=== PATIENT | female | born 1950 | race Caucasian/White ===

== ENCOUNTER 2016-09-11 12:45 | Inpatient (IN) | payer MEDICARE ==
[2016-09-11] MEDS ORDERED: NS 0.9% 1000 ML* 1,000 ML IV ONE (13:10)
[2016-09-11] MEDS ORDERED: Piperac/Tazob 3.375 gm in NS* 3.375 GM/100 ML BAG IVPB ONE ×2 (13:11→14:00)
[2016-09-11 13:25] LABS: Hematocrit 27 % (35-47); Hemoglobin 8.9 g/dl (12.0-16.0); Mean Corpuscular HGB Conc 33 g/dl (31-36); Mean Corpuscular Hemoglobin 31 pg (27-31); Mean Corpuscular Volume 94 fL (80-97); Mean Platelet Volume 9 um3 (7.4-10.4); Red Blood Count 2.91 10^6/ul (4.0-5.4); Red Cell Distribution Width 19 % (10.5-15); White Blood Count 23.3 10^3/ul (3.5-10.8)
[2016-09-11 13:26] LABS: Add Diff/Slide Review? Slide Review Added; Comments Flag Yes
[2016-09-11 13:39] LABS: Albumin 2.5 g/dL (3.2-5.2); BUN/Creatinine Ratio 11.1 (8-20); Calcium 8.4 mg/dL (8.6-10.3); EGFR African American 80.8 (>60); EGFR Non-African American 62.8 (>60); Globulin 3.8 g/dL (2-4); Potassium 2.9 mmol/L (3.5-5.0); Total Bilirubin 0.7 mg/dL (0.2-1.0); Total Protein 6.3 g/dL (6.4-8.9)
--- NOTE | 2016-09-11 13:39 | RAD ---
INDICATION: Shortness of breath. COMPARISON: Comparison is made with a prior chest x-ray study from June 17, 2015. TECHNIQUE: A portable view of the chest was obtained. FINDINGS: There is a multilead transvenous pacemaker present. The heart appears mildly enlarged and increased in size from the prior study. There are bibasilar infiltrates left greater than right which are new. There is suggestion of a trace right pleural effusion. The left lung base is partially obscured due to the infiltrate and overlying pacemaker. IMPRESSION: 1. MILD CARDIOMEGALY. 2. BIBASILAR INFILTRATES.
[2016-09-11 13:40] LABS: Troponin I 0.03 ng/mL (<0.04)
[2016-09-11] MEDS ORDERED: Iohexol 350* (CONTRAST) 500 ML MDV IV ONE (13:46)
[2016-09-11] MEDS ORDERED: metroNIDAZOLE TAB* 250 MG PO ONE (13:49)
[2016-09-11] MEDS ORDERED: Potassium Chlor TAB* 20 MEQ TAB.ER PO ONE (14:03)
[2016-09-11] MEDS ORDERED: metroNIDAZOLE TAB* 250 MG ONE (14:19)
[2016-09-11] MEDS ORDERED: Potassium Chloride LIQUID* 20 MEQ PACKET ONE (14:19)
--- NOTE | 2016-09-11 14:20 | RAD ---
HISTORY: Unsteadiness COMPARISONS: May 27, 2015 TECHNIQUE: Multiple contiguous axial CT scans were obtained of the head without intravenous contrast. FINDINGS: HEMORRHAGE/INFARCT: There is no hemorrhage or acute infarct. MASSES/SHIFT: There is no mass or shift. EXTRA-AXIAL SPACES: There are no extra-axial fluid collections. SULCI AND VENTRICLES: The sulci and ventricles are normal in size and position for the patient's stated age. CEREBRUM: There are no focal parenchymal abnormalities. BRAINSTEM: There are no focal parenchymal abnormalities. CEREBELLUM: There are no focal parenchymal abnormalities. VESSELS: The vessels are grossly normal. PARANASAL SINUSES: The paranasal sinuses are clear. ORBITS: The orbits are unremarkable. BONES AND SOFT TISSUE: No bone or soft tissue abnormalities are noted. OTHER: None IMPRESSION: NO ACUTE INTRACRANIAL PATHOLOGY.
[2016-09-11] MEDS ORDERED: Potassium Chloride LIQUID* 20 MEQ PACKET PO ONE (14:22)
--- NOTE | 2016-09-11 14:42 | RAD ---
Indication: Shortness of breath, evaluate for pulmonary embolism. Contrast: Administered 58.0 ml of OMNIPAQUE 350 mg/ml CTA of the chest was performed after IV contrast administration. Coronal and sagittal reconstructed images were obtained. Comparison is made with previous exam dated September 06, 2016. The pulmonary arterial tree is well opacified. There are no filling defects present to suggest pulmonary embolus. Aorta demonstrates no evidence of aortic dissection. The pulmonary arterial tree is well opacified. No definite filling defect is present to suggest pulmonary emboli although there is encasement of multiple pulmonary arteries in the left lower lobe from from airspace disease. Extent of this is unchanged from prior exam. Left infrahilar mass with air bronchograms noted in the left lower lobe. Additional consolidation is noted in the right lower lobe which appears to be similar to that on previous exam. There is increasing airspace disease in the left upper lobe consistent with worsening pneumonia. The heart demonstrates no pericardial effusion. Patient has had colonic pull-through with resection of the esophagus. The colon is within the anterior mediastinum. Low density lesion is noted in the left lobe of liver. This is unchanged from September 06, 2016. IMPRESSION: No definite evidence of pulmonary embolus. Consolidative changes are noted in the left lower lobe and right lower lobe. Although this may represent pneumonia underlying neoplastic process is excluded. Increasing airspace disease is noted in the left upper lobe consistent with worsening pneumonia. Patient has had colonic pull-through with the colon in the anterior mediastinum.
[2016-09-11] MEDS: oxyCODONE TAB* 5 MG TAB PO PRN ×3 (16:35→23:29)
[2016-09-11] MEDS: Enoxaparin(*) 40 MG/0.4 ML SYR SUBCUT SCH (17:43)
[2016-09-11] MEDS: Piperac/Tazob 3.375 gm in NS* 3.375 GM/100 ML BAG IVPB SCH (18:25)
[2016-09-11 19:20] LABS: BUN/Creatinine Ratio 12.7 (8-20); Calcium 7.6 mg/dL (8.6-10.3); EGFR African American 93.9 (>60)
[2016-09-11] MEDS: Carvedilol TAB* 3.125 MG PO SCH (20:21)
[2016-09-11] MEDS: KCL 20 MEQ/100 ML IVPREMIX* 20 MEQ/100 ML BAG IV SCH ×2 (20:27→22:35)
[2016-09-11] MEDS: OLANzapine TAB* 5 MG PO SCH (20:27)
[2016-09-11] MEDS ORDERED: Gabapentin CAP(*) 300 MG PO SCH (21:00)
[2016-09-11] MEDS: Acetaminophen TAB* 325 MG PO SCH (21:10)
--- NOTE | 2016-09-11 21:33 | HP ---
ADMISSION HISTORY AND PHYSICAL: DATE OF ADMISSION: 09/11/16 REASON FOR ADMISSION: Persistent pneumonia and electrolyte abnormalities.. HISTORY OF PRESENT ILLNESS: The patient is a 66-year-old white female with a history of lung CA, esophageal CA, and cardiomyopathy, who is s/p esophagogastrectomy with colonic interposition, lung resectional surgery, and cardiac pacemaker placement. She was recently diagnosed with a community- acquired pneumonia (by her primary care physician, Dr. Tran Jc) and was placed on levofloxacin and metronidazole. She developed dizziness this AM (not orthostatic) and came to the ED, where she was given IV hydration, with resolution of the dizziness. CT scan of the chest in the ED revealed an area of opacification at the left lung base consistent with a pneumonia and/or volume loss (which is largely unchanged from a CT scan 5 days ago). White blood count was 23,000, although the patient was afebrile. Additional abnormalities in the ED included a serum potassium of 2.9 and a serum albumin of 2.5. Serum lactate was 1.5. The patient denies recent cough, sputum production, or chest pain, but does claim shortness of breath on climbing 1 flight of stairs. OUTPATIENT MEDICATIONS: 1. Levofloxacin (500 mg p.o. daily). 2. Metronidazole (500 mg p.o. t.i.d.). 3. Oxycodone (30 mg p.o. q.3 hours p.r.n. pain). 4. Gabapentin (300 mg p.o. t.i.d.). 5. Carvedilol (3.125 mg p.o. b.i.d.). 6. Lamotrigine (200 mg p.o. q.a.m.). 7. Olanzapine (5 mg p.o. daily). ALLERGIES: The patient has several apparent drug allergies includin. FENTANYL (causes hallucination). 2. POLYMYXIN B (swollen red eyes). 3. BACITRACIN (unknown reaction). 4. CEPHALEXIN (unknown reaction). 5. NEOMYCIN (unknown reaction). 6. ASPARTAME (headaches). REVIEW OF SYSTEMS: Noncontributory. PHYSICAL EXAMINATION GENERAL: The patient was sitting up in bed and appeared comfortable. VITAL SIGNS: Temperature 96.8 (temporal), blood pressure 112/70, heart rate 96 and regular, respirations 30, O2 sat 96% on nasal O2. HEENT: Oropharynx clear. No facial asymmetry. NECK: No masses or jugular venous distention. THORAX: Diminished breath sounds at the left base. Occasional coarse rhonchus. CARDIAC: No murmurs, rubs, or gallops. ABDOMEN: Not distended. Bowel sounds hypoactive. EXTREMITIES: Warm. No cyanosis or edema. ADMISSION LABORATORY DATA: Significant for a sodium of 129, potassium 2.9, albumin 2.5, and white count of 23.3. Chest x-ray showed an opacification at the left base. EKG showed a ventricular-paced rhythm. OVERALL IMPRESSION: Elevated white count is concerning and suggests a possibility that pneumonia is only partially treated and CT scan of the chest suggests continued consolidation at the left base. Dizziness on the morning of admission could have been dehydration (because it resolved after IV fluids), and it is possible that hypokalemia contributed to the symptomatology. MANAGEMENT PLAN: Will admit the patient and broaden antibiotic coverage, and will replace potassium and check for magnesium depletion as well. Case discussed with Dr. Jc by phone, and she agrees to management plan. CRITICAL CARE TIME: 60 minutes. [id number]/CPS #: [id number] ALECIA
[2016-09-12] MEDS: Piperac/Tazob 3.375 gm in NS* 3.375 GM/100 ML BAG IVPB SCH ×3 (02:32→17:10)
[2016-09-12] MEDS: oxyCODONE TAB* 5 MG TAB PO PRN ×7 (02:32→23:41)
[2016-09-12] MEDS: Acetaminophen TAB* 325 MG PO SCH ×3 (05:40→21:46)
[2016-09-12] MEDS: Gabapentin CAP(*) 300 MG PO SCH ×3 (06:23→21:46)
[2016-09-12 06:49] LABS: Hematocrit 22 % (35-47); Hemoglobin 7.2 g/dl (12.0-16.0); Mean Corpuscular HGB Conc 33 g/dl (31-36); Mean Corpuscular Hemoglobin 31 pg (27-31); Mean Corpuscular Volume 94 fL (80-97); Mean Platelet Volume 9 um3 (7.4-10.4); Red Blood Count 2.32 10^6/ul (4.0-5.4); Red Cell Distribution Width 19 % (10.5-15); White Blood Count 10.5 10^3/ul (3.5-10.8)
[2016-09-12 06:57] LABS: Urine Bacteria 1+ (Absent); Urine Bilirubin Negative (Negative); Urine Glucose Negative (Negative); Urine Nitrite Negative (Negative)
[2016-09-12 07:04] LABS: Albumin 2.1 g/dL (3.2-5.2); BUN/Creatinine Ratio 12.2 (8-20); Calcium 7.9 mg/dL (8.6-10.3); Magnesium 1.2 mg/dL (1.9-2.7); Potassium 3.6 mmol/L (3.5-5.0); Total Bilirubin 0.4 mg/dL (0.2-1.0); Total Protein 5.1 g/dL (6.4-8.9)
[2016-09-12] MEDS: lamoTRIgine TAB(*) 100 MG PO SCH (09:00)
[2016-09-12] MEDS ORDERED: Magnesium Sulfate 4 GM IV IVPB ONE (09:00)
[2016-09-12] MEDS: Carvedilol TAB* 3.125 MG PO SCH ×2 (09:51→20:36)
[2016-09-12 10:00] LABS: Phosphorus 2.7 mg/dL (2.5-5.0)
[2016-09-12] MEDS: metroNIDAZOLE TAB* 250 MG PO SCH ×3 (10:39→20:37)
[2016-09-12] MEDS: Nystatin SUSPENSION* 100000 UNITS/ML 5 ML UDC SWISH SWAL SCH ×4 (10:39→20:40)
[2016-09-12] MEDS: Enoxaparin(*) 40 MG/0.4 ML SYR SUBCUT SCH (17:01)
[2016-09-12] MEDS: OLANzapine TAB* 5 MG PO SCH (20:38)
[2016-09-13] MEDS: Piperac/Tazob 3.375 gm in NS* 3.375 GM/100 ML BAG IVPB SCH ×3 (01:38→18:43)
[2016-09-13] MEDS: oxyCODONE TAB* 5 MG TAB PO PRN ×2 (04:26→12:41)
[2016-09-13] MEDS: Acetaminophen TAB* 325 MG PO SCH ×3 (05:44→21:55)
[2016-09-13] MEDS: Gabapentin CAP(*) 300 MG PO SCH ×3 (05:45→21:55)
[2016-09-13 07:34] LABS: Hematocrit 28 % (35-47); Hemoglobin 9.1 g/dl (12.0-16.0); Mean Corpuscular HGB Conc 33 g/dl (31-36); Mean Corpuscular Hemoglobin 30 pg (27-31); Mean Corpuscular Volume 90 fL (80-97); Mean Platelet Volume 9 um3 (7.4-10.4); Red Blood Count 3.06 10^6/ul (4.0-5.4); Red Cell Distribution Width 19 % (10.5-15)
[2016-09-13 07:43] LABS: Albumin 2.2 g/dL (3.2-5.2); BUN/Creatinine Ratio 8.5 (8-20); C Reactive Protein 122.58 mg/L (< 5.00); Calcium 8.1 mg/dL (8.6-10.3); EGFR African American 106.3 (>60); EGFR Non-African American 82.6 (>60); Globulin 3.2 g/dL (2-4); Magnesium 1.5 mg/dL (1.9-2.7); Phosphorus 2.3 mg/dL (2.5-5.0); Potassium 3.3 mmol/L (3.5-5.0); Total Bilirubin 0.5 mg/dL (0.2-1.0); Total Protein 5.4 g/dL (6.4-8.9)
[2016-09-13] MEDS: Nystatin SUSPENSION* 100000 UNITS/ML 5 ML UDC SWISH SWAL SCH ×4 (10:28→21:56)
[2016-09-13] MEDS: metroNIDAZOLE TAB* 250 MG PO SCH ×3 (10:28→20:27)
[2016-09-13] MEDS: Carvedilol TAB* 3.125 MG PO SCH ×2 (10:28→20:28)
[2016-09-13] MEDS: lamoTRIgine TAB(*) 100 MG PO SCH (10:28)
[2016-09-13] MEDS ORDERED: Magnesium Sulfate 4 GM IV IVPB ONE (12:00)
[2016-09-13] MEDS: KCL 20 MEQ/100 ML IVPREMIX* 20 MEQ/100 ML BAG IV SCH ×3 (13:28→20:23)
[2016-09-13] MEDS: Enoxaparin(*) 40 MG/0.4 ML SYR SUBCUT SCH (16:34)
[2016-09-13] MEDS: oxyCODONE TAB* 5 MG TAB PO SCH ×3 (16:35→22:09)
[2016-09-13] MEDS: OLANzapine TAB* 5 MG PO SCH (20:38)
[2016-09-14] MEDS: oxyCODONE TAB* 5 MG TAB PO SCH ×8 (02:13→21:14)
[2016-09-14] MEDS: Piperac/Tazob 3.375 gm in NS* 3.375 GM/100 ML BAG IVPB SCH ×3 (02:16→17:34)
[2016-09-14 05:51] LABS: Hematocrit 27 % (35-47); Hemoglobin 8.9 g/dl (12.0-16.0); Mean Corpuscular HGB Conc 33 g/dl (31-36); Mean Corpuscular Hemoglobin 30 pg (27-31); Mean Corpuscular Volume 91 fL (80-97); Mean Platelet Volume 9 um3 (7.4-10.4); Red Blood Count 3.01 10^6/ul (4.0-5.4); Red Cell Distribution Width 19 % (10.5-15); White Blood Count 16.2 10^3/ul (3.5-10.8)
[2016-09-14 06:03] LABS: Albumin 2.1 g/dL (3.2-5.2); BUN/Creatinine Ratio 7.9 (8-20); C Reactive Protein 154.21 mg/L (< 5.00); Calcium 7.9 mg/dL (8.6-10.3); EGFR Non-African American 94.8 (>60); Globulin 3.3 g/dL (2-4); Magnesium 1.8 mg/dL (1.9-2.7); Phosphorus 2.1 mg/dL (2.5-5.0); Potassium 3.9 mmol/L (3.5-5.0); Total Bilirubin 0.6 mg/dL (0.2-1.0); Total Protein 5.4 g/dL (6.4-8.9)
[2016-09-14] MEDS: lamoTRIgine TAB(*) 100 MG PO SCH (08:06)
[2016-09-14] MEDS: Gabapentin CAP(*) 300 MG PO SCH ×3 (08:06→21:13)
[2016-09-14] MEDS: Acetaminophen TAB* 325 MG PO SCH ×3 (08:06→21:12)
[2016-09-14] MEDS: Nystatin SUSPENSION* 100000 UNITS/ML 5 ML UDC SWISH SWAL SCH ×4 (08:07→21:16)
[2016-09-14] MEDS: metroNIDAZOLE TAB* 250 MG PO SCH ×3 (08:07→21:10)
[2016-09-14] MEDS: Carvedilol TAB* 3.125 MG PO SCH ×2 (08:07→21:11)
--- NOTE | 2016-09-14 10:18 | RAD ---
Indication: Pneumonia. 2 views of the chest including dual energy PA views demonstrates pacemaker leads in place. Left upper lobe and right basilar airspace disease is noted consistent with pneumonia. This appears to BE increased when compared to previous exam of September 11, 2016. IMPRESSION: Worsening left upper lobe and right basilar airspace disease consistent with worsening pneumonia.
[2016-09-14] MEDS ORDERED: MAGNESIUM SULFATE IV ONE (11:00)
[2016-09-14] MEDS ORDERED: NS 0.9% 1000 ML* 1,000 ML IV ONE (12:15)
[2016-09-14] MEDS: Potassium & Sodium Phos 250MG* = 1 PACKET PO SCH ×2 (14:52→21:09)
[2016-09-14] MEDS: Enoxaparin(*) 40 MG/0.4 ML SYR SUBCUT SCH (17:35)
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
[2016-09-14] MEDS: OLANzapine TAB* 5 MG PO SCH (21:11)
[2016-09-15] MEDS: oxyCODONE TAB* 5 MG TAB PO SCH ×8 (00:39→21:22)
[2016-09-15] MEDS: Piperac/Tazob 3.375 gm in NS* 3.375 GM/100 ML BAG IVPB SCH ×3 (03:20→17:54)
[2016-09-15 05:39] LABS: Hematocrit 26 % (35-47); Hemoglobin 8.6 g/dl (12.0-16.0); Mean Corpuscular HGB Conc 33 g/dl (31-36); Mean Corpuscular Hemoglobin 30 pg (27-31); Mean Corpuscular Volume 92 fL (80-97); Mean Platelet Volume 9 um3 (7.4-10.4); Red Blood Count 2.88 10^6/ul (4.0-5.4); Red Cell Distribution Width 19 % (10.5-15); White Blood Count 17.9 10^3/ul (3.5-10.8)
[2016-09-15 05:51] LABS: BUN/Creatinine Ratio 11.3 (8-20); C Reactive Protein 164.25 mg/L (< 5.00); Calcium 7.8 mg/dL (8.6-10.3); EGFR African American 124.2 (>60); EGFR Non-African American 96.6 (>60); Magnesium 1.6 mg/dL (1.9-2.7); Potassium 3.6 mmol/L (3.5-5.0)
[2016-09-15] MEDS: Gabapentin CAP(*) 300 MG PO SCH ×3 (07:26→21:22)
[2016-09-15] MEDS: Acetaminophen TAB* 325 MG PO SCH ×3 (07:26→21:22)
[2016-09-15] MEDS: metroNIDAZOLE TAB* 250 MG PO SCH ×3 (08:06→21:21)
[2016-09-15] MEDS: Potassium & Sodium Phos 250MG* = 1 PACKET PO SCH ×3 (08:06→21:22)
[2016-09-15] MEDS: Carvedilol TAB* 3.125 MG PO SCH ×2 (08:06→21:20)
[2016-09-15] MEDS: Nystatin SUSPENSION* 100000 UNITS/ML 5 ML UDC SWISH SWAL SCH ×4 (08:06→21:21)
[2016-09-15] MEDS: lamoTRIgine TAB(*) 100 MG PO SCH (08:06)
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
[2016-09-15] MEDS ORDERED: Vancomycin(*) 1,250 MG in NS 0.9% 250 ML* 250 ML IVPB SCH (11:30)
[2016-09-15] MEDS ORDERED: Magnesium Sulfate 2 GM IV* 2 GM/50 ML BAG IVPB ONE (11:34)
[2016-09-15] MEDS ORDERED: Vancomycin per Pharmacy* NOTE FOLLOW UP PRN (11:44)
--- NOTE | 2016-09-15 12:56 | RAD ---
INDICATION: Pneumonia with worsening symptoms. Cardiac disease. History of breast and lung carcinoma. COMPARISON: September 14, 2016 chest radiograph and September 11, 2016 CT. TECHNIQUE: Multidetector CT images were obtained from the lung apices to the upper abdomen. Evaluation of the viscera is limited without IV contrast. REPORT: Patchy airspace consolidation throughout both lungs with significant worsening compared with the September 11, 2016 exam. Confluent consolidation at the LEFT upper lobe at the LEFT lung base with air bronchograms with position of the long reflecting sequela of previous LEFT lower lobe resection. Rounded focus of consolidation at the posterior lateral basal segments of the RIGHT lower lobe is most consistent with rounded atelectasis. LEFT larger than RIGHT small pleural effusions. 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 No thoracic lymphadenopathy visualized with assessment limited without IV contrast. Upper normal heart size with the colonic interposition resulting in posterior displacement on the middle mediastinal contents. RIGHT atrial, RIGHT ventricular, and coronary sinus level pacemaker leads. Negative for pericardial effusion. Unremarkable images through the upper abdomen. Moderate superior endplate anterior column compression fracture of T11 and mild anterior compression fracture of T7 are chronic. No suspicious focal osseous lesions evident. IMPRESSION: Interval worsening of bilateral pulmonary inflammatory infiltrates/bronchopneumonia compared with the recent CT exam of September 11, 2016. No significant change in LEFT larger than RIGHT small associated pleural effusions.
[2016-09-15] MEDS: Enoxaparin(*) 40 MG/0.4 ML SYR SUBCUT SCH (17:54)
[2016-09-15] MEDS: OLANzapine TAB* 5 MG PO SCH (21:21)
[2016-09-15] MEDS: Vancomycin(*) 1,000 MG in NS 0.9% 250 ML* 250 ML IVPB SCH (22:32)
[2016-09-16] MEDS: Piperac/Tazob 3.375 gm in NS* 3.375 GM/100 ML BAG IVPB SCH ×3 (01:00→18:20)
[2016-09-16] MEDS: oxyCODONE TAB* 5 MG TAB PO SCH ×7 (01:02→20:46)
[2016-09-16] MEDS: Acetaminophen TAB* 325 MG PO SCH ×2 (06:18→13:28)
[2016-09-16] MEDS: Gabapentin CAP(*) 300 MG PO SCH ×2 (06:18→13:29)
[2016-09-16] MEDS: Vancomycin(*) 1,000 MG in NS 0.9% 250 ML* 250 ML IVPB SCH ×2 (06:30→15:10)
[2016-09-16 07:38] LABS: BUN/Creatinine Ratio 9.5 (8-20); C Reactive Protein 182.87 mg/L (< 5.00); Calcium 8.4 mg/dL (8.6-10.3); EGFR Non-African American 94.8 (>60); Potassium 3.6 mmol/L (3.5-5.0)
[2016-09-16] MEDS: Potassium & Sodium Phos 250MG* = 1 PACKET PO SCH ×3 (07:48→20:50)
[2016-09-16] MEDS: Carvedilol TAB* 3.125 MG PO SCH ×2 (07:49→20:50)
[2016-09-16] MEDS: metroNIDAZOLE TAB* 250 MG PO SCH ×3 (07:49→20:50)
[2016-09-16] MEDS: lamoTRIgine TAB(*) 100 MG PO SCH (07:49)
[2016-09-16] MEDS: Nystatin SUSPENSION* 100000 UNITS/ML 5 ML UDC SWISH SWAL SCH ×4 (07:49→20:50)
[2016-09-16 08:45] LABS: Hematocrit 29 % (35-47); Hemoglobin 9.1 g/dl (12.0-16.0); Mean Corpuscular HGB Conc 32 g/dl (31-36); Mean Corpuscular Hemoglobin 29 pg (27-31); Mean Corpuscular Volume 92 fL (80-97); Mean Platelet Volume 9 um3 (7.4-10.4); Red Cell Distribution Width 18 % (10.5-15); White Blood Count 17.4 10^3/ul (3.5-10.8)
--- NOTE | 2016-09-16 11:38 | PN ---
Subjective - Subjective Reason for Note: Progress Note History: She has had more dyspnea today, no worsening coughing. She had a fever in the night. She continues to have pain in the region of the sacral decubitus ulcer. She is fully alert and oriented and can give a good account of herself. 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 Current Medications: Current Medications Acetaminophen (Tylenol Tab*) 975 mg PO Q8HR [facility] Last Admin: 09/16/16 06:18 Dose: 975 mg Carvedilol (Coreg Tab*) 3.125 mg PO BID [facility] Last Admin: 09/16/16 07:49 Dose: 3.125 mg Enoxaparin Sodium (Lovenox(*)) 40 mg SUBCUT Q24H [facility] Last Admin: 09/15/16 17:54 Dose: 40 mg Gabapentin (Neurontin Cap(*)) 300 mg PO Q8HR [facility] Last Admin: 09/16/16 06:18 Dose: 300 mg Piperacillin Sod/Tazobactam Sod (Zosyn 3.375 Gm In Ns Premix*) 3.375 gm in 100 mls @ 25 mls/hr IVPB Q8H [facility] Last Admin: 09/16/16 09:42 Dose: 25 mls/hr Vancomycin HCl 1,000 mg/ (Sodium Chloride) 250 mls @ 166.667 mls/hr IVPB Q8H [facility] Last Admin: 09/16/16 06:30 Dose: 166.667 mls/hr Lamotrigine (Lamictal Tab(*)) 200 mg PO QAM [facility] Last Admin: 09/16/16 07:49 Dose: 200 mg Metronidazole (Flagyl Tab*) 500 mg PO TID [facility] Last Admin: 09/16/16 07:49 Dose: 500 mg Nystatin (Nystatin Suspension*) 500,000 units SWISH SWAL QID [facility] Last Admin: 09/16/16 07:49 Dose: 500,000 units Olanzapine (Zyprexa Tab*) 5 mg PO BEDTIME [facility] Last Admin: 09/15/16 21:21 Dose: 5 mg Oxycodone HCl (Roxycodone Tab*) 30 mg PO Q3H [facility] Last Admin: 09/16/16 09:51 Dose: Not Given Pharmacy Consult (Vancomycin Per Pharmacy*) 1 note FOLLOW UP . PRN PRN Reason: PER PROTOCOL Pharmacy Profile Note (Vancomycin Trough Check) 1 note FOLLOW UP ONCE ONE Stop: 09/16/16 14:01 Potassium Phos/Sodium Phos (Neutra Phos 250 Mg Yuniel*) 250 mg PO TID [facility] Last Admin: 09/16/16 07:48 Dose: 250 mg Home Medications: Home Medications Medication Instructions Recorded Confirmed Type OLANzapine TAB* [ZyPREXA TAB*] 5 mg PO DAILY 03/03/14 09/11/16 History lamoTRIgine TAB(*) [Lamictal 200 mg PO QAM 03/03/14 09/11/16 History TAB(*)] oxyCODONE TAB* [Roxycodone TAB*] 30 mg PO Q3H PRN 03/03/14 09/11/16 History Bupropion XL (NF) [Wellbutrin XL 300 mg PO DAILY 09/11/16 09/11/16 History (NF)] Carvedilol TAB* [Coreg TAB*] 3.125 mg PO BID 09/11/16 09/11/16 History Cyanocobalamin INJ * [Vitamin B12 1,000 mcg IM SEE INSTRUCTIONS 09/11/16 History INJ *] Epinephrine [Epipen 2-Yuniel] 0.3 mg IM ONCE PRN 09/11/16 09/11/16 History Folic Acid TAB* [Folvite TAB*] 1 mg PO DAILY 09/11/16 09/11/16 History Gabapentin CAP(*) [Neurontin 300 300 mg PO TID 09/11/16 09/11/16 History CAP(*)] Levofloxacin TAB* [Levaquin TAB*] 500 mg PO DAILY 09/11/16 09/11/16 History Nystatin SUSPENSION* [Nystatin*] 5 ml SWISH SWAL QID 09/11/16 09/11/16 History Ondansetron TAB* [Zofran 4 MG Tab*] 8 mg PO Q8HR PRN 09/11/16 09/11/16 History Prochlorperazine TAB* [Compazine 10 mg PO Q6H PRN 09/11/16 09/11/16 History Tab*] metroNIDAZOLE TAB* [Flagyl 250 mg 500 mg PO TID 09/11/16 09/11/16 History TAB*] Allergies: Allergies Allergy/AdvReac Type Severity Reaction Status Date / Time Fentanyl Allergy Severe Hallucinati Verified 09/11/16 13:35 ons Aspartame Allergy Intermediate Headache Verified 09/11/16 13:35 Polymyxin B [From Neosporin] Allergy Intermediate Eyes Verified 09/11/16 13:35 Itchy/Swollen/Red/Watery Bacitracin [From Neosporin] Allergy Unknown Verified 09/11/16 13:35 Reaction Details Cephalexin [From Keflex] Allergy See Comment Verified 09/11/16 13:35 Neomycin [From Neosporin] Allergy Unknown Verified 09/11/16 13:35 Reaction Details Objective - Vital Signs Vital Signs: Vital Signs 09/15/16 09/15/16 09/15/16 12:52 12:55 14:55 Temperature Pulse Rate Respiratory 18 18 16 Rate Blood Pressure (mmHg) O2 Sat by Pulse Oximetry 09/15/16 09/15/16 09/15/16 15:45 17:54 19:45 Temperature 98.0 F 98.8 F Pulse Rate 84 90 Respiratory 16 18 10 Rate Blood Pressure 94/56 99/55 (mmHg) O2 Sat by Pulse 96 95 Oximetry 09/15/16 09/15/16 09/15/16 19:54 20:00 21:08 Temperature Pulse Rate 80 Respiratory 18 12 10 Rate Blood Pressure 99/51 (mmHg) O2 Sat by Pulse 95 97 Oximetry 09/15/16 09/15/16 09/15/16 21:22 23:06 23:21 Temperature 98.8 F Pulse Rate 59 Respiratory 10 16 12 Rate Blood Pressure 107/60 (mmHg) O2 Sat by Pulse 90 Oximetry 09/16/16 09/16/16 09/16/16 01:02 03:02 03:04 Temperature 99.1 F Pulse Rate 99 Respiratory 16 16 16 Rate Blood Pressure 102/56 (mmHg) O2 Sat by Pulse 96 Oximetry 09/16/16 09/16/16 09/16/16 04:06 06:18 06:20 Temperature Pulse Rate Respiratory 16 18 18 Rate Blood Pressure (mmHg) O2 Sat by Pulse Oximetry 09/16/16 09/16/16 07:25 08:20 Temperature 97.9 F Pulse Rate 110 Respiratory 16 12 Rate Blood Pressure 115/61 (mmHg) O2 Sat by Pulse 94 Oximetry - Intake and Output Intake and Output: Intake & Output 09/13/16 09/14/16 09/15/16 09/16/16 11:59 11:59 11:59 11:59 Intake Total 570 1797 1070 1691 Output Total 300 250 Balance 270 6973 433 6524 Intake: IV Fluids 178 310 ABX - VANCOMYCIN 260 Normal Saline 178 50 IVPB 100 1259 461 ABX - VANCOMYCIN 250 ABX - ZOSYN 100 842 211 K+ 317 Magnesium 100 Oral 587 715 4261 920 Output: Urine 300 250 Other: Estimated Void Small Medium Medium # Bowel Movements 1 0 0 1 Estimated Stool Amount Large Small Large # Voids 3 1 1 1 ADLs: Meal Record Start: 09/11/16 17: 25 Freq: 09,13,18 Status: Complete Created 09/11/16 17:25 System (Rec: 09/11/16 17:25 System ICU-C06) Document 09/11/16 18:50 [id number] (Rec: 09/11/16 18:50 [id number] ICU-C07) ADLs: Meal Record Start: 09/12/16 09: 26 Freq: DAILY@0900,1400,1800 Status: Active Created 09/12/16 09:26 [id number] (Rec: 09/12/16 09:26 [id number] ICU-C20) Document 09/12/16 14:00 [id number] (Rec: 09/12/16 14:35 [id number] MED-C11) Document 09/12/16 18:00 [id number] (Rec: 09/12/16 19:11 [id number] MED-C11) Document 09/13/16 09:00 [id number] (Rec: 09/13/16 13:18 [id number] MED-M12) Document 09/13/16 14:00 [id number] (Rec: 09/13/16 14:23 [id number] MED-C11) Document 09/13/16 18:00 [id number] (Rec: 09/13/16 18:36 [id number] MED-C09) Document 09/14/16 09:00 [id number] (Rec: 09/14/16 10:18 [id number] MED-C11) Document 09/14/16 18:00 [id number] (Rec: 09/14/16 18:31 [id number] MED-C13) Document 09/15/16 09:00 [id number] (Rec: 09/15/16 09:51 [id number] MED-C11) Document 09/15/16 14:00 [id number] (Rec: 09/15/16 14:52 [id number] MED-C11) Document 09/15/16 18:00 [id number] (Rec: 09/15/16 22:34 [id number] MED-C11) Intake and Output Start: 09/11/16 17: 25 Freq: 06,14,22 Status: Complete Created 09/11/16 17:25 System (Rec: 09/11/16 17:25 System ICU-C06) Document 09/11/16 17:27 [id number] (Rec: 09/11/16 17:27 [id number] ICU-C20) Document 09/11/16 22:00 [id number] (Rec: 09/11/16 22:52 [id number] ICU-C07) Document 09/12/16 05:58 [id number] (Rec: 09/12/16 05:59 [id number] ICU-M10) Document 09/12/16 06:12 [id number] (Rec: 09/12/16 06:13 [id number] ICU-C07) Intake and Output Start: 09/12/16 09: 26 Freq: DAILY@0600,1400,2200 Status: Active Created 09/12/16 09:26 [id number] (Rec: 09/12/16 09:26 [id number] ICU-C20) Document 09/12/16 13:45 [id number] (Rec: 09/12/16 13:45 [id number] ICU-C06) Document 09/12/16 14:00 [id number] (Rec: 09/12/16 14:08 [id number] MED-C11) Document 09/12/16 22:00 [id number] (Rec: 09/12/16 22:23 [id number] MED-C11) Document 09/13/16 05:36 [id number] (Rec: 09/13/16 05:38 VTW3119 MEDL-C01) Document 09/13/16 14:00 [id number] (Rec: 09/13/16 14:23 [id number] MED-C11) Document 09/14/16 05:26 [id number] (Rec: 09/14/16 05:26 [id number] MED-C42) Document 09/14/16 13:50 [id number] (Rec: 09/14/16 13:51 [id number] MED-C11) Document 09/14/16 20:43 [id number] (Rec: 09/14/16 20:43 [id number] MED-C13) Document 09/15/16 06:00 [id number] (Rec: 09/15/16 06:15 [id number] MED-C13) Document 09/15/16 14:00 [id number] (Rec: 09/15/16 14:52 [id number] MED-C11) Document 09/15/16 22:00 [id number] (Rec: 09/15/16 22:35 [id number] MED-C11) Document 09/16/16 06:00 [id number] (Rec: 09/16/16 06:15 [id number] MED-C26) - Physical Exam General Physical Exam Comment: Sacral decubitus ulcer 8 cm stage 2. Base is erythematous. General: No Cyanosis, Yes Anemia, No Jaundice, No Clubbing Lungs and Chest: Yes: Chest Expansion Full. No: Chest Expansion Symetrica, Percussion Note Resonant - dull bases, Vessicular Breath Sounds - left base decreased air entry. , Crackles, Wheezes, Respiratory Distress, Use of Accessory Muscles Heart Rate and Rhythm: Regular Tyler Beat: Non Displaced Additional Cardiovascular: Yes: Normal Heart Sounds. No: Heart Murmur, Pedal Edema Abdominal Exam: Yes: Soft, Bowel Sounds Present. No: Distention, Abdominal Mass , Abdominal Tenderness Results - Results Lab Results: Laboratory Results - last 24 hr 09/16/16 09/16/16 06:58 08:15 WBC 17.4 H RBC 3.10 L Hgb 9.1 L Hct 29 L MCV 92 MCH 29 MCHC 32 RDW 18 H Plt Count 175 MPV 9 Neut % (Auto) 86.9 H Lymph % (Auto) 4.4 L Pratt % (Auto) 7.1 Eos % (Auto) 1.3 Baso % (Auto) 0.3 Absolute Neuts (auto) 15.1 H Absolute Lymphs (auto) 0.8 L Absolute Monos (auto) 1.2 H Absolute Eos (auto) 0.2 Absolute Basos (auto) 0.1 Absolute Nucleated RBC 0 Nucleated RBC % 0 Sodium 131 L Potassium 3.6 Chloride 98 L Carbon Dioxide 24 Anion Gap 9 BUN 6 Creatinine 0.63 Est GFR ( Amer) 122.0 Est GFR (Non-Af Amer) 94.8 BUN/Creatinine Ratio 9.5 Glucose 83 Calcium 8.4 L C-Reactive Protein 182.87 H Radiology Results: Patient Name: MI SALGADO Medical Record#: [id number] Ordering Physician: Wojciech Dhaliwal MD Acct.#: [id number] : 1950 Age: 66 Sex: F Location: [address] [place] [address] MEDICAL Exam Date: 09/15/161120 ADM Status: ADM IN Order Information: CT CHEST W/O Accession Number: [id number] CPT: 64637 INDICATION: Pneumonia with worsening symptoms. Cardiac disease. History of breast and lung carcinoma. COMPARISON: September 14, 2016 chest radiograph and September 11, 2016 CT. TECHNIQUE: Multidetector CT images were obtained from the lung apices to the upper abdomen. Evaluation of the viscera is limited without IV contrast. REPORT: Patchy airspace consolidation throughout both lungs with significant worsening compared with the September 11, 2016 exam. Confluent consolidation at the LEFT upper lobe at the LEFT lung base with air bronchograms with position of the long reflecting sequela of previous LEFT lower lobe resection. Rounded focus of consolidation at the posterior lateral basal segments of the RIGHT lower lobe is most consistent with rounded atelectasis. LEFT larger than RIGHT small pleural effusions. 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 No thoracic lymphadenopathy visualized with assessment limited without IV contrast. Upper normal heart size with the colonic interposition resulting in posterior displacement on the middle mediastinal contents. RIGHT atrial, RIGHT ventricular, and coronary sinus level pacemaker leads. Negative for pericardial effusion. Unremarkable images through the upper abdomen. Moderate superior endplate anterior column compression fracture of T11 and mild anterior compression fracture of T7 are chronic. No suspicious focal osseous lesions evident. IMPRESSION: Interval worsening of bilateral pulmonary inflammatory infiltrates/bronchopneumonia compared with the recent CT exam of September 11, 2016. No significant change in LEFT larger than RIGHT small associated pleural effusions. <Electronically signed by Ede Martell MD in [place]> 09/15/16 1253 Dictated By: Ede Martell MD Dictated Date/Time: 09/15/16 1253 Transcribed Date/Time: 09/15/16 1245 Copy to: CC:Wojciech Dhaliwal MD; Tran Jc MD; Kale Youssef MD; Hardeep Kwong MD Imaging - [facility] Imaging - [facility] [address] [place] [address] ph [phone]) ph ([phone]) ph ([phone]) 1 of 1 Assessment - Problem List Assessment: Patient Problems Anemia (Acute) Dehydration (Acute) Electrolyte abnormality (Acute) Lobar pneumonia (Acute) Sacral decubitus ulcer, stage II (Acute) Cardiac pacemaker (Chronic) Cerebral AVM (Chronic) Depression (Chronic) Esophageal abnormality (Chronic) Esophageal carcinoma (Chronic) History of breast cancer (Chronic) History of candidiasis of mouth (Chronic) History of lung cancer (Chronic) 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 Her O2 saturations are not as good and she is feeling a little weaker today. I reviewed her CT scan images from 09/11/2016 and 09/15/2016 - there is marked progression of her airspace disease in both lungs. Her CRP continues to climb, but her WBC is about the same as yesterday. I suspect that she is beginning to respond to the vancomycin, but she is developing considerable inflammation in her lungs. I will add methylprednisone 20 mg twice daily IV. Anemia (Acute) stable Dehydration (Acute) No signs Electrolyte abnormality (Acute) no signs on he labs Sacral decubitus ulcer, stage II (Acute) She is lying on her back most of the time - I am ordering an air mattress and off-loading as much as possible Cardiac pacemaker (Chronic) secondary diagnosis Cerebral AVM (Chronic) secondary diagnosis Depression (Chronic) secondary diagnosis Esophageal abnormality (Chronic) secondary diagnosis Esophageal carcinoma (Chronic) secondary diagnosis History of breast cancer (Chronic) secondary diagnosis History of candidiasis of mouth (Chronic) not active History of lung cancer (Chronic) comorbidity Late effect of pelvic fracture (Chronic) this relates to her sacral decubitus Status post lobectomy of lung (Chronic) comorbidity I spoke to the patient and her with the hospital turn down attendant present. I explained the following: * Pneumonia is worse on CT scan/more extensive * Lab work shows that either her infection is about the same as yesterday (WBC) or worsening (CRP). This infection probably will respond to current antibacterials * She may have developed a considerable inflammatory response to the infection * She may develop worsening air space disease from the inflammation despite an improvement in her infection * There is a possibility that if this worsens more that she would need a mechanical ventilator in the ICU. At present this is not necessary, but I wanted her to be aware of this possibility I answered her questions about the management of respiratory failure/infection. She would accept mechanical ventilation if this is necessary. I showed the CT scan images to her and also all the blood work on the computer.
[2016-09-16] MEDS ORDERED: Vancomycin Trough Check NOTE FOLLOW UP ONE (14:00)
[2016-09-16] MEDS: Enoxaparin(*) 40 MG/0.4 ML SYR SUBCUT SCH (16:41)
[2016-09-16] MEDS: OLANzapine TAB* 5 MG PO SCH (20:48)
[2016-09-16] MEDS ORDERED: methylPREDNISolone SOD 40 MG* 1 ML VIAL IV SCH (21:00)
[2016-09-17] MEDS: oxyCODONE TAB* 5 MG TAB PO SCH ×9 (00:39→23:26)
[2016-09-17] MEDS ORDERED: Ondansetron INJ* 2 MG/ML VIAL IV PRN (01:49)
[2016-09-17] MEDS: Piperac/Tazob 3.375 gm in NS* 3.375 GM/100 ML BAG IVPB SCH ×3 (02:35→17:45)
[2016-09-17] MEDS: Acetaminophen TAB* 325 MG PO SCH ×4 (02:35→23:28)
[2016-09-17] MEDS: Gabapentin CAP(*) 300 MG PO SCH ×4 (02:36→23:27)
[2016-09-17 06:20] LABS: Hematocrit 31 % (35-47); Mean Corpuscular HGB Conc 32 g/dl (31-36); Mean Corpuscular Hemoglobin 30 pg (27-31); Mean Corpuscular Volume 92 fL (80-97); Mean Platelet Volume 9 um3 (7.4-10.4); Red Blood Count 3.39 10^6/ul (4.0-5.4); Red Cell Distribution Width 19 % (10.5-15); White Blood Count 22.6 10^3/ul (3.5-10.8)
[2016-09-17 06:25] LABS: Add Diff/Slide Review? Slide Review Added; Comments Flag Yes
[2016-09-17 06:51] LABS: Hypochromasia 1+; Stomatocytes 3+; Target Cells 1+
[2016-09-17 07:17] LABS: BUN/Creatinine Ratio 9.7 (8-20); C Reactive Protein 161.36 mg/L (< 5.00); Calcium 8.5 mg/dL (8.6-10.3); EGFR African American 124.2 (>60); EGFR Non-African American 96.6 (>60); Potassium 4.1 mmol/L (3.5-5.0)
--- NOTE | 2016-09-17 07:59 | PN ---
Subjective - Subjective Reason for Note: Progress Note History: She states she has had some sweats overnight. She has an occasional cough only , without bringing up any sputum. She denies dyspnea, chest pain. She has a poor appetite. She is not aware of aspiration, however she is aware of gastro- esophageal reflux. Active Problems: Active Problems Sacral decubitus ulcer, stage II (Acute) L89.152 Anemia (Acute) D64.9 Electrolyte abnormality (Acute) E87.8 History of candidiasis of mouth (Chronic) Z86.19 Late effect of pelvic fracture (Chronic) S32.9XXS History of breast cancer (Chronic) Z85.3 Cerebral AVM (Chronic) Q28.2 Depression (Chronic) F32.9 Esophageal abnormality (Chronic) K22.9 Esophageal carcinoma (Chronic) C15.9 Status post lobectomy of lung (Chronic) Z90.2 History of lung cancer (Chronic) Z85.118 Dehydration (Acute) E86.0 Cardiac pacemaker (Chronic) Z95.0 Lobar pneumonia (Acute) J18.1 Current Medications: Current Medications Acetaminophen (Tylenol Tab*) 975 mg PO Q8HR [facility] Last Admin: 09/17/16 05:45 Dose: Not Given Carvedilol (Coreg Tab*) 3.125 mg PO BID [facility] Last Admin: 09/16/16 20:50 Dose: 3.125 mg Enoxaparin Sodium (Lovenox(*)) 40 mg SUBCUT Q24H [facility] Last Admin: 09/16/16 16:41 Dose: 40 mg Gabapentin (Neurontin Cap(*)) 300 mg PO Q8HR [facility] Last Admin: 09/17/16 05:45 Dose: Not Given Piperacillin Sod/Tazobactam Sod (Zosyn 3.375 Gm In Ns Premix*) 3.375 gm in 100 mls @ 25 mls/hr IVPB Q8H [facility] Last Admin: 09/17/16 02:35 Dose: 25 mls/hr Vancomycin HCl 1,000 mg/ (Sodium Chloride) 250 mls @ 166.667 mls/hr IVPB Q12H [facility] Lamotrigine (Lamictal Tab(*)) 200 mg PO QAM [facility] Last Admin: 09/16/16 07:49 Dose: 200 mg Methylprednisolone Sodium Succinate (Solu-Medrol*) 20 mg IV BID [facility] Last Admin: 09/16/16 20:50 Dose: 20 mg Metronidazole (Flagyl Tab*) 500 mg PO TID [facility] Last Admin: 09/16/16 20:50 Dose: 500 mg Nystatin (Nystatin Suspension*) 500,000 units SWISH SWAL QID [facility] Last Admin: 09/16/16 20:50 Dose: 500,000 units Olanzapine (Zyprexa Tab*) 5 mg PO BEDTIME [facility] Last Admin: 09/16/16 20:48 Dose: 5 mg Ondansetron HCl (Zofran Inj*) 4 mg IV Q6H PRN PRN Reason: NAUSEA/VOMITING Oxycodone HCl (Roxycodone Tab*) 30 mg PO Q3H [facility] Last Admin: 09/17/16 04:19 Dose: Not Given Pharmacy Consult (Vancomycin Per Pharmacy*) 1 note FOLLOW UP . PRN PRN Reason: PER PROTOCOL Pharmacy Profile Note (Vancomycin Trough Check) 1 note FOLLOW UP 729 ONE Stop: 09/18/16 07:31 Potassium Phos/Sodium Phos (Neutra Phos 250 Mg Yuniel*) 250 mg PO TID [facility] Last Admin: 09/16/16 20:50 Dose: 250 mg Home Medications: Home Medications Medication Instructions Recorded Confirmed Type OLANzapine TAB* [ZyPREXA TAB*] 5 mg PO DAILY 03/03/14 09/11/16 History lamoTRIgine TAB(*) [Lamictal 200 mg PO QAM 03/03/14 09/11/16 History TAB(*)] oxyCODONE TAB* [Roxycodone TAB*] 30 mg PO Q3H PRN 03/03/14 09/11/16 History Bupropion XL (NF) [Wellbutrin XL 300 mg PO DAILY 09/11/16 09/11/16 History (NF)] Carvedilol TAB* [Coreg TAB*] 3.125 mg PO BID 09/11/16 09/11/16 History Cyanocobalamin INJ * [Vitamin B12 1,000 mcg IM SEE INSTRUCTIONS 09/11/16 History INJ *] Epinephrine [Epipen 2-Yuniel] 0.3 mg IM ONCE PRN 09/11/16 09/11/16 History Folic Acid TAB* [Folvite TAB*] 1 mg PO DAILY 09/11/16 09/11/16 History Gabapentin CAP(*) [Neurontin 300 300 mg PO TID 09/11/16 09/11/16 History CAP(*)] Levofloxacin TAB* [Levaquin TAB*] 500 mg PO DAILY 09/11/16 09/11/16 History Nystatin SUSPENSION* [Nystatin*] 5 ml SWISH SWAL QID 09/11/16 09/11/16 History Ondansetron TAB* [Zofran 4 MG Tab*] 8 mg PO Q8HR PRN 09/11/16 09/11/16 History Prochlorperazine TAB* [Compazine 10 mg PO Q6H PRN 09/11/16 09/11/16 History Tab*] metroNIDAZOLE TAB* [Flagyl 250 mg 500 mg PO TID 09/11/16 09/11/16 History TAB*] Allergies: Allergies Allergy/AdvReac Type Severity Reaction Status Date / Time Fentanyl Allergy Severe Hallucinati Verified 09/11/16 13:35 ons Aspartame Allergy Intermediate Headache Verified 09/11/16 13:35 Polymyxin B [From Neosporin] Allergy Intermediate Eyes Verified 09/11/16 13:35 Itchy/Swollen/Red/Watery Bacitracin [From Neosporin] Allergy Unknown Verified 09/11/16 13:35 Reaction Details Cephalexin [From Keflex] Allergy See Comment Verified 09/11/16 13:35 Neomycin [From Neosporin] Allergy Unknown Verified 09/11/16 13:35 Reaction Details Objective - Vital Signs Vital Signs: Vital Signs 09/16/16 09/16/16 09/16/16 08:00 08:20 13:29 Temperature Pulse Rate Respiratory 12 12 16 Rate Blood Pressure (mmHg) O2 Sat by Pulse 94 Oximetry 09/16/16 09/16/16 09/16/16 13:30 15:47 16:39 Temperature 97.6 F Pulse Rate 88 Respiratory 16 16 18 Rate Blood Pressure 109/65 (mmHg) O2 Sat by Pulse 98 Oximetry 09/16/16 09/16/16 09/16/16 18:21 20:46 22:46 Temperature Pulse Rate Respiratory 12 18 20 Rate Blood Pressure (mmHg) O2 Sat by Pulse Oximetry 09/16/16 09/17/16 09/17/16 23:06 00:26 00:30 Temperature 98.0 F Pulse Rate 85 Respiratory 20 20 20 Rate Blood Pressure 113/59 (mmHg) O2 Sat by Pulse 98 98 Oximetry 09/17/16 09/17/16 09/17/16 02:43 05:07 07:41 Temperature 98.6 F Pulse Rate 132 116 120 Respiratory 32 20 Rate Blood Pressure 120/72 98/63 (mmHg) O2 Sat by Pulse 95 97 99 Oximetry - Intake and Output Intake and Output: Intake & Output 09/14/16 09/15/16 09/16/16 09/17/16 11:59 11:59 11:59 11:59 Intake Total 1797 1070 1691 1478 Output Total 250 Balance 3535 591 0647 1478 Intake: IV Fluids 178 310 220 ABX - VANCOMYCIN 260 ABX - ZOSYN 110 Normal Saline 178 50 110 IVPB 1259 461 218 ABX - VANCOMYCIN 250 ABX - ZOSYN 842 211 218 K+ 317 Magnesium 100 Oral 360 3860 453 0478 Output: Urine 250 Other: Estimated Void Small Medium Medium Medium Date of Last Bowel 09/17/16 Movement # Bowel Movements 0 0 1 1 Estimated Stool Amount Small Large Small # Voids 1 1 1 1 ADLs: Meal Record Start: 09/11/16 17: 25 Freq: 09,13,18 Status: Complete Created 09/11/16 17:25 System (Rec: 09/11/16 17:25 System ICU-C06) Document 09/11/16 18:50 [id number] (Rec: 09/11/16 18:50 [id number] ICU-C07) ADLs: Meal Record Start: 09/12/16 09: 26 Freq: DAILY@0900,1400,1800 Status: Active Created 09/12/16 09:26 [id number] (Rec: 09/12/16 09:26 [id number] ICU-C20) Document 09/12/16 14:00 [id number] (Rec: 09/12/16 14:35 [id number] MED-C11) Document 09/12/16 18:00 [id number] (Rec: 09/12/16 19:11 [id number] MED-C11) Document 09/13/16 09:00 [id number] (Rec: 09/13/16 13:18 [id number] MED-M12) Document 09/13/16 14:00 [id number] (Rec: 09/13/16 14:23 [id number] MED-C11) Document 09/13/16 18:00 [id number] (Rec: 09/13/16 18:36 [id number] MED-C09) Document 09/14/16 09:00 [id number] (Rec: 09/14/16 10:18 [id number] MED-C11) Document 09/14/16 18:00 [id number] (Rec: 09/14/16 18:31 [id number] MED-C13) Document 09/15/16 09:00 [id number] (Rec: 09/15/16 09:51 [id number] MED-C11) Document 09/15/16 14:00 [id number] (Rec: 09/15/16 14:52 [id number] MED-C11) Document 09/15/16 18:00 [id number] (Rec: 09/15/16 22:34 [id number] MED-C11) Document 09/16/16 18:00 [id number] (Rec: 09/16/16 20:52 [id number] MED-C09) Intake and Output Start: 09/11/16 17: 25 Freq: 06,14,22 Status: Complete Created 09/11/16 17:25 System (Rec: 09/11/16 17:25 System ICU-C06) Document 09/11/16 17:27 [id number] (Rec: 09/11/16 17:27 [id number] ICU-C20) Document 09/11/16 22:00 [id number] (Rec: 09/11/16 22:52 [id number] ICU-C07) Document 09/12/16 05:58 [id number] (Rec: 09/12/16 05:59 [id number] ICU-M10) Document 09/12/16 06:12 [id number] (Rec: 09/12/16 06:13 [id number] ICU-C07) Intake and Output Start: 09/12/16 09: 26 Freq: DAILY@0600,1400,2200 Status: Active Created 09/12/16 09:26 [id number] (Rec: 09/12/16 09:26 [id number] ICU-C20) Document 09/12/16 13:45 [id number] (Rec: 09/12/16 13:45 [id number] ICU-C06) Document 09/12/16 14:00 [id number] (Rec: 09/12/16 14:08 [id number] MED-C11) Document 09/12/16 22:00 [id number] (Rec: 09/12/16 22:23 [id number] MED-C11) Document 09/13/16 05:36 [id number] (Rec: 09/13/16 05:38 [id number] MEDL-C01) Document 09/13/16 14:00 [id number] (Rec: 09/13/16 14:23 [id number] MED-C11) Document 09/14/16 05:26 [id number] (Rec: 09/14/16 05:26 FMJ1320 MED-C42) Document 09/14/16 13:50 [id number] (Rec: 09/14/16 13:51 [id number] MED-C11) Document 09/14/16 20:43 [id number] (Rec: 09/14/16 20:43 [id number] MED-C13) Document 09/15/16 06:00 RAP1301 (Rec: 09/15/16 06:15 [id number] MED-C13) Document 09/15/16 14:00 [id number] (Rec: 09/15/16 14:52 [id number] MED-C11) Document 09/15/16 22:00 [id number] (Rec: 09/15/16 22:35 [id number] MED-C11) Document 09/16/16 06:00 [id number] (Rec: 09/16/16 06:15 [id number] MED-C26) Document 09/16/16 14:00 [id number] (Rec: 09/16/16 14:20 [id number] MED-C11) Document 09/16/16 22:00 [id number] (Rec: 09/16/16 23:03 [id number] MED-C09) Document 09/17/16 05:51 [id number] (Rec: 09/17/16 05:51 [id number] MED-C26) - Physical Exam General: No Cyanosis, Yes Anemia, No Jaundice, No Clubbing Lungs and Chest: Yes: Chest Expansion Full, Crackles - right base. No: Chest Expansion Symetrica, Percussion Note Resonant - dull left bse, Vessicular Breath Sounds - absent air sounds leftbase, Wheezes, Respiratory Distress Additional Cardiovascular: Yes: Normal Heart Sounds. No: Heart Murmur, Pedal Edema Abdominal Exam: Yes: Soft, Bowel Sounds Present. No: Distention, Abdominal Mass , Abdominal Tenderness Results - Results Lab Results: Laboratory Results - last 24 hr 09/16/16 09/16/16 09/16/16 08:15 11:36 14:16 WBC 17.4 H RBC 3.10 L Hgb 9.1 L Hct 29 L MCV 92 MCH 29 MCHC 32 RDW 18 H Plt Count 175 MPV 9 Neut % (Auto) 86.9 H Lymph % (Auto) 4.4 L [place] % (Auto) 7.1 Eos % (Auto) 1.3 Baso % (Auto) 0.3 Absolute Neuts (auto) 15.1 H Absolute Lymphs (auto) 0.8 L Absolute Monos (auto) 1.2 H Absolute Eos (auto) 0.2 Absolute Basos (auto) 0.1 Absolute Nucleated RBC 0 Nucleated RBC % 0 Normal RBC Morphology Hypochromasia Target Cells Stomatocytes Sodium Potassium Chloride Carbon Dioxide Anion Gap BUN Creatinine Est GFR ( Amer) Est GFR (Non-Af Amer) BUN/Creatinine Ratio Glucose Calcium Magnesium 1.5 L C-Reactive Protein Vancomycin Trough 19.9 09/17/16 09/17/16 06:02 06:02 WBC 22.6 H RBC 3.39 L Hgb 10.0 L Hct 31 L MCV 92 MCH 30 MCHC 32 RDW 19 H Plt Count 208 MPV 9 Neut % (Auto) 93.9 H Lymph % (Auto) 2.6 L [place] % (Auto) 2.5 Eos % (Auto) 0 Baso % (Auto) 1.0 Absolute Neuts (auto) 21.2 H Absolute Lymphs (auto) 0.6 L Absolute Monos (auto) 0.6 Absolute Eos (auto) 0 Absolute Basos (auto) 0.2 Absolute Nucleated RBC 0.01 Nucleated RBC % 0 Normal RBC Morphology Not Reportable Hypochromasia 1+ Target Cells 1+ Stomatocytes 3+ Sodium 134 Potassium 4.1 Chloride 100 L Carbon Dioxide 25 Anion Gap 9 BUN 6 Creatinine 0.62 Est GFR ( Amer) 124.2 Est GFR (Non-Af Amer) 96.6 BUN/Creatinine Ratio 9.7 Glucose 107 H Calcium 8.5 L Magnesium C-Reactive Protein 161.36 H Vancomycin Trough Assessment - Problem List Assessment: Patient Problems Sacral decubitus ulcer, stage II (Acute) Anemia (Acute) Electrolyte abnormality (Acute) History of candidiasis of mouth (Chronic) Late effect of pelvic fracture (Chronic) History of breast cancer (Chronic) Cerebral AVM (Chronic) Depression (Chronic) Esophageal abnormality (Chronic) Esophageal carcinoma (Chronic) Status post lobectomy of lung (Chronic) History of lung cancer (Chronic) Dehydration (Acute) Cardiac pacemaker (Chronic) Lobar pneumonia (Acute) Plan: Lobar pneumonia (Acute)Sacral decubitus ulcer, stage II (Acute) Her CRP is coming down. I started her on IV methylprednisolone yesterday - 20 mg twice daily. She has a neutrophilia and a left shift which I attribute to the steroids. I will reduce the dose to 20 mg daily today. She is not more symptomatic. She has a tachycardia and low BP today. Her BUN and CR do not demonstrate pre-renal azotemia. I will consider some IVF if this continues Anemia (Acute) This is slowly improving Electrolyte abnormality (Acute) none today History of candidiasis of mouth (Chronic) no complaints today Late effect of pelvic fracture (Chronic) she has pain over the area of her decubitus - now has an air bed and frequent repositioning History of breast cancer (Chronic) Secondary diagnosis I explained the above to the patient. She will have a swallowing evaluation. I also spoke with Kale, her
[2016-09-17] MEDS: metroNIDAZOLE TAB* 250 MG PO SCH ×3 (08:24→19:58)
[2016-09-17] MEDS: methylPREDNISolone SOD 40 MG* 1 ML VIAL IV SCH (08:27)
[2016-09-17] MEDS: lamoTRIgine TAB(*) 100 MG PO SCH (08:53)
[2016-09-17] MEDS: Potassium & Sodium Phos 250MG* = 1 PACKET PO SCH ×3 (08:53→19:58)
[2016-09-17] MEDS: Nystatin SUSPENSION* 100000 UNITS/ML 5 ML UDC SWISH SWAL SCH ×4 (08:53→19:58)
[2016-09-17] MEDS: Carvedilol TAB* 3.125 MG PO SCH ×2 (08:53→14:19)
[2016-09-17] MEDS: Vancomycin(*) 1,000 MG in NS 0.9% 250 ML* 250 ML IVPB SCH ×2 (09:54→19:58)
--- NOTE | 2016-09-17 13:31 | CONS ---
CONSULTATION REPORT: DATE OF CONSULTATION: 09/17/16 REQUESTING PHYSICIAN: Dr. Jc. CONSULTING SERVICE: Infectious Disease. REASON FOR CONSULTATION: Pneumonia, hypoxemic respiratory failure. IMPRESSION: 1. Two weeks of progressive dyspnea and progression of bilateral upper lobe diffuse interstitial infiltrates on CT scan and abnormal C-reactive protein. The differential diagnosis includes community-acquired pneumonia including atypical organisms and viral including adenovirus, RSV, human metapneumovirus. There has been a history of aspiration pneumonia, aspiration pneumonitis a consideration. Less likely fungal infection. She does not have a compelling story for impaired cell-mediated immunity in the last few weeks, which makes Pneumocystis unlikely. 2. Lung cancer, left lower lobe, treated with radiation and chemotherapy. 3. Esophageal cancer, status post esophagogastrectomy with colonic interposition. 4. Acute hypoxemic respiratory failure due to #1. RECOMMENDATION: 1. The patient's family is concerned that she has worsened and she has a chest x- ray ordered by Dr. Dhaliwal. Continue vancomycin and Zosyn and add azithromycin 500 mg IV daily to cover the atypicals. We will add nasopharyngeal swabs for RSV and human metapneumovirus and adenovirus. HISTORY OF PRESENT ILLNESS: This is a 66-year-old woman with lung cancer, history of aspiration pneumonia, admitted with dyspnea. It has been going on for about 2 weeks, getting steadily worse. There has been really no cough. She has had some low-grade fevers and some sweats at home. She came to the hospital on the . Her white count was 10,000. She was started on Zosyn and then vancomycin was added over the weekend as well as corticosteroids, when a CT scan was done that showed progression of bilateral upper lobe infiltrates. Initial CT on the showed no pulmonary embolus. The CT did show left greater than right small pleural effusions. She has had no fevers, but continues to have sweats at night. Overnight, she feels like her breathing has gotten worse. She is dyspneic at rest, but better with more oxygen. She has a little bit of mid chest pain with a deep breath. She has had no fevers. She has had no joint pain or stiffness and no rash or diarrhea. PAST MEDICAL HISTORY: 1. Lung cancer treated with radiation and chemotherapy that ended in June. 2. Esophageal cancer, status post esophagogastrectomy and colonic interposition. 3. Cardiomyopathy, status post pacemaker and defibrillator. MEDICATIONS: 1. Tylenol. 2. Coreg. 3. Enoxaparin. 4. Gabapentin. 5. Nystatin swish and swallow. 6. Vancomycin 1 g every 12 hours. 7. Zosyn 3.375 mg every 8 hours by extended infusion. 8. Lamictal. 9. Methylprednisolone 20 mg IV daily. 10. Flagyl 500 mg 3 times a day. 11. Oxycodone every 3 hours. FAMILY HISTORY: No recurrent infection or tuberculosis. SOCIAL HISTORY: She lives in [place] with her and daughter. They have dogs and cats. They traveled to [place] about a month ago. They were around some young children around that time. They are not sure if anyone was ill. No work being done in the house or associated outbuildings. No rodent exposure. REVIEW OF SYSTEMS: A full review of systems was negative except as noted above. PHYSICAL EXAM: Vitals Signs: Temperature 37, heart rate 118, respiratory rate 25, blood pressure 101/77, O2 sat 100% on 5 L. In general, she is awake, not in distress. Neurologic: She is oriented x3. Follows all commands. HEENT: There is no conjunctival hemorrhage. Oropharynx is without lesions. Neck: Neck is supple without nuchal rigidity. Lymph Nodes: There is no cervical, supraclavicular, inguinal, axillary, or epitrochlear lymphadenopathy. Heart is regular and tachycardic without murmurs. Lungs: There are no wheezes, rales, or rhonchi. There are diminished breath sounds in the upper lung blankenship bilaterally. Abdomen: Soft, nontender, and nondistended. Chest: There is a left sternal defect with soft tissue and a healed incision. Skin: There is no rash or splinter hemorrhages. Musculoskeletal: No joint synovitis. LABORATORY DATA: White blood cell count 22, hemoglobin 10, platelets 208. Creatinine is 0.6. CRP 160. Please see impressions and recommendations outlined above. Thanks for asking me to see Ms. Stanton in consultation. [id number]/[facility] #: [id number] MTDD
[2016-09-17] MEDS: Azithromycin IV(*) 500 MG in NS 0.9% 250 ML* 250 ML IVPB SCH (14:19)
[2016-09-17] MEDS: Enoxaparin(*) 40 MG/0.4 ML SYR SUBCUT SCH (17:53)
[2016-09-17] MEDS ORDERED: NS 0.9% 250 ML* 250 ML IV SCH (18:15)
[2016-09-17] MEDS: OLANzapine TAB* 5 MG PO SCH (19:58)
[2016-09-17] MEDS: Levalbuterol 0.63MG/3ML NEB INH SCH ×2 (20:34→20:36)
[2016-09-18] MEDS: Levalbuterol 0.63MG/3ML NEB INH SCH ×7 (00:18→23:27)
[2016-09-18] MEDS: oxyCODONE TAB* 5 MG TAB PO SCH ×8 (01:30→21:18)
[2016-09-18] MEDS: Piperac/Tazob 3.375 gm in NS* 3.375 GM/100 ML BAG IVPB SCH ×4 (03:14→20:06)
[2016-09-18] MEDS ORDERED: Vancomycin Trough Check NOTE FOLLOW UP ONE (07:30)
[2016-09-18] MEDS: methylPREDNISolone SOD 40 MG* 1 ML VIAL IV SCH (07:54)
--- NOTE | 2016-09-18 07:54 | RAD ---
INDICATION: Pneumonia. COMPARISON: Comparison is made with a prior chest x-ray study from September 14, 2016. TECHNIQUE: A portable view of the chest was obtained. FINDINGS: The heart appears mildly enlarged. There is a multilead transvenous pacemaker present. There is a power port central venous catheter present on the right side. The catheter tip projects over the region of the superior vena cava. There are small bilateral pleural effusions and lateral pleural thickening present in the left lung. There is diffuse prominence of the interstitial markings and bilateral alveolar infiltrates which have progressed from the prior study. IMPRESSION: INTERVAL PROGRESSION OF BILATERAL INFILTRATES MOST CONSISTENT WITH PNEUMONIA AND/OR CONGESTIVE HEART FAILURE.
[2016-09-18] MEDS: Acetaminophen TAB* 325 MG PO SCH ×3 (07:55→21:17)
[2016-09-18] MEDS: Nystatin SUSPENSION* 100000 UNITS/ML 5 ML UDC SWISH SWAL SCH ×4 (07:55→21:18)
[2016-09-18] MEDS: Potassium & Sodium Phos 250MG* = 1 PACKET PO SCH ×3 (07:55→21:19)
[2016-09-18] MEDS: Gabapentin CAP(*) 300 MG PO SCH ×3 (07:56→21:14)
[2016-09-18] MEDS: lamoTRIgine TAB(*) 100 MG PO SCH (07:57)
[2016-09-18] MEDS: metroNIDAZOLE TAB* 250 MG PO SCH ×3 (07:57→21:18)
[2016-09-18 09:38] LABS: Hematocrit 29 % (35-47); Hemoglobin 9.5 g/dl (12.0-16.0); Mean Corpuscular HGB Conc 33 g/dl (31-36); Mean Corpuscular Hemoglobin 30 pg (27-31); Mean Corpuscular Volume 93 fL (80-97); Mean Platelet Volume 9 um3 (7.4-10.4); Red Blood Count 3.17 10^6/ul (4.0-5.4); Red Cell Distribution Width 19 % (10.5-15); White Blood Count 15.4 10^3/ul (3.5-10.8)
[2016-09-18 09:42] LABS: Add Diff/Slide Review? Slide Review Added; Comments Flag Yes
[2016-09-18 09:56] LABS: BUN/Creatinine Ratio 18.1 (8-20); C Reactive Protein 95.1 mg/L (< 5.00); Calcium 8.4 mg/dL (8.6-10.3); EGFR African American 88.7 (>60); Potassium 4.9 mmol/L (3.5-5.0)
[2016-09-18 10:05] LABS: Magnesium 1.4 mg/dL (1.9-2.7)
[2016-09-18] MEDS: Vancomycin(*) 1,000 MG in NS 0.9% 250 ML* 250 ML IVPB SCH (10:35)
[2016-09-18] MEDS: Carvedilol TAB* 3.125 MG PO SCH ×2 (11:23→21:11)
[2016-09-18] MEDS: Azithromycin IV(*) 500 MG in NS 0.9% 250 ML* 250 ML IVPB SCH (11:25)
[2016-09-18 12:04] LABS: Urine Bilirubin Negative (Negative); Urine Glucose Negative (Negative); Urine Nitrite Negative (Negative)
--- NOTE | 2016-09-18 14:44 | PN ---
Progress Note - Progress Note SOAP: Subjective: DOS: 09/18/16 CC: respiratory failure HPI: 66 yo woman with recent hx lung cancer, XRT, chemotherapy now with pneumonia, she is discouraged by her dyspnea with minimal exertion. Acknowledges improvement in that yesterday she was dyspneic at rest. No chest pain or cough. No fever, rash, or diarrhea. Objective: [] Vital Signs Temp 36.7 C 09/18/16 03:15 Pulse 92 09/18/16 11:20 Resp 16 09/18/16 13:24 BP 102/65 09/18/16 11:20 Pulse Ox 98 09/18/16 12:37 Intake & Output 09/17/16 09/18/16 09/18/16 18:59 06:59 18:59 Intake Total 1024 623 260 Output Total 50 50 Balance 1024 573 210 Intake: IV Fluids 60 250 260 ABX - ZOSYN 250 Normal Saline 60 250 10 IVPB 644 373 ABX - AZITHROMYCIN 260 ABX - VANCOMYCIN 274 263 ABX - ZOSYN 110 110 Oral 320 0 Output: Urine 50 50 Other: Estimated Void Medium # Bowel Movements 1 1 Estimated Stool Amount Small Small Gen:awake, not in distress Neuro:Oriented x3, CN 2-12 intact HEENT:PERRL, MMM Neck:Supple Heart:no murmur, regular Lungs: diminished breath sounds greatest at BL bases Abd:+BS NTND soft Skin: no rash MSK: no joint synovitis Laboratory Results - last 24 hr 09/18/16 09/18/16 09/18/16 09:15 09:30 09:30 WBC 15.4 H RBC 3.17 L Hgb 9.5 L Hct 29 L MCV 93 MCH 30 MCHC 33 RDW 19 H Plt Count 201 MPV 9 Neut % (Auto) 84.7 H Lymph % (Auto) 8.0 L [place] % (Auto) 6.5 Eos % (Auto) 0 Baso % (Auto) 0.8 Absolute Neuts (auto) 13.1 H Absolute Lymphs (auto) 1.2 Absolute Monos (auto) 1.0 H Absolute Eos (auto) 0 Absolute Basos (auto) 0.1 Absolute Nucleated RBC 0 Nucleated RBC % 0 Sodium 131 L Potassium 4.9 Chloride 99 L Carbon Dioxide 25 Anion Gap 7 BUN 15 Creatinine 0.83 Est GFR ( Amer) 88.7 Est GFR (Non-Af Amer) 69.0 BUN/Creatinine Ratio 18.1 Glucose 146 H Calcium 8.4 L Phosphorus 4.0 Magnesium 1.4 L C-Reactive Protein 95.10 H B-Natriuretic Peptide Prealbumin 7 L Urine Color Yellow Urine Appearance Clear Urine pH 6.0 Ur Specific [place] 1.011 Urine Protein Negative Urine Ketones Negative Urine Blood Negative Urine Nitrate Negative Urine Bilirubin Negative Urine Urobilinogen Negative Ur Leukocyte Esterase Negative Urine Glucose Negative Vancomycin Trough 09/18/16 09/18/16 09:30 09:30 WBC RBC Hgb Hct MCV MCH MCHC RDW Plt Count MPV Neut % (Auto) Lymph % (Auto) [place] % (Auto) Eos % (Auto) Baso % (Auto) Absolute Neuts (auto) Absolute Lymphs (auto) Absolute Monos (auto) Absolute Eos (auto) Absolute Basos (auto) Absolute Nucleated RBC Nucleated RBC % Sodium Potassium Chloride Carbon Dioxide Anion Gap BUN Creatinine Est GFR ( Amer) Est GFR (Non-Af Amer) BUN/Creatinine Ratio Glucose Calcium Phosphorus Magnesium C-Reactive Protein B-Natriuretic Peptide 634 H Prealbumin Urine Color Urine Appearance Urine pH Ur Specific [place] Urine Protein Urine Ketones Urine Blood Urine Nitrate Urine Bilirubin Urine Urobilinogen Ur Leukocyte Esterase Urine Glucose Vancomycin Trough 24.5 Assessment: 1. acute hypoxemic respiratory failure, present on admission, slightly improved 2. pneumonia, bilateral, suspect atypical 3. lung cancer treated with radiation and chemotherapy 4. esophageal cancer s/p esophagogastrectomy Plan: 1. continue vancomycin goal tr 10-15 day 08/24, zosyn day 7, azithro day 06/[address] Jc
[2016-09-18] MEDS: Enoxaparin(*) 40 MG/0.4 ML SYR SUBCUT SCH (16:50)
[2016-09-18] MEDS: Vancomycin(*) 500 MG in NS 0.9% 250 ML* 250 ML IVPB SCH (18:06)
[2016-09-18] MEDS: OLANzapine TAB* 5 MG PO SCH (21:11)
[2016-09-19] MEDS: oxyCODONE TAB* 5 MG TAB PO SCH ×8 (00:51→20:00)
[2016-09-19] MEDS: Piperac/Tazob 3.375 gm in NS* 3.375 GM/100 ML BAG IVPB SCH ×3 (03:31→21:11)
[2016-09-19] MEDS: Levalbuterol 0.63MG/3ML NEB INH SCH ×2 (03:32→11:23)
[2016-09-19] MEDS: Acetaminophen TAB* 325 MG PO SCH ×3 (06:00→21:18)
[2016-09-19] MEDS: Gabapentin CAP(*) 300 MG PO SCH ×3 (06:00→21:16)
[2016-09-19 06:13] LABS: Hematocrit 26 % (35-47); Hemoglobin 8.3 g/dl (12.0-16.0); Mean Corpuscular HGB Conc 32 g/dl (31-36); Mean Corpuscular Hemoglobin 29 pg (27-31); Mean Corpuscular Volume 92 fL (80-97); Mean Platelet Volume 9 um3 (7.4-10.4); Red Blood Count 2.82 10^6/ul (4.0-5.4); Red Cell Distribution Width 19 % (10.5-15); White Blood Count 19.7 10^3/ul (3.5-10.8)
[2016-09-19] MEDS: Vancomycin(*) 500 MG in NS 0.9% 250 ML* 250 ML IVPB SCH ×2 (06:13→18:30)
[2016-09-19 06:36] LABS: Albumin 1.7 g/dL (3.2-5.2); BUN/Creatinine Ratio 19.7 (8-20); C Reactive Protein 53.69 mg/L (< 5.00); EGFR African American 98.2 (>60); EGFR Non-African American 76.4 (>60); Magnesium 1.4 mg/dL (1.9-2.7); Potassium 4.1 mmol/L (3.5-5.0); Total Bilirubin 0.3 mg/dL (0.2-1.0); Total Protein 4.7 g/dL (6.4-8.9)
[2016-09-19] MEDS ORDERED: Levalbuterol 1.25MG/0.5ML NEB INH PRN (08:19)
[2016-09-19] MEDS: Carvedilol TAB* 3.125 MG PO SCH ×2 (09:35→21:17)
[2016-09-19] MEDS: lamoTRIgine TAB(*) 100 MG PO SCH (09:35)
[2016-09-19] MEDS: metroNIDAZOLE TAB* 250 MG PO SCH ×3 (09:36→21:15)
[2016-09-19] MEDS: Nystatin SUSPENSION* 100000 UNITS/ML 5 ML UDC SWISH SWAL SCH ×4 (09:37→22:19)
[2016-09-19] MEDS: methylPREDNISolone SOD 40 MG* 1 ML VIAL IV SCH (09:37)
[2016-09-19] MEDS: Potassium & Sodium Phos 250MG* = 1 PACKET PO SCH ×3 (09:45→21:21)
--- NOTE | 2016-09-19 10:46 | PN ---
Progress Note - Progress Note SOAP: Subjective: DOS: 09/19/16 CC: respiratory failure HPI: 66 yo woman with recent hx lung cancer, XRT, chemotherapy now with pneumonia, she is discouraged by her dyspnea with minimal exertion. Some cough , non productive, no fever, had chills overnight. Objective: [] Vital Signs Temp 36.3 C 09/19/16 07:56 Pulse 95 09/19/16 07:56 Resp 18 09/19/16 10:40 BP 117/70 09/19/16 07:56 Pulse Ox 100 09/19/16 07:56 Intake & Output 09/18/16 09/19/16 09/19/16 18:59 06:59 18:59 Intake Total 1080 220 Output Total 350 300 Balance 730 -80 Intake: IV Fluids 260 ABX - ZOSYN 250 Normal Saline 10 IVPB 100 ABX - ZOSYN 100 Oral 820 120 Output: Urine 350 300 Other: Estimated Void Small Large # Bowel Movements 1 1 Estimated Stool Amount Small # Voids 2 1 Gen:awake, not in distress Neuro:Oriented x3, CN 2-12 intact HEENT:PERRL, MMM Neck:Supple Heart:no murmur, regular Lungs: diminished breath sounds greatest at BL bases Abd:+BS NTND soft Skin: no rash MSK: no joint synovitis Laboratory Results - last 24 hr 09/18/16 09/18/16 09/18/16 09:15 09:30 09:30 WBC RBC Hgb Hct MCV MCH MCHC RDW Plt Count MPV Sodium Potassium Chloride Carbon Dioxide Anion Gap BUN Creatinine Est GFR ( Amer) Est GFR (Non-Af Amer) BUN/Creatinine Ratio Glucose Calcium Magnesium Total Bilirubin AST ALT Alkaline Phosphatase C-Reactive Protein B-Natriuretic Peptide 634 H Total Protein Albumin Globulin Albumin/Globulin Ratio Prealbumin 7 L Urine Color Yellow Urine Appearance Clear Urine pH 6.0 Ur Specific [place] 1.011 Urine Protein Negative Urine Ketones Negative Urine Blood Negative Urine Nitrate Negative Urine Bilirubin Negative Urine Urobilinogen Negative Ur Leukocyte Esterase Negative Urine Glucose Negative 09/19/16 09/19/16 06:04 06:04 WBC 19.7 H RBC 2.82 L Hgb 8.3 L Hct 26 L MCV 92 MCH 29 MCHC 32 RDW 19 H Plt Count 192 MPV 9 Sodium 133 Potassium 4.1 Chloride 101 Carbon Dioxide 29 Anion Gap 3 BUN 15 Creatinine 0.76 Est GFR ( Amer) 98.2 Est GFR (Non-Af Amer) 76.4 BUN/Creatinine Ratio 19.7 Glucose 117 H Calcium 8.0 L Magnesium 1.4 L Total Bilirubin 0.30 AST 13 ALT 6 L Alkaline Phosphatase 100 C-Reactive Protein 53.69 H B-Natriuretic Peptide Total Protein 4.7 L Albumin 1.7 L Globulin 3.0 Albumin/Globulin Ratio 0.6 L Prealbumin Urine Color Urine Appearance Urine pH Ur Specific [place] Urine Protein Urine Ketones Urine Blood Urine Nitrate Urine Bilirubin Urine Urobilinogen Ur Leukocyte Esterase Urine Glucose Assessment: 1. acute hypoxemic respiratory failure, present on admission, slightly improved 2. pneumonia, bilateral, suspect atypical 3. lung cancer treated with radiation and chemotherapy 4. esophageal cancer s/p esophagogastrectomy 5. elevated CRP Plan: 1. continue vancomycin goal tr 10-15 day 5, zosyn day 8, azithro day 3/5 2. corticosteroids 3. echo pending Discussed with Dr Jc
[2016-09-19] MEDS ORDERED: Magnesium Sulfate 4 GM IV IVPB ONE (12:00)
[2016-09-19] MEDS: Azithromycin IV(*) 500 MG in NS 0.9% 250 ML* 250 ML IVPB SCH (12:13)
--- NOTE | 2016-09-19 14:19 | ECHO ---
Patient: [facility] Rec#: [id number] : 1950 Date: 09/19/2016 Age: 66y Height: 165.1 cm / 65.0 in Weight: 53.98 kg / 119.0 lbs Sex: F BSA: 1.59 Room#: [facility] Admit Date#: 09/11/2016 Type: Inpatient Referring: Tran Jc MD Reading: Mary Ann Stringer MD Casing Man: Sushila Pemberton [facility] Transthoracic Echocardiogram Indication: CHF BP: 117/70 HR: 94 Rhythm: Paced Findings History: Lung,esophageal and breast cancer,surgical interventions, chemotherapy and radiation(completed),s/p AICD,CHF,prior myocarditis in 2007, former smoker. Technical Comments: The study quality is good. Completed at 1340. Left Ventricle: The left ventricular chamber size is normal. There is global hypokinesis of the left ventricle with minor regional variation.Base of the lateral wall moves best. The estimated ejection fraction is 20-25%. There is abnormal ventricular septal wall motion consistent with right ventricular pacemaker. The assessment of diastolic function is non-diagnostic. The patient was unable to perform a Valsalva maneuver. Left Atrium: The left atrial chamber size is normal. Right Ventricle: The right ventricular cavity size is normal. The right ventricular global systolic function is mildly reduced. The septum has abnormal paradoxical motion consistent with RV pacemaker. A pacemaker wire is visualized in the right ventricle. Right Atrium: The right atrium is not well visualized. A pacemaker wire is visualized in the right atrium. Aortic Valve: The aortic valve is trileaflet. The aortic valve leaflets are mildly thickened. There is no evidence of aortic regurgitation. There is no evidence of aortic stenosis. Mitral Valve: The mitral valve leaflets are mildly thickened. There is mild to moderate mitral regurgitation. The mitral regurgitant jet is eccentric. There is no evidence of mitral stenosis. Tricuspid Valve: The tricuspid valve leaflets are normal. There is mild to moderate tricuspid regurgitation. There is evidence of mild pulmonary hypertension. There is no tricuspid stenosis. Pulmonic Valve: The pulmonic valve appears normal. There is mild pulmonic regurgitation. There is no pulmonic stenosis. Pericardium: There is no pericardial effusion. A left pleural effusion is present. There is a moderate pleural effusion. Aorta: There is no dilatation of the ascending aorta. The aortic arch is not well visualized. There is no dilation of the aortic root. Pulmonary Artery: The main pulmonary artery appears normal. Venous: The venous system is not well visualized. Conclusions The left ventricular chamber size is normal. The estimated ejection fraction is 20-25% with global hypokinesis. The right ventricular global systolic function is mildly reduced. A pacemaker wire is visualized in the right ventricle. There is mild to moderate mitral regurgitation. There is mild to moderate tricuspid regurgitation. There is evidence of mild pulmonary hypertension: 41 mmHg. A left pleural effusion is present. Compared with prior echo of September 18, 2007, prior EF was 12%, the degree of MR has improved. Measurements Name Value Normal Range RVIDd (AP) 2D 1.7 cm (0.9 - 2.6) RVDdMajor (2D) 3.5 cm (2.2 - 4.4) IVSd (2D) 0.5 cm (0.6 - 1) LVPWd (2D) 1 cm (0.6 - 1) LVIDd (2D) 4.7 cm (3.6 - 5.4) LVIDs (2D) 4.2 cm - LV FS (2D) 10 % (25 - 45) Aortic Annulus 1.9 cm (1.4 - 2.6) Ao root diameter (2D) 3.2 cm (2.1 - 3.5) Ascending Ao 3 cm (2.1 - 3.4) LA dimension (AP) 2D 3.6 cm (2.3 - 3.8) LAd ISD 4CH 5.2 cm (2.9 - 5.3) LA ISD 4CH W 4.9 cm (2.5 - 4.5) Name Value Normal Range LA ESV SP 4CH (A/L) 84 ml - LA ESV SP 2CH (A/L) 53 ml - LA ESV BP (A/L) 71 ml - LA ESV BP (A/L) index 44.52 ml/m2 - LA ESV SP 4CH (MOD) 72 ml - LA ESV SP 2CH (MOD) 50 ml - Name Value Normal Range MV E-wave Vmax 1.2 m/sec - MV deceleration time 127 msec - LV septal e' Vmax 0.11 m/sec - LV lateral e' Vmax 0.12 m/sec - LV E:e' septal ratio 10.9 ratio - LV E:e' lateral ratio 10 ratio - Name Value Normal Range AV Vmax 0.8 m/sec - AV VTI 14.8 cm - AV peak gradient 2.59 mmHg - AV mean gradient 1.39 mmHg - LVOT Vmax 0.7 m/sec - LVOT VTI 10.3 cm - LVOT peak gradient 1.74 mmHg - LVOT mean gradient 0.78 mmHg - Name Value Normal Range MR Vmax 2.7 m/sec - MR VTI 107.02 cm - Name Value Normal Range TR Vmax 2.9 m/sec - TR peak gradient 33 mmHg - RAP 8 mmHg - RVSP 41 mmHg - Name Value Normal Range PV Vmax 0.5 m/sec - PV peak gradient 0.87 mmHg -
[2016-09-19 15:23] LABS: Magnesium 1.5 mg/dL (1.9-2.7)
[2016-09-19] MEDS: Enoxaparin(*) 40 MG/0.4 ML SYR SUBCUT SCH (17:23)
[2016-09-19] MEDS ORDERED: Furosemide IV* 10 MG/ML 2 ML VIAL (20 MG) IV ONE (17:50)
[2016-09-19] MEDS ORDERED: Furosemide IV* 10 MG/ML 2 ML VIAL (20 MG) ONE (19:53)
[2016-09-19] MEDS: OLANzapine TAB* 5 MG PO SCH (21:17)
[2016-09-20] MEDS: oxyCODONE TAB* 5 MG TAB PO SCH ×6 (00:18→15:45)
[2016-09-20] MEDS: Piperac/Tazob 3.375 gm in NS* 3.375 GM/100 ML BAG IVPB SCH ×2 (03:51→13:30)
[2016-09-20] MEDS: Gabapentin CAP(*) 300 MG PO SCH ×2 (05:50→13:30)
[2016-09-20] MEDS: Acetaminophen TAB* 325 MG PO SCH ×2 (05:51→13:30)
[2016-09-20] MEDS ORDERED: Vancomycin Trough Check NOTE FOLLOW UP ONE (06:00)
[2016-09-20 06:05] LABS: Hematocrit 32 % (35-47); Hemoglobin 10.1 g/dl (12.0-16.0); Mean Corpuscular HGB Conc 32 g/dl (31-36); Mean Corpuscular Hemoglobin 30 pg (27-31); Mean Corpuscular Volume 93 fL (80-97); Mean Platelet Volume 10 um3 (7.4-10.4); Red Blood Count 3.41 10^6/ul (4.0-5.4); Red Cell Distribution Width 19 % (10.5-15); White Blood Count 14.8 10^3/ul (3.5-10.8)
[2016-09-20 06:19] LABS: Albumin 2.1 g/dL (3.2-5.2); Ammonia 35 mol/L (16-53); BUN/Creatinine Ratio 16.9 (8-20); C Reactive Protein 56.44 mg/L (< 5.00); Calcium 8.5 mg/dL (8.6-10.3); EGFR African American 106.3 (>60); EGFR Non-African American 82.6 (>60); Globulin 3.4 g/dL (2-4); Potassium 3.9 mmol/L (3.5-5.0); Total Bilirubin 0.5 mg/dL (0.2-1.0); Total Protein 5.5 g/dL (6.4-8.9)
[2016-09-20 06:24] LABS: B Type Natriuretic Peptide 3128 pg/mL
[2016-09-20 06:29] LABS: Vancomycin Trough 17.9 mcg/mL
[2016-09-20] MEDS: Vancomycin(*) 500 MG in NS 0.9% 250 ML* 250 ML IVPB SCH (06:57)
[2016-09-20] MEDS ORDERED: Furosemide IV* 10 MG/ML VIAL (40 MG) IV ONE (09:00)
[2016-09-20 09:02] LABS: Troponin I 0.08 ng/mL (<0.04)
[2016-09-20 09:06] LABS: Troponin I 0.13 ng/mL (<0.04)
[2016-09-20] MEDS: Carvedilol TAB* 3.125 MG PO SCH (09:09)
[2016-09-20] MEDS: lamoTRIgine TAB(*) 100 MG PO SCH (09:10)
[2016-09-20] MEDS: methylPREDNISolone SOD 40 MG* 1 ML VIAL IV SCH (09:10)
[2016-09-20] MEDS: Potassium & Sodium Phos 250MG* = 1 PACKET PO SCH ×2 (09:11→13:30)
[2016-09-20] MEDS: metroNIDAZOLE TAB* 250 MG PO SCH ×2 (09:11→13:30)
[2016-09-20] MEDS: Nystatin SUSPENSION* 100000 UNITS/ML 5 ML UDC SWISH SWAL SCH ×2 (09:11→13:30)
[2016-09-20] MEDS ORDERED: BuPROPion XL* 300 MG TAB.XL PO SCH (11:00)
[2016-09-20] MEDS ORDERED: guaiFENesin ER TAB 600 MG PO SCH (11:00)
[2016-09-20 11:25] LABS: Troponin I 0.1 ng/mL (<0.04)
[2016-09-20] MEDS: Azithromycin IV(*) 500 MG in NS 0.9% 250 ML* 250 ML IVPB SCH (11:51)
[2016-09-20] MEDS ORDERED: Collagenase 250 MG/GM OINT* 30 GM TOPICAL PRN (12:12)
[2016-09-20 14:29] LABS: FHMPV Source NASOPHARYNGEAL; Human Metapneumovirus (hMPV) NOT DETECTED
[2016-09-20 15:01] VITALS: BP 99/59
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
== END 2016-09-20 16:00 | disposition short-term general hospital (02) | DRG 177 ==
LOC: ED 12:45 → ICU 16:08 → MED 09-12 09:38 → ICU 09-19 21:51
PROVIDERS: ADMIT Internal Medicine Critical Care Medicine; ATTEND Internal Medicine Geriatric Medicine
PROC: 30233N1 Transfusion of Nonautologous Red Blood Cells into Peripheral Vein, Percutaneous Approach (ICD-10-PCS; principal; 2016-09-12)
DX: J69.0 Pneumonitis due to inhalation of food and vomit (principal); Q28.2 Arteriovenous malformation of cerebral vessels; J96.01 Acute respiratory failure with hypoxia; L89.152 Pressure ulcer of sacral region, stage 2; I50.21 Acute systolic (congestive) heart failure; E46 Unspecified protein-calorie malnutrition; R64 Cachexia; I42.9 Cardiomyopathy, unspecified; I27.2 Other secondary pulmonary hypertension; E83.42 Hypomagnesemia; Z88.8 Allergy status to other drugs, medicaments and biological substances; E05.90 Thyrotoxicosis, unspecified without thyrotoxic crisis or storm; Z95.810 Presence of automatic (implantable) cardiac defibrillator; E78.00 Pure hypercholesterolemia, unspecified; Z85.118 Personal history of other malignant neoplasm of bronchus and lung; M19.90 Unspecified osteoarthritis, unspecified site; M81.0 Age-related osteoporosis without current pathological fracture; F41.9 Anxiety disorder, unspecified; F32.9 Major depressive disorder, single episode, unspecified; F31.9 Bipolar disorder, unspecified; Z85.3 Personal history of malignant neoplasm of breast; Z80.3 Family history of malignant neoplasm of breast; Z87.891 Personal history of nicotine dependence; Z85.01 Personal history of malignant neoplasm of esophagus; E04.2 Nontoxic multinodular goiter; K43.9 Ventral hernia without obstruction or gangrene; D63.8 Anemia in other chronic diseases classified elsewhere; I08.1 Rheumatic disorders of both mitral and tricuspid valves; Z79.82 Long term (current) use of aspirin; Z79.01 Long term (current) use of anticoagulants; Z88.1 Allergy status to other antibiotic agents; E86.0 Dehydration; E87.6 Hypokalemia; Z68.20 Body mass index [BMI] 20.0-20.9, adult
CPT/HCPCS: 36415; 70450; 71010; 71020; 71250; 71275; 80048; 80053; 80202; 81003; 81015; 82140; 83605; 83735; 83880; 84100; 84134; 84443; 84484; 85025; 85027; 85610; 85730; 86140; 86850; 86900; 86901; 86922; 87040; 87086; 87641; 87798; 87807; 93005; 93306; 94640; 94760; 99212; A9270-GY; G0463; J0456; J1642; J1650; J1940; J2405; J2543; J2920; J3370; J3480; P9040; Q9967

== ENCOUNTER 2016-10-10 17:13 | Inpatient (IN) | payer MEDICARE ==
[2016-10-10] MEDS ORDERED: NS 0.9% 1000 ML* 1,000 ML IV SCH (18:15)
[2016-10-10 18:31] LABS: Hematocrit 31 % (35-47); Hemoglobin 10.1 g/dl (12.0-16.0); Mean Corpuscular HGB Conc 33 g/dl (31-36); Mean Corpuscular Hemoglobin 31 pg (27-31); Mean Corpuscular Volume 94 fL (80-97); Mean Platelet Volume 8 um3 (7.4-10.4); Red Cell Distribution Width 21 % (10.5-15); White Blood Count 13.8 10^3/ul (3.5-10.8)
[2016-10-10 18:56] LABS: Albumin 3.1 g/dL (3.2-5.2); BUN/Creatinine Ratio 19.2 (8-20); C Reactive Protein 95.29 mg/L (< 5.00); Calcium 9.5 mg/dL (8.6-10.3); EGFR African American 52.9 (>60); EGFR Non-African American 41.1 (>60); Globulin 4.1 g/dL (2-4); Magnesium 1.8 mg/dL (1.9-2.7); Phosphorus 4.2 mg/dL (2.5-5.0); Potassium 4.5 mmol/L (3.5-5.0); Total Bilirubin 0.4 mg/dL (0.2-1.0); Total Protein 7.2 g/dL (6.4-8.9)
[2016-10-10] MEDS ORDERED: NS 0.9% 250 ML* 250 ML IV ONE (19:00)
[2016-10-10] MEDS: metroNIDAZOLE TAB* 250 MG PO SCH (19:58)
[2016-10-10] MEDS: Acetaminophen TAB* 325 MG PO SCH (20:00)
[2016-10-10] MEDS: oxyCODONE TAB* 5 MG TAB PO PRN (20:00)
[2016-10-10] MEDS: Gabapentin CAP(*) 300 MG PO SCH (20:03)
[2016-10-10] MEDS: OLANzapine TAB* 5 MG PO SCH (20:04)
--- NOTE | 2016-10-10 21:04 | RAD ---
INDICATION: Pneumonia COMPARISON: Chest x-ray dated September 18, 2016 TECHNIQUE: Single AP portable view of the chest was obtained. FINDINGS: Image quality is compromised due to the relative inferiority of a portable chest x-ray. Postsurgical findings include a left upper chest cardiac pacemaker with 3 leads overlying the heart and a right subclavian vein Mediport with the tip terminating in the superior vena cava. Again seen is mild cardiomegaly. There is faint atherosclerotic calcification overlying the arch of the aorta. Relative to the previous chest x-ray there is overall improved aeration. There are persistent patchy densities overlying the central lungs as well as scattered reticular nodular densities. There is density obscuring the left lung base and left hemidiaphragm which is similar to the 2 previous chest x-rays. Visualized bones are normal for the patient's age. IMPRESSION: Again seen are left worse than right reticulonodular densities which on a chronic basis could represent interstitial lung disease or be secondary to cardiogenic pulmonary edema. Overall the degree of aeration of the lungs has improved when compared to the September 18, 2016 chest x-ray.
[2016-10-10] MEDS ORDERED: NS 0.9% 1000 ML* 1,000 ML IV ONE (22:45)
[2016-10-10] MEDS: Enoxaparin(*) 40 MG/0.4 ML SYR SUBCUT SCH (23:32)
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
[2016-10-11] MEDS: oxyCODONE TAB* 5 MG TAB PO PRN ×5 (02:15→21:04)
[2016-10-11 06:08] LABS: Hematocrit 27 % (35-47); Hemoglobin 8.7 g/dl (12.0-16.0); Mean Corpuscular HGB Conc 33 g/dl (31-36); Mean Corpuscular Hemoglobin 31 pg (27-31); Mean Corpuscular Volume 94 fL (80-97); Mean Platelet Volume 8 um3 (7.4-10.4); Red Blood Count 2.86 10^6/ul (4.0-5.4); Red Cell Distribution Width 21 % (10.5-15); White Blood Count 11.9 10^3/ul (3.5-10.8)
[2016-10-11 06:24] LABS: Albumin 2.6 g/dL (3.2-5.2); BUN/Creatinine Ratio 19.3 (8-20); C Reactive Protein 83.53 mg/L (< 5.00); Calcium 8.8 mg/dL (8.6-10.3); EGFR African American 61.5 (>60); EGFR Non-African American 47.8 (>60); Globulin 3.6 g/dL (2-4); Total Bilirubin 0.3 mg/dL (0.2-1.0); Total Protein 6.2 g/dL (6.4-8.9)
[2016-10-11] MEDS: Gabapentin CAP(*) 300 MG PO SCH ×3 (09:01→20:45)
[2016-10-11] MEDS: lamoTRIgine TAB(*) 100 MG PO SCH (09:01)
[2016-10-11] MEDS: Folic Acid TAB* 1 MG PO SCH (09:01)
[2016-10-11] MEDS: metroNIDAZOLE TAB* 250 MG PO SCH ×3 (09:02→20:46)
[2016-10-11] MEDS: Magnesium Oxide TAB* 400 MG PO SCH (09:02)
[2016-10-11] MEDS: Acetaminophen TAB* 325 MG PO SCH ×3 (09:03→20:45)
[2016-10-11] MEDS: BuPROPion XL* 300 MG TAB.XL PO SCH (09:04)
[2016-10-11] MEDS ORDERED: Iodixanol* (CONTRAST) 320 MG/ML 100 ML SDV IV ONE (13:51)
--- NOTE | 2016-10-11 15:12 | RAD ---
HISTORY: Pneumonia, esophageal and lung cancer COMPARISONS: CT of the chest dated September 11, 2016 PET scan dated May 27, 2015, bone scan dated June 02, 2015 TECHNIQUE: Multiple contiguous axial CT scans were obtained of the chest, abdomen, and pelvis after the administration of intravenous contrast. Coronal and sagittal multiplanar reformations are submitted for review.. Oral contrast was administered. Delayed images were obtained through the abdomen and pelvis. FINDINGS: CHEST NECK AND THYROID: The lower neck and thyroid are unremarkable. CHEST WALL: There is no lower cervical, axillary, or supraclavicular lymphadenopathy by size criteria. HEART AND PERICARDIUM: The heart is unremarkable. AORTA AND PULMONARY VASCULATURE: The aorta and pulmonary vasculature are normal. MEDIASTINUM: There is no mediastinal lymphadenopathy by size criteria. SHANKAR: There is a left infrahilar mass, further described below. AIRWAY AND ESOPHAGUS: The patient is status post esophageal resection with colonic pull-through along the anterior mediastinum LUNG PARENCHYMA: As noted above, there is left infrahilar mass.This measures approximately 2.9 x 3.6 x 3.5 cm in size. There is post surgical change to the left lower lobe. There is diffuse centrilobular nodularity of the left lung. There are scattered nodules of the right lower lobe with a right lower lobe lung mass versus rounded atelectasis measuring 2.8 cm. This is stable from the previous examination PLEURA: There is a partially loculated left pleural effusion. This has decreased in size compared to the previous examination. BONES AND SOFT TISSUES: There is a sclerotic lesion of the left fifth rib. There is slight lesion of the left eighth rib. ABDOMEN/PELVIS: LIVER: There is low-attenuation cystic lesion of left lobe of liver. This is similar to the previous examination. BILE DUCTS: There is no intrahepatic or extrahepatic biliary dilatation. GALLBLADDER: The gallbladder is not visualized. Surgical clips are noted in the gallbladder fossa. PANCREAS: The pancreas is normal, without mass or ductal dilatation. SPLEEN: Normal in size and appearance. UPPER GI TRACT: Evaluation of the gastrointestinal tract is limited by incomplete gastric distention. The stomach is not well visualized. The patient appears to be status post colonic interposition graft for the esophagus with anastomosis with the jejunum. SMALL BOWEL \T\ MESENTERY: The small bowel is normal in contour, course, and caliber. There is no obstruction or dilatation. COLON: There is large amount of stool within the distal colon. ADRENALS: Normal bilaterally. KIDNEYS: The kidneys are normal in shape, size, contour, and axis. There is no hydronephrosis or nephrolithiasis. BLADDER: The bladder is smooth in contour. PELVIC ORGANS: The uterus and adnexa are grossly normal for technique. AORTA: There is calcific atherosclerotic disease of the abdominal aorta and its branches, without aneurysmal dilatation IVC: Unremarkable LYMPH NODES: There is no lymphadenopathy by size criteria. ABDOMINAL WALL: There is no evidence for abdominal wall hernia. BONES: The patient is status post internal fixation of the left femur. There is remote post traumatic change to the left hemipelvis OTHER: None IMPRESSION: 1. PERSISTENT LEFT INFRAHILAR MASS WITH ROUNDED ATELECTASIS VERSUS MASS OF THE RIGHT LOWER LOBE. 2. PARTIALLY LOCULATED LEFT PLEURAL EFFUSION, DECREASED IN SIZE FROM THE PREVIOUS EXAMINATION. 3. POSTSURGICAL CHANGE TO THE UPPER GI TRACT. 4. THERE ARE SCLEROTIC LESIONS OF THE LEFT FIFTH AND EIGHTH RIBS. WHILE THESE MAY BE POSTTRAUMATIC IN NATURE, OSSEOUS METASTATIC DISEASE IS ALSO WITHIN THE DIFFERENTIAL. RECOMMEND CONSIDERATION OF CORRELATION WITH BONE SCAN.
[2016-10-11] MEDS: Carvedilol TAB* 3.125 MG PO SCH (20:45)
[2016-10-11] MEDS: Enoxaparin(*) 40 MG/0.4 ML SYR SUBCUT SCH (21:33)
[2016-10-12] MEDS: oxyCODONE TAB* 5 MG TAB PO PRN ×6 (00:22→23:36)
[2016-10-12 06:00] LABS: Hematocrit 27 % (35-47); Hemoglobin 8.6 g/dl (12.0-16.0); Mean Corpuscular HGB Conc 33 g/dl (31-36); Mean Corpuscular Hemoglobin 31 pg (27-31); Mean Corpuscular Volume 94 fL (80-97); Mean Platelet Volume 8 um3 (7.4-10.4); Red Blood Count 2.83 10^6/ul (4.0-5.4); Red Cell Distribution Width 22 % (10.5-15); White Blood Count 12.4 10^3/ul (3.5-10.8)
[2016-10-12 06:04] LABS: Comments Flag Yes
[2016-10-12 06:23] LABS: BUN/Creatinine Ratio 16.9 (8-20); C Reactive Protein 94.28 mg/L (< 5.00); Calcium 8.6 mg/dL (8.6-10.3); EGFR African American 106.3 (>60); EGFR Non-African American 82.6 (>60); Magnesium 1.6 mg/dL (1.9-2.7); Phosphorus 2.7 mg/dL (2.5-5.0)
[2016-10-12] MEDS: metroNIDAZOLE TAB* 250 MG PO SCH ×3 (08:21→20:13)
[2016-10-12] MEDS: Acetaminophen TAB* 325 MG PO SCH ×3 (08:21→20:08)
[2016-10-12] MEDS: Carvedilol TAB* 3.125 MG PO SCH ×2 (08:21→20:10)
[2016-10-12] MEDS: lamoTRIgine TAB(*) 100 MG PO SCH (08:21)
[2016-10-12] MEDS: BuPROPion XL* 300 MG TAB.XL PO SCH (08:22)
[2016-10-12] MEDS: Gabapentin CAP(*) 300 MG PO SCH ×3 (08:22→20:11)
[2016-10-12] MEDS: Folic Acid TAB* 1 MG PO SCH (08:22)
[2016-10-12] MEDS: Magnesium Oxide TAB* 400 MG PO SCH (08:22)
[2016-10-12] MEDS: Collagenase 250 MG/GM OINT* 30 GM TOPICAL SCH (10:38)
[2016-10-12] MEDS ORDERED: Magnesium Sulfate 2 GM IV IVPB ONE (11:00)
[2016-10-12] MEDS: OLANzapine TAB* 5 MG PO SCH ×2 (17:16→17:31)
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
[2016-10-12] MEDS: Enoxaparin(*) 40 MG/0.4 ML SYR SUBCUT SCH (23:36)
[2016-10-13] MEDS: oxyCODONE TAB* 5 MG TAB PO PRN ×4 (04:54→20:10)
[2016-10-13 05:31] LABS: Hematocrit 30 % (35-47); Hemoglobin 9.8 g/dl (12.0-16.0); Mean Corpuscular HGB Conc 32 g/dl (31-36); Mean Corpuscular Hemoglobin 31 pg (27-31); Mean Corpuscular Volume 94 fL (80-97); Mean Platelet Volume 8 um3 (7.4-10.4); Red Blood Count 3.21 10^6/ul (4.0-5.4); Red Cell Distribution Width 21 % (10.5-15)
[2016-10-13 05:39] LABS: C Reactive Protein 101.54 mg/L (< 5.00); Magnesium 1.8 mg/dL (1.9-2.7)
[2016-10-13] MEDS: Gabapentin CAP(*) 300 MG PO SCH ×3 (10:08→19:56)
[2016-10-13] MEDS: Carvedilol TAB* 3.125 MG PO SCH (10:09)
[2016-10-13] MEDS: Magnesium Oxide TAB* 400 MG PO SCH (10:11)
[2016-10-13] MEDS: Collagenase 250 MG/GM OINT* 30 GM TOPICAL SCH ×2 (10:11→11:34)
[2016-10-13] MEDS: lamoTRIgine TAB(*) 100 MG PO SCH (10:11)
[2016-10-13] MEDS: metroNIDAZOLE TAB* 250 MG PO SCH ×3 (10:12→19:56)
[2016-10-13] MEDS: Folic Acid TAB* 1 MG PO SCH (10:16)
[2016-10-13] MEDS: Acetaminophen TAB* 325 MG PO SCH ×3 (10:16→19:56)
[2016-10-13] MEDS: BuPROPion XL* 300 MG TAB.XL PO SCH (10:21)
[2016-10-13] MEDS ORDERED: Magnesium Sulfate 1 GM IV* 1 GM/100 ML BAG IV ONE (10:47)
[2016-10-13 11:16] LABS: Troponin I 0.02 ng/mL (<0.04)
--- NOTE | 2016-10-13 11:27 | PN ---
Progress Note - Progress Note Note: Responded to CAT call for pt was noted to be in V. tach for several minutes. She c/o feeling dizzy and SOB, no CP By the time I arrived by the bedside she was back in paced sinus tachycardia with HR 112 AAOx3, no complaints Resp: coarse breath sounds, B/l CV: RRR Neuro: speech clear, non focal, motor 5/5 b/l Spoke with who will eval the pt. Ordered Mg sulfate 1 gram x1 BMP, toponin pending. Pt was not interested in cardiology consult at our facility
[2016-10-13 11:41] LABS: BUN/Creatinine Ratio 16.4 (8-20); Calcium 9.3 mg/dL (8.6-10.3); EGFR African American 113.6 (>60); EGFR Non-African American 88.3 (>60); Potassium 4.3 mmol/L (3.5-5.0)
[2016-10-13] MEDS ORDERED: Carvedilol TAB* 3.125 MG PO ONE (13:06)
[2016-10-13] MEDS: Carvedilol TAB* 6.25 MG PO SCH (19:56)
[2016-10-13] MEDS: Enoxaparin(*) 40 MG/0.4 ML SYR SUBCUT SCH (22:43)
[2016-10-14] MEDS: oxyCODONE TAB* 5 MG TAB PO PRN ×5 (02:25→19:52)
[2016-10-14 04:44] LABS: Hematocrit 26 % (35-47); Hemoglobin 8.3 g/dl (12.0-16.0); Mean Corpuscular HGB Conc 32 g/dl (31-36); Mean Corpuscular Hemoglobin 31 pg (27-31); Mean Corpuscular Volume 94 fL (80-97); Mean Platelet Volume 8 um3 (7.4-10.4); Red Blood Count 2.73 10^6/ul (4.0-5.4); Red Cell Distribution Width 21 % (10.5-15); White Blood Count 11.6 10^3/ul (3.5-10.8)
[2016-10-14 04:46] LABS: Comments Flag Yes
[2016-10-14 04:47] LABS: Add Diff/Slide Review? Slide Review Added
[2016-10-14 05:09] LABS: Albumin 2.5 g/dL (3.2-5.2); C Reactive Protein 101.07 mg/L (< 5.00); Calcium 8.9 mg/dL (8.6-10.3); EGFR African American 124.2 (>60); EGFR Non-African American 96.6 (>60); Globulin 3.4 g/dL (2-4); Magnesium 1.7 mg/dL (1.9-2.7); Phosphorus 3.3 mg/dL (2.5-5.0); Potassium 4.1 mmol/L (3.5-5.0); Total Bilirubin 0.3 mg/dL (0.2-1.0); Total Protein 5.9 g/dL (6.4-8.9)
[2016-10-14 06:06] LABS: Prolactin 21.3 ng/mL (1.0-25.0)
[2016-10-14] MEDS: Carvedilol TAB* 6.25 MG PO SCH ×2 (08:10→21:32)
[2016-10-14] MEDS: lamoTRIgine TAB(*) 100 MG PO SCH (08:10)
[2016-10-14] MEDS: Folic Acid TAB* 1 MG PO SCH (08:10)
[2016-10-14] MEDS: Gabapentin CAP(*) 300 MG PO SCH ×3 (08:10→21:32)
[2016-10-14] MEDS: metroNIDAZOLE TAB* 250 MG PO SCH ×3 (08:10→21:32)
[2016-10-14] MEDS: BuPROPion XL* 300 MG TAB.XL PO SCH (08:10)
[2016-10-14] MEDS: Acetaminophen TAB* 325 MG PO SCH ×3 (08:10→21:31)
[2016-10-14] MEDS: Magnesium Oxide TAB* 400 MG PO SCH (08:11)
[2016-10-14] MEDS: Magnesium Sulfate 2 GM IV IVPB SCH ×2 (11:46→15:11)
[2016-10-14] MEDS: Collagenase 250 MG/GM OINT* 30 GM TOPICAL SCH (11:47)
[2016-10-14] MEDS: Enoxaparin(*) 40 MG/0.4 ML SYR SUBCUT SCH (21:32)
[2016-10-14] MEDS: OLANzapine TAB* 5 MG PO SCH (21:38)
[2016-10-15] MEDS: oxyCODONE TAB* 5 MG TAB PO PRN ×6 (00:16→20:43)
[2016-10-15 06:04] LABS: Hematocrit 26 % (35-47); Hemoglobin 8.7 g/dl (12.0-16.0); Mean Corpuscular HGB Conc 33 g/dl (31-36); Mean Corpuscular Hemoglobin 31 pg (27-31); Mean Corpuscular Volume 95 fL (80-97); Mean Platelet Volume 8 um3 (7.4-10.4); Red Blood Count 2.79 10^6/ul (4.0-5.4); Red Cell Distribution Width 21 % (10.5-15); White Blood Count 10.9 10^3/ul (3.5-10.8)
[2016-10-15 06:11] LABS: Comments Flag Yes
[2016-10-15 06:19] LABS: Albumin 2.5 g/dL (3.2-5.2); BUN/Creatinine Ratio 13.9 (8-20); C Reactive Protein 72.56 mg/L (< 5.00); Calcium 8.8 mg/dL (8.6-10.3); EGFR African American 93.9 (>60); Globulin 3.2 g/dL (2-4); Potassium 3.9 mmol/L (3.5-5.0); Total Bilirubin 0.3 mg/dL (0.2-1.0); Total Protein 5.7 g/dL (6.4-8.9)
[2016-10-15] MEDS: Acetaminophen TAB* 325 MG PO SCH ×3 (08:30→20:45)
[2016-10-15] MEDS: Collagenase 250 MG/GM OINT* 30 GM TOPICAL SCH (10:03)
[2016-10-15] MEDS: Magnesium Oxide TAB* 400 MG PO SCH ×2 (10:07→20:49)
[2016-10-15] MEDS: metroNIDAZOLE TAB* 250 MG PO SCH ×3 (10:08→20:47)
[2016-10-15] MEDS: Gabapentin CAP(*) 300 MG PO SCH ×3 (10:09→20:49)
[2016-10-15] MEDS: lamoTRIgine TAB(*) 100 MG PO SCH (10:11)
[2016-10-15] MEDS: BuPROPion XL* 300 MG TAB.XL PO SCH (10:12)
[2016-10-15] MEDS: Folic Acid TAB* 1 MG PO SCH (10:12)
[2016-10-15] MEDS: Carvedilol TAB* 6.25 MG PO SCH ×3 (10:56→20:45)
[2016-10-15] MEDS ORDERED: Iohexol 300* (CONTRAST) 10 ML SDV IV ONE (14:32)
[2016-10-15 14:56] LABS: Urine Creatinine/24HR 524.78 mg/24Hr (600-1800)
--- NOTE | 2016-10-15 15:34 | RAD ---
INDICATION: Pneumonia. Esophageal carcinoma. Lung carcinoma. COMPARISON: CT chest/abdomen/pelvisMay 2016 TECHNIQUE: Noncontrast axial source images were obtained from the thoracic inlet to the hemidiaphragms. Coronal and sagittal reconstructed images were acquired. The visualized neck to include the thyroid appear unchanged. Chest wall: There are no acute abnormalities of the bony thorax or chest wall. There is osteopenia with kyphoscoliosis. There is no supraclavicular, infraclavicular, or axillary lymphadenopathy. Lungs : There is again reticulonodular infiltrative change left upper lobe unchanged in short interval and there is a left infrahilar mass with adjacent pleural and parenchymal changes with volume loss. There is extensive postsurgical change as recently described. There is a right basilar lung Mass. Appearing unchanged and perhaps related to rounded atelectasis. There is underlying emphysematous change Cardiomediastinal structures: The heart is normal in size. There is no pericardial effusion. There is no evidence of aortic aneurysm or dissection. The pulmonary vessels appear normal. There is left infrahilar mass is noted above.. The esophagus appears unchanged. Pleura : Small, partially loculated pleural effusion. Other: There are no acute or significant CT findings of the visualized upper abdomen. IMPRESSION: SINCE THE RECENT PRECEDING EXAMINATION IS NO CHANGE IN LEFT UPPER LOBE RETICULONODULAR INFILTRATE, THE LEFT INFRAHILAR MASS OR THE MASSLIKE PARENCHYMAL CHANGE RIGHT LUNG BASE WHICH MAY BE RELATED TO ROUNDED ATELECTASIS, WITH A SMALL LOCULATED PLEURAL EFFUSION IN THE LEFT LUNG BASE. POSTSURGICAL CHANGES TO THE UPPER GI TRACT ARE STABLE.
[2016-10-15 20:38] LABS: Urine Bacteria Absent (Absent); Urine Bilirubin Negative (Negative); Urine Glucose Negative (Negative); Urine Nitrite Negative (Negative)
[2016-10-15] MEDS: Enoxaparin(*) 40 MG/0.4 ML SYR SUBCUT SCH (22:08)
[2016-10-16] MEDS: oxyCODONE TAB* 5 MG TAB PO PRN ×5 (01:03→23:41)
[2016-10-16 06:28] LABS: Albumin 2.5 g/dL (3.2-5.2); C Reactive Protein 79.67 mg/L (< 5.00); Calcium 8.9 mg/dL (8.6-10.3); EGFR African American 136.9 (>60); EGFR Non-African American 106.4 (>60); Globulin 3.5 g/dL (2-4); Magnesium 1.6 mg/dL (1.9-2.7); Potassium 4.1 mmol/L (3.5-5.0); Total Bilirubin 0.3 mg/dL (0.2-1.0)
[2016-10-16] MEDS: Acetaminophen TAB* 325 MG PO SCH ×3 (08:39→21:39)
[2016-10-16] MEDS: Gabapentin CAP(*) 300 MG PO SCH ×3 (08:39→21:43)
[2016-10-16] MEDS: Carvedilol TAB* 6.25 MG PO SCH ×2 (09:46→21:48)
[2016-10-16] MEDS: lamoTRIgine TAB(*) 100 MG PO SCH (09:47)
[2016-10-16] MEDS: BuPROPion XL* 300 MG TAB.XL PO SCH (09:47)
[2016-10-16] MEDS: Folic Acid TAB* 1 MG PO SCH (09:47)
[2016-10-16] MEDS: metroNIDAZOLE TAB* 250 MG PO SCH ×3 (09:47→21:41)
[2016-10-16] MEDS: Magnesium Oxide TAB* 400 MG PO SCH ×2 (09:47→21:42)
[2016-10-16] MEDS: Collagenase 250 MG/GM OINT* 30 GM TOPICAL SCH (09:55)
[2016-10-16] MEDS ORDERED: Magnesium Sulfate 2 GM IV IVPB ONE (15:00)
--- NOTE | 2016-10-16 16:14 | PN ---
Progress Note - Progress Note SOAP: Subjective: DOS:10/16/16 CC: fever HPI: 66 yo woman with history of malignancy, recent pneumonia, admitted with fever, malaise, abnormal CT chest and elevated CRP. Has had occasional fever and diaphoresis, no cough, CP, vomiting, abd pain, diarrhea. Has not been on antibiotics. Energy and appetite feeling better today. Objective: [] Vital Signs Temp 36.6 C 10/16/16 15:37 Pulse 84 10/16/16 15:37 Resp 14 10/16/16 15:49 BP 84/46 10/16/16 15:47 Pulse Ox 98 10/16/16 15:37 Intake & Output 10/15/16 10/16/16 10/16/16 18:59 06:59 18:59 Intake Total 438 [id number] Output Total 800 0 300 Balance -140 750 720 Weight 102 lb 103 lb 1.6 oz Intake: Oral 721 [id number] Output: Urine 800 0 300 Other: Estimated Void Medium # Bowel Movements 2 1 Estimated Stool Amount Medium Large Medium # Voids 1 Gen:Awake, no distress Neuro:OX3, moves all extremities HEENT:PERRL, MMM Neck:supple Heart:RRR no murmur Lungs:CTA BL Abd:+BS NTND soft Skin: No rash MSK: no spine tenderness Laboratory Results - last 24 hr 10/15/16 10/16/16 10/16/16 20:00 05:15 05:15 Sodium 131 L Potassium 4.1 Chloride 98 L Carbon Dioxide 28 Anion Gap 5 BUN 8 Creatinine 0.57 Est GFR ( Amer) 136.9 Est GFR (Non-Af Amer) 106.4 BUN/Creatinine Ratio 14.0 Glucose 81 Calcium 8.9 Magnesium 1.6 L Total Bilirubin 0.30 AST 12 L ALT 5 L Alkaline Phosphatase 125 H C-Reactive Protein 79.67 H B-Natriuretic Peptide 136 H Total Protein 6.0 L Albumin 2.5 L Globulin 3.5 Albumin/Globulin Ratio 0.7 L Prealbumin 12 L Procalcitonin Urine Color Yellow Urine Appearance Clear Urine pH 6.0 Ur Specific Dexter 1.011 Urine Protein Negative Urine Ketones Negative Urine Blood Negative Urine Nitrate Negative Urine Bilirubin Negative Urine Urobilinogen Negative Ur Leukocyte Esterase Trace H Urine WBC (Auto) Trace(0-5/hpf) Urine RBC (Auto) 1+(3-5/hpf) H Ur Squamous Epith Cells Present H Urine Bacteria Absent Urine Glucose Negative 10/16/16 05:15 Sodium Potassium Chloride Carbon Dioxide Anion Gap BUN Creatinine Est GFR ( Amer) Est GFR (Non-Af Amer) BUN/Creatinine Ratio Glucose Calcium Magnesium Total Bilirubin AST ALT Alkaline Phosphatase C-Reactive Protein B-Natriuretic Peptide Total Protein Albumin Globulin Albumin/Globulin Ratio Prealbumin Procalcitonin 0.3 Urine Color Urine Appearance Urine pH Ur Specific Dexter Urine Protein Urine Ketones Urine Blood Urine Nitrate Urine Bilirubin Urine Urobilinogen Ur Leukocyte Esterase Urine WBC (Auto) Urine RBC (Auto) Ur Squamous Epith Cells Urine Bacteria Urine Glucose Assessment: 1. fever with pulmonary infiltrate, not worsening without antibiotics; recent chemo ?fungal ie Cryptococcus 2. Hx lung cancer 3. Hx esophageal cancer s/p esophagogastrectomy 4. elevated CRP, overall declining 5. left pleural effusion Plan: 1. continue to observe off of antibiotics 2. recheck CRP 3. Add Cryptococcal Ag 4. If worsening, pleural fluid sampling Discussed with Dr Jc
[2016-10-16] MEDS: Enoxaparin(*) 40 MG/0.4 ML SYR SUBCUT SCH (21:44)
[2016-10-16] MEDS: OLANzapine TAB* 5 MG PO SCH (21:50)
[2016-10-17 05:14] LABS: Hematocrit 24 % (35-47); Mean Corpuscular HGB Conc 33 g/dl (31-36); Mean Corpuscular Hemoglobin 31 pg (27-31); Mean Corpuscular Volume 94 fL (80-97); Mean Platelet Volume 8 um3 (7.4-10.4); Red Blood Count 2.56 10^6/ul (4.0-5.4); Red Cell Distribution Width 20 % (10.5-15); White Blood Count 10.5 10^3/ul (3.5-10.8)
[2016-10-17 05:29] LABS: C Reactive Protein 79.48 mg/L (< 5.00); Magnesium 1.8 mg/dL (1.9-2.7)
[2016-10-17 05:32] LABS: Comments Flag Yes
[2016-10-17] MEDS: Gabapentin CAP(*) 300 MG PO SCH ×3 (08:14→20:36)
[2016-10-17] MEDS: Acetaminophen TAB* 325 MG PO SCH ×3 (08:14→20:35)
[2016-10-17] MEDS: metroNIDAZOLE TAB* 250 MG PO SCH ×3 (08:14→20:36)
[2016-10-17] MEDS: lamoTRIgine TAB(*) 100 MG PO SCH (08:14)
[2016-10-17] MEDS: oxyCODONE TAB* 5 MG TAB PO PRN ×3 (08:15→18:26)
[2016-10-17] MEDS: Carvedilol TAB* 6.25 MG PO SCH ×2 (08:15→20:36)
[2016-10-17] MEDS: Collagenase 250 MG/GM OINT* 30 GM TOPICAL SCH (09:48)
[2016-10-17] MEDS: Folic Acid TAB* 1 MG PO SCH (09:55)
[2016-10-17] MEDS: BuPROPion XL* 300 MG TAB.XL PO SCH (09:56)
[2016-10-17] MEDS: Magnesium Oxide TAB* 400 MG PO SCH ×2 (09:56→20:36)
[2016-10-17] MEDS ORDERED: Furosemide IV* 10 MG/ML 2 ML VIAL (20 MG) IV ONE (11:00)
[2016-10-17] MEDS ORDERED: Magnesium Sulfate 2 GM IV IVPB ONE (11:00)
[2016-10-17] MEDS ORDERED: Ondansetron INJ* 2 MG/ML VIAL ONE (14:10)
[2016-10-17] MEDS ORDERED: Ondansetron INJ* 2 MG/ML VIAL IV PRN (14:19)
[2016-10-17 15:26] LABS: Urine Magnesium mg/dL 21 mg/dL
[2016-10-17] MEDS: Enoxaparin(*) 40 MG/0.4 ML SYR SUBCUT SCH (20:37)
[2016-10-18] MEDS: oxyCODONE TAB* 5 MG TAB PO PRN ×5 (00:09→20:59)
[2016-10-18 04:46] LABS: Hematocrit 30 % (35-47); Hemoglobin 9.9 g/dl (12.0-16.0); Mean Corpuscular HGB Conc 33 g/dl (31-36); Mean Corpuscular Hemoglobin 30 pg (27-31); Mean Corpuscular Volume 92 fL (80-97); Mean Platelet Volume 8 um3 (7.4-10.4); Red Cell Distribution Width 21 % (10.5-15); White Blood Count 10.8 10^3/ul (3.5-10.8)
[2016-10-18 04:59] LABS: Albumin 2.6 g/dL (3.2-5.2); BUN/Creatinine Ratio 12.7 (8-20); C Reactive Protein 91.32 mg/L (< 5.00); Calcium 9.2 mg/dL (8.6-10.3); EGFR African American 142.7 (>60); EGFR Non-African American 110.9 (>60); Globulin 3.7 g/dL (2-4); Magnesium 1.9 mg/dL (1.9-2.7); Potassium 4.3 mmol/L (3.5-5.0); Total Bilirubin 0.4 mg/dL (0.2-1.0); Total Protein 6.3 g/dL (6.4-8.9)
[2016-10-18] MEDS: Acetaminophen TAB* 325 MG PO SCH ×3 (07:35→20:11)
[2016-10-18] MEDS: Gabapentin CAP(*) 300 MG PO SCH ×3 (07:35→20:12)
[2016-10-18] MEDS: BuPROPion XL* 300 MG TAB.XL PO SCH (09:26)
[2016-10-18] MEDS: Carvedilol TAB* 6.25 MG PO SCH ×2 (09:26→20:12)
[2016-10-18] MEDS: Folic Acid TAB* 1 MG PO SCH (09:26)
[2016-10-18] MEDS: metroNIDAZOLE TAB* 250 MG PO SCH ×3 (09:26→20:12)
[2016-10-18] MEDS: Magnesium Oxide TAB* 400 MG PO SCH ×2 (09:26→20:11)
[2016-10-18] MEDS: lamoTRIgine TAB(*) 100 MG PO SCH (09:26)
--- NOTE | 2016-10-18 10:58 | PN ---
Progress Note - Progress Note SOAP: Subjective: DOS:10/18/16 CC: fever HPI: 66 yo woman with history of malignancy, recent pneumonia, admitted with fever, malaise, abnormal CT chest and elevated CRP. More frequent fevers with diaphoresis, no cough. Had blood transfusion yesterday. No rash or diarrhea. Objective: [] Vital Signs Temp 37.9 C 10/18/16 07:31 Pulse 95 10/18/16 07:31 Resp 16 10/18/16 09:35 BP 129/71 10/18/16 07:31 Pulse Ox 93 10/18/16 07:31 Intake & Output 10/17/16 10/18/16 10/18/16 18:59 06:59 18:59 Intake Total 1406 600 50 Output Total 650 300 Balance 756 600 -250 Weight 99 lb 12.8 oz Intake: IV Fluids 65 NS (0.9%) 65 IVPB 53 Mag 53 Oral 990 600 50 Packed Cells 298 Output: Urine 650 300 Other: Estimated Void Medium Medium # Bowel Movements 2 0 Estimated Stool Amount Large # Voids 2 0 Gen:Awake, no distress Neuro:OX3, moves all extremities HEENT:PERRL, MMM Neck:supple Heart:RRR no murmur Lungs:CTA BL Abd:+BS NTND soft Skin: No rash MSK: no spine tenderness Laboratory Results - last 24 hr 10/14/16 10/17/16 10/18/16 14:00 04:17 04:15 WBC 10.8 RBC 3.30 L Hgb 9.9 L Hct 30 L MCV 92 MCH 30 MCHC 33 RDW 21 H Plt Count 324 MPV 8 Sodium Potassium Chloride Carbon Dioxide Anion Gap BUN Creatinine Est GFR ( Amer) Est GFR (Non-Af Amer) BUN/Creatinine Ratio Glucose Calcium Magnesium Total Bilirubin AST ALT Alkaline Phosphatase C-Reactive Protein B-Natriuretic Peptide Total Protein Albumin Globulin Albumin/Globulin Ratio Prealbumin Procalcitonin U Collection Duration 24 Urine Total Volume 1900 Ur Magnesium mg/spec 399 H Ur Magnesium mg/dL 21 Blood Type O Positive Antibody Screen Negative Crossmatch See Detail 10/18/16 10/18/16 10/18/16 04:15 04:15 04:15 WBC RBC Hgb Hct MCV MCH MCHC RDW Plt Count MPV Sodium 131 L Potassium 4.3 Chloride 96 L Carbon Dioxide 30 Anion Gap 5 BUN 7 Creatinine 0.55 Est GFR ( Amer) 142.7 Est GFR (Non-Af Amer) 110.9 BUN/Creatinine Ratio 12.7 Glucose 76 Calcium 9.2 Magnesium 1.9 Total Bilirubin 0.40 AST 11 L ALT 5 L Alkaline Phosphatase 132 H C-Reactive Protein 91.32 H B-Natriuretic Peptide 204 H Total Protein 6.3 L Albumin 2.6 L Globulin 3.7 Albumin/Globulin Ratio 0.7 L Prealbumin 12 L Procalcitonin 0.1 U Collection Duration Urine Total Volume Ur Magnesium mg/spec Ur Magnesium mg/dL Blood Type Antibody Screen Crossmatch Assessment: 1. fever with mass like pulmonary infiltrates, ; recent chemo ?fungal ie Cryptococcus 2. Hx lung cancer 3. Hx esophageal cancer s/p esophagogastrectomy 4. elevated CRP, increasing 5. left pleural effusion Plan: 1. continue to observe off of antibiotics 2. CrAg pending 4. Lung US to evaluate for fluid and/or L lower lobe lung mass sampling Discussed with Dr Jc
[2016-10-18] MEDS: Collagenase 250 MG/GM OINT* 30 GM TOPICAL SCH (11:04)
--- NOTE | 2016-10-18 14:04 | RAD ---
INDICATION: Esophageal and lung carcinoma. Comparison: Comparison is made with a prior PET/CT study from May 27, 2015, prior CT of the chest, abdomen and pelvis from October 11, [address] of the chest from October 15, 2016. Technique: The patient was given an intravenous injection of 20.5 mCi of technetium 99m HDP, and the whole body was imaged in both the anterior and posterior projections. FINDINGS: There is a mild focus of increased activity present within the sternum at the junction of the manubrium and body of the sternum. No fracture is seen on the prior study. There is a small lucent area which would be suspicious for metastatic disease. There is also mild increased activity in several mid posterior and posterolateral ribs on both sides which appear to correlate with small sclerotic areas on the prior CT study also suspicious for metastatic disease less likely posttraumatic change. There is increased activity in the proximal left femur which appears to be secondary to a prior fracture reduction surgery. There is otherwise normal distribution of radiopharmaceutical. There is normal bilateral renal activity. IMPRESSION: 1. MILD INCREASED ACTIVITY WITHIN THE STERNUM SUSPICIOUS FOR METASTATIC DISEASE. 2. MILD BILATERAL INCREASED ACTIVITY IN SEVERAL RIBS ALSO SUSPICIOUS FOR METASTATIC DISEASE LESS LIKELY POSTERIOR MATTER CHANGE. CPT II Codes: 3570F
--- NOTE | 2016-10-18 16:13 | RAD ---
INDICATION: Further evaluation of loculated left-sided pleural effusion. COMPARISON: Noncontrast CT of the chest dated October 15, 2016 TECHNIQUE: Real time ultrasound images of the bilateral posterior lung bases were acquired with dewey scale and Doppler color flow imaging. FINDINGS: There is a heterogeneously echogenic material in the left posterior lung base, presumably located within the pleural space. This material includes loculated effusion. Visualized at the right lung base is an echogenically solid and avascular focus measuring 3 x 3.4 cm. IMPRESSION: 1. Heterogeneous loculated material at the deep ended posterior left lung base likely represents a loculated pleural fluid collection. 2. Pleural-based avascular solid focus at the posterior right lung base is nonspecific but could represent atelectasis, pneumonia or another more sinister etiology.
[2016-10-18] MEDS: OLANzapine TAB* 5 MG PO SCH (21:23)
[2016-10-19] MEDS: oxyCODONE TAB* 5 MG TAB PO PRN ×6 (00:12→21:06)
[2016-10-19] MEDS: Enoxaparin(*) 40 MG/0.4 ML SYR SUBCUT SCH ×2 (00:20→21:03)
[2016-10-19 06:17] LABS: Hematocrit 29 % (35-47); Hemoglobin 9.4 g/dl (12.0-16.0); Mean Corpuscular HGB Conc 32 g/dl (31-36); Mean Corpuscular Hemoglobin 29 pg (27-31); Mean Corpuscular Volume 91 fL (80-97); Mean Platelet Volume 7 um3 (7.4-10.4); Red Blood Count 3.22 10^6/ul (4.0-5.4); Red Cell Distribution Width 20 % (10.5-15)
[2016-10-19 06:26] LABS: Comments Flag Yes
[2016-10-19 06:33] LABS: C Reactive Protein 77.22 mg/L (< 5.00); Magnesium 1.5 mg/dL (1.9-2.7)
[2016-10-19] MEDS: metroNIDAZOLE TAB* 250 MG PO SCH ×3 (08:04→21:04)
[2016-10-19] MEDS: Magnesium Oxide TAB* 400 MG PO SCH ×3 (08:04→21:06)
[2016-10-19] MEDS: Gabapentin CAP(*) 300 MG PO SCH ×3 (08:05→21:04)
[2016-10-19] MEDS: lamoTRIgine TAB(*) 100 MG PO SCH (08:05)
[2016-10-19] MEDS: Carvedilol TAB* 6.25 MG PO SCH ×2 (08:06→21:17)
[2016-10-19] MEDS: Folic Acid TAB* 1 MG PO SCH (08:06)
[2016-10-19] MEDS: Acetaminophen TAB* 325 MG PO SCH ×3 (08:07→21:04)
[2016-10-19] MEDS: BuPROPion XL* 300 MG TAB.XL PO SCH (08:07)
[2016-10-19] MEDS: Collagenase 250 MG/GM OINT* 30 GM TOPICAL SCH (09:46)
[2016-10-19] MEDS ORDERED: Magnesium Sulfate 4 GM IV IVPB ONE (11:00)
[2016-10-19] MEDS: aMILoride TAB* 5 MG PO SCH (11:07)
--- NOTE | 2016-10-19 14:40 | RAD ---
INDICATION: Status post thoracentesis. COMPARISON: Comparison is made with a prior chest CT study from October 10, 2016. TECHNIQUE: Dual-energy PA views of the chest were obtained. FINDINGS: There is a multilead transvenous pacemaker present. The heart is moderately enlarged and unchanged. There is a power port central venous catheter present on the right side. The catheter tip projects in the right paratracheal region and is unchanged in position. There are patchy infiltrates present at the right lung base and in the left upper and midlung field with a more confluent infiltrate present at the left lung base. There is also a small left pleural effusion. There appears to be no significant change from the prior exam. No pneumothorax is seen. IMPRESSION: 1. STATUS POST THORACENTESIS, NO EVIDENCE FOR PNEUMOTHORAX. 2. BILATERAL INFILTRATES AND LEFT PLEURAL EFFUSION, UNCHANGED.
[2016-10-19 15:07] LABS: Body Fluid WBC 256 /mcL
[2016-10-19 15:10] LABS: Body Fluid Appearance Clear
[2016-10-19 15:17] LABS: Body Fluid Total Cells Counted 100
--- NOTE | 2016-10-19 16:12 | RAD ---
Indication: Left pleural effusion, left pleural thickening . Using usual aseptic technique and after obtaining informed consent a 22-gauge needle was placed within the thickened pleura on the left hemithorax. Fine-needle aspiration of the thickened pleura was performed. 2 passes were made. The loculated fluid collection was then localized. The largest pocket was localized. Utilizing usual aseptic technique and lidocaine as local anesthetic a 5-Zambian catheter was placed within the loculated fluid collection. Approximately 15 mL of fluid was aspirated. The specimen was sent for cultures and sensitivity. IMPRESSION: Successful biopsy with fine-needle aspiration of the thickened pleura in the left hemithorax. Loculated fluid was localized and a 5-Zambian catheter was placed and approximately 15 mL of fluid was aspirated.
--- NOTE | 2016-10-19 16:12 | RAD ---
Indication: Left pleural effusion, left pleural thickening . Using usual aseptic technique and after obtaining informed consent a 22-gauge needle was placed within the thickened pleura on the left hemithorax. Fine-needle aspiration of the thickened pleura was performed. 2 passes were made. The loculated fluid collection was then localized. The largest pocket was localized. Utilizing usual aseptic technique and lidocaine as local anesthetic a 5-Japanese catheter was placed within the loculated fluid collection. Approximately 15 mL of fluid was aspirated. The specimen was sent for cultures and sensitivity. IMPRESSION: Successful biopsy with fine-needle aspiration of the thickened pleura in the left hemithorax. Loculated fluid was localized and a 5-Japanese catheter was placed and approximately 15 mL of fluid was aspirated.
[2016-10-20] MEDS: oxyCODONE TAB* 5 MG TAB PO PRN ×7 (00:07→20:48)
[2016-10-20 05:23] LABS: Hematocrit 27 % (35-47); Mean Corpuscular HGB Conc 33 g/dl (31-36); Mean Corpuscular Hemoglobin 30 pg (27-31); Mean Corpuscular Volume 92 fL (80-97); Mean Platelet Volume 8 um3 (7.4-10.4); Red Blood Count 2.96 10^6/ul (4.0-5.4); Red Cell Distribution Width 20 % (10.5-15); White Blood Count 11.2 10^3/ul (3.5-10.8)
[2016-10-20 05:34] LABS: BUN/Creatinine Ratio 19.6 (8-20); C Reactive Protein 92.69 mg/L (< 5.00); Calcium 8.9 mg/dL (8.6-10.3); EGFR African American 139.7 (>60); EGFR Non-African American 108.6 (>60); Magnesium 2.1 mg/dL (1.9-2.7); Potassium 4.5 mmol/L (3.5-5.0)
[2016-10-20] MEDS: Carvedilol TAB* 6.25 MG PO SCH ×2 (07:27→20:47)
[2016-10-20] MEDS: BuPROPion XL* 300 MG TAB.XL PO SCH (10:02)
[2016-10-20] MEDS: aMILoride TAB* 5 MG PO SCH (10:03)
[2016-10-20] MEDS: Acetaminophen TAB* 325 MG PO SCH ×3 (10:03→20:47)
[2016-10-20] MEDS: metroNIDAZOLE TAB* 250 MG PO SCH ×3 (10:03→21:39)
[2016-10-20] MEDS: Magnesium Oxide TAB* 400 MG PO SCH ×3 (10:03→21:38)
[2016-10-20] MEDS: lamoTRIgine TAB(*) 100 MG PO SCH (10:04)
[2016-10-20] MEDS: Gabapentin CAP(*) 300 MG PO SCH ×3 (10:04→20:49)
[2016-10-20] MEDS: Folic Acid TAB* 1 MG PO SCH (10:04)
[2016-10-20] MEDS: Collagenase 250 MG/GM OINT* 30 GM TOPICAL SCH (11:06)
[2016-10-20 14:27] LABS: Zinc 0.28 mcg/mL (0.66-1.10)
[2016-10-20 14:38] LABS: Total Protein, BF 2.8 g/dL
[2016-10-20] MEDS: OLANzapine TAB* 5 MG PO SCH (21:39)
[2016-10-20] MEDS: Enoxaparin(*) 40 MG/0.4 ML SYR SUBCUT SCH (21:39)
[2016-10-21] MEDS: oxyCODONE TAB* 5 MG TAB PO PRN ×4 (00:21→13:50)
[2016-10-21] MEDS ORDERED: Zinc Sulfate CAP* 220 MG PO SCH (09:00)
[2016-10-21] MEDS: Carvedilol TAB* 6.25 MG PO SCH (09:08)
[2016-10-21 09:10] VITALS: BP 110/65
[2016-10-21] MEDS: lamoTRIgine TAB(*) 100 MG PO SCH (09:10)
[2016-10-21] MEDS: metroNIDAZOLE TAB* 250 MG PO SCH ×2 (09:11→13:49)
[2016-10-21] MEDS: Gabapentin CAP(*) 300 MG PO SCH ×2 (09:12→13:49)
--- NOTE | 2016-10-21 10:08 | PN ---
Subjective - Subjective Reason for Note: Discharge Note History: She would like to go home today. She has her usual sacral pain, no more than that. She has had a low grade fever of 100F this morning. She doesn't see this as a barrier to discharge. She has had a bowel movement today and ate something. However, she had dry heaves when I saw her - again, she didn't think this should keep her in the hospital. 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 Systolic CHF (Chronic) I50.20 Current Medications: Current Medications Acetaminophen (Tylenol Tab*) 975 mg PO TID [facility] Last Admin: 10/20/16 20:47 Dose: 975 mg Amiloride HCl (Midamor Tab*) 5 mg PO DAILY [facility] Last Admin: 10/20/16 10:03 Dose: 5 mg Bupropion HCl (Bupropion Xl*) 300 mg PO DAILY [facility] Last Admin: 10/20/16 10:02 Dose: 300 mg Carvedilol (Coreg Tab*) 9.375 mg PO BID@0700,1900 [facility] Last Admin: 10/21/16 09:08 Dose: 9.375 mg Collagenase (Santyl 250 Mg/Gm Oint*) 1 applic TOPICAL DAILY [facility] Last Admin: 10/20/16 11:06 Dose: 1 applic Enoxaparin Sodium (Lovenox(*)) 40 mg SUBCUT Q24H [facility] Last Admin: 10/20/16 21:39 Dose: 40 mg Folic Acid (Folvite Tab*) 1 mg PO DAILY [facility] Last Admin: 10/20/16 10:04 Dose: 1 mg Gabapentin (Neurontin Cap(*)) 300 mg PO TID [facility] Last Admin: 10/21/16 09:12 Dose: 300 mg Lamotrigine (Lamictal Tab(*)) 200 mg PO DAILY [facility] Last Admin: 10/21/16 09:10 Dose: 200 mg Magnesium Oxide (Magox 400 Tab*) 800 mg PO TID [facility] Last Admin: 10/20/16 21:38 Dose: 800 mg Metronidazole (Flagyl Tab*) 500 mg PO TID [facility] Last Admin: 10/21/16 09:11 Dose: 500 mg Olanzapine (Zyprexa Tab*) 5 mg PO Q2D@2100 [facility] Last Admin: 10/20/16 21:39 Dose: 5 mg Ondansetron HCl (Zofran Inj*) 4 mg IV Q4H PRN PRN Reason: NAUSEA Oxycodone HCl (Roxycodone Tab*) 30 mg PO Q3H PRN PRN Reason: PAIN Last Admin: 10/21/16 06:10 Dose: 30 mg Zinc Sulfate (Zinc-220 Cap*) 220 mg PO DAILY [facility] Last Admin: 10/21/16 09:10 Dose: 220 mg Home Medications: Home Medications Medication Instructions Recorded Confirmed Type OLANzapine TAB* [ZyPREXA TAB*] 5 mg PO EVERY OTHER DAY 03/03/14 10/10/16 History lamoTRIgine TAB(*) [Lamictal 200 mg PO QAM 03/03/14 10/10/16 History TAB(*)] oxyCODONE TAB* [Roxycodone TAB*] 30 mg PO Q3H PRN 03/03/14 10/10/16 History Bupropion XL (NF) [Wellbutrin XL 300 mg PO DAILY 09/11/16 10/10/16 History (NF)] Carvedilol TAB* [Coreg TAB*] 3.125 mg PO BID 09/11/16 10/10/16 History Cyanocobalamin INJ * [Vitamin B12 1,000 mcg IM SEE INSTRUCTIONS 09/11/16 History INJ *] Epinephrine [Epipen 2-Yuniel] 0.3 mg IM ONCE PRN 09/11/16 10/10/16 History Folic Acid TAB* [Folvite TAB*] 1 mg PO DAILY 09/11/16 10/10/16 History Gabapentin CAP(*) [Neurontin 300 300 mg PO TID 09/11/16 10/10/16 History CAP(*)] Ondansetron TAB* [Zofran 4 MG Tab*] 8 mg PO Q8HR PRN 09/11/16 10/10/16 History Prochlorperazine TAB* [Compazine 10 mg PO Q6H PRN 09/11/16 10/10/16 History Tab*] metroNIDAZOLE TAB* [Flagyl 250 mg 500 mg PO TID 09/11/16 10/10/16 History TAB*] Magnesium Oxide 400 mg PO DAILY 10/10/16 10/10/16 History Allergies: Allergies Allergy/AdvReac Type Severity Reaction Status Date / Time Fentanyl Allergy Severe Hallucinati Verified 09/11/16 13:35 ons Aspartame Allergy Intermediate Headache Verified 09/11/16 13:35 Polymyxin B [From Neosporin] Allergy Intermediate Eyes Verified 09/11/16 13:35 Itchy/Swollen/Red/Watery Bacitracin [From Neosporin] Allergy Unknown Verified 09/11/16 13:35 Reaction Details Cephalexin [From Keflex] Allergy See Comment Verified 09/11/16 13:35 Neomycin [From Neosporin] Allergy Unknown Verified 09/11/16 13:35 Reaction Details Objective - Vital Signs Vital Signs: Vital Signs 10/20/16 10/20/16 10/20/16 10:04 10:56 11:58 Temperature 99.5 F Pulse Rate 80 Respiratory 16 18 16 Rate Blood Pressure 112/70 (mmHg) O2 Sat by Pulse 94 Oximetry 10/20/16 10/20/16 10/20/16 12:04 12:56 13:58 Temperature Pulse Rate Respiratory 18 18 18 Rate Blood Pressure (mmHg) O2 Sat by Pulse Oximetry 10/20/16 10/20/16 10/20/16 14:03 15:58 16:03 Temperature Pulse Rate Respiratory 18 16 16 Rate Blood Pressure (mmHg) O2 Sat by Pulse Oximetry 10/20/16 10/20/16 10/20/16 17:20 19:20 19:43 Temperature 98.7 F Pulse Rate 94 Respiratory 16 18 18 Rate Blood Pressure 113/75 (mmHg) O2 Sat by Pulse 97 Oximetry 10/20/16 10/20/16 10/20/16 20:00 20:48 20:49 Temperature Pulse Rate Respiratory 17 18 18 Rate Blood Pressure (mmHg) O2 Sat by Pulse Oximetry 10/20/16 10/20/16 10/21/16 22:48 22:49 00:21 Temperature Pulse Rate Respiratory 16 16 18 Rate Blood Pressure (mmHg) O2 Sat by Pulse Oximetry 10/21/16 10/21/16 10/21/16 00:22 02:19 06:10 Temperature 98.9 F Pulse Rate 88 Respiratory 20 18 17 Rate Blood Pressure 111/71 (mmHg) O2 Sat by Pulse 97 Oximetry 10/21/16 10/21/16 10/21/16 07:56 09:12 09:32 Temperature 100.0 F Pulse Rate 103 Respiratory 20 20 20 Rate Blood Pressure 110/65 (mmHg) O2 Sat by Pulse 95 Oximetry - Intake and Output Intake and Output: Intake & Output 10/18/16 10/19/16 10/20/16 10/21/16 11:59 11:59 11:59 11:59 Intake Total 1956 1375 744 680 Output Total 304 249 6508 2100 Balance 1003 002 -516 -1421 Weight 99 lb 12.8 oz 102 lb 9.6 oz 102 lb 6.4 oz 100 lb 11.2 oz Intake: IV Fluids 65 22 Mag 22 NS (0.9%) 65 IVPB 53 102 Mag 53 102 Oral 1540 1375 620 680 Packed Cells 298 Output: Urine 176 017 7388 2100 Other: Estimated Void Medium Medium # Bowel Movements 0 0 0 0 Estimated Stool Amount Large # Voids 0 3 3 2 ADLs: Meal Record Start: 10/10/16 17: 58 Freq: DAILY@0900,1400,1800 Status: Active Created 10/10/16 17:58 System (Rec: 10/10/16 17:58 System TELE-C15) Document 10/10/16 18:00 JXT1554 (Rec: 10/10/16 20:41 ZKI4494 TELE-C08) Document 10/11/16 09:00 BJF0813 (Rec: 10/11/16 13:53 GLP8453 TELE-C05) Document 10/11/16 13:53 BJF4589 (Rec: 10/11/16 13:54 PRM5271 TELE-C05) Document 10/11/16 18:00 SBF2253 (Rec: 10/11/16 18:02 FMQ5548 TELE-C01) Document 10/12/16 09:00 HSY8850 (Rec: 10/12/16 15:11 QMK2227 TELE-C03) Document 10/12/16 14:00 SZZ8986 (Rec: 10/12/16 15:14 WRV8437 TELE-C03) Document 10/12/16 18:00 OLU6564 (Rec: 10/12/16 23:20 AAM0633 TELE-C35) Document 10/13/16 14:00 LKM7196 (Rec: 10/13/16 14:16 UIK1143 TELE-C03) Document 10/13/16 18:00 SLT9168 (Rec: 10/13/16 18:55 ZUC2113 TELE-C03) Document 10/14/16 09:00 QER2507 (Rec: 10/14/16 09:27 QEI0602 TELE-C11) Document 10/14/16 13:43 XGL4885 (Rec: 10/14/16 13:47 WKJ3565 TELE-C11) Document 10/14/16 18:00 ZOO7859 (Rec: 10/14/16 18:36 NWH0300 TELE-C11) Document 10/15/16 09:00 NBX5509 (Rec: 10/15/16 10:08 ZVU3710 TELE-C08) Document 10/15/16 14:00 FUM6247 (Rec: 10/15/16 14:26 FDI5827 TELE-C08) Document 10/15/16 18:00 PXE8129 (Rec: 10/15/16 20:51 ASE2039 TELE-C01) Document 10/16/16 08:44 GUD1425 (Rec: 10/16/16 08:44 IXU0228 TELE-C07) Document 10/16/16 14:00 GNZ7342 (Rec: 10/16/16 14:34 WSN4647 TELE-C11) Document 10/16/16 18:00 NQT8585 (Rec: 10/16/16 22:25 IOH2207 TELE-C35) Document 10/17/16 09:00 DXZ8517 (Rec: 10/17/16 11:42 CSJ8750 TELE-C01) Document 10/17/16 13:22 FOT9772 (Rec: 10/17/16 13:22 QAJ0972 TELE-C10) Document 10/17/16 18:00 GOV7558 (Rec: 10/17/16 20:54 ZIZ2478 TELE-C11) Document 10/18/16 09:00 IEW3969 (Rec: 10/18/16 10:52 ILH1238 TELE-C10) Document 10/18/16 13:50 CDK1904 (Rec: 10/18/16 13:50 PDK4855 TELE-L01) Document 10/18/16 18:00 GEA9582 (Rec: 10/18/16 22:34 TLT0011 TELE-C11) Document 10/19/16 09:00 VPJ9177 (Rec: 10/19/16 10:47 MWS7292 TELE-C07) Document 10/19/16 14:00 NCK1995 (Rec: 10/19/16 14:29 ZKB8683 TELE-C07) Document 10/19/16 18:00 SZD3585 (Rec: 10/19/16 20:25 NKM9305 TELE-C01) Document 10/20/16 09:00 BBR0487 (Rec: 10/20/16 10:09 HLZ9393 TELE-C01) Document 10/20/16 14:00 FTZ7998 (Rec: 10/20/16 14:49 NCU8441 TELE-C01) Document 10/20/16 18:00 ATX4009 (Rec: 10/20/16 20:16 QGA6650 TELE-C01) Document 10/21/16 09:31 GBL8290 (Rec: 10/21/16 09:31 CBA5955 TELE-C03) ADLs: Meal Record Start: 10/12/16 12: 54 Freq: DAILY@0900,1400,1800 Status: Complete Created 10/12/16 12:54 TRT5257 (Rec: 10/12/16 12:54 YCD0323 TELE-C09) Document 10/12/16 14:00 LCK8131 (Rec: 10/12/16 15:14 WAP8264 TELE-C03) Document 10/13/16 09:00 NCT4854 (Rec: 10/13/16 10:49 AUN3402 TELE-C03) Document 10/13/16 14:00 MCL9832 (Rec: 10/13/16 14:16 TRQ3687 TELE-C03) Intake and Output Start: 10/10/16 17: 58 Freq: DAILY@0600,1400,2200 Status: Complete Created 10/10/16 17:58 System (Rec: 10/10/16 17:58 System TELE-C15) Document 10/10/16 22:00 MGY3190 (Rec: 10/10/16 22:44 ZGK6639 TELE-C08) Document 10/11/16 05:24 BCF7199 (Rec: 10/11/16 05:25 UIF7376 TELE-C34) Document 10/11/16 13:53 WQH7552 (Rec: 10/11/16 13:54 OTI2370 TELE-C05) Document 10/11/16 22:00 ULF0542 (Rec: 10/11/16 22:31 CDA5660 TELE-C01) Document 10/12/16 06:00 FKX5539 (Rec: 10/12/16 06:08 BYB0305 [facility] [place] Document 10/12/16 14:00 CAZ4088 (Rec: 10/12/16 15:08 JQY9598 TELE-C09) Document 10/13/16 06:00 GEZ3227 (Rec: 10/13/16 06:17 LAD9595 TELE-C35) Document 10/13/16 14:00 SQJ6316 (Rec: 10/13/16 14:16 XJS9071 TELE-C03) Intake and Output Start: 10/12/16 12: 54 Freq: DAILY@0600,1400,2200 Status: Inactive Created 10/12/16 12:54 FDZ5628 (Rec: 10/12/16 12:54 EKN8074 TELE-C09) Document 10/12/16 14:00 YZI4959 (Rec: 10/12/16 15:08 TOO9303 TELE-C09) Document 10/12/16 22:00 MIY5373 (Rec: 10/12/16 23:23 FZS4593 TELE-C35) Document 10/13/16 14:00 IDJ2439 (Rec: 10/13/16 14:16 ZZL2393 TELE-C03) Document 10/13/16 20:40 INT3912 (Rec: 10/13/16 20:40 SEP8500 TELE-L03) Document 10/13/16 22:00 DAV4385 (Rec: 10/13/16 22:44 SSM4945 TELE-C33) Document 10/14/16 06:00 ULI3433 (Rec: 10/14/16 06:26 BER5357 TELE-C34) Document 10/14/16 14:00 THS1067 (Rec: 10/14/16 15:58 CIK4843 TELE-C11) Document 10/14/16 22:00 GBJ8624 (Rec: 10/14/16 22:34 TVN3761 TELE-C35) Document 10/15/16 05:29 BNQ3846 (Rec: 10/15/16 05:29 QCT5622 TELE-C01) Document 10/15/16 14:00 HMO8644 (Rec: 10/15/16 14:26 BYE8140 TELE-C08) Document 10/15/16 22:00 ZZX9355 (Rec: 10/15/16 22:38 OEK0886 TELE-C01) Document 10/16/16 06:00 JJL9199 (Rec: 10/16/16 06:39 DJD1398 TELE-C34) Document 10/16/16 08:00 GQT4353 (Rec: 10/16/16 09:01 ZMU6557 TELE-C02) Document 10/16/16 09:33 DLF6414 (Rec: 10/16/16 09:33 JGP0486 TELE-C07) Document 10/16/16 14:00 BJL9814 (Rec: 10/16/16 14:34 AIM8036 TELE-C11) Document 10/16/16 22:00 IKE4469 (Rec: 10/16/16 22:27 NTX6902 TELE-C35) Document 10/17/16 06:00 NQM1620 (Rec: 10/17/16 07:42 PCC5549 TELE-C34) Document 10/17/16 10:14 HQQ6061 (Rec: 10/17/16 10:14 PHM3470 TELE-L03) Document 10/17/16 13:42 IIR7580 (Rec: 10/17/16 13:44 LQU8955 TELE-C01) Document 10/17/16 14:02 XNP8315 (Rec: 10/17/16 14:02 KLE3773 TELE-L03) Document 10/17/16 14:18 QOU1928 (Rec: 10/17/16 14:18 LPW0954 TELE-C10) Document 10/17/16 15:09 BUA8966 (Rec: 10/17/16 15:13 NJF9955 TELE-L03) Document 10/17/16 22:00 PHB4094 (Rec: 10/17/16 22:19 DPL7794 TELE-C33) Document 10/18/16 06:00 XUK5611 (Rec: 10/18/16 06:23 FWT3054 TELE-C33) Document 10/18/16 08:51 FUQ9018 (Rec: 10/18/16 08:51 RZS2824 TELE-C10) Document 10/18/16 14:00 JZZ2972 (Rec: 10/18/16 14:27 RUP5473 TELE-C11) Document 10/18/16 16:07 ZWP8537 (Rec: 10/18/16 16:08 MWA9646 TELE-M10) Document 10/18/16 17:40 FHB6736 (Rec: 10/18/16 17:41 VMD8580 TELE-C11) Document 10/18/16 22:00 CFW0798 (Rec: 10/18/16 22:36 ZZH7131 TELE-C11) Document 10/19/16 06:00 NFF3465 (Rec: 10/19/16 07:12 IQE7525 TELE-C34) Document 10/19/16 08:25 ZOM3825 (Rec: 10/19/16 08:25 ONQ5276 TELE-L02) - Physical Exam General: No Cyanosis, Yes Anemia, No Jaundice, No Clubbing Lungs and Chest: No: Chest Expansion Full, Chest Expansion Symetrica, Vessicular Breath Sounds - decreased air entry at bases, Crackles, Wheezes Heart Rate and Rhythm: Regular JVP: Not Elevated Additional Cardiovascular: Yes: Normal Heart Sounds. No: Heart Murmur, Pedal Edema Abdominal Exam: Yes: Soft, Bowel Sounds Present. No: Abdominal Mass, Hepatomegaly, Abdominal Tenderness, Guarding, Rebound Tenderness Results - Results Lab Results: Laboratory Results - last 24 hr 10/19/16 10/19/16 10/19/16 06:10 14:05 14:05 Fluid Source Pleural Pleural Fluid Total Protein 2.8 Fluid LDH 141 Zinc 0.28 L Assessment - Problem List Assessment: Patient Problems Dehydration (Acute) Pleural effusion, left (Acute) Cardiac pacemaker (Chronic) Cardiomyopathy (Chronic) Cerebral AVM (Chronic) Depression (Chronic) Esophageal abnormality (Chronic) Esophageal carcinoma (Chronic) History of breast cancer (Chronic) History of lung cancer (Chronic) 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 Her BP is now stable. Pleural effusion, left (Acute) The microbiology is negative from the thoracocentesis. Pending cytology. Cardiomyopathy (Chronic)/Systolic CHF (Chronic) She is not in acute heart failure today Fever: Low grade 100F one time only. She doesn't think this reflects anything in particular and doesn't want this to cause her to delay discharge Nausea/vomiting: She had some dry heaves while I was in the room. She states this happens periodically and she can cope with this at home. She wants IV zofran for this in the hospital, but mariam with oral zofran at home I spoke with the patient and her Kale. They would like to go home and Dr. Tran Jc was very keen on this plan. I don't think that we should see either the single measurement of a low grade fever nor her dry heaves as a reason to detain her.
[2016-10-21] MEDS: Magnesium Oxide TAB* 400 MG PO SCH ×2 (10:25→13:49)
[2016-10-21] MEDS: Folic Acid TAB* 1 MG PO SCH (10:26)
[2016-10-21] MEDS: BuPROPion XL* 300 MG TAB.XL PO SCH (10:26)
[2016-10-21] MEDS: aMILoride TAB* 5 MG PO SCH (10:27)
[2016-10-21] MEDS: Acetaminophen TAB* 325 MG PO SCH ×2 (10:31→13:49)
[2016-10-21] MEDS: Collagenase 250 MG/GM OINT* 30 GM TOPICAL SCH (10:35)
--- NOTE | 2016-10-27 04:13 | DS ---
DISCHARGE SUMMARY:* ADDENDUM: By 10/20/16, she was feeling somewhat better. I told her that her CHF was stable. Her low magnesium had been repleted. She was, however, not feeling confident that she would be okay at home. By 10/21/16, she felt like she would like to go home. She did still have low-grade fever of 100. She had some dry heaves. DIET: At the time of discharge, her diet was regular. ACTIVITY: As tolerated. MEDICATIONS: 1. Carvedilol 9.375 mg twice a day. 2. Torsemide 10 mg every other day along with KCL 20 mEq if her weight went up by 3 pounds over her dry weight of 102 pounds. 3. Oxycodone 30 mg every 3 hours. 4. Acetaminophen 1000 mg 3 times a day. 5. Bupropion XL 300 mg once a day. 6. Lamictal 200 mg once a day. 7. Olanzapine 5 mg every other day. 8. Metronidazole 500 mg 3 times a day. 9. Gabapentin 300 mg 3 times a day. 10. Folic acid 1 mg once a day. 11. Magnesium oxide 400 mg 3 times per day. 12. Ondansetron 8 mg every 8 hours as needed for nausea. 13. Amiloride 5 mg once a day. 14. Santyl once a day. 15. Zinc 220 mg (50 mg) daily. She was told not to take lisinopril or spironolactone. She is to follow up with me in 5 days. [id number]/[facility] #: [id number] MTDD
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
== END 2016-10-21 15:35 | disposition home health service (06) | DRG 193 ==
LOC: MEDTELE 17:54 → OBSVTOIN 10-12 10:01
PROVIDERS: ADMIT Internal Medicine Geriatric Medicine; ATTEND Internal Medicine Geriatric Medicine
PROC: 30233N1 Transfusion of Nonautologous Red Blood Cells into Peripheral Vein, Percutaneous Approach (ICD-10-PCS; 2016-10-17)
PROC: 0W9B3ZX Drainage of Left Pleural Cavity, Percutaneous Approach, Diagnostic (ICD-10-PCS; principal; 2016-10-19)
DX: J18.9 Pneumonia, unspecified organism (principal); Q28.2 Arteriovenous malformation of cerebral vessels; I47.2 Ventricular tachycardia; E46 Unspecified protein-calorie malnutrition; L89.152 Pressure ulcer of sacral region, stage 2; J90 Pleural effusion, not elsewhere classified; I95.9 Hypotension, unspecified; I50.22 Chronic systolic (congestive) heart failure; I42.9 Cardiomyopathy, unspecified; Z68.1 Body mass index [BMI] 19.9 or less, adult; E83.42 Hypomagnesemia; E86.0 Dehydration; F31.9 Bipolar disorder, unspecified; D63.8 Anemia in other chronic diseases classified elsewhere; E04.2 Nontoxic multinodular goiter; G89.29 Other chronic pain; R11.2 Nausea with vomiting, unspecified; Z92.3 Personal history of irradiation; Z93.4 Other artificial openings of gastrointestinal tract status; Z90.3 Acquired absence of stomach [part of]; Z90.49 Acquired absence of other specified parts of digestive tract; Z95.810 Presence of automatic (implantable) cardiac defibrillator; Z88.6 Allergy status to analgesic agent; Z88.8 Allergy status to other drugs, medicaments and biological substances; Z88.1 Allergy status to other antibiotic agents; Z91.02 Food additives allergy status; Z87.891 Personal history of nicotine dependence; Z85.01 Personal history of malignant neoplasm of esophagus; Z85.3 Personal history of malignant neoplasm of breast; Z85.118 Personal history of other malignant neoplasm of bronchus and lung; Z92.21 Personal history of antineoplastic chemotherapy; Z90.2 Acquired absence of lung [part of]; Z95.0 Presence of cardiac pacemaker
CPT/HCPCS: 32555; 36415; 71010; 71250; 71260; 74177; 76604; 76942; 78306; 80048; 80053; 81003; 81015; 82570; 83615; 83735; 83880; 84100; 84134; 84145; 84146; 84157; 84484; 84630; 85025; 85027; 85610; 85730; 86140; 86850; 86900; 86901; 86922; 87040; 87070; 87086; 87116; 87205; 87206; 87899; 88172; 88173; 88305; 89051; 93005; A9270-GY; A9503; J1642; J1650; J1940; J2405; P9040; Q9967

== ENCOUNTER 2016-10-26 21:46 | Inpatient (IN) | payer MEDICARE ==
[2016-10-26 23:07] LABS: Hematocrit 34 % (35-47); Hemoglobin 10.9 g/dl (12.0-16.0); Mean Corpuscular HGB Conc 32 g/dl (31-36); Mean Corpuscular Hemoglobin 30 pg (27-31); Mean Corpuscular Volume 95 fL (80-97); Mean Platelet Volume 8 um3 (7.4-10.4); Red Blood Count 3.59 10^6/ul (4.0-5.4); Red Cell Distribution Width 20 % (10.5-15); White Blood Count 12.5 10^3/ul (3.5-10.8)
[2016-10-26 23:18] LABS: ALT 8 U/L (7-52); Albumin 3.5 g/dL (3.2-5.2); Alkaline Phosphatase 169 U/L (34-104); BUN/Creatinine Ratio 19.3 (8-20); Blood Urea Nitrogen 23 mg/dL (6-24); C Reactive Protein 75.74 mg/L (< 5.00); CO2 Carbon Dioxide 21 mmol/L (22-32); Calcium 10.3 mg/dL (8.6-10.3); Chloride 93 mmol/L (101-111); EGFR African American 58.5 (>60); EGFR Non-African American 45.5 (>60); Globulin 4.5 g/dL (2-4); Glucose 107 mg/dL (70-100); Sodium 121 mmol/L (133-145)
[2016-10-26 23:20] LABS: Troponin I 0.01 ng/mL (<0.04)
[2016-10-26 23:37] LABS: TSH (Thyroid Stimulating Horm) 2.23 mcIU/mL (0.34-5.60)
[2016-10-26 23:57] LABS: Magnesium 1.8 mg/dL (1.9-2.7)
[2016-10-27] MEDS ORDERED: oxyCODONE TAB* 5 MG TAB PO ONE (00:16)
[2016-10-27] MEDS ORDERED: Gabapentin CAP(*) 300 MG PO ONE (00:16)
[2016-10-27] MEDS ORDERED: Acetaminophen TAB* 325 MG PO ONE (00:17)
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
[2016-10-27] MEDS ORDERED: CMCS: Melatonin (NF) 3 MG TAB PO PRN (03:08)
[2016-10-27] MEDS ORDERED: Acetaminophen TAB* 325 MG PO PRN (03:08)
[2016-10-27] MEDS ORDERED: Albuterol 2.5 MG/3 ML NEB.SOL* (0.083%) INH PRN (03:08)
--- NOTE | 2016-10-27 03:11 | HP ---
H&P (Free Text) History and Physical: PCP: Joe Jc MD Date/Time of Evaluation: 10/27/2016 0240 CC: high potassium & low sodium HPI: Mrs Stanton is a 66YO female admitted [place] [facility] [place] for pneumonia. She represents today at the behest of her PCP for an elevated potassium of 6.8 outpatient, confirmed at 6.4 in the ED. She denies new symptoms. She does report ongoing SOB which was attributed previously to systolic HF. However at this time she is over-diuresed and still having SOB making it likely this is 2nd to a combination of her B lower lobectomies, EF 20-25%, anemia, & generalized deconditioning. She specifically denies F/C, change in bowel/bladder , cough, congestion, or other issues. 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, EF 20-25% systolic HF breast CA esophageal CA lung Claudy : adenocarcinoma L lung : mucinous adenocarcinoma R lung bipolar disorder goiter, multinodular anemia of chronic disease malnutrition Ambulatory Orders lamoTRIgine TAB(*) [Lamictal TAB(*)] 200 mg PO QAM 03/03/14 oxyCODONE TAB* [Roxycodone TAB*] 30 mg PO Q3H PRN 03/03/14 Bupropion XL (NF) [Wellbutrin XL (NF)] 300 mg PO DAILY 09/11/16 Carvedilol TAB* [Coreg TAB*] 9.375 mg PO BID 09/11/16 Epinephrine [Epipen 2-Yuniel] 0.3 mg IM ONCE PRN 09/11/16 Folic Acid TAB* [Folvite TAB*] 1 mg PO DAILY 09/11/16 Gabapentin CAP(*) [Neurontin 300 CAP(*)] 300 mg PO TID 09/11/16 Ondansetron TAB* [Zofran 4 MG Tab*] 8 mg PO Q8HR PRN 09/11/16 Prochlorperazine TAB* [Compazine Tab*] 10 mg PO Q6H PRN 09/11/16 Magnesium Oxide 400 mg PO DAILY 10/10/16 Acetaminophen [Tylenol] 975 mg PO TID 10/27/16 Cyanocobalamin TAB* [Vitamin B12 TAB*] 10/27/16 Potassium Chloride Microencaps [Klor-Con M20] 20 meq PO DAILY 10/27/16 Allergies Fentanyl Allergy (Severe, Verified 09/11/16 13:35) Hallucinations Pt had strong reaction to small dose of fentanyl, inability to focus, balance issues Aspartame Allergy (Intermediate, Verified 09/11/16 13:35) Headache Polymyxin B [From Neosporin] Allergy (Intermediate, Verified 09/11/16 13:35) Eyes Itchy/Swollen/Red/Watery Bacitracin [From Neosporin] Allergy (Verified 09/11/16 13:35) Unknown Reaction Details Cephalexin [From Keflex] Allergy (Verified 09/11/16 13:35) See Comment PT STATES CAUSES "LIFE THREATENING CDIFF" Neomycin [From Neosporin] Allergy (Verified 09/11/16 13:35) Unknown Reaction Details PSurgHx pacerAICD placement breast lumpectomies esophagogastrectomy total gastrectomy diverting esophagostomy w/ colonic interposition Henrique-en-Y colojejunal anastemosis jejunostomy ileocolonic anastamosis cholecystectomy appendectomy sternoclavicular resection B lower pulmonary lobectomies laparoscopy for infertility PowerPort placement debridement external fixation of L calcaneal/distal femur FX SocHx: former smoker, denies alcohol and recreational drugs; lives with her ; full code status FamHx: positive for HTN ROS: as above, otherwise reviewed and all were negative Constitutional: NAD, normally developed, cachectic white female vitals: Vital Signs Temp 36.1 C 10/26/16 22:20 Pulse 81 10/27/16 02:30 Resp 14 10/27/16 02:30 BP 97/52 10/27/16 02:30 Pulse Ox 95 10/27/16 02:30 Intake & Output 10/26/16 10/26/16 10/27/16 11:59 23:59 11:59 Weight 45.359 kg HEENM: atraumatic; sclera/conjunctiva: non-icteric/clear; hearing: clinically intact; oropharynx: clear, mucosa tacky Neck: soft tissue: non-tender; thyroid: non-tender Pulmonary: clear to auscultation bilaterally, good aeration, no accessory muscle use CV: RR/RR, normal S1S2, no carotid bruit, no jugular venous distention, 2+ B DP/ PT, no edema Abdominal: soft, non-distended, non-tender, no rebound/guarding/rigidity, normoactive bowel sounds, no hepatosplenomegaly or masses, no costovertebral angle tenderness Musculoskeletal: general: grossly intact; gait: stable Integumental: normal appearance and texture Psychiatric orientation: AA&O to PPS affect: calm mood: cooperative eye contact: fair to good content: reliable responses: timely insight: good Testing: Lab Results 10/26/16 10/26/16 10/26/16 Range/Units 22:27 22:27 22:27 WBC 12.5 H (3.5-10.8) 10^3/ul RBC 3.59 L (4.0-5.4) 10^6/ul Hgb 10.9 L (12.0-16.0) g/dl Hct 34 L (35-47) % MCV 95 (80-97) fL MCH 30 (27-31) pg MCHC 32 (31-36) g/dl RDW 20 H (10.5-15) % Plt Count 378 (150-450) 10^3/ul MPV 8 (7.4-10.4) um3 Neut % (Auto) 67.7 (38-83) % Lymph % (Auto) 18.5 L (25-47) % [place] % (Auto) 12.3 H (1-9) % Eos % (Auto) 0.7 (0-6) % Baso % (Auto) 0.8 (0-2) % Absolute Neuts (auto) 8.5 H (1.5-7.7) 10^3/ul Absolute Lymphs (auto) 2.3 (1.0-4.8) 10^3/ul Absolute Monos (auto) 1.5 H (0-0.8) 10^3/ul Absolute Eos (auto) 0.1 (0-0.6) 10^3/ul Absolute Basos (auto) 0.1 (0-0.2) 10^3/ul Absolute Nucleated RBC 0 10^3/ul Nucleated RBC % 0 INR (Anticoag Therapy) 1.06 (0.89-1.11) Sodium 121 L (133-145) mmol/L Potassium TNP Chloride 93 L (101-111) mmol/L Carbon Dioxide 21 L (22-32) mmol/L Anion Gap TNP BUN 23 (6-24) mg/dL Creatinine 1.19 H (0.51-0.95) mg/dL Est GFR ( Amer) 58.5 (>60) Est GFR (Non-Af Amer) 45.5 (>60) BUN/Creatinine Ratio 19.3 (8-20) Glucose 107 H (70-100) mg/dL Lactic Acid (0.5-2.0) mmol/L Calcium 10.3 (8.6-10.3) mg/dL Magnesium TNP Total Bilirubin 0.50 (0.2-1.0) mg/dL AST TNP ALT 8 (7-52) U/L Alkaline Phosphatase 169 H (34-104) U/L Troponin I 0.01 (<0.04) ng/mL C-Reactive Protein 75.74 H (< 5.00) mg/L B-Natriuretic Peptide ( - 100) pg/mL Total Protein 8.0 (6.4-8.9) g/dL Albumin 3.5 (3.2-5.2) g/dL Globulin 4.5 H (2-4) g/dL Albumin/Globulin Ratio 0.8 L (1-3) TSH 2.23 (0.34-5.60) mcIU/mL 10/26/16 10/26/16 10/26/16 Range/Units 22:27 22:27 23:35 WBC (3.5-10.8) 10^3/ul RBC (4.0-5.4) 10^6/ul Hgb (12.0-16.0) g/dl Hct (35-47) % MCV (80-97) fL MCH (27-31) pg MCHC (31-36) g/dl RDW (10.5-15) % Plt Count (150-450) 10^3/ul MPV (7.4-10.4) um3 Neut % (Auto) (38-83) % Lymph % (Auto) (25-47) % [place] % (Auto) (1-9) % Eos % (Auto) (0-6) % Baso % (Auto) (0-2) % Absolute Neuts (auto) (1.5-7.7) 10^3/ul Absolute Lymphs (auto) (1.0-4.8) 10^3/ul Absolute Monos (auto) (0-0.8) 10^3/ul Absolute Eos (auto) (0-0.6) 10^3/ul Absolute Basos (auto) (0-0.2) 10^3/ul Absolute Nucleated RBC 10^3/ul Nucleated RBC % INR (Anticoag Therapy) (0.89-1.11) Sodium (133-145) mmol/L Potassium 6.4 H* Chloride (101-111) mmol/L Carbon Dioxide (22-32) mmol/L Anion Gap BUN (6-24) mg/dL Creatinine (0.51-0.95) mg/dL Est GFR ( Amer) (>60) Est GFR (Non-Af Amer) (>60) BUN/Creatinine Ratio (8-20) Glucose (70-100) mg/dL Lactic Acid 1.0 (0.5-2.0) mmol/L Calcium (8.6-10.3) mg/dL Magnesium 1.8 L Total Bilirubin (0.2-1.0) mg/dL AST 15 ALT (7-52) U/L Alkaline Phosphatase (34-104) U/L Troponin I (<0.04) ng/mL C-Reactive Protein (< 5.00) mg/L B-Natriuretic Peptide 50 ( - 100) pg/mL Total Protein (6.4-8.9) g/dL Albumin (3.2-5.2) g/dL Globulin (2-4) g/dL Albumin/Globulin Ratio (1-3) TSH (0.34-5.60) mcIU/mL ECG, personally reviewed: atrially sensed, ventricularly paced rhythm rate 90 Impression: 66F presenting with asymptomatic electrolyte imbalance DIAGNOSIS & PLAN Primary electrolyte imbalance: hypoNa, hyperK, hypoMg : 1g calcium gluconate IV given in ED : 2gm IV magnesium : gentle IVFs : D/C outpatient PO potassium supplementation : trend electrolytes : supportive care KATRINA, suspect 2nd hypovolemia : gentle IVFs, trend renal function suspect protein calorie malnutrition : check pre-albumin 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
[2016-10-27] MEDS: oxyCODONE TAB* 5 MG TAB PO PRN ×3 (03:54→10:52)
[2016-10-27] MEDS ORDERED: Magnesium Sulfate 2 GM IV* 2 GM/50 ML BAG IVPB ONE (04:00)
[2016-10-27] MEDS: Omeprazole CAP* 20 MG PO SCH (05:20)
[2016-10-27] MEDS: NS 0.9% 1000 ML* 1,000 ML IV SCH ×2 (05:20→19:16)
[2016-10-27 06:47] LABS: BUN/Creatinine Ratio 22.3 (8-20); EGFR African American 76.9 (>60); EGFR Non-African American 59.8 (>60); Potassium 5.8 mmol/L (3.5-5.0)
[2016-10-27] MEDS: Gabapentin CAP(*) 300 MG PO SCH ×3 (07:46→21:01)
[2016-10-27] MEDS: Carvedilol TAB* 3.125 MG PO SCH ×2 (07:47→17:47)
[2016-10-27] MEDS: Folic Acid TAB* 1 MG PO SCH (07:48)
[2016-10-27] MEDS: lamoTRIgine TAB(*) 100 MG PO SCH (07:49)
[2016-10-27] MEDS ORDERED: Tiotropium CAP.INH* CAP.INH/18 MCG INH SCH (09:00)
[2016-10-27] MEDS ORDERED: Spiriva Inhaler DEVICE* 1 EACH DEVICE INH ONE (09:00)
[2016-10-27] MEDS ORDERED: Docusate CAP* 100 MG PO SCH (09:00)
[2016-10-27] MEDS ORDERED: Mometasone/Formoter 200/5 MDI INH SCH (09:00)
[2016-10-27] MEDS: Sodium Chloride TAB* 1 GM PO SCH ×3 (12:37→21:02)
[2016-10-27] MEDS: oxyCODONE TAB* 5 MG TAB PO SCH ×3 (14:18→20:58)
[2016-10-27 18:31] LABS: BUN/Creatinine Ratio 18.7 (8-20); Calcium 8.9 mg/dL (8.6-10.3); EGFR African American 99.7 (>60); EGFR Non-African American 77.6 (>60); Potassium 5.6 mmol/L (3.5-5.0)
[2016-10-28] MEDS: oxyCODONE TAB* 5 MG TAB PO SCH ×8 (01:48→20:57)
[2016-10-28] MEDS: Heparin VIAL(*) 5000 UNITS/ML VIAL (FIVE THOUSAND) SUBCUT SCH ×3 (05:59→20:59)
[2016-10-28] MEDS: Omeprazole CAP* 20 MG PO SCH (05:59)
[2016-10-28 06:10] LABS: Hematocrit 27 % (35-47); Hemoglobin 8.6 g/dl (12.0-16.0); Mean Corpuscular HGB Conc 32 g/dl (31-36); Mean Corpuscular Hemoglobin 30 pg (27-31); Mean Corpuscular Volume 94 fL (80-97); Mean Platelet Volume 8 um3 (7.4-10.4); Red Blood Count 2.85 10^6/ul (4.0-5.4); Red Cell Distribution Width 20 % (10.5-15); White Blood Count 11.1 10^3/ul (3.5-10.8)
[2016-10-28 06:20] LABS: BUN/Creatinine Ratio 17.7 (8-20); EGFR African American 124.2 (>60); EGFR Non-African American 96.6 (>60); Magnesium 1.6 mg/dL (1.9-2.7)
[2016-10-28] MEDS: Carvedilol TAB* 3.125 MG PO SCH ×2 (07:30→17:17)
[2016-10-28] MEDS: Sodium Chloride TAB* 1 GM PO SCH ×4 (07:31→20:10)
[2016-10-28] MEDS: lamoTRIgine TAB(*) 100 MG PO SCH (07:31)
[2016-10-28] MEDS: Gabapentin CAP(*) 300 MG PO SCH ×3 (07:31→20:07)
[2016-10-28] MEDS: Folic Acid TAB* 1 MG PO SCH (07:32)
[2016-10-28] MEDS: NS 0.9% 1000 ML* 1,000 ML IV SCH (09:04)
[2016-10-28] MEDS: Magnesium Sulfate 2 GM IV IVPB SCH ×2 (10:52→12:21)
[2016-10-28 11:11] LABS: Hematocrit 25 % (35-47); Hemoglobin 8.2 g/dl (12.0-16.0); Mean Corpuscular HGB Conc 32 g/dl (31-36); Mean Corpuscular Hemoglobin 30 pg (27-31); Mean Corpuscular Volume 94 fL (80-97); Mean Platelet Volume 8 um3 (7.4-10.4); Red Blood Count 2.69 10^6/ul (4.0-5.4); Red Cell Distribution Width 20 % (10.5-15); White Blood Count 10.6 10^3/ul (3.5-10.8)
[2016-10-28 11:14] LABS: Comments Flag Yes
[2016-10-28 11:25] LABS: BUN/Creatinine Ratio 17.2 (8-20); Calcium 8.8 mg/dL (8.6-10.3); EGFR African American 134.2 (>60); EGFR Non-African American 104.3 (>60); Magnesium 1.5 mg/dL (1.9-2.7); Potassium 4.9 mmol/L (3.5-5.0)
[2016-10-28] MEDS: Acetaminophen TAB* 325 MG PO SCH ×2 (14:58→20:06)
[2016-10-28] MEDS: Collagenase 250 MG/GM OINT* 30 GM TOPICAL SCH (20:06)
[2016-10-29] MEDS: oxyCODONE TAB* 5 MG TAB PO SCH ×9 (00:03→21:15)
[2016-10-29] MEDS: Heparin VIAL(*) 5000 UNITS/ML VIAL (FIVE THOUSAND) SUBCUT SCH ×3 (05:22→21:16)
[2016-10-29] MEDS: Carvedilol TAB* 3.125 MG PO SCH ×2 (08:35→18:19)
[2016-10-29] MEDS: Acetaminophen TAB* 325 MG PO SCH ×3 (08:36→21:15)
[2016-10-29] MEDS: Folic Acid TAB* 1 MG PO SCH (08:36)
[2016-10-29] MEDS: Sodium Chloride TAB* 1 GM PO SCH ×4 (08:36→21:16)
[2016-10-29] MEDS: lamoTRIgine TAB(*) 100 MG PO SCH (08:36)
[2016-10-29] MEDS: Gabapentin CAP(*) 300 MG PO SCH ×3 (08:36→21:16)
[2016-10-29] MEDS: Collagenase 250 MG/GM OINT* 30 GM TOPICAL SCH (08:38)
[2016-10-29 10:42] LABS: Hematocrit 27 % (35-47); Hemoglobin 8.6 g/dl (12.0-16.0); Mean Corpuscular HGB Conc 32 g/dl (31-36); Mean Corpuscular Hemoglobin 30 pg (27-31); Mean Corpuscular Volume 94 fL (80-97); Mean Platelet Volume 8 um3 (7.4-10.4); Red Blood Count 2.84 10^6/ul (4.0-5.4); Red Cell Distribution Width 20 % (10.5-15); White Blood Count 14.5 10^3/ul (3.5-10.8)
[2016-10-29 10:45] LABS: Comments Flag Yes
[2016-10-29 11:00] LABS: BUN/Creatinine Ratio 18.8 (8-20); C Reactive Protein 88.5 mg/L (< 5.00); Calcium 9.3 mg/dL (8.6-10.3); EGFR African American 119.8 (>60); EGFR Non-African American 93.1 (>60); Potassium 5.1 mmol/L (3.5-5.0)
[2016-10-29] MEDS ORDERED: NS 0.9% 1000 ML* 1,000 ML IV ONE (19:15)
[2016-10-29] MEDS ORDERED: Magnesium Sulfate 4 GM IV IVPB ONE (19:30)
[2016-10-30] MEDS: oxyCODONE TAB* 5 MG TAB PO SCH ×8 (00:19→21:12)
[2016-10-30] MEDS: Heparin VIAL(*) 5000 UNITS/ML VIAL (FIVE THOUSAND) SUBCUT SCH ×3 (06:08→21:19)
[2016-10-30 06:39] LABS: Hematocrit 26 % (35-47); Hemoglobin 8.5 g/dl (12.0-16.0); Mean Corpuscular HGB Conc 33 g/dl (31-36); Mean Corpuscular Hemoglobin 31 pg (27-31); Mean Corpuscular Volume 94 fL (80-97); Mean Platelet Volume 8 um3 (7.4-10.4); Red Blood Count 2.75 10^6/ul (4.0-5.4); Red Cell Distribution Width 20 % (10.5-15); White Blood Count 10.9 10^3/ul (3.5-10.8)
[2016-10-30 06:40] LABS: Comments Flag Yes
[2016-10-30 06:41] LABS: Add Diff/Slide Review? Slide Review Added
[2016-10-30 06:50] LABS: Albumin 2.6 g/dL (3.2-5.2); C Reactive Protein 113.91 mg/L (< 5.00); Calcium 8.7 mg/dL (8.6-10.3); EGFR Non-African American 100.3 (>60); Globulin 3.2 g/dL (2-4); Potassium 4.7 mmol/L (3.5-5.0); Total Bilirubin 0.3 mg/dL (0.2-1.0); Total Protein 5.8 g/dL (6.4-8.9)
[2016-10-30] MEDS: Acetaminophen TAB* 325 MG PO SCH ×3 (09:29→21:11)
[2016-10-30] MEDS: lamoTRIgine TAB(*) 100 MG PO SCH (09:29)
[2016-10-30] MEDS: Carvedilol TAB* 3.125 MG PO SCH ×2 (09:30→18:09)
[2016-10-30] MEDS: Sodium Chloride TAB* 1 GM PO SCH ×4 (09:30→21:12)
[2016-10-30] MEDS: Gabapentin CAP(*) 300 MG PO SCH ×3 (09:31→21:11)
[2016-10-30] MEDS: Folic Acid TAB* 1 MG PO SCH (09:31)
[2016-10-30] MEDS: Collagenase 250 MG/GM OINT* 30 GM TOPICAL SCH (09:34)
--- NOTE | 2016-10-30 14:09 | RAD ---
INDICATION: Fever pulmonary infiltrate. COMPARISON: Comparison is made with prior CTs of the chest from May 05, 2015, September 11, 2016 and October 15, 2016. TECHNIQUE: A CT scan of the chest was performed without intravenous contrast. Contiguous axial sections were obtained from the lung apices through the lung bases. Images were reconstructed in the coronal and sagittal planes. FINDINGS: There is a reticular nodular infiltrate present in the left upper lobe and a more confluent masslike infiltrate present at the left lung base in the left lower lobe which appears unchanged from the prior 2 studies. There is also a masslike infiltrate present in the right lower lobe which is also unchanged. There are small trace bilateral pleural effusions. There are enlarged precarinal, subcarinal and aorticopulmonary window lymph nodes measuring up to 2.2 cm in transverse dimension which appear unchanged. The patient is status post esophagectomy and colonic pull-through in the anterior mediastinum. The heart is within normal limits in size. No pericardial effusion is present. The thoracic aorta is normal in caliber. There are [id number] compression fractures of the T7 and T11 vertebral bodies which appear unchanged. IMPRESSION: 1. THERE IS A RETICULAR NODULAR INFILTRATE PRESENT IN THE LEFT UPPER LOBE AND A MASSLIKE INFILTRATE PRESENT AT THE LEFT LUNG BASE WHICH ARE UNCHANGED. THERE IS ALSO A NODULAR INFILTRATE PRESENT IN THE RIGHT LOWER LOBE WHICH IS UNCHANGED. 2. ENLARGED MEDIASTINAL LYMPH NODES, UNCHANGED. 3. STATUS POST ESOPHAGECTOMY AND COLONIC PULL-THROUGH.
[2016-10-31] MEDS: oxyCODONE TAB* 5 MG TAB PO SCH ×8 (00:46→21:45)
[2016-10-31] MEDS: Heparin VIAL(*) 5000 UNITS/ML VIAL (FIVE THOUSAND) SUBCUT SCH ×3 (06:00→21:46)
[2016-10-31 07:17] LABS: Albumin 2.3 g/dL (3.2-5.2); BUN/Creatinine Ratio 14.3 (8-20); C Reactive Protein 126.21 mg/L (< 5.00); Calcium 7.7 mg/dL (8.6-10.3); EGFR African American 194.7 (>60); EGFR Non-African American 151.4 (>60); Globulin 2.8 g/dL (2-4); Magnesium 1.1 mg/dL (1.9-2.7); Total Bilirubin 0.3 mg/dL (0.2-1.0); Total Protein 5.1 g/dL (6.4-8.9)
[2016-10-31] MEDS: Sodium Chloride TAB* 1 GM PO SCH ×4 (08:05→21:43)
[2016-10-31] MEDS: Acetaminophen TAB* 325 MG PO SCH ×3 (08:05→21:44)
[2016-10-31] MEDS: lamoTRIgine TAB(*) 100 MG PO SCH (08:05)
[2016-10-31] MEDS: Carvedilol TAB* 3.125 MG PO SCH ×2 (08:05→17:39)
[2016-10-31] MEDS: Gabapentin CAP(*) 300 MG PO SCH ×3 (08:06→21:44)
[2016-10-31] MEDS: Folic Acid TAB* 1 MG PO SCH (08:06)
[2016-10-31 08:34] LABS: Hematocrit 26 % (35-47); Hemoglobin 8.3 g/dl (12.0-16.0); Mean Corpuscular HGB Conc 32 g/dl (31-36); Mean Corpuscular Hemoglobin 30 pg (27-31); Mean Corpuscular Volume 94 fL (80-97); Mean Platelet Volume 8 um3 (7.4-10.4); Red Blood Count 2.76 10^6/ul (4.0-5.4); Red Cell Distribution Width 19 % (10.5-15); White Blood Count 15.1 10^3/ul (3.5-10.8)
[2016-10-31] MEDS: Collagenase 250 MG/GM OINT* 30 GM TOPICAL SCH (10:55)
--- NOTE | 2016-10-31 12:34 | RAD ---
CLINICAL HISTORY: Sacral decubitus ulcer COMPARISON: CT chest abdomen and pelvis dated October 15, 2016 TECHNIQUE: Multiple contiguous axial CT scans were obtained of the abdomen and pelvis, without intravenous contrast enhancement. Coronal and sagittal multiplanar reformations are submitted for review. FINDINGS: Evaluation of the gastrointestinal tract is limited without oral contrast. The visualized portions of the small and large bowel do not exhibit acute abnormality. There is an umbilical hernia allowing portion of the transverse colon to herniate immediately below the dermis but there does not appear to be any acute inflammatory change or evidence of obstruction. There is coarse atherosclerotic calcification of the infrarenal abdominal aorta extending into the bilateral iliac arteries. The visualized portions of the solid organs are grossly normal. The urinary bladder measures 7.8 x 11.8 cm in the sagittal plane and 9.0 cm transverse yielding an approximate volume of 670 mL. The visualized bones exhibit diffuse demineralization but overall the bones are intact and appropriately aligned. Adjacent to subcutaneous induration overlying the sacrum (axial image 57 of 183) the left aspect of the sacrococcygeal junction immediately abuts the infiltration and wound surface. Deep to this, depicted best on the sagittal plane images (image 75) there is focal medullary lucency in the anterior portion of the coccyx with preservation of the adjacent cortex. The left hip prosthesis appears to be anatomically aligned. At the left of midline subcutaneous tissue overlying the back at the L2 level (axial image 4 of 138 and sagittal image 66) there is a fluid collection measuring up to 1.2 cm in thickness that tracks inferiorly out of the field of view and down inferiorly as far as approximately the L5 spinous process. Below this there is infiltration of the subcutaneous fat. Overlying the sacrum subcutaneous fat is obliterated replaced with hyperattenuating material that just barely covers the overlying sacrum and coccyx. These findings are consistent with the reported history of sacral decubitus ulcer. IMPRESSION: 1. CT findings are consistent with a reported history of sacral decubitus ulcer with obliteration of the subcutaneous fat overlying the junction of the sacrum and coccyx. The left of midline portion of the coccyx immediately abuts this wound surface. There is subcentimeter lucency of the anterior portion of the coccyx but the adjacent cortices are intact. Currently there is no definite osseous destruction that would provide imaging diagnosis of osteomyelitis. 2. Additional chronic, degenerative and iatrogenic findings mentioned in the body the report not directly related to the patient's current sacral ulcer.
--- NOTE | 2016-10-31 14:39 | PN ---
Progress Note - Progress Note SOAP: Subjective: DOS: 10/31/16 CC: fever HPI: 66 year old woman hx Cdif admitted with hyperkalemia; fever 103 overnight, had sweats with it. Feels well this morning, no cough. Has decubitus ulcer, Dr Jc ordered CT pelvis to investigate. Wound has been there a number of months, hurts if on it too long; tries to stay off it. No drainage. Objective: [] Vital Signs (72 hours) 10/28/16 10/28/16 10/28/16 14:58 14:59 15:54 Temperature 36.7 C Pulse Rate 78 Respiratory 16 20 20 Rate Blood Pressure 100/53 (mmHg) O2 Sat by Pulse 96 Oximetry 10/28/16 10/28/16 10/28/16 16:58 16:59 17:15 Temperature Pulse Rate 89 Respiratory 16 16 Rate Blood Pressure 106/63 (mmHg) O2 Sat by Pulse Oximetry 10/28/16 10/28/16 10/28/16 18:21 18:27 20:00 Temperature 36.7 C Pulse Rate 76 Respiratory 16 16 16 Rate Blood Pressure 90/49 (mmHg) O2 Sat by Pulse 97 Oximetry 10/28/16 10/28/16 10/28/16 20:07 20:27 20:57 Temperature Pulse Rate Respiratory 18 18 18 Rate Blood Pressure (mmHg) O2 Sat by Pulse Oximetry 10/28/16 10/28/16 10/28/16 22:07 22:57 23:33 Temperature 36.8 C Pulse Rate 87 Respiratory 18 18 16 Rate Blood Pressure 84/42 (mmHg) O2 Sat by Pulse 94 Oximetry 10/29/16 10/29/16 10/29/16 01:25 03:11 03:19 Temperature 36.9 C Pulse Rate 88 80 Respiratory 16 16 18 Rate Blood Pressure 111/61 (mmHg) O2 Sat by Pulse 95 97 Oximetry 10/29/16 10/29/16 10/29/16 05:19 05:21 07:21 Temperature Pulse Rate Respiratory 18 18 20 Rate Blood Pressure (mmHg) O2 Sat by Pulse Oximetry 10/29/16 10/29/16 10/29/16 08:00 08:01 08:36 Temperature 38.5 C Pulse Rate 104 Respiratory 20 20 18 Rate Blood Pressure 109/77 (mmHg) O2 Sat by Pulse 97 Oximetry 10/29/16 10/29/16 10/29/16 10:36 11:02 12:08 Temperature 37.7 C Pulse Rate 83 Respiratory 16 18 16 Rate Blood Pressure 96/50 (mmHg) O2 Sat by Pulse 98 Oximetry 10/29/16 10/29/16 10/29/16 14:08 15:31 15:44 Temperature 37.6 C Pulse Rate 86 Respiratory 15 16 16 Rate Blood Pressure 91/52 (mmHg) O2 Sat by Pulse 97 Oximetry 10/29/16 10/29/16 10/29/16 17:44 18:18 18:39 Temperature Pulse Rate 95 Respiratory 16 18 Rate Blood Pressure 76/47 (mmHg) O2 Sat by Pulse Oximetry 10/29/16 10/29/16 10/29/16 19:41 19:47 20:00 Temperature 36.8 C Pulse Rate 86 82 Respiratory 16 16 20 Rate Blood Pressure 87/47 (mmHg) O2 Sat by Pulse 96 94 Oximetry 10/29/16 10/29/16 10/29/16 20:18 21:15 21:16 Temperature Pulse Rate Respiratory 20 20 20 Rate Blood Pressure (mmHg) O2 Sat by Pulse Oximetry 10/29/16 10/30/16 10/30/16 23:41 00:19 03:20 Temperature 37.0 C Pulse Rate 89 Respiratory 16 16 16 Rate Blood Pressure 101/53 (mmHg) O2 Sat by Pulse 96 Oximetry 10/30/16 10/30/16 10/30/16 03:45 06:08 07:32 Temperature 36.6 C 38.4 C Pulse Rate 79 91 Respiratory 16 15 16 Rate Blood Pressure 115/65 126/39 (mmHg) O2 Sat by Pulse 98 94 Oximetry 10/30/16 10/30/16 10/30/16 07:34 07:36 08:08 Temperature Pulse Rate 95 109 Respiratory 16 Rate Blood Pressure 138/71 124/75 (mmHg) O2 Sat by Pulse Oximetry 10/30/16 10/30/16 10/30/16 08:49 09:00 09:28 Temperature Pulse Rate 79 Respiratory 18 16 Rate Blood Pressure (mmHg) O2 Sat by Pulse 88 95 Oximetry 10/30/16 10/30/16 10/30/16 09:29 09:31 11:14 Temperature 37.6 C Pulse Rate 90 Respiratory 16 16 16 Rate Blood Pressure 96/48 (mmHg) O2 Sat by Pulse 94 Oximetry 10/30/16 10/30/16 10/30/16 11:29 11:31 12:42 Temperature Pulse Rate Respiratory 18 18 16 Rate Blood Pressure (mmHg) O2 Sat by Pulse Oximetry 10/30/16 10/30/16 10/30/16 14:42 15:25 15:27 Temperature 37.3 C Pulse Rate 84 Respiratory 16 16 16 Rate Blood Pressure 106/61 (mmHg) O2 Sat by Pulse 94 Oximetry 10/30/16 10/30/16 10/30/16 15:28 17:27 17:28 Temperature Pulse Rate Respiratory 16 16 16 Rate Blood Pressure (mmHg) O2 Sat by Pulse Oximetry 10/30/16 10/30/16 10/30/16 18:09 20:00 20:07 Temperature 37.7 C Pulse Rate 89 86 Respiratory 16 16 12 Rate Blood Pressure 115/71 120/60 (mmHg) O2 Sat by Pulse 95 95 Oximetry 10/30/16 10/30/16 10/30/16 20:09 21:11 21:12 Temperature Pulse Rate Respiratory 16 16 16 Rate Blood Pressure (mmHg) O2 Sat by Pulse Oximetry 10/31/16 10/31/16 10/31/16 00:46 00:47 03:27 Temperature 37.2 C Pulse Rate 93 Respiratory 16 16 14 Rate Blood Pressure 116/67 (mmHg) O2 Sat by Pulse 92 Oximetry 10/31/16 10/31/16 10/31/16 03:46 06:00 07:18 Temperature 37.4 C Pulse Rate 82 Respiratory 16 15 16 Rate Blood Pressure 124/72 (mmHg) O2 Sat by Pulse 98 Oximetry 10/31/16 10/31/16 10/31/16 07:27 07:35 08:00 Temperature 39.4 C Pulse Rate 97 Respiratory 16 20 16 Rate Blood Pressure 130/66 (mmHg) O2 Sat by Pulse 89 94 Oximetry 10/31/16 10/31/16 10/31/16 08:06 09:45 10:06 Temperature Pulse Rate Respiratory 16 16 16 Rate Blood Pressure (mmHg) O2 Sat by Pulse Oximetry 10/31/16 10/31/16 10/31/16 11:26 11:45 12:53 Temperature 37.4 C Pulse Rate 77 Respiratory 20 16 16 Rate Blood Pressure 97/53 (mmHg) O2 Sat by Pulse 92 Oximetry Gen:awake, no distress Neuro: AAOx3 HEENT:PERRL, MMM Neck:supple Heart;RRR no murmur Lungs:CTA BL Abd:+BS NTND soft Skin: no rash MSK: sacral decub 3 cm with fibrin slough, no surrounding erythema, there is an odor Assessment: 1. fever, agree there could be a deeper infection under the wound including osteomyelitis; culture is pending as is CT, will ask for surgical consult to consider debridement 2. hx Cdif, recenly on flagyl prophylaxis 3. peripheral neuropathy, improving off flagyl 4. esophageal cancer s/p resection and colon pull through Plan: 1. continue off antibiotics which is her preference; await CT results, surgical consultation for I&D Discussed with Dr Jc
[2016-11-01] MEDS: oxyCODONE TAB* 5 MG TAB PO SCH ×7 (00:37→20:48)
[2016-11-01] MEDS: Heparin VIAL(*) 5000 UNITS/ML VIAL (FIVE THOUSAND) SUBCUT SCH ×3 (05:56→20:57)
[2016-11-01] MEDS: Ondansetron INJ* 2 MG/ML VIAL IV PRN (06:07)
[2016-11-01 07:00] LABS: Hematocrit 28 % (35-47); Hemoglobin 8.9 g/dl (12.0-16.0); Mean Corpuscular HGB Conc 32 g/dl (31-36); Mean Corpuscular Hemoglobin 30 pg (27-31); Mean Corpuscular Volume 94 fL (80-97); Mean Platelet Volume 8 um3 (7.4-10.4); Red Blood Count 2.98 10^6/ul (4.0-5.4); Red Cell Distribution Width 20 % (10.5-15); White Blood Count 13.7 10^3/ul (3.5-10.8)
[2016-11-01 07:19] LABS: Albumin 2.6 g/dL (3.2-5.2); BUN/Creatinine Ratio 13.2 (8-20); C Reactive Protein 183.48 mg/L (< 5.00); Calcium 8.9 mg/dL (8.6-10.3); EGFR African American 148.9 (>60); EGFR Non-African American 115.8 (>60); Globulin 3.3 g/dL (2-4); Potassium 3.9 mmol/L (3.5-5.0); Total Bilirubin 0.4 mg/dL (0.2-1.0); Total Protein 5.9 g/dL (6.4-8.9)
[2016-11-01 09:57] LABS: Erythrocyte Sed Rate 80 mm/Hr (0-40)
[2016-11-01] MEDS: Carvedilol TAB* 3.125 MG PO SCH ×2 (11:11→16:07)
[2016-11-01] MEDS: Sodium Chloride TAB* 1 GM PO SCH ×4 (11:11→20:50)
[2016-11-01] MEDS: Acetaminophen TAB* 325 MG PO SCH ×3 (11:11→20:53)
[2016-11-01] MEDS: Folic Acid TAB* 1 MG PO SCH (11:12)
[2016-11-01] MEDS: Gabapentin CAP(*) 300 MG PO SCH ×3 (11:13→20:52)
[2016-11-01] MEDS: lamoTRIgine TAB(*) 100 MG PO SCH (11:14)
[2016-11-01] MEDS: Collagenase 250 MG/GM OINT* 30 GM TOPICAL SCH (11:14)
[2016-11-01] MEDS ORDERED: Zosyn 3.375 gm X 1 dose, then dose per Pharmacy IVPB ONE ×2 (13:00)
[2016-11-01] MEDS: Magnesium Sulfate 2 GM IV IVPB SCH ×2 (13:12→14:36)
--- NOTE | 2016-11-01 16:06 | PN ---
Progress Note - Progress Note Note: Brief Surgery Note: (full note dictated) S: asked to see this 66 yo female w/ extensive medical hx, including mult malignancies and cardiomyopathy, for evaluation and possible debridement of sacral decubitus. History reviewed. O: tmax 102.9 (10/31 a.m.); most recent 100 Vital Signs - 8 hr 11/01/16 11/01/16 11/01/16 09:34 10:56 11:00 Pulse Rate 96 102 Respiratory 16 20 17 Rate Blood Pressure 102/77 101/66 (mmHg) O2 Sat by Pulse 92 92 Oximetry 11/01/16 11/01/16 11/01/16 11:12 11:13 12:00 Pulse Rate Respiratory 18 18 16 Rate Blood Pressure 97/58 (mmHg) O2 Sat by Pulse Oximetry 11/01/16 11/01/16 14:19 14:20 Pulse Rate Respiratory 18 18 Rate Blood Pressure (mmHg) O2 Sat by Pulse Oximetry Exam: (limited to General and sacral area) pleasant chronically malnourished appearing female in NAD Sacrum: open wound measures 5 x 3.5 cm overall w/ intact central fibrinous slough measuring 3 cm mio. which is adherent but not fixed. There is a necrotic odor but no obvious purulence or tracking. CT of the pelvis personally reviewed (see report); sacral bone is literally at the skin level in the region of the ulcer. A: sacral decub ulcer, initially unstageable, with necrotic odor, in complicated medical patient w/ fevers P: patient was agreeable to bedside debridement under local anesthesia which was performed. Central fibrinous slough was debrided sharply, revealing an underlying necrotic area measuring ~ 1 cm3 w/ bone present which felt intact and w/o any add'l tracking. No purulent drainage. Deep culture taken. Santyl and Mepilex dsg reapplied, but will change to Aquacel Ag for 11/02. Spoke w/ Dr. Youssef who will in turn d/w Dr. Jc. Will follow.
[2016-11-01] MEDS: Vancomycin CAP* 125 MG CAP PO SCH ×3 (16:08→20:54)
--- NOTE | 2016-11-01 17:27 | PN ---
Progress Note - Progress Note SOAP: Subjective: DOS: 11/01/16 CC: fever HPI: 66 year old woman hx Cdif admitted with hyperkalemia; fever yesterda. Has decubitus ulcer, Dr Jc ordered CT pelvis to investigate. Wound has been there a number of months, hurts if on it too long; tries to stay off it. No drainage. Objective: [] Vital Signs Temp 37.8 C 11/01/16 04:09 Pulse 77 11/01/16 16:00 Resp 16 11/01/16 17:13 BP 98/67 11/01/16 16:00 Pulse Ox 92 11/01/16 16:00 Intake & Output 10/31/16 11/01/16 11/01/16 18:59 06:59 18:59 Intake Total 1220 0 480 Output Total 1200 300 300 Balance 20 -300 180 Weight 102 lb Intake: Oral 1220 0 480 Output: Urine 1200 300 300 Other: # Bowel Movements 1 0 1 Estimated Stool Amount Small # Voids 1 0 Gen:awake, no distress Neuro: AAOx3 HEENT:PERRL, MMM Neck:supple Heart;RRR no murmur Lungs:CTA BL Abd:+BS NTND soft Skin: no rash MSK: sacral decub 3 cm with fibrin slough, no surrounding erythema, there is an odor Laboratory Results - last 24 hr 11/01/16 11/01/16 06:30 06:30 WBC 13.7 H RBC 2.98 L Hgb 8.9 L Hct 28 L MCV 94 MCH 30 MCHC 32 RDW 20 H Plt Count 366 MPV 8 ESR 80 H Sodium 129 L Potassium 3.9 Chloride 98 L Carbon Dioxide 26 Anion Gap 5 BUN 7 Creatinine 0.53 Est GFR ( Amer) 148.9 Est GFR (Non-Af Amer) 115.8 BUN/Creatinine Ratio 13.2 Glucose 83 Calcium 8.9 Total Bilirubin 0.40 AST 11 L ALT 6 L Alkaline Phosphatase 132 H C-Reactive Protein 183.48 H Total Protein 5.9 L Albumin 2.6 L Globulin 3.3 Albumin/Globulin Ratio 0.8 L Assessment: 1. fever, agree there could be a deeper infection under the wound including osteomyelitis; collection on CT proximal to ulcer. 2. hx Cdif, recenly on flagyl prophylaxis 3. peripheral neuropathy, improving off flagyl 4. esophageal cancer s/p resection and colon pull through 5. elevated CRP Plan: 1. Surgical consultation for wound debridement, IR consult for aspiration of fluid aspiration for culture, hold antibiotics penidng those procedures then zosyn 3.375 gm IV Q8hrs and vanco PO prophylaxis 35 minutes floor time >50% in counseling and coordination of care with Dr Jc regarding diagnostic testing for fever evaluation.
--- NOTE | 2016-11-01 18:47 | CONS ---
CC: Mikey Priest MD at [facility]; Tran Jc MD; Kale Youssef MD * SURGICAL CONSULT AND PROCEDURE REPORT: DATE OF CONSULT: 11/01/16 ATTENDING PHYSICIAN: Dr. Mikey Priest (dictated by FAMILIA Mcginnis) CHIEF COMPLAINT: Sacral decubitus. HISTORY OF PRESENT ILLNESS: This is a 66-year-old female with multiple medical problems and complicated medical history (please refer to Dr. Jc's detailed history and physical from 10/10/16) who was admitted on 10/26/16 for electrolyte abnormalities. Her history includes extensive surgeries for bilateral lung cancers and a distal esophageal cancer, all performed at [facility] this past year. Her history is also complicated by cardiomyopathy and generalized weakness and deconditioning. Her history is obtained both directly from her and her as well as from her chart record. It appears as though she has had chronic weight loss and deconditioning, although has been in a more stable pattern recently and actually taking some protein supplements. The sacral decubitus area has been in evolution for the past couple of months with apparently a wound clinic evaluation in September, though I did not have immediate access to that report. Per her , he has been treating the wound with Santyl ointment with dressing changes every couple of days. There has been no significant drainage. She does report some pain and tenderness in the area of the sacrum, but this has actually also been improving of late. With her current admission, she has been noted to have temperatures off and on, spiking most recently yesterday morning to 102.9. Her T-max in the last 24 hours has been 100. She has been seen by Dr. Youssef and we were asked by her team to assess the decubitus and consider debridement. The patient's mobility status had been limited ambulation with a walker and assist, but of late, she has been less mobile secondary to her generalized weakness and shortness of breath. PAST MEDICAL HISTORY: Bilateral lung cancers and distal esophageal cancer, all treated surgically within the past year and as far as the patient is aware, no evidence of active disease. She also has a past history of bilateral breast cancers treated by lumpectomy. She is treated for bipolar disorder. 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 She was admitted [place] [facility] [place] for persistent pneumonia and was transferred at that time to [place], where heart failure also became part of her clinical picture. She was admitted more recently on 10/10/16, again for generalized weakness and electrolyte abnormalities. Her current admission on 10/26/16 was prompted by hyperkalemia and additional electrolyte abnormalities. PAST SURGICAL HISTORY AND MEDICATIONS UPON ADMISSION: Reviewed. REVIEW OF SYSTEMS: No additions to above. PHYSICAL EXAM: Vital Signs: Height 5 feet 5 inches, weight 102 pounds. T-max 102.9 during her hospital stay. T-max in the last 24 hours, 100. Blood pressure 97/58, pulse 97, respirations 18, room air saturation 92%. General: Chronically ill-appearing and/or malnourished-appearing female in no acute distress. She is pleasant. Exam otherwise limited to the sacral area where there is a 5 x 3.5 cm sacral ulcer with a central area of adherent fibrinous slough which is adherent but mobile, measured approximately 3 cm in diameter. The rim of tissue surrounding that is healthy appearing with granulation tissue (per her , the wound overall has been decreasing in size). There is some tenderness to direct palpation (the patient's recent history is also somewhat complicated by a fall in the bathroom this morning. At that time, she had somewhat of a glancing injury in the left buttock and not directly on the sacrum). There is no obvious tracking or tunneling and no palpable fluctuance or expressible purulence. LABORATORY DATA: Of note, white blood cell count has ranged from 12.5 to 15.1, today being 13.7. Hemoglobin 8.9 consistent with previous. CRP has ranged from 76 on admission to 183 today. ESR was 80 today without previous comparison. Albumin has ranged in recent months from 1.7 to 3.5, the most current being 2.6. Prealbumin has been below normal since February 2016 and most recently is 14 which is a slight improvement. IMAGING: Of interest, CT scan from yesterday shows loss of subcutaneous tissue in the area of the sacral ulcer with bone present and a possible slight erosion , though without significant radiological evidence for osteomyelitis. A recent nuclear medicine bone scan on 10/18/16 did show some mildly increased uptake in bilateral ribs and sternum, but was otherwise normal in the sacral region. IMPRESSION: Sacral decubitus, chronic. At present, unstageable with intact central fibrinous slough in a patient with multiple medical problems and fevers. PLAN: I discussed options with the patient and recommended debridement of the central slough and to rule out any deeper collection. The patient was agreeable. DESCRIPTION OF PROCEDURE: After time-out was performed, the area was prepped with Betadine and anesthetized with 1% plain lidocaine. The central area of slough was debrided sharply and revealed an area of approximately 1 x 1 x 1 cm of necrotic material with bone present in the wound, though this appeared to be intact. There is no additional tracking and no purulent drainage. Hemostasis was obtained by direct pressure. The patient tolerated the procedure well and a Santyl dressing with Mepilex cover was replaced. I will change her regimen to Aquacel AG dressing as of tomorrow, to be changed every other day. I discussed her case with Dr. Youssef who will in turn discuss it with Dr. Jc and will defer antibiotic options to them. The case was also discussed with my attending, Dr. Priest. We will continue to follow her while she is an inpatient. FAMILIA ALFRED [id number]/[facility] #: [id number] LENOX HILL HOSPITALSabra
[2016-11-01] MEDS: ZOSYN 3.375 GM Q8H per EXTENDED INFUSION IVPB SCH ×2 (20:57)
[2016-11-02] MEDS: oxyCODONE TAB* 5 MG TAB PO SCH ×9 (00:18→22:44)
[2016-11-02] MEDS: ZOSYN 3.375 GM Q8H per EXTENDED INFUSION IVPB SCH ×6 (05:23→21:48)
[2016-11-02] MEDS: Heparin VIAL(*) 5000 UNITS/ML VIAL (FIVE THOUSAND) SUBCUT SCH ×3 (05:27→21:46)
[2016-11-02 06:01] LABS: Hematocrit 27 % (35-47); Hemoglobin 8.8 g/dl (12.0-16.0); Mean Corpuscular HGB Conc 33 g/dl (31-36); Mean Corpuscular Hemoglobin 31 pg (27-31); Mean Corpuscular Volume 94 fL (80-97); Mean Platelet Volume 9 um3 (7.4-10.4); Red Blood Count 2.87 10^6/ul (4.0-5.4); Red Cell Distribution Width 19 % (10.5-15); White Blood Count 11.9 10^3/ul (3.5-10.8)
[2016-11-02 06:45] LABS: Calcium 8.7 mg/dL (8.6-10.3); EGFR African American 131.6 (>60); EGFR Non-African American 102.3 (>60); Potassium 4.1 mmol/L (3.5-5.0)
[2016-11-02] MEDS: Carvedilol TAB* 3.125 MG PO SCH ×2 (08:51→16:07)
[2016-11-02] MEDS: Acetaminophen TAB* 325 MG PO SCH ×3 (08:52→22:46)
[2016-11-02] MEDS: Folic Acid TAB* 1 MG PO SCH (08:53)
[2016-11-02] MEDS: Gabapentin CAP(*) 300 MG PO SCH ×3 (08:53→22:46)
[2016-11-02] MEDS: Vancomycin CAP* 125 MG CAP PO SCH ×4 (08:55→22:46)
[2016-11-02] MEDS: Sodium Chloride TAB* 1 GM PO SCH ×4 (08:55→22:46)
[2016-11-02] MEDS: lamoTRIgine TAB(*) 100 MG PO SCH (09:01)
[2016-11-02 10:16] LABS: C Reactive Protein 165.72 mg/L (< 5.00)
[2016-11-02] MEDS: Collagenase 250 MG/GM OINT* 30 GM TOPICAL SCH (14:45)
[2016-11-02] MEDS: Ondansetron INJ* 2 MG/ML VIAL IV PRN (21:44)
--- NOTE | 2016-11-02 22:33 | ECHO ---
Patient: MI ASLGADO [facility] Rec#: [id number] : 1950 Date: 11/02/2016 Age: 66y Height: 165.1 cm / 65.0 in Weight: 46.3 kg / 102.0 lbs Sex: F BSA: 1.5 Room#: [facility] Admit Date#: 10/29/2016 Type: Inpatient Referring: Tran Jc MD Reading: Jerome Villalpando MD Fire Lookout: Hermila Astorga RN RD Transthoracic Echocardiogram Indication: CHF BP: 118/56 HR: 71 Rhythm: Paced Findings History: Viral myocarditis, cardiomyopathy, S/P AICD, CHF, breast cancer, esophageal cancer, surgical interventions, chemotherapy, radiation therapy, former smoker Technical Comments: The study quality is fair. The study is technically limited due to patient body habitus. The study is technically limited due to the patient's smoking history. Completed at 1850. Left Ventricle: The left ventricular chamber size is normal. There is a focal wall motion abnormality present. The estimated ejection fraction is 45-50%. closer to 45%. There is abnormal ventricular septal wall motion consistent with right ventricular pacemaker. Abnormal left ventricular diastolic filling is observed, consistent with impaired relaxation. The basal inferior, basal inferoseptal, mid inferior, mid inferoseptal, apical septal, and apical inferior wall segments are hypokinetic (score 2). Overall wallmotion score index is 1.38 Left Atrium: The left atrial chamber size is normal. Right Ventricle: The right ventricular cavity size is normal. The right ventricular global systolic function is normal. A pacemaker wire is visualized in the right ventricle. Right Atrium: The right atrial cavity size is normal. A pacemaker wire is visualized in the right atrium. The interatrial septum appears lipomatous. Aortic Valve: The aortic valve is trileaflet. The aortic valve leaflets are mildly thickened. There is no evidence of aortic regurgitation. There is no evidence of aortic stenosis. Mitral Valve: The mitral valve leaflets are mildly thickened. There is mild mitral regurgitation. There is no evidence of mitral stenosis. Tricuspid Valve: The tricuspid valve leaflets are normal. There is mild to moderate tricuspid regurgitation. There is evidence of borderline pulmonary hypertension. There is no tricuspid stenosis. Pulmonic Valve: The pulmonic valve appears normal. There is mild pulmonic regurgitation. There is no pulmonic stenosis. Pericardium: There is no significant pericardial effusion. A left pleural effusion is present. Aorta: There is no dilatation of the ascending aorta. There is no dilatation of the aortic arch. There is no dilation of the aortic root. Pulmonary Artery: The main pulmonary artery appears normal. Venous: The inferior vena cava appears normal in size. There is a greater than 50% respiratory change in the inferior vena cava dimension. Conclusions The estimated ejection fraction is 45-50%, closer to 45%. There is abnormal ventricular septal wall motion consistent with right ventricular pacemaker. Abnormal left ventricular diastolic filling is observed, consistent with impaired relaxation. There is mild mitral regurgitation. There is mild to moderate tricuspid regurgitation. There is evidence of borderline pulmonary hypertension. A left pleural effusion is present. Prior study not available at present. Measurements Name Value Normal Range RVDdMajor (2D) 2.9 cm (2.2 - 4.4) RAd ISD 4CH 3.9 cm (3.4 - 4.9) IVSd (2D) 0.9 cm (0.6 - 1) LVPWd (2D) 0.9 cm (0.6 - 1) LVIDd (2D) 3.9 cm (3.6 - 5.4) LVIDs (2D) 3.4 cm - LV FS (2D) 13 % (25 - 45) Aortic Annulus 2.2 cm (1.4 - 2.6) Ao root diameter (2D) 2.9 cm (2.1 - 3.5) Ascending Ao 2.6 cm (2.1 - 3.4) Aortic arch 2.1 cm (1.8 - 3.4) LA dimension (AP) 2D 2.3 cm (2.3 - 3.8) LAd ISD 4CH 3.8 cm (2.9 - 5.3) LA ISD 4CH W 4.1 cm (2.5 - 4.5) Name Value Normal Range LA ESV SP 4CH (A/L) 34 ml - LA ESV SP 2CH (A/L) 43 ml - LA ESV BP (A/L) 40 ml - LA ESV BP (A/L) index 27 ml/m2 - LA ESV SP 4CH (MOD) 30 ml - LA ESV SP 2CH (MOD) 37 ml - Name Value Normal Range MV E-wave Vmax 0.87 m/sec - MV deceleration time 242 msec - MV A-wave Vmax 1 m/sec - MV E:A ratio 0.84 ratio - LV septal e' Vmax 0.1 m/sec - LV lateral e' Vmax 0.09 m/sec - LV E:e' septal ratio 8.7 ratio - LV E:e' lateral ratio 9.7 ratio - Name Value Normal Range AV Vmax 1.3 m/sec - AV VTI 27.5 cm - AV peak gradient 7 mmHg - AV mean gradient 4 mmHg - LVOT Vmax 0.96 m/sec - LVOT VTI 19.3 cm - LVOT peak gradient 4 mmHg - LVOT mean gradient 2 mmHg - OSMANI Vmax 0.61 m/sec - Name Value Normal Range TR Vmax 2.8 m/sec - TR peak gradient 31 mmHg - RAP 3 mmHg - RVSP 34 mmHg - IVC diameter 1.3 cm - Name Value Normal Range PV Vmax 0.86 m/sec - Wallmotion BAS Normal BA Normal BAL Normal CARLA Normal BI Hypokinetic BIS Hypokinetic MAS Normal MA Normal MAL Normal MIL Normal ND Hypokinetic MIS Hypokinetic Hypokinetic AA Normal AL Normal AI Hypokinetic APEX Normal
[2016-11-02] MEDS ORDERED: Nitroglycerin TAB 0.4 MG* 0.4 MG TAB SL PRN (23:49)
[2016-11-03] MEDS: oxyCODONE TAB* 5 MG TAB PO SCH ×9 (03:17→23:53)
[2016-11-03] MEDS: ZOSYN 3.375 GM Q8H per EXTENDED INFUSION IVPB SCH ×6 (05:55→20:47)
[2016-11-03] MEDS: Heparin VIAL(*) 5000 UNITS/ML VIAL (FIVE THOUSAND) SUBCUT SCH (06:38)
[2016-11-03] MEDS: Carvedilol TAB* 3.125 MG PO SCH ×2 (08:27→16:40)
[2016-11-03] MEDS: Folic Acid TAB* 1 MG PO SCH (08:28)
[2016-11-03] MEDS: Gabapentin CAP(*) 300 MG PO SCH ×3 (08:28→20:57)
[2016-11-03 08:31] LABS: BUN/Creatinine Ratio 18.2 (8-20); C Reactive Protein 108.91 mg/L (< 5.00); Calcium 8.5 mg/dL (8.6-10.3); EGFR African American 142.7 (>60); EGFR Non-African American 110.9 (>60); Magnesium 1.5 mg/dL (1.9-2.7); Potassium 3.9 mmol/L (3.5-5.0)
[2016-11-03] MEDS: Sodium Chloride TAB* 1 GM PO SCH ×4 (09:54→21:20)
[2016-11-03] MEDS: Acetaminophen TAB* 325 MG PO SCH ×3 (09:55→20:51)
[2016-11-03] MEDS: lamoTRIgine TAB(*) 100 MG PO SCH (09:55)
[2016-11-03] MEDS: Vancomycin CAP* 125 MG CAP PO SCH ×4 (09:55→21:03)
[2016-11-03] MEDS ORDERED: Magnesium Sulfate 4 GM IV IVPB ONE (13:00)
[2016-11-03] MEDS: Magnesium Chloride EC TAB* 64 MG PO SCH ×2 (13:08→20:56)
[2016-11-03] MEDS: Zinc Sulfate CAP* 220 MG PO SCH (13:09)
[2016-11-03] MEDS ORDERED: Iodixanol* (CONTRAST) 320 MG/ML 100 ML SDV IV SCH (13:09)
[2016-11-03] MEDS: Enoxaparin(*) 40 MG/0.4 ML SYR SUBCUT SCH (13:10)
--- NOTE | 2016-11-03 14:10 | RAD ---
INDICATION: Shortness of breath and elevated d-dimer. Relevant surgical history includes bilateral lower lobectomy for lung cancer. COMPARISON: Similar examination dated October 30, 2016 TECHNIQUE: Axial source images were acquired following the administration of 61 mL Visipaque [address] angiographic technique. Coronal and sagittal reconstructed images were constructed and reviewed. FINDINGS: Unless otherwise specified, comparisons made below reference the sixth 1317 CT of the chest. There there are no filling defects in the pulmonary arteries to indicate acute pulmonary embolic disease. There are centrilobular emphysematous changes of the right lung. At the right lung base there are pleural-based density measuring up to 4.2 cm in greatest axial dimension, previously 3.5 cm. Scattered focal densities in the right lung are either new or worse when compared to the most recent chest CT. For example in the right upper lobe (image 118 of 236) there are 3 subcentimeter foci that were not definitely seen on the previous CT examination. More inferiorly in the right lower lobe (image 181) there is a 1.3 cm nodule that was present before but appears denser on today's CT. There is parenchymal thickening and density in the remaining left lung. At the left lung base there is pleural effusion and consolidation. Postoperative findings include esophagectomy with colonic pull-through in the anterior mediastinum, a right subclavian vein Mediport with the tip terminating in the superior vena cava. There is a left chest pacemaker with 2 leads in the heart. Multilevel degenerative changes of the thoracic spine includes loss of intervertebral disc height with a chronic appearing compression deformity of the T11 vertebral body unchanged from the previous CT examination. IMPRESSION: 1. No CT of evidence of pulmonary embolism. 2. Enlargement of the pleural-based density at the right dependent lower lobe is most consistent with worsening atelectasis, but an infectious etiology is not excluded by imaging alone. 3. New and/or more organized density in the right lung could have an infectious or inflammatory etiology. Metastases is considered less likely based on the rapid appearance and/or worsening since the October 30, 2016 CT examination. 4. The density and pleural effusion involving the remaining left lung is similar when compared to prior CTs of the chest. 5. Extensive postsurgical changes are similar to previous CTs of the chest as well.
[2016-11-03] MEDS: Collagenase 250 MG/GM OINT* 30 GM TOPICAL SCH (14:55)
[2016-11-03] MEDS: Ondansetron INJ* 2 MG/ML VIAL IV PRN (16:15)
[2016-11-04] MEDS: oxyCODONE TAB* 5 MG TAB PO SCH ×8 (03:18→20:42)
[2016-11-04] MEDS: ZOSYN 3.375 GM Q8H per EXTENDED INFUSION IVPB SCH ×2 (04:59)
[2016-11-04] MEDS: Carvedilol TAB* 3.125 MG PO SCH ×2 (07:56→17:47)
[2016-11-04] MEDS: Acetaminophen TAB* 325 MG PO SCH ×3 (07:57→20:41)
[2016-11-04] MEDS: Gabapentin CAP(*) 300 MG PO SCH ×3 (07:58→20:43)
[2016-11-04] MEDS: Folic Acid TAB* 1 MG PO SCH (07:58)
[2016-11-04] MEDS: Sodium Chloride TAB* 1 GM PO SCH (09:34)
[2016-11-04] MEDS: Vancomycin CAP* 125 MG CAP PO SCH ×4 (09:34→20:41)
[2016-11-04] MEDS: Magnesium Chloride EC TAB* 64 MG PO SCH ×2 (09:34→20:43)
[2016-11-04] MEDS: lamoTRIgine TAB(*) 100 MG PO SCH (09:34)
[2016-11-04] MEDS: Zinc Sulfate CAP* 220 MG PO SCH (09:34)
[2016-11-04] MEDS: Enoxaparin(*) 40 MG/0.4 ML SYR SUBCUT SCH (12:26)
[2016-11-04] MEDS: Collagenase 250 MG/GM OINT* 30 GM TOPICAL SCH (14:18)
[2016-11-05] MEDS: oxyCODONE TAB* 5 MG TAB PO SCH ×9 (01:16→23:55)
[2016-11-05] MEDS: Ondansetron INJ* 2 MG/ML VIAL IV PRN ×3 (02:37→15:44)
[2016-11-05 05:59] LABS: Hematocrit 24 % (35-47); Hemoglobin 7.6 g/dl (12.0-16.0); Mean Corpuscular HGB Conc 32 g/dl (31-36); Mean Corpuscular Hemoglobin 30 pg (27-31); Mean Corpuscular Volume 94 fL (80-97); Mean Platelet Volume 8 um3 (7.4-10.4); Red Blood Count 2.55 10^6/ul (4.0-5.4); Red Cell Distribution Width 19 % (10.5-15); White Blood Count 16.5 10^3/ul (3.5-10.8)
[2016-11-05 06:08] LABS: ALT 6 U/L (7-52); AST 13 U/L (13-39); Albumin 2.3 g/dL (3.2-5.2); Alkaline Phosphatase 136 U/L (34-104); BUN/Creatinine Ratio 11.1 (8-20); Blood Urea Nitrogen 6 mg/dL (6-24); C Reactive Protein 130.18 mg/L (< 5.00); CO2 Carbon Dioxide 29 mmol/L (22-32); Calcium 8.5 mg/dL (8.6-10.3); Chloride 101 mmol/L (101-111); EGFR African American 145.7 (>60); EGFR Non-African American 113.3 (>60); Globulin 3.1 g/dL (2-4); Glucose 91 mg/dL (70-100); Magnesium 1.5 mg/dL (1.9-2.7); Potassium 3.4 mmol/L (3.5-5.0); Prealbumin 7 mg/dL (18-38); Sodium 130 mmol/L (133-145); Total Protein 5.4 g/dL (6.4-8.9)
[2016-11-05] MEDS: Acetaminophen TAB* 325 MG PO SCH ×3 (08:10→21:13)
[2016-11-05] MEDS: Magnesium Chloride EC TAB* 64 MG PO SCH ×2 (08:11→21:11)
[2016-11-05] MEDS: Zinc Sulfate CAP* 220 MG PO SCH (08:11)
[2016-11-05] MEDS: lamoTRIgine TAB(*) 100 MG PO SCH (08:12)
[2016-11-05] MEDS: Carvedilol TAB* 3.125 MG PO SCH ×2 (09:54→16:21)
[2016-11-05] MEDS: Folic Acid TAB* 1 MG PO SCH (09:55)
[2016-11-05] MEDS: Collagenase 250 MG/GM OINT* 30 GM TOPICAL SCH (09:55)
[2016-11-05] MEDS: Vancomycin CAP* 125 MG CAP PO SCH ×4 (09:56→21:11)
[2016-11-05] MEDS: Gabapentin CAP(*) 300 MG PO SCH ×3 (09:56→21:10)
[2016-11-05] MEDS ORDERED: ZOSYN 3.375 GM x ONE DOSE over 30 miuntes IVPB ×2 (12:00)
[2016-11-05] MEDS ORDERED: Furosemide IV* 10 MG/ML 2 ML VIAL (20 MG) IV ONE (12:00)
[2016-11-05] MEDS: Enoxaparin(*) 40 MG/0.4 ML SYR SUBCUT SCH (12:21)
--- NOTE | 2016-11-05 14:11 | PN ---
Progress Note - Progress Note SOAP: Subjective: Pt seen and chart reviewed. Case discussed with Dr. Jc. Pt had nausea overnight. Her appetite is still minimal. Wound care continues with nursing staff. Objective: Temp Pulse Resp BP Pulse Ox 100.0 F 81 12 114/52 98 11/05/16 07:44 11/05/16 08:51 11/05/16 12:19 11/05/16 07:44 11/05/16 08:[address] scan reviewed Assessment: Sacral decubitus ulcer with clinical osteomyelitis, now with elevated wbs, fevers Plan: Operating room for excisional debridement and placement of negative pressure wound therapy. I expect to perform bone debridement with biopsy and culture. Pt is aware of the risks and benefits to procedure. I also shared with her the likley need for additional debridement in or out of the OR in the future. IV abx NPO at midnight.
[2016-11-05] MEDS ORDERED: ZOSYN 3.375 GM Q8H per EXTENDED INFUSION IVPB SCH ×2 (16:00)
[2016-11-05] MEDS: ZOSYN 3.375 GM Q8H IVPB SCH ×4 (16:16→23:55)
[2016-11-05] MEDS ORDERED: TPN* 24 HR with Dextrose 50% Water* 500 ML, Amino Acid Infusion 10%* 850 ML, Sterile Wa... CENTR SCH ×12 (17:00)
--- NOTE | 2016-11-05 19:23 | CONS ---
CC: Dr. Tran Jc; Dr. Kale Youssef; [facility] * WOUND CONSULTATION REPORT: DATE OF CONSULT: 11/02/16 LOCATION: 4 [place] at [facility]. HISTORY OF PRESENT ILLNESS: Henrik Mccracken, surgical PA, contacted me to evaluate from a wound stand point. Ms. Inés Stanton, a jonn 66-year-old female with a complex medical and surgical history, who was admitted to [facility] on 10/27/16 with electrolyte abnormalities and remains in the hospital with concern of infection, likely arising from a sacral decubitus ulcer that the patient has had since hospitalization for surgical intervention in [facility] from last year. The patient was diagnosed with separate lung cancers as well as esophageal cancer, underwent bilateral thoracotomies with lobectomies and then ultimately went for a esophagectomy with colonic interposition as well as a feeding jejunostomy. This patient has spent significant time in the hospitals in [place], but did not undergo much jejunal feedings during that time. The jejunal feeding tube had long been taken out and the patient has been tolerating diet, although he does have minimal appetite and has lost a significant amount of weight of approximately 30 pounds within the past year. The patient describes having the start of redness and swelling overlying the sacral bone during hospitalization last year. This was something that her family members had followed and it has worsened. It is accompanied with pain, minimal drainage, and they have been treating the wound with Santyl dressing every 2 to 3 days. It feels that the area has improved somewhat with Santyl dressing. They did have a planned consultation with the W[facility] Center last month, but the patient ended up getting hospitalized. She ultimately did require a transfer to [place] and a pacemaker placed. Now is on antibiotics for elevated white blood cell count and fever. She has been followed by Dr. Youssef during this hospitalization. She was seen by Henrik Mccracken, yesterday, who performed a selective debridement at the site and also sent a deep culture. This culture has grown out Serratia marcescens with multiple sensitivities. Blood cultures have been negative. PAST MEDICAL HISTORY: Reviewed. PAST SURGICAL HISTORY: Reviewed. MEDICATIONS: List reviewed. ALLERGIES: List reviewed. REVIEW OF SYSTEMS: Approximate 30-pound weight loss over the last year. The patient has decreased appetite, but does not describe any dysphagia. No abdominal pain, sacral pain. The patient does walk, but with a walker. She did spend a fair amount of time in bed or chair in the last 12 months. She does need some assistance getting up. Prior to this, she was ambulatory. PHYSICAL EXAMINATION: The patient was afebrile, did have a T-max of 100.2, heart rate in the 80s. Her blood pressure is 105. O2 sat 97% on room air. She is alert and oriented x3, lying in bed with support pillows. She does move , but slowly and with some help. She is 108 pounds, 5 feet 5 inches and has a body mass index of 18. Abdomen is soft, nondistended, nontender. Surgical incisions are appreciated. Sacral area reveals a 5 x 3.5 cm round ulceration overlying the sacrum that is undermined approximately 1cm throughout with fibrinous exudate and exposed sacral bone at the mid portion. Wound edges show no necrosis. There is mild surrounding cellulitis in the periwound skin. There is no fluctuance. DIAGNOSTIC STUDIES/LAB DATA: Labs reviewed. CT scan performed of the pelvis, and this was also reviewed and shows bony changes at the coccyx, along with the obvious defect in the skin and subcutaneous tissues. IMPRESSION: A 66-year-old female with multiple malignancies, and prolonged and frequent hospitalizations over the course of the last 12 months with significant weight loss and malnutrition, is suffering with the sacral decubitus ulcer stage 4 with bony involvement and likely chronic versus subacute osteomyelitis. Since the patient is ambulatory at this time and is now able to eat since her esophageal surgery, I feel the patient does have a good chance of healing this wound. It will require a weight gain and my concern would be her malignancy and continued weight loss secondary to that if she still has malignant disease. If this has been resolved as the chart seems to indicate, I think we stand a good chance of healing Ms. Stanton. She will require physical therapy and ambulation with assistance, possibly a specialty bed or an air mattress. I would like to perform an excisional debridement including excision of portion of the bone that was exposed both for therapeutic as well as diagnostic purposes. I believe she will benefit from negative pressure wound therapy treatment as well. I outlined this to both her and her , going over the risks, benefits, and alternatives of excisional debridement, namely talking about the complications of bleeding, infection, and the need for additional procedures and the possibility of prolonged wound care needs and the possibility that we may not heal this at all. I also discussed the potential of plastic surgery involvement with myocutaneous flaps in the future if we are able to get infection under control and her overall improved. This would be a long-term possibility if she is free of malignancy and free of bone infection but still does not show complete resolution. The patient will continue with antibiotics and IV hydration, nutrition over the course of the weekend. I will look towards evaluating her and putting her on the OR schedule early next week. [id number]/[facility] #: [id number] ALECIA
[2016-11-06] MEDS: Ondansetron INJ* 2 MG/ML VIAL IV PRN (05:22)
[2016-11-06] MEDS: ZOSYN 3.375 GM Q8H IVPB SCH ×8 (05:22→23:02)
[2016-11-06] MEDS: Vancomycin CAP* 125 MG CAP PO SCH ×5 (06:35→20:02)
[2016-11-06] MEDS: Gabapentin CAP(*) 300 MG PO SCH ×4 (06:35→20:02)
[2016-11-06] MEDS: Acetaminophen TAB* 325 MG PO SCH ×4 (06:36→20:02)
[2016-11-06] MEDS: Carvedilol TAB* 3.125 MG PO SCH ×2 (06:37→17:24)
[2016-11-06] MEDS: oxyCODONE TAB* 5 MG TAB PO SCH ×9 (06:39→23:00)
[2016-11-06 06:51] LABS: Hematocrit 35 % (35-47); Hemoglobin 11.4 g/dl (12.0-16.0); Mean Corpuscular HGB Conc 33 g/dl (31-36); Mean Corpuscular Hemoglobin 29 pg (27-31); Mean Corpuscular Volume 89 fL (80-97); Mean Platelet Volume 8 um3 (7.4-10.4); Red Blood Count 3.91 10^6/ul (4.0-5.4); Red Cell Distribution Width 19 % (10.5-15); White Blood Count 14.6 10^3/ul (3.5-10.8)
[2016-11-06 07:04] LABS: BUN/Creatinine Ratio 29.1 (8-20); Calcium 8.8 mg/dL (8.6-10.3); EGFR African American 142.7 (>60); EGFR Non-African American 110.9 (>60); Magnesium 1.8 mg/dL (1.9-2.7); Potassium 3.7 mmol/L (3.5-5.0)
[2016-11-06] MEDS: Zinc Sulfate CAP* 220 MG PO SCH (07:10)
[2016-11-06] MEDS: Folic Acid TAB* 1 MG PO SCH (07:10)
[2016-11-06] MEDS: Collagenase 250 MG/GM OINT* 30 GM TOPICAL SCH (07:11)
[2016-11-06] MEDS: lamoTRIgine TAB(*) 100 MG PO SCH (07:12)
[2016-11-06] MEDS ORDERED: Lidocaine 4% GEL* 10 GM TUBE TOPICAL ONE (11:00)
[2016-11-06] MEDS ORDERED: Propofol* 10 MG/ML 20 ML BTL IV PUSH ONE (11:00)
[2016-11-06] MEDS ORDERED: Midazolam* 1 MG/ML 2 ML VIAL (2 MG) ONE (11:00)
[2016-11-06] MEDS ORDERED: Lidocaine 2% PF * 5 ML VIAL ONE (11:00)
[2016-11-06] MEDS ORDERED: Morphine INJ* 10 MG/ML 1 ML SYRINGE ONE (11:01)
[2016-11-06] MEDS ORDERED: Lidocaine 1% INJ* 10 MG/ML 30 ML SDV ONE (11:25)
[2016-11-06] MEDS: Magnesium Chloride EC TAB* 64 MG PO SCH ×2 (11:25→20:03)
--- NOTE | 2016-11-06 11:59 | SURGPN ---
Brief Operative Note - Surgery Procedures: Procedures Pre-op Dx: sacral ulcer, osteomyelitis Post-op Dx: same Procedure: Excisional debridement of sacral ulcer, and placement of NPWT Surgeon: Jeet Asst: none Anesth: local MAC Dr English EBL: 30cc IVF: min Specimen: sacral bone
[2016-11-06] MEDS ORDERED: Lidocaine 4% GEL* 10 GM TUBE ONE (12:19)
[2016-11-06] MEDS ORDERED: oxyCODONE TAB* 5 MG TAB ONE (12:24)
[2016-11-06] MEDS: Enoxaparin(*) 40 MG/0.4 ML SYR SUBCUT SCH (13:25)
[2016-11-06] MEDS ORDERED: SODIUM CHLORIDE CENT\\PICC SCH ×12 (17:00)
[2016-11-06] MEDS ORDERED: POTASSIUM CHLORIDE TPN CENT\\PICC SCH ×12 (17:00)
[2016-11-06] MEDS ORDERED: [UNRECOGNIZED DRUG - OTHER] CENT\\PICC SCH ×12 (17:00)
[2016-11-06] MEDS ORDERED: TPN CENT\\PICC SCH ×12 (17:00)
[2016-11-06] MEDS ORDERED: oxyCODONE TAB* 5 MG TAB PO SCH (20:00)
[2016-11-07] MEDS: oxyCODONE TAB* 5 MG TAB PO SCH ×8 (01:45→23:07)
--- NOTE | 2016-11-07 04:17 | OP ---
CC: Dr. Tran Jc; Dr. Jerome Villalpando; [facility] * DATE OF OPERATION: 11/06/16 - ROOM #408 DATE OF : 52 SURGEON: Enzo Marcano MD ABRASIVE W[employer] J[employer]TER OPERATOR: None. ANESTHESIOLOGIST: Dr. English. ANESTHESIA: Local MAC anesthesia. PRE-OP DIAGNOSIS: Sacral ulcer, osteomyelitis. POST-OP DIAGNOSIS: Sacral ulcer, osteomyelitis. OPERATIVE PROCEDURE: Excisional debridement of sacral ulcer and placement of negative pressure wound therapy. BLOOD LOSS: 30 cc. IV FLUIDS: Minimal IV fluids given. SPECIMEN: Sacral bone for culture and pathology. INDICATIONS: Ms. Stanton is a 66-year-old female who has had multiple hospitalizations along with malignancy and break-down of the skin involving her sacral area and diagnosed with a longstanding sacral ulcer undergoing topical treatment, who underwent selective debridement on the day of surgical consultation last week. I followed the patient and recommended wide excisional debridement with bone biopsy for first exposed bone and clinical osteomyelitis. I outlined the details of the procedure going over the risks, benefits, and alternatives to her and her . We spoke of the possible complications which included, but not limited to bleeding, infection, need for additional debridement and the possibility of nonhealing. The patient agreed and signed consent. DESCRIPTION OF PROCEDURE: The patient was identified in the preoperative area, brought to the OR and placed on the operating table in the right lateral decubitus position. Gentle sedation was given. The patient already had antibiotics on board. Sequential devices were placed on bilateral lower extremities. Sacral ulcer was prepped with Betadine and the patient was draped. Time-out was performed. Ulcer was approached, measured 4 x 4 x 1 cm with exposed bone at the upper most portion. It was undermined approximately 1 cm throughout, had pale tissue throughout the base with exposed tendon and bone. There was no fluctuance. Skin edges showed some split thickness wounding and mild necrotic skin but no significant eschar. 4% lidocaine topical jelly was placed into the wound and then injectable 1% lidocaine was injected around the perimeter of the ulcer. Next the fibrinous exudate and pale tendinous and subcutaneous tissue was debrided sharply with both scalpel and Metzenbaum scissors. Bleeding was minimal and controlled with direct pressure or electrocautery as needed. We were able to get more into the muscular planes in the lateral portions of the ulcer and right over the periosteum at the central portion where there are two islands of swollen bony areas. Next, these raised bony areas were debrided with rongeur taking bony bits of the sacrum that broke off easily. Bleeding was controlled with direct pressure and electrocautery as needed. Bone was passed off as specimen. Next, the curette was used to smooth out the debrided area. Hemostasis was achieved with electrocautery. Next, the skin edges that showed some necrosis were freshened up with 15 blade scalpel throughout the perimeter. Bleeding was controlled with electrocautery. The post-debridement measurements measured 5 x 5 x 1 cm. We irrigated, again hemostasis was achieved and a foam dressing was placed connected to a negative pressure wound therapy treatment to 125 mmHg. The patient tolerated the procedure well and was transferred to the PACU in stable condition. [id number]/[facility] #: [id number] MTDD
[2016-11-07] MEDS: ZOSYN 3.375 GM Q8H IVPB SCH ×8 (05:10→23:10)
[2016-11-07 06:12] LABS: Hematocrit 32 % (35-47); Hemoglobin 10.8 g/dl (12.0-16.0); Mean Corpuscular HGB Conc 34 g/dl (31-36); Mean Corpuscular Hemoglobin 31 pg (27-31); Mean Corpuscular Volume 90 fL (80-97); Mean Platelet Volume 8 um3 (7.4-10.4); Red Blood Count 3.53 10^6/ul (4.0-5.4); Red Cell Distribution Width 19 % (10.5-15); White Blood Count 14.2 10^3/ul (3.5-10.8)
[2016-11-07 06:32] LABS: BUN/Creatinine Ratio 26.5 (8-20); C Reactive Protein 81.33 mg/L (< 5.00); Calcium 8.6 mg/dL (8.6-10.3); EGFR Non-African American 126.7 (>60); Magnesium 1.9 mg/dL (1.9-2.7); Phosphorus 1.9 mg/dL (2.5-5.0); Potassium 3.5 mmol/L (3.5-5.0)
[2016-11-07] MEDS: Carvedilol TAB* 3.125 MG PO SCH ×2 (08:52→17:00)
[2016-11-07] MEDS: Acetaminophen TAB* 325 MG PO SCH ×3 (08:53→20:48)
[2016-11-07] MEDS: lamoTRIgine TAB(*) 100 MG PO SCH (08:53)
[2016-11-07] MEDS: Gabapentin CAP(*) 300 MG PO SCH ×3 (08:54→20:49)
[2016-11-07] MEDS: Vancomycin CAP* 125 MG CAP PO SCH ×4 (08:55→23:06)
[2016-11-07] MEDS: Magnesium Chloride EC TAB* 64 MG PO SCH ×2 (08:56→20:49)
[2016-11-07] MEDS: Zinc Sulfate CAP* 220 MG PO SCH (08:56)
[2016-11-07] MEDS: Collagenase 250 MG/GM OINT* 30 GM TOPICAL SCH (08:57)
[2016-11-07] MEDS: Folic Acid TAB* 1 MG PO SCH (08:57)
--- NOTE | 2016-11-07 09:34 | PN ---
Progress Note - Progress Note SOAP: Subjective: DOS: 11/06/16 CC: fever HPI: 66 year old woman hx Cdif admitted with hyperkalemia; fever yesterda. Had I&D of decub with bone biopsy 11/07. ICD discharged this morning. No chest pain now. Objective: [] Vital Signs Temp 37.8 C 11/01/16 04:09 Pulse 77 11/01/16 16:00 Resp 16 11/01/16 17:13 BP 98/67 11/01/16 16:00 Pulse Ox 92 11/01/16 16:00 Intake & Output 10/31/16 11/01/16 11/01/16 18:59 06:59 18:59 Intake Total 1220 0 480 Output Total 1200 300 300 Balance 20 -300 180 Weight 102 lb Intake: Oral 1220 0 480 Output: Urine 1200 300 300 Other: # Bowel Movements 1 0 1 Estimated Stool Amount Small # Voids 1 0 Gen:awake, no distress Neuro: AAOx3 HEENT:PERRL, MMM Neck:supple Heart;RRR no murmur Lungs:CTA BL Abd:+BS NTND soft Skin: no rash MSK: sacral decub bandaged Laboratory Results - last 24 hr 11/07/16 11/07/16 05:45 05:45 WBC 14.2 H RBC 3.53 L Hgb 10.8 L Hct 32 L MCV 90 MCH 31 MCHC 34 RDW 19 H Plt Count 250 MPV 8 Sodium 131 L Potassium 3.5 Chloride 95 L Carbon Dioxide 32 Anion Gap 4 BUN 13 Creatinine 0.49 L Est GFR ( Amer) 163.0 Est GFR (Non-Af Amer) 126.7 BUN/Creatinine Ratio 26.5 H Glucose 87 Calcium 8.6 Phosphorus 1.9 L Magnesium 1.9 C-Reactive Protein 81.33 H Assessment: 1. fever, improved, workup for sacral osteomyelitis is pending; is improved since antibiotics and debridement of ulcer 2. hx Cdif, on vancomycin prophylaxis 3. peripheral neuropathy, improving off flagyl 4. esophageal cancer s/p resection and colon pull through 5. elevated CRP, improving Plan: 1. Continue zosyn and PO vanco for CDif prophylaxis. 2. cardiac device evaluation pending 35 minutes floor time >50% in counseling and coordination of care with Dr Jc regarding antibiotic treatment.
[2016-11-07] MEDS ORDERED: Potassium Chlor TAB* 20 MEQ TAB.ER PO ONE (11:00)
[2016-11-07] MEDS: Enoxaparin(*) 40 MG/0.4 ML SYR SUBCUT SCH (12:21)
[2016-11-07] MEDS ORDERED: [UNRECOGNIZED DRUG - OTHER] CENT\\PICC SCH ×12 (17:00)
[2016-11-07] MEDS ORDERED: TPN CENT\\PICC SCH ×12 (17:00)
[2016-11-07] MEDS ORDERED: POTASSIUM CHLORIDE TPN CENT\\PICC SCH ×12 (17:00)
[2016-11-07] MEDS ORDERED: SODIUM CHLORIDE CENT\\PICC SCH ×12 (17:00)
[2016-11-07] MEDS: Amiodarone TAB* 400 MG PO SCH (23:06)
[2016-11-08] MEDS: oxyCODONE TAB* 5 MG TAB PO SCH ×7 (03:18→20:40)
[2016-11-08] MEDS: Metoclopramide IV* 5 MG/ML 2 ML VIAL IV PRN (05:27)
[2016-11-08] MEDS: ZOSYN 3.375 GM Q8H IVPB SCH ×8 (05:29→23:57)
[2016-11-08 05:45] LABS: Hematocrit 33 % (35-47); Hemoglobin 10.9 g/dl (12.0-16.0); Mean Corpuscular HGB Conc 33 g/dl (31-36); Mean Corpuscular Hemoglobin 30 pg (27-31); Mean Corpuscular Volume 91 fL (80-97); Mean Platelet Volume 9 um3 (7.4-10.4); Red Blood Count 3.68 10^6/ul (4.0-5.4); Red Cell Distribution Width 19 % (10.5-15); White Blood Count 17.4 10^3/ul (3.5-10.8)
[2016-11-08] MEDS: Acetaminophen TAB* 325 MG PO PRN (05:45)
[2016-11-08 05:58] LABS: Albumin 2.5 g/dL (3.2-5.2); C Reactive Protein 92.39 mg/L (< 5.00); Calcium 8.8 mg/dL (8.6-10.3); EGFR Non-African American 126.7 (>60); Globulin 3.5 g/dL (2-4); Magnesium 1.9 mg/dL (1.9-2.7); Potassium 3.9 mmol/L (3.5-5.0); Total Bilirubin 0.3 mg/dL (0.2-1.0)
[2016-11-08] MEDS ORDERED: Furosemide IV* 10 MG/ML VIAL (40 MG) IV ONE ×2 (06:30→12:00)
[2016-11-08 06:37] LABS: BUN/Creatinine Ratio 30.6 (8-20)
[2016-11-08] MEDS: Magnesium Chloride EC TAB* 64 MG PO SCH ×2 (09:15→21:52)
[2016-11-08] MEDS: Carvedilol TAB* 3.125 MG PO SCH ×2 (09:15→17:47)
[2016-11-08] MEDS: Zinc Sulfate CAP* 220 MG PO SCH (09:15)
[2016-11-08] MEDS: Gabapentin CAP(*) 300 MG PO SCH ×3 (09:16→20:36)
[2016-11-08] MEDS: lamoTRIgine TAB(*) 100 MG PO SCH (09:16)
[2016-11-08] MEDS: Folic Acid TAB* 1 MG PO SCH (09:17)
[2016-11-08] MEDS: Acetaminophen TAB* 325 MG PO SCH ×3 (09:17→20:35)
[2016-11-08] MEDS: Vancomycin CAP* 125 MG CAP PO SCH ×4 (09:18→21:58)
--- NOTE | 2016-11-08 10:00 | PN ---
Progress Note - Progress Note SOAP: Subjective: DOS: 11/08/16 CC: fever HPI: 66 year old woman hx Cdif admitted with hyperkalemia; fever yesterda. Had I&D of decub with bone biopsy 11/07. ICD evaluation showed VT. No CP. Had a fever this morning. Sacral pain the same, better when off of it. No rash or diarrhea, has baseline 0-1 loose stools per day. Objective: [] Vital Signs Temp 38.2 C 11/08/16 07:50 Pulse 77 11/08/16 09:34 Resp 16 11/08/16 09:34 BP 122/62 11/08/16 07:50 Pulse Ox 98 11/08/16 09:35 Intake & Output 11/07/16 11/08/16 11/08/16 18:59 06:59 18:59 Intake Total 2249 1979 Output Total 200 2275 Balance 2049 -296 Intake: IV Fluids 1229 1360 NS (0.9%) 73 tpn 1172 1287 zosyn 57 IVPB 319 zosyn 319 Oral 1020 300 Output: Urine 200 2275 Other: Estimated Void Medium # Bowel Movements 0 # Voids 3 Gen:awake, no distress Neuro: AAOx3 HEENT:PERRL, MMM Neck:supple Heart;RRR no murmur Lungs:decr BS bases BL no wheeze Abd:+BS NTND soft Skin: no rash MSK: sacral decub no surrounding erythema Microbiology 11/06/16 05:55 Gram Stain - Final Sputum Sputum Culture - Final YEAST Normal Loree 11/06/16 11:45 Wound Gram Stain - Final Tissue - Other Tissue Culture - Preliminary No Growth Day 1 Skin and Soft Tissue MRSA/MSSA (PCR - Final Mrsa Negative S.aureus Negative Assesment: 1. fever, due to chronic osteomyelitis 2. Right lung mass, likely abscess 3. hx Cdif, on vancomycin prophylaxis 4. peripheral neuropathy 5. esophageal cancer s/p resection and colon pull through 6. elevated CRP, improving 7. VTach Plan: 1. Continue zosyn, may be quite a while before improvement in fever 2. PO vanco for CDif prophylaxis. 35 minutes floor time >50% in counseling and coordination of care with the patient and her regarding antibiotic treatment and her fevers.
--- NOTE | 2016-11-08 11:22 | PN ---
Subjective Date of Service: 11/08/16 - CC: SOB Interval History: The patient states she awoke this morning very short of breath. She has received diuretics, breathing is better. Medications Active Medications: Acetaminophen (Tylenol Tab*) 975 mg PO TID [facility] Last Admin: 11/08/16 09:17 Dose: 975 mg Acetaminophen (Tylenol Tab*) 650 mg PO Q6H PRN PRN Reason: FEVER Last Admin: 11/08/16 05:45 Dose: 650 mg Albuterol (Ventolin 2.5 Mg/3 Ml Neb.Dena*) 2.5 mg INH Q2H PRN PRN Reason: SOB/WHEEZING Amiodarone HCl (Cordarone Tab*) 200 mg PO BID [facility] Carvedilol (Coreg Tab*) 9.375 mg PO BID WITH MEALS [facility] Last Admin: 11/08/16 09:15 Dose: 9.375 mg Collagenase (Santyl 250 Mg/Gm Oint*) 1 applic TOPICAL DAILY [facility] Last Admin: 11/07/16 08:57 Dose: Not Given Enoxaparin Sodium (Lovenox(*)) 40 mg SUBCUT Q24H [facility] Last Admin: 11/07/16 12:21 Dose: 40 mg Folic Acid (Folvite Tab*) 1 mg PO DAILY [facility] Last Admin: 11/08/16 09:17 Dose: 1 mg Furosemide (Lasix Iv*) 40 mg IV ONCE ONE Stop: 11/08/16 12:01 Gabapentin (Neurontin Cap(*)) 300 mg PO TID [facility] Last Admin: 11/08/16 09:16 Dose: 300 mg Heparin Sodium (Porcine) (Heparin Flush Port (Ivad)) 5 ml FLUSH DAILY [facility] PRN Reason: Protocol Last Admin: 11/08/16 09:31 Dose: Not Given Piperacillin Sod/Tazobactam (Sod 3.375 gm/ Sodium Chloride) 100 mls @ 200 mls/ hr IVPB Q6H [facility] Last Admin: 11/08/16 05:29 Dose: 200 mls/hr Sodium Chloride 110 meq/Potassium Chloride 50 meq/Potassium Phosphate 20 mmole/ Calcium Gluconate 10 meq/Magnesium Sulfate 30 meq/Multivitamins 10 ml/ Trace Metals 3 ml/ Dextrose 1,000 ml / Amino Acids 850 ml/ Sterile Water 150 ml/ Fat Emulsion Intravenous 250 ml/ Nutrition (Parenteral) 2,351.0608 mls @ 97.961 mls /hr CENT\PICC 1700 [facility] Stop: 11/08/16 16:59 Last Admin: 11/07/16 17:00 Dose: 97.961 mls/hr Sodium Chloride 110 meq/Potassium Chloride 50 meq/Potassium Phosphate 30 mmole/ Calcium Gluconate 10 meq/Magnesium Sulfate 35 meq/Multivitamins 10 ml/ Trace Metals 3 ml/ Dextrose 1,000 ml / Amino Acids 850 ml/ Sterile Water 150 ml/ Fat Emulsion Intravenous 250 ml/ Nutrition (Parenteral) 2,355.6256 mls @ 98.151 mls /hr CENT\PICC 1700 [facility] Lamotrigine (Lamictal Tab(*)) 200 mg PO QAM [facility] Last Admin: 11/08/16 09:16 Dose: 200 mg Magnesium Chloride (Slow Mag Ec Tab*) 128 mg PO BID [facility] Last Admin: 11/08/16 09:15 Dose: 128 mg Melatonin (Melatonin (Nf)) 3 mg PO BEDTIME PRN; Protocol PRN Reason: Sleep Metoclopramide HCl (Reglan Iv*) 10 mg IV Q8H PRN PRN Reason: NAUSEA/VOMITING Last Admin: 11/08/16 05:27 Dose: 10 mg Nitroglycerin (Nitroglycerin Tab 0.4 Mg*) 0.4 mg SL Q4H PRN PRN Reason: WORSENING CHEST PAIN Last Admin: 11/05/16 04:30 Dose: 0.4 mg Oxycodone HCl (Roxycodone Tab*) 30 mg PO Q3H [facility] Last Admin: 11/08/16 09:14 Dose: 30 mg Vancomycin HCl (Vancomycin Cap*) 125 mg PO QID [facility] Last Admin: 11/08/16 09:18 Dose: 125 mg Zinc Sulfate (Zinc-220 Cap*) 220 mg PO DAILY [facility] Last Admin: 11/08/16 09:15 Dose: 220 mg Objective Vital Signs: Temp Pulse Resp BP Pulse Ox 100.7 F 77 16 122/62 98 11/08/16 07:50 11/08/16 09:34 11/08/16 09:34 11/08/16 07:50 11/08/16 09:35 Oxygen Devices in Use Now: Nasal Cannula Appearance: Thin, cachetic woman, lying on right side at 30 degrees. Appears comfortable. Eyes: PERRLA Ears/Nose/Mouth/Throat: Clear Oropharnyx, Mucous Membranes Moist Neck: - - s/p extensive surgery, sternal and clavicular resection, distension from colonic conduit to replace esophogous noted. Respiratory: Symmetrical Chest Expansion and Respiratory Effort, Clear to Auscultation Cardiovascular: RRR - no murmers. Abdominal: NL Sounds; No Tenderness; No Distention Extremities: No Edema Neurological: Alert and Oriented x 3 Laboratory Results: 11/08/16 05:13 11/08/16 05:13 INR (Anticoag Therapy) 1.06 (0.89-1.11) 10/26/16 22:27 Total Bilirubin 0.30 mg/dL (0.2-1.0) 11/08/16 05:13 AST 20 U/L (13-39) 11/08/16 05:13 ALT 10 U/L (7-52) 11/08/16 05:13 Alkaline Phosphatase 179 U/L (34-104) H 11/08/16 05:13 B-Natriuretic Peptide 671 pg/mL (-100) H 11/08/16 05:13 Total Protein 6.0 g/dL (6.4-8.9) L 11/08/16 05:13 Albumin 2.5 g/dL (3.2-5.2) L 11/08/16 05:13 Globulin 3.5 g/dL (2-4) 11/08/16 05:13 Albumin/Globulin Ratio 0.7 (1-3) L 11/08/16 05:13 TSH 2.23 mcIU/mL (0.34-5.60) 10/26/16 22:27 11/03/16 12:00 Troponin I 0.01 EKG Data: Monitor: NSVT 04:39 today. Assessment/Plan 66 yo female, non ischemic CM, BiV pacer/ICD, EF most recently 45%. SOB this AM and being treated for CHF. I/O yesterday: 4700 cc in, 1800 cc's out. Getting TPN. NSVT again with sleep. Points of Discussion: VT: Continue Amiodarone loading. CHF can precipitate and getting large amounts of fluid. Could fluid intake be decreased to 2.5 L/day? Electrolytes likely another factor for this, at risk for further hyponatremia and hypokalemia with lasix 40 given today, track carefully, repleat orally and / or TPN. Consider overnight oximetry/evaluation for possible desaturation. Cardiomyopathy: EF improving. Continue Coreg and HAND UPPER AND BOTTOM LACER via device. CHF: As above, can fluid in be decreased? ACEI if/when BP tolerates.
[2016-11-08] MEDS: Collagenase 250 MG/GM OINT* 30 GM TOPICAL SCH (11:54)
[2016-11-08] MEDS: Enoxaparin(*) 40 MG/0.4 ML SYR SUBCUT SCH (12:59)
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
[2016-11-08] MEDS: Amiodarone TAB* 200 MG PO SCH ×2 (15:05→22:20)
[2016-11-08] MEDS: Amiodarone TAB* 400 MG PO SCH (15:28)
[2016-11-08] MEDS: [UNRECOGNIZED DRUG - OTHER] CENT\\PICC SCH ×12 (18:16)
[2016-11-08] MEDS: POTASSIUM CHLORIDE TPN CENT\\PICC SCH ×12 (18:16)
[2016-11-08] MEDS: TPN CENT\\PICC SCH ×12 (18:16)
[2016-11-08] MEDS: SODIUM CHLORIDE CENT\\PICC SCH ×12 (18:16)
[2016-11-09] MEDS: oxyCODONE TAB* 5 MG TAB PO SCH ×9 (02:49→23:26)
[2016-11-09 05:02] LABS: Hematocrit 35 % (35-47); Hemoglobin 11.6 g/dl (12.0-16.0); Mean Corpuscular HGB Conc 33 g/dl (31-36); Mean Corpuscular Hemoglobin 30 pg (27-31); Mean Corpuscular Volume 90 fL (80-97); Mean Platelet Volume 8 um3 (7.4-10.4); Red Blood Count 3.91 10^6/ul (4.0-5.4); Red Cell Distribution Width 19 % (10.5-15)
[2016-11-09 05:04] LABS: Comments Flag Yes
[2016-11-09] MEDS: ZOSYN 3.375 GM Q8H IVPB SCH ×8 (05:12→23:19)
[2016-11-09 05:15] LABS: Albumin 2.7 g/dL (3.2-5.2); BUN/Creatinine Ratio 30.6 (8-20); C Reactive Protein 123.61 mg/L (< 5.00); Calcium 9.2 mg/dL (8.6-10.3); EGFR African American 124.2 (>60); EGFR Non-African American 96.6 (>60); Globulin 3.9 g/dL (2-4); Phosphorus 3.4 mg/dL (2.5-5.0); Potassium 3.6 mmol/L (3.5-5.0); Total Bilirubin 0.4 mg/dL (0.2-1.0); Total Protein 6.6 g/dL (6.4-8.9)
[2016-11-09] MEDS: Carvedilol TAB* 3.125 MG PO SCH ×2 (07:59→16:46)
[2016-11-09] MEDS: Vancomycin CAP* 125 MG CAP PO SCH ×4 (08:01→21:08)
[2016-11-09] MEDS: Acetaminophen TAB* 325 MG PO SCH ×3 (09:58→20:37)
[2016-11-09] MEDS: Amiodarone TAB* 200 MG PO SCH ×2 (09:59→21:06)
[2016-11-09] MEDS: Magnesium Chloride EC TAB* 64 MG PO SCH ×2 (09:59→20:56)
[2016-11-09] MEDS: Zinc Sulfate CAP* 220 MG PO SCH (09:59)
[2016-11-09] MEDS: Folic Acid TAB* 1 MG PO SCH (09:59)
[2016-11-09] MEDS: lamoTRIgine TAB(*) 100 MG PO SCH (10:00)
[2016-11-09] MEDS: Gabapentin CAP(*) 300 MG PO SCH ×3 (10:00→20:31)
[2016-11-09] MEDS: Collagenase 250 MG/GM OINT* 30 GM TOPICAL SCH (10:11)
[2016-11-09] MEDS ORDERED: HYDROmorphone* 1 MG/ML 1 ML SYR IV ONE (11:20)
[2016-11-09] MEDS: Enoxaparin(*) 40 MG/0.4 ML SYR SUBCUT SCH (12:03)
--- NOTE | 2016-11-09 13:17 | PN ---
Progress Note - Progress Note Date of Service: 11/09/16 SOAP: Subjective: [Pt seen and examined. Chart reviewed. Case discussed with ID. Pt is on TPN, IV abx Objective: improving vitals Port intact with no signs of infection. Sacral wound redressed with NPWT. Wound is [id number]. No signs of soft tissue infection path reviewed with pt. Assessment: osteomylelitis of sacrum Plan: abx NPWT 3x weekly (preferably at home sat, sat; and at wound center on saturday) If TPN to continue, than pt will need addition IV access for discharge, unless port is double lumen(which I believe it is not) Will follow at wound center KJ to cover me until 11/12
[2016-11-09] MEDS: Furosemide TAB* 40 MG PO SCH (16:46)
[2016-11-09] MEDS: SODIUM CHLORIDE CENT\\PICC SCH ×12 (17:31)
[2016-11-09] MEDS: TPN CENT\\PICC SCH ×12 (17:31)
[2016-11-09] MEDS: POTASSIUM CHLORIDE TPN CENT\\PICC SCH ×12 (17:31)
[2016-11-09] MEDS: [UNRECOGNIZED DRUG - OTHER] CENT\\PICC SCH ×12 (17:31)
[2016-11-10] MEDS: oxyCODONE TAB* 5 MG TAB PO SCH ×8 (03:05→23:29)
[2016-11-10] MEDS: ZOSYN 3.375 GM Q8H IVPB SCH ×8 (05:08→23:30)
[2016-11-10 06:04] LABS: Hematocrit 30 % (35-47); Hemoglobin 9.8 g/dl (12.0-16.0); Mean Corpuscular HGB Conc 33 g/dl (31-36); Mean Corpuscular Hemoglobin 30 pg (27-31); Mean Corpuscular Volume 91 fL (80-97); Mean Platelet Volume 8 um3 (7.4-10.4); Red Cell Distribution Width 19 % (10.5-15); White Blood Count 15.6 10^3/ul (3.5-10.8)
[2016-11-10 06:05] LABS: Comments Flag Yes
[2016-11-10 06:30] LABS: BUN/Creatinine Ratio 34.5 (8-20); EGFR African American 142.7 (>60); EGFR Non-African American 110.9 (>60); Magnesium 2.1 mg/dL (1.9-2.7); Phosphorus 3.7 mg/dL (2.5-5.0); Potassium 3.9 mmol/L (3.5-5.0)
[2016-11-10] MEDS: Carvedilol TAB* 3.125 MG PO SCH ×2 (08:57→18:09)
[2016-11-10] MEDS: Magnesium Chloride EC TAB* 64 MG PO SCH ×2 (08:57→22:31)
[2016-11-10] MEDS: Acetaminophen TAB* 325 MG PO SCH ×3 (08:58→21:18)
[2016-11-10] MEDS: Amiodarone TAB* 200 MG PO SCH ×2 (08:58→22:34)
[2016-11-10] MEDS: Gabapentin CAP(*) 300 MG PO SCH ×3 (08:58→21:12)
[2016-11-10] MEDS: Furosemide TAB* 40 MG PO SCH (08:59)
[2016-11-10] MEDS: lamoTRIgine TAB(*) 100 MG PO SCH (08:59)
[2016-11-10] MEDS: Vancomycin CAP* 125 MG CAP PO SCH ×4 (08:59→22:33)
[2016-11-10] MEDS: Folic Acid TAB* 1 MG PO SCH (08:59)
[2016-11-10] MEDS: Zinc Sulfate CAP* 220 MG PO SCH (09:04)
[2016-11-10] MEDS: Collagenase 250 MG/GM OINT* 30 GM TOPICAL SCH (09:05)
[2016-11-10] MEDS: Enoxaparin(*) 40 MG/0.4 ML SYR SUBCUT SCH (13:49)
[2016-11-10] MEDS: SODIUM CHLORIDE CENT\\PICC SCH ×12 (18:35)
[2016-11-10] MEDS: POTASSIUM CHLORIDE TPN CENT\\PICC SCH ×12 (18:35)
[2016-11-10] MEDS: TPN CENT\\PICC SCH ×12 (18:35)
[2016-11-10] MEDS: [UNRECOGNIZED DRUG - OTHER] CENT\\PICC SCH ×12 (18:35)
[2016-11-11] MEDS: oxyCODONE TAB* 5 MG TAB PO SCH ×8 (02:42→23:05)
[2016-11-11 06:16] LABS: Hematocrit 29 % (35-47); Hemoglobin 9.6 g/dl (12.0-16.0); Mean Corpuscular HGB Conc 33 g/dl (31-36); Mean Corpuscular Hemoglobin 30 pg (27-31); Mean Corpuscular Volume 90 fL (80-97); Mean Platelet Volume 8 um3 (7.4-10.4); Red Blood Count 3.23 10^6/ul (4.0-5.4); Red Cell Distribution Width 18 % (10.5-15); White Blood Count 18.1 10^3/ul (3.5-10.8)
[2016-11-11 06:19] LABS: Add Diff/Slide Review? Slide Review Added; Comments Flag Yes
[2016-11-11] MEDS: ZOSYN 3.375 GM Q8H IVPB SCH ×4 (06:27→11:15)
[2016-11-11 06:42] LABS: Albumin 2.6 g/dL (3.2-5.2); BUN/Creatinine Ratio 36.7 (8-20); C Reactive Protein 153.83 mg/L (< 5.00); Calcium 9.1 mg/dL (8.6-10.3); EGFR Non-African American 100.3 (>60); Globulin 3.7 g/dL (2-4); Magnesium 2.2 mg/dL (1.9-2.7); Phosphorus 3.7 mg/dL (2.5-5.0); Total Bilirubin 0.4 mg/dL (0.2-1.0); Total Protein 6.3 g/dL (6.4-8.9)
[2016-11-11] MEDS: Carvedilol TAB* 3.125 MG PO SCH ×2 (08:12→17:13)
[2016-11-11] MEDS: Acetaminophen TAB* 325 MG PO SCH ×3 (08:12→19:57)
[2016-11-11] MEDS: Gabapentin CAP(*) 300 MG PO SCH ×3 (08:15→19:57)
[2016-11-11] MEDS: Collagenase 250 MG/GM OINT* 30 GM TOPICAL SCH (08:17)
[2016-11-11] MEDS: lamoTRIgine TAB(*) 100 MG PO SCH (09:20)
[2016-11-11] MEDS: Zinc Sulfate CAP* 220 MG PO SCH (09:20)
[2016-11-11] MEDS: Folic Acid TAB* 1 MG PO SCH (09:20)
[2016-11-11] MEDS: Magnesium Chloride EC TAB* 64 MG PO SCH (09:20)
[2016-11-11] MEDS: Furosemide TAB* 40 MG PO SCH (09:20)
[2016-11-11] MEDS: Amiodarone TAB* 200 MG PO SCH ×2 (09:20→19:58)
[2016-11-11] MEDS: Vancomycin CAP* 125 MG CAP PO SCH ×4 (09:20→19:58)
[2016-11-11] MEDS ORDERED: Vancomycin per Pharmacy* NOTE FOLLOW UP PRN (11:46)
[2016-11-11] MEDS: Levofloxacin 750 MG IVPREMIX(* 750 MG/150 ML BAG IVPB SCH (12:08)
[2016-11-11] MEDS: Enoxaparin(*) 40 MG/0.4 ML SYR SUBCUT SCH (14:11)
[2016-11-11] MEDS: Vancomycin(*) 1,250 MG in NS 0.9% 250 ML* 250 ML IVPB SCH (14:23)
[2016-11-11] MEDS: [UNRECOGNIZED DRUG - OTHER] CENT\\PICC SCH ×12 (17:14)
[2016-11-11] MEDS: POTASSIUM CHLORIDE TPN CENT\\PICC SCH ×12 (17:14)
[2016-11-11] MEDS: SODIUM CHLORIDE CENT\\PICC SCH ×12 (17:14)
[2016-11-11] MEDS: TPN CENT\\PICC SCH ×12 (17:14)
[2016-11-11] MEDS: Metoclopramide IV* 5 MG/ML 2 ML VIAL IV PRN (20:17)
[2016-11-11] MEDS: Acetaminophen TAB* 325 MG PO PRN (23:11)
[2016-11-12] MEDS: oxyCODONE TAB* 5 MG TAB PO SCH ×8 (02:05→22:56)
[2016-11-12] MEDS: Vancomycin(*) 1,250 MG in NS 0.9% 250 ML* 250 ML IVPB SCH ×2 (02:09→15:54)
[2016-11-12 06:43] LABS: Hematocrit 29 % (35-47); Hemoglobin 9.6 g/dl (12.0-16.0); Mean Corpuscular HGB Conc 33 g/dl (31-36); Mean Corpuscular Hemoglobin 31 pg (27-31); Mean Corpuscular Volume 93 fL (80-97); Mean Platelet Volume 9 um3 (7.4-10.4); Red Blood Count 3.11 10^6/ul (4.0-5.4); Red Cell Distribution Width 19 % (10.5-15); White Blood Count 15.7 10^3/ul (3.5-10.8)
[2016-11-12 06:53] LABS: Albumin 2.6 g/dL (3.2-5.2); BUN/Creatinine Ratio 38.5 (8-20); Calcium 9.2 mg/dL (8.6-10.3); EGFR African American 152.2 (>60); EGFR Non-African American 118.3 (>60); Globulin 3.7 g/dL (2-4); Magnesium 2.1 mg/dL (1.9-2.7); Potassium 4.1 mmol/L (3.5-5.0); Total Protein 6.3 g/dL (6.4-8.9)
[2016-11-12 06:54] LABS: Total Bilirubin 0.3 mg/dL (0.2-1.0)
[2016-11-12 06:57] LABS: Comments Flag Yes
[2016-11-12 06:59] LABS: Add Diff/Slide Review? Slide Review Added
[2016-11-12] MEDS: Collagenase 250 MG/GM OINT* 30 GM TOPICAL SCH (09:01)
[2016-11-12] MEDS: Gabapentin CAP(*) 300 MG PO SCH ×3 (09:08→20:26)
[2016-11-12] MEDS: Vancomycin CAP* 125 MG CAP PO SCH ×4 (09:09→20:26)
[2016-11-12] MEDS: Acetaminophen TAB* 325 MG PO SCH ×3 (09:10→20:26)
[2016-11-12] MEDS: Carvedilol TAB* 3.125 MG PO SCH ×2 (09:10→17:22)
[2016-11-12] MEDS: Zinc Sulfate CAP* 220 MG PO SCH (10:10)
[2016-11-12] MEDS: Amiodarone TAB* 200 MG PO SCH ×2 (10:11→20:26)
[2016-11-12] MEDS: Folic Acid TAB* 1 MG PO SCH (10:11)
[2016-11-12] MEDS: lamoTRIgine TAB(*) 100 MG PO SCH (10:11)
[2016-11-12] MEDS: Furosemide TAB* 40 MG PO SCH (10:11)
[2016-11-12] MEDS: Levofloxacin 750 MG IVPREMIX(* 750 MG/150 ML BAG IVPB SCH (11:59)
[2016-11-12] MEDS: Enoxaparin(*) 40 MG/0.4 ML SYR SUBCUT SCH (13:29)
[2016-11-12] MEDS ORDERED: Furosemide TAB* 40 MG PO ONE (16:00)
[2016-11-12] MEDS: SODIUM CHLORIDE CENT\\PICC SCH ×12 (17:22)
[2016-11-12] MEDS: [UNRECOGNIZED DRUG - OTHER] CENT\\PICC SCH ×12 (17:22)
[2016-11-12] MEDS: POTASSIUM CHLORIDE TPN CENT\\PICC SCH ×12 (17:22)
[2016-11-12] MEDS: TPN CENT\\PICC SCH ×12 (17:22)
[2016-11-13] MEDS: Vancomycin(*) 1,250 MG in NS 0.9% 250 ML* 250 ML IVPB SCH ×3 (01:52→14:34)
[2016-11-13] MEDS: Acetaminophen TAB* 325 MG PO PRN (02:01)
[2016-11-13] MEDS: oxyCODONE TAB* 5 MG TAB PO SCH ×8 (02:16→22:56)
[2016-11-13 05:51] LABS: Hematocrit 30 % (35-47); Hemoglobin 9.7 g/dl (12.0-16.0); Mean Corpuscular HGB Conc 33 g/dl (31-36); Mean Corpuscular Hemoglobin 30 pg (27-31); Mean Corpuscular Volume 92 fL (80-97); Mean Platelet Volume 8 um3 (7.4-10.4); Red Blood Count 3.19 10^6/ul (4.0-5.4); Red Cell Distribution Width 19 % (10.5-15); White Blood Count 17.6 10^3/ul (3.5-10.8)
[2016-11-13 05:53] LABS: Comments Flag Yes
[2016-11-13 06:03] LABS: BUN/Creatinine Ratio 35.4 (8-20); C Reactive Protein 194.65 mg/L (< 5.00); Calcium 9.3 mg/dL (8.6-10.3); EGFR African American 117.6 (>60); EGFR Non-African American 91.5 (>60); Magnesium 2.2 mg/dL (1.9-2.7); Phosphorus 4.5 mg/dL (2.5-5.0); Potassium 4.1 mmol/L (3.5-5.0)
[2016-11-13] MEDS: Acetaminophen TAB* 325 MG PO SCH ×3 (09:09→20:22)
[2016-11-13] MEDS: Carvedilol TAB* 3.125 MG PO SCH ×2 (09:09→18:08)
[2016-11-13] MEDS: Gabapentin CAP(*) 300 MG PO SCH ×3 (09:09→20:22)
[2016-11-13] MEDS: Collagenase 250 MG/GM OINT* 30 GM TOPICAL SCH (10:09)
[2016-11-13] MEDS: lamoTRIgine TAB(*) 100 MG PO SCH (10:19)
[2016-11-13] MEDS: Folic Acid TAB* 1 MG PO SCH (10:19)
[2016-11-13] MEDS: Zinc Sulfate CAP* 220 MG PO SCH (10:19)
[2016-11-13] MEDS: Furosemide TAB* 40 MG PO SCH (10:19)
[2016-11-13] MEDS: Amiodarone TAB* 200 MG PO SCH ×2 (10:19→21:53)
[2016-11-13] MEDS: Vancomycin CAP* 125 MG CAP PO SCH ×4 (10:20→21:53)
[2016-11-13] MEDS: Enoxaparin(*) 40 MG/0.4 ML SYR SUBCUT SCH (12:05)
[2016-11-13] MEDS: Levofloxacin 750 MG IVPREMIX(* 750 MG/150 ML BAG IVPB SCH (12:05)
[2016-11-13] MEDS ORDERED: Vancomycin Trough Check NOTE FOLLOW UP ONE (14:00)
[2016-11-13] MEDS ORDERED: Vancomycin(*) 1,000 MG in NS 0.9% 250 ML* 250 ML IVPB SCH (16:28)
[2016-11-13] MEDS: TPN CENT\\PICC SCH ×12 (17:02)
[2016-11-13] MEDS: SODIUM CHLORIDE CENT\\PICC SCH ×12 (17:02)
[2016-11-13] MEDS: POTASSIUM CHLORIDE TPN CENT\\PICC SCH ×12 (17:02)
[2016-11-13] MEDS: [UNRECOGNIZED DRUG - OTHER] CENT\\PICC SCH ×12 (17:02)
[2016-11-14] MEDS ORDERED: NS 0.9% 250 ML* 250 ML ONE (02:02)
[2016-11-14] MEDS: oxyCODONE TAB* 5 MG TAB PO SCH ×7 (02:07→23:24)
[2016-11-14] MEDS: Vancomycin(*) 1,000 MG in NS 0.9% 250 ML* 250 ML IVPB SCH ×2 (02:08→14:52)
[2016-11-14] MEDS: Acetaminophen TAB* 325 MG PO PRN (04:00)
[2016-11-14 06:23] LABS: Hematocrit 28 % (35-47); Hemoglobin 9.4 g/dl (12.0-16.0); Mean Corpuscular HGB Conc 33 g/dl (31-36); Mean Corpuscular Hemoglobin 31 pg (27-31); Mean Corpuscular Volume 93 fL (80-97); Mean Platelet Volume 9 um3 (7.4-10.4); Red Blood Count 3.06 10^6/ul (4.0-5.4); Red Cell Distribution Width 18 % (10.5-15); White Blood Count 19.9 10^3/ul (3.5-10.8)
[2016-11-14 06:37] LABS: Albumin 2.8 g/dL (3.2-5.2); BUN/Creatinine Ratio 34.8 (8-20); C Reactive Protein 197.11 mg/L (< 5.00); Calcium 9.2 mg/dL (8.6-10.3); EGFR African American 109.8 (>60); EGFR Non-African American 85.4 (>60); Globulin 3.7 g/dL (2-4); Magnesium 2.1 mg/dL (1.9-2.7); Phosphorus 3.8 mg/dL (2.5-5.0); Potassium 4.4 mmol/L (3.5-5.0); Total Bilirubin 0.4 mg/dL (0.2-1.0); Total Protein 6.5 g/dL (6.4-8.9)
[2016-11-14] MEDS: Gabapentin CAP(*) 300 MG PO SCH ×3 (09:08→23:21)
[2016-11-14] MEDS: Carvedilol TAB* 3.125 MG PO SCH ×2 (09:09→16:02)
[2016-11-14] MEDS: Folic Acid TAB* 1 MG PO SCH (09:10)
[2016-11-14] MEDS: Amiodarone TAB* 200 MG PO SCH ×2 (09:10→23:26)
[2016-11-14] MEDS: Acetaminophen TAB* 325 MG PO SCH ×3 (11:17→23:26)
[2016-11-14] MEDS: lamoTRIgine TAB(*) 100 MG PO SCH (11:18)
[2016-11-14] MEDS: Zinc Sulfate CAP* 220 MG PO SCH (11:20)
[2016-11-14] MEDS: Furosemide TAB* 40 MG PO SCH (11:21)
[2016-11-14] MEDS: Vancomycin CAP* 125 MG CAP PO SCH ×4 (11:21→23:26)
[2016-11-14] MEDS ORDERED: Vancomycin Trough Check NOTE FOLLOW UP ONE (11:30)
[2016-11-14] MEDS: Levofloxacin 750 MG IVPREMIX(* 750 MG/150 ML BAG IVPB SCH (12:20)
[2016-11-14] MEDS: Enoxaparin(*) 40 MG/0.4 ML SYR SUBCUT SCH (13:41)
[2016-11-14] MEDS: Collagenase 250 MG/GM OINT* 30 GM TOPICAL SCH (13:42)
[2016-11-14] MEDS: TPN CENT\\PICC SCH ×12 (16:56)
[2016-11-14] MEDS: SODIUM CHLORIDE CENT\\PICC SCH ×12 (16:56)
[2016-11-14] MEDS: [UNRECOGNIZED DRUG - OTHER] CENT\\PICC SCH ×12 (16:56)
[2016-11-14] MEDS: POTASSIUM CHLORIDE TPN CENT\\PICC SCH ×12 (16:56)
[2016-11-14] MEDS: Metoclopramide IV* 5 MG/ML 2 ML VIAL IV PRN (23:21)
[2016-11-15] MEDS: Vancomycin(*) 750 MG in NS 0.9% 250 ML* 250 ML IVPB SCH ×2 (00:03→14:29)
[2016-11-15] MEDS ORDERED: Furosemide IV* 10 MG/ML 2 ML VIAL (20 MG) ONE (01:00)
[2016-11-15] MEDS ORDERED: Furosemide IV* 10 MG/ML VIAL (40 MG) IV ONE (01:00)
[2016-11-15] MEDS: oxyCODONE TAB* 5 MG TAB PO SCH ×9 (02:09→23:15)
[2016-11-15 06:08] LABS: Hematocrit 30 % (35-47); Hemoglobin 9.6 g/dl (12.0-16.0); Mean Corpuscular HGB Conc 33 g/dl (31-36); Mean Corpuscular Hemoglobin 30 pg (27-31); Mean Corpuscular Volume 93 fL (80-97); Mean Platelet Volume 8 um3 (7.4-10.4); Red Blood Count 3.18 10^6/ul (4.0-5.4); Red Cell Distribution Width 18 % (10.5-15)
[2016-11-15 06:18] LABS: BUN/Creatinine Ratio 41.2 (8-20); Calcium 9.6 mg/dL (8.6-10.3); EGFR African American 111.7 (>60); EGFR Non-African American 86.8 (>60); Magnesium 2.2 mg/dL (1.9-2.7); Phosphorus 4.4 mg/dL (2.5-5.0); Potassium 3.9 mmol/L (3.5-5.0)
[2016-11-15 07:03] LABS: C Reactive Protein 218.83 mg/L (< 5.00)
[2016-11-15] MEDS: Carvedilol TAB* 3.125 MG PO SCH ×2 (08:01→17:31)
[2016-11-15] MEDS: Acetaminophen TAB* 325 MG PO SCH ×3 (08:01→20:37)
[2016-11-15] MEDS ORDERED: Iohexol 300* (CONTRAST) 10 ML SDV IV ONE (08:45)
[2016-11-15] MEDS: Meropenem 1 GM PREMIX(*) 1 GM/50 ML BAG IV SCH ×2 (10:57→17:30)
[2016-11-15] MEDS: Vancomycin CAP* 125 MG CAP PO SCH ×4 (14:15→23:16)
--- NOTE | 2016-11-15 14:18 | RAD ---
INDICATION: Rising CRP and leukocytosis. Relevant surgical history includes mastectomy, AICD, "multiple bowel surgeries" and Mediport. COMPARISON: CTA of the chest November 03, [address] chest abdomen pelvis October 11, 2016. TECHNIQUE: Multidetector CT images were obtained from the lung apices to the ischial tuberosities with 61 mL Omnipaque 300 IV and oral contrast. CHEST: Again seen is a left subclavian vein Mediport with the tip terminating in the superior vena cava. The left upper chest AICD with 2 leads overlying the heart is unchanged in position. The right lung exhibits diffuse centrilobular emphysematous changes including subpleural bullae and blebs. There is pleural base partially rounded density at the posterior right lower lobe measuring a maximum axial dimension of 3.5 cm, slightly reduced from the previous CT examination when it measured 4.2 cm. There are patchy densities throughout the left lung becoming more consolidative at the left lung base. These densities have overall becoming more numerous and consolidative when compared to the previous CT of the chest. There is a small left-sided pleural effusion. Similar the previous CT examination there is mild cardiomegaly. There is no pericardial effusion. There is no mediastinal or hilar lymphadenopathy. Stable postsurgical change includes esophagectomy and colonic pull-through along the anterior mediastinum. ABDOMEN \\T\\ PELVIS: The left lobe of the liver there is a stable fluid density 1.2 cm cyst. The remainder of the liver is homogenous in attenuation. In the coronal plane the liver exhibits maximum cephalocaudal dimension of 25.5 cm, previously 21.6 cm on the October 11, 2016 CT examination. The spleen, pancreas and adrenal glands are grossly normal in appearance. The gallbladder is surgically absent. The kidneys are normal in appearance without focal mass, calcification or signs of hydronephrosis. The oral contrast has progressed as far as the proximal colon. The small bowel and large bowel are not pathologically distended. The patient appears to be status post right hemicolectomy. Surgical anastomotic material is seen at the left upper quadrant. There is no free peritoneal gas. There is no gross retroperitoneal or mesenteric lymphadenopathy. The pelvic viscera is normal in appearance. The coarsely calcified abdominal aorta and iliac arteries are normal in course and diameter. The left hip intramedullary fixator is appropriately aligned. There is a stable T11 vertebral body compression deformity unchanged from the previous CT examination. IMPRESSION: 1. The appearance of the infiltrate at in the left lung is worse when compared to the November 03, 2016 CT examination with an increase in the number of nodules, increased in size as well as larger foci of consolidation at the lung bases and the lingula of the left upper lobe. Please correspond to worsening signs and symptoms of inflammatory lung disease or infectious pneumonia. 2. The liver exhibits a maximum cephalocaudal dimension of 25.5 cm, increased from 21.6 cm on the October 11, 2006 CT examination. Please correlate to LFTs and/or worsening liver function. 3. Additional and extensive chronic, degenerative and postsurgical changes described in the body the report.
[2016-11-15] MEDS: lamoTRIgine TAB(*) 100 MG PO SCH (14:26)
[2016-11-15] MEDS: Gabapentin CAP(*) 300 MG PO SCH ×3 (14:26→20:37)
[2016-11-15] MEDS: Enoxaparin(*) 40 MG/0.4 ML SYR SUBCUT SCH (14:28)
[2016-11-15] MEDS: Zinc Sulfate CAP* 220 MG PO SCH (15:41)
[2016-11-15] MEDS: Amiodarone TAB* 200 MG PO SCH ×2 (15:41→20:38)
[2016-11-15] MEDS: Folic Acid TAB* 1 MG PO SCH (15:42)
[2016-11-15] MEDS: Collagenase 250 MG/GM OINT* 30 GM TOPICAL SCH (16:14)
[2016-11-15] MEDS ORDERED: POTASSIUM CHLORIDE TPN CENT\\PICC SCH ×11 (17:00)
[2016-11-15] MEDS ORDERED: TPN CENT\\PICC SCH ×11 (17:00)
[2016-11-15] MEDS ORDERED: [UNRECOGNIZED DRUG - OTHER] CENT\\PICC SCH ×11 (17:00)
[2016-11-15] MEDS ORDERED: SODIUM CHLORIDE CENT\\PICC SCH ×11 (17:00)
[2016-11-16] MEDS: Vancomycin(*) 750 MG in NS 0.9% 250 ML* 250 ML IVPB SCH ×3 (00:28→23:11)
[2016-11-16] MEDS: oxyCODONE TAB* 5 MG TAB PO SCH ×10 (02:12→23:21)
[2016-11-16] MEDS: Meropenem 1 GM PREMIX(*) 1 GM/50 ML BAG IV SCH ×3 (02:31→17:05)
[2016-11-16] MEDS: Metoclopramide IV* 5 MG/ML 2 ML VIAL IV PRN ×2 (05:11→13:14)
[2016-11-16 06:17] LABS: Hematocrit 31 % (35-47); Hemoglobin 10.2 g/dl (12.0-16.0); Mean Corpuscular HGB Conc 33 g/dl (31-36); Mean Corpuscular Hemoglobin 30 pg (27-31); Mean Corpuscular Volume 91 fL (80-97); Mean Platelet Volume 8 um3 (7.4-10.4); Red Cell Distribution Width 18 % (10.5-15); White Blood Count 24.5 10^3/ul (3.5-10.8)
[2016-11-16 06:39] LABS: Albumin 3.1 g/dL (3.2-5.2); BUN/Creatinine Ratio 40.7 (8-20); C Reactive Protein 200.04 mg/L (< 5.00); Calcium 9.6 mg/dL (8.6-10.3); EGFR African American 131.6 (>60); EGFR Non-African American 102.3 (>60); Globulin 4.1 g/dL (2-4); HDL Cholesterol 19.5 mg/dL; Phosphorus 3.3 mg/dL (2.5-5.0); Potassium 4.5 mmol/L (3.5-5.0); Total Bilirubin 0.4 mg/dL (0.2-1.0); Total Protein 7.2 g/dL (6.4-8.9)
[2016-11-16] MEDS ORDERED: Furosemide IV* 10 MG/ML VIAL (40 MG) ONE (06:44)
[2016-11-16] MEDS ORDERED: Furosemide IV* 10 MG/ML VIAL (40 MG) IV ONE (06:45)
[2016-11-16] MEDS: Acetaminophen TAB* 325 MG PO PRN (06:56)
--- NOTE | 2016-11-16 07:46 | PN ---
Subjective - Subjective Reason for Note: Progress Note History: She had an episode of volume overload this morning that responded well to IV furosemide. However, she has a rapidly increasing fever, her oxygenation is worse (perhaps mostly due to the pulmonary edema, but also contributed to by the worsening fever). She is alert, oriented to place and person, she knows it is the end of October, but thought it was Saturday. She has her chronic pain in her pelvis. Active Problems: Active Problems On total parenteral nutrition (TPN) (Acute) Z78.9 Pneumonia involving left lung (Acute) J18.9 Sepsis (Acute) Volume overload (Acute) E87.70 Current Medications: Current Medications Acetaminophen (Tylenol Tab*) 975 mg PO TID PONCHO Last Admin: 11/15/16 20:37 Dose: 975 mg Acetaminophen (Tylenol Tab*) 650 mg PO Q6H PRN PRN Reason: FEVER Last Admin: 11/16/16 06:56 Dose: 650 mg Albuterol (Ventolin 2.5 Mg/3 Ml Neb.Dena*) 2.5 mg INH Q2H PRN PRN Reason: SOB/WHEEZING Last Admin: 11/16/16 05:28 Dose: 2.5 mg Amiodarone HCl (Cordarone Tab*) 200 mg PO BID PONCHO Last Admin: 11/15/16 20:38 Dose: 200 mg Carvedilol (Coreg Tab*) 9.375 mg PO BID WITH MEALS [facility] Last Admin: 11/15/16 17:31 Dose: 9.375 mg Collagenase (Santyl 250 Mg/Gm Oint*) 1 applic TOPICAL DAILY PONCHO Last Admin: 11/15/16 16:14 Dose: Not Given Enoxaparin Sodium (Lovenox(*)) 40 mg SUBCUT Q24H PONCHO Last Admin: 11/15/16 14:28 Dose: 40 mg Folic Acid (Folvite Tab*) 1 mg PO DAILY PONCHO Last Admin: 11/15/16 15:42 Dose: 1 mg Gabapentin (Neurontin Cap(*)) 300 mg PO TID PONCHO Last Admin: 11/15/16 20:37 Dose: 300 mg Heparin Sodium (Porcine) (Heparin Flush Port (Ivad)) 5 ml FLUSH DAILY PONCHO PRN Reason: Protocol Last Admin: 11/15/16 14:54 Dose: Not Given Vancomycin HCl 750 mg/ Sodium (Chloride) 250 mls @ 166.667 mls/hr IVPB Q12H [facility] Last Admin: 11/16/16 00:28 Dose: 166.667 mls/hr Meropenem (Merrem 1 Gm Premix(*)) 1 gm in 50 mls @ 100 mls/hr IV Q8H [facility] Last Admin: 11/16/16 02:31 Dose: 100 mls/hr Sodium Chloride 120 meq/Potassium Chloride 50 meq/Potassium Phosphate 20 mmole/ Calcium Gluconate 5 meq/Magnesium Sulfate 35 meq/Multivitamins 10 ml/ Trace Metals 3 ml/ Dextrose 1,000 ml / Amino Acids 1,000 ml/ Fat Emulsion Intravenous 250 ml/Nutrition (Parenteral) 2,344.0393 mls @ 97.668 mls/hr CENT\\PICC 1700 [facility] Last Admin: 11/15/16 17:31 Dose: 97.668 mls/hr Lamotrigine (Lamictal Tab(*)) 200 mg PO QAM [facility] Last Admin: 11/15/16 14:26 Dose: 200 mg Melatonin (Melatonin (Nf)) 3 mg PO BEDTIME PRN; Protocol PRN Reason: Sleep Metoclopramide HCl (Reglan Iv*) 10 mg IV Q8H PRN PRN Reason: NAUSEA/VOMITING Last Admin: 11/16/16 05:11 Dose: 10 mg Nitroglycerin (Nitroglycerin Tab 0.4 Mg*) 0.4 mg SL Q4H PRN PRN Reason: WORSENING CHEST PAIN Last Admin: 11/05/16 04:30 Dose: 0.4 mg Oxycodone HCl (Roxycodone Tab*) 30 mg PO Q3H [facility] Last Admin: 11/16/16 06:32 Dose: Not Given Pharmacy Consult (Vancomycin Per Pharmacy*) 1 note FOLLOW UP . PRN PRN Reason: PER PROTOCOL Vancomycin HCl (Vancomycin Cap*) 125 mg PO QID [facility] Last Admin: 11/15/16 23:16 Dose: 125 mg Zinc Sulfate (Zinc-220 Cap*) 220 mg PO DAILY [facility] Last Admin: 11/15/16 15:41 Dose: 220 mg Home Medications: Home Medications Medication Instructions Recorded Confirmed Type lamoTRIgine TAB(*) [Lamictal 200 mg PO QAM 03/03/14 10/27/16 History TAB(*)] oxyCODONE TAB* [Roxycodone TAB*] 30 mg PO Q3H PRN 03/03/14 10/27/16 History Bupropion XL (NF) [Wellbutrin XL 300 mg PO DAILY 09/11/16 10/27/16 History (NF)] Carvedilol TAB* [Coreg TAB*] 9.375 mg PO BID 09/11/16 10/27/16 History Epinephrine [Epipen 2-Yuniel] 0.3 mg IM ONCE PRN 09/11/16 10/27/16 History Folic Acid TAB* [Folvite TAB*] 1 mg PO DAILY 09/11/16 10/27/16 History Gabapentin CAP(*) [Neurontin 300 300 mg PO TID 09/11/16 10/27/16 History CAP(*)] Ondansetron TAB* [Zofran 4 MG Tab*] 8 mg PO Q8HR PRN 09/11/16 10/27/16 History Prochlorperazine TAB* [Compazine 10 mg PO Q6H PRN 09/11/16 10/27/16 History Tab*] Magnesium Oxide 400 mg PO DAILY 10/10/16 10/27/16 History Acetaminophen [Tylenol] 975 mg PO TID 10/27/16 10/27/16 History Cyanocobalamin TAB* [Vitamin B12 500 mcg PO DAILY 10/27/16 11/05/16 History TAB*] Potassium Chloride Microencaps 20 meq PO DAILY 10/27/16 10/27/16 History [Klor-Con M20] Allergies: Allergies Allergy/AdvReac Type Severity Reaction Status Date / Time Fentanyl Allergy Severe Hallucinati Verified 09/11/16 13:35 ons Aspartame Allergy Intermediate Headache Verified 09/11/16 13:35 Polymyxin B [From Neosporin] Allergy Intermediate Eyes Verified 09/11/16 13:35 Itchy/Swollen/Red/Watery Bacitracin [From Neosporin] Allergy Unknown Verified 09/11/16 13:35 Reaction Details Cephalexin [From Keflex] Allergy See Comment Verified 09/11/16 13:35 Neomycin [From Neosporin] Allergy Unknown Verified 09/11/16 13:35 Reaction Details Objective - Vital Signs Vital Signs: Vital Signs 11/15/16 11/15/16 11/15/16 08:00 08:10 11:33 Temperature 98.4 F 98.4 F Pulse Rate 72 66 Respiratory 16 16 16 Rate Blood Pressure 96/42 101/49 (mmHg) O2 Sat by Pulse 100 100 Oximetry 11/15/16 11/15/16 11/15/16 14:26 14:27 15:35 Temperature 97.6 F Pulse Rate 67 Respiratory 16 16 16 Rate Blood Pressure 94/47 (mmHg) O2 Sat by Pulse 99 Oximetry 11/15/16 11/15/16 11/15/16 16:00 16:26 16:27 Temperature Pulse Rate Respiratory 16 16 Rate Blood Pressure (mmHg) O2 Sat by Pulse 100 Oximetry 11/15/16 11/15/16 11/15/16 17:32 19:30 19:32 Temperature 99.1 F Pulse Rate 78 Respiratory 16 16 16 Rate Blood Pressure 120/60 (mmHg) O2 Sat by Pulse 100 Oximetry 11/15/16 11/15/16 11/15/16 20:00 20:37 20:38 Temperature Pulse Rate Respiratory 16 17 17 Rate Blood Pressure (mmHg) O2 Sat by Pulse Oximetry 11/15/16 11/15/16 11/15/16 22:20 22:37 22:38 Temperature 98.5 F Pulse Rate Respiratory 17 17 Rate Blood Pressure (mmHg) O2 Sat by Pulse Oximetry 11/15/16 11/16/16 11/16/16 23:15 01:15 02:12 Temperature 98.4 F Pulse Rate 69 Respiratory 16 16 18 Rate Blood Pressure 106/48 (mmHg) O2 Sat by Pulse 99 Oximetry 11/16/16 11/16/16 11/16/16 04:12 05:24 05:33 Temperature 98.5 F Pulse Rate 78 89 Respiratory 15 22 Rate Blood Pressure 150/57 (mmHg) O2 Sat by Pulse 100 94 Oximetry 11/16/16 11/16/16 11/16/16 06:05 06:16 06:17 Temperature 99.3 F Pulse Rate 82 Respiratory Rate Blood Pressure (mmHg) O2 Sat by Pulse 88 93 Oximetry 11/16/16 06:40 Temperature 102.2 F Pulse Rate Respiratory Rate Blood Pressure (mmHg) O2 Sat by Pulse Oximetry - Intake and Output Intake and Output: Intake & Output 11/13/16 11/14/16 11/15/16 11/16/16 11:59 11:59 11:59 11:59 Intake Total 4313 4103 3276 2748 Output Total 2100 2350 2450 2750 Balance 2213 1753 826 -2 Weight 103 lb 103 lb 14.4 oz 101 lb Intake: IV Fluids 2393 1116 2601 1080 ABX - VANCOMYCIN 40 Levaquin 111 15 NS (0.9%) 80 20 tpn 2202 1061 2581 1080 IVPB 580 730 275 320 ABX - VANCOMYCIN 580 560 275 320 Levaquin 170 TPN/PPN 1057 1108 Oral 1340 1200 400 240 Output: Urine 2100 2350 2450 2750 Other: Estimated Void Medium Medium Medium # Bowel Movements 0 0 0 0 Estimated Stool Amount Medium # Voids 2 1 1 ADLs: Meal Record Start: 10/27/16 03: 29 Freq: DAILY@0900,1400,1800 Status: Active Document 10/27/16 09:09 JON8800 (Rec: 10/27/16 09:10 MJW8270 TELE-C01) Document 10/27/16 14:00 HLF1244 (Rec: 10/27/16 18:49 AJB0569 TELE-C01) Document 10/27/16 18:00 ZXM8776 (Rec: 10/27/16 18:50 BWD6114 TELE-C01) Document 10/28/16 09:27 VAX6945 (Rec: 10/28/16 09:27 MEW8590 TELE-C07) Document 10/28/16 13:44 GSZ2564 (Rec: 10/28/16 13:45 LXT8762 TELE-C07) Document 10/28/16 18:00 EYF3547 (Rec: 10/28/16 23:12 HMO6581 TELE-C35) Document 10/29/16 10:34 EEV7775 (Rec: 10/29/16 10:34 NSE9364 TELE-C13) Document 10/29/16 13:27 WCK2748 (Rec: 10/29/16 13:27 YCE6347 TELE-C13) Document 10/29/16 18:00 PNQ7068 (Rec: 10/29/16 21:44 FOT7914 TELE-C01) Document 10/30/16 09:00 ESO3145 (Rec: 10/30/16 10:33 HPW4835 TELE-C03) Document 10/30/16 14:00 DGG3133 (Rec: 10/30/16 14:25 JAX2111 TELE-C03) Document 10/30/16 19:00 BYV7860 (Rec: 10/30/16 19:00 TER9843 TELE-C08) Document 10/31/16 09:00 HBU6638 (Rec: 10/31/16 14:36 KDV5503 TELE-C05) Document 10/31/16 14:00 CXN6968 (Rec: 10/31/16 14:37 BZH1441 TELE-C05) Document 10/31/16 18:00 QUZ1460 (Rec: 10/31/16 22:45 LIW8830 TELE-C13) Document 11/01/16 09:00 IGN7735 (Rec: 11/01/16 15:07 MJB3081 TELE-C08) Document 11/01/16 14:00 YYG9072 (Rec: 11/01/16 15:08 DEW5865 TELE-C08) Document 11/02/16 09:00 DQB5425 (Rec: 11/02/16 15:18 GYS6946 TELE-C01) Document 11/02/16 14:00 MEE3051 (Rec: 11/02/16 15:22 OLR2475 TELE-C01) Document 11/02/16 18:00 DPK2223 (Rec: 11/02/16 18:52 DGC8550 TELE-C10) Document 11/03/16 09:00 QLD6594 (Rec: 11/03/16 09:34 RKD9853 TELE-C10) Document 11/03/16 14:00 GTX3714 (Rec: 11/03/16 14:12 DUY4519 TELE-C10) Document 11/03/16 18:00 XKS2445 (Rec: 11/03/16 23:09 KWG2051 TELE-C01) Document 11/04/16 09:00 EMA5798 (Rec: 11/04/16 10:56 VUB1532 TELE-C03) Document 11/04/16 14:25 OOQ0742 (Rec: 11/04/16 14:28 QDC2740 TELE-C13) Document 11/04/16 18:00 DVN4735 (Rec: 11/04/16 19:29 TAH6538 MED-C09) Document 11/05/16 09:00 KLG2916 (Rec: 11/05/16 10:52 NEE2850 MED-C09) Document 11/05/16 18:00 NFY6876 (Rec: 11/05/16 20:43 OOY8552 MED-C11) Document 11/06/16 08:35 ACO3018 (Rec: 11/06/16 08:35 TVM8112 MED-C11) Document 11/06/16 13:34 WHN4938 (Rec: 11/06/16 13:35 FSQ4953 MED-C11) Document 11/06/16 18:00 UHI0376 (Rec: 11/06/16 22:09 YMB1840 MED-C11) Document 11/07/16 09:00 JEZ8887 (Rec: 11/07/16 10:50 LOL2048 MED-C16) Document 11/07/16 13:45 HND1692 (Rec: 11/07/16 13:47 RRZ9006 TELE-C08) Document 11/07/16 18:00 IXQ0581 (Rec: 11/07/16 21:24 LZN5805 TELE-C01) Document 11/08/16 09:00 KPR1751 (Rec: 11/08/16 10:42 AVI8038 HOSP-C11) Document 11/08/16 13:42 YKF1968 (Rec: 11/08/16 13:43 GVQ5669 HOSP-C11) Document 11/08/16 18:00 ZFE7747 (Rec: 11/08/16 19:40 ONB0522 TELE-C10) Document 11/09/16 09:00 UFY0564 (Rec: 11/09/16 10:50 PGM5397 TELE-C09) Document 11/09/16 14:00 DPT3209 (Rec: 11/09/16 14:37 CTE5969 TELE-C08) Document 11/09/16 18:00 YQA2318 (Rec: 11/09/16 18:52 ISS0394 TELE-C01) Document 11/10/16 09:00 VPO1329 (Rec: 11/10/16 10:42 OUS5942 TELE-C01) Document 11/10/16 14:00 YUF5097 (Rec: 11/10/16 18:54 ISS6623 TELE-C01) Document 11/11/16 09:00 KLY4967 (Rec: 11/11/16 11:01 MAO0352 TELE-C05) Document 06/25/17 13:33 CHG0600 (Rec: 11/11/16 13:33 IGC0295 TELE-C05) Document 11/11/16 18:00 TWF2815 (Rec: 11/11/16 18:37 CVI4843 TELE-C05) Document 11/12/16 09:00 OEY3057 (Rec: 11/12/16 15:05 UMT7814 TELE-C01) Document 11/12/16 14:00 LME9977 (Rec: 11/12/16 15:06 KTY7747 TELE-C01) Document 11/12/16 18:00 WSK8152 (Rec: 11/12/16 23:02 AGA7350 TELE-C05) Document 11/13/16 09:00 EBB1550 (Rec: 11/13/16 14:29 GMA0319 TELE-C01) Document 11/13/16 14:00 IGA1041 (Rec: 11/13/16 14:32 EOK9687 TELE-C01) Document 11/14/16 18:00 JRQ2793 (Rec: 11/14/16 19:05 AAP6538 MED-C11) Document 11/15/16 09:00 XYX5744 (Rec: 11/15/16 10:35 FLH3901 MED-C11) Document 11/15/16 12:55 SUG1428 (Rec: 11/15/16 12:55 UTU4573 MED-C11) Intake and Output Start: 10/27/16 03: 29 Freq: DAILY@0600,1400,2200 Status: Active Document 10/27/16 06:00 NZL4415 (Rec: 10/27/16 06:31 SFF7976 TELE-C09) Document 10/27/16 06:00 KBO6613 (Rec: 10/27/16 06:34 KOS2762 TELE-C11) Document 10/27/16 14:00 SVX2416 (Rec: 10/27/16 14:20 XTN1130 TELE-C08) Document 10/27/16 22:00 LPK1716 (Rec: 10/27/16 22:07 CFH1577 TELE-C07) Document 10/28/16 03:03 EWW5811 (Rec: 10/28/16 03:03 YST5826 TELE-C03) Document 10/28/16 06:00 WCD8194 (Rec: 10/28/16 06:48 GRP2592 TELE-C34) Document 10/28/16 10:24 GQU5375 (Rec: 10/28/16 10:25 RZL0518 TELE-C07) Document 10/28/16 13:44 EPD4012 (Rec: 10/28/16 13:45 PTB4925 TELE-C07) Document 10/28/16 14:11 EDZ0284 (Rec: 10/28/16 14:11 IWX6621 TELE-C07) Document 10/28/16 22:00 XAH6096 (Rec: 10/28/16 23:13 LGK4394 TELE-C35) Document 10/29/16 05:32 GJK3519 (Rec: 10/29/16 05:35 YQQ0153 TELE-C35) Document 10/29/16 08:12 XLG8925 (Rec: 10/29/16 08:12 DZO0796 TELE-C01) Document 10/29/16 13:27 CEA8520 (Rec: 10/29/16 13:27 HSB5458 TELE-C13) Document 10/29/16 22:00 BKD5933 (Rec: 10/29/16 22:42 JWU2982 TELE-C01) Document 10/30/16 05:33 DBU8270 (Rec: 10/30/16 05:36 TRT4351 TELE-C35) Document 10/30/16 14:00 HPY6272 (Rec: 10/30/16 14:25 CUR5068 TELE-C03) Document 10/30/16 21:00 UHW3947 (Rec: 10/30/16 21:01 TWM2464 TELE-C01) Document 10/30/16 22:00 OEV6470 (Rec: 10/30/16 22:51 TGX6137 TELE-C01) Document 10/31/16 05:43 FLG8913 (Rec: 10/31/16 05:56 COV9302 TELE-C34) Document 10/31/16 14:00 GOX5803 (Rec: 10/31/16 14:37 EYP0283 TELE-C05) Document 10/31/16 14:51 HYA7036 (Rec: 10/31/16 14:51 ZAH1448 TELE-C07) Document 11/01/16 06:00 DXY0813 (Rec: 11/01/16 06:55 YJW4860 TELE-C01) Document 11/01/16 14:00 BDR6688 (Rec: 11/01/16 15:08 TOE8116 TELE-C08) Document 11/01/16 22:00 KGJ5438 (Rec: 11/01/16 23:06 WLM0819 TELE-C01) Document 11/02/16 06:00 BDK3186 (Rec: 11/02/16 06:05 PKN3780 TELE-C33) Document 11/02/16 14:00 RDS1795 (Rec: 11/02/16 15:22 TYU0222 TELE-C01) Document 11/02/16 16:47 VCT3090 (Rec: 11/02/16 16:47 NDV1489 TELE-C01) Document 11/02/16 21:31 SBN2223 (Rec: 11/02/16 21:31 ESE2022 TELE-C01) Document 11/03/16 05:58 XFV8584 (Rec: 11/03/16 05:58 VPB6866 TELE-C05) Document 11/03/16 14:00 EQX6417 (Rec: 11/03/16 14:12 QDF9153 TELE-C10) Document 11/03/16 22:00 WUB7212 (Rec: 11/03/16 23:10 HFF3379 TELE-C01) Document 11/04/16 06:00 CNQ6345 (Rec: 11/04/16 06:10 TPG1864 TELE-C33) Document 11/04/16 09:52 BPB2773 (Rec: 11/04/16 09:52 YKY7064 MED-L06) Document 11/04/16 14:33 SWT4988 (Rec: 11/04/16 14:39 HXL7032 TELE-C13) Document 11/04/16 22:00 DMD5171 (Rec: 11/04/16 22:42 SDJ2330 MED-C09) Document 11/05/16 06:15 XDB2822 (Rec: 11/05/16 06:15 LMJ7832 MED-M14) Document 11/05/16 14:00 ZKL7245 (Rec: 11/05/16 14:21 FVR3207 MED-C09) Document 11/05/16 21:26 MQZ3556 (Rec: 11/05/16 21:27 YKL6703 MED-C11) Document 11/06/16 00:01 IRC6506 (Rec: 11/06/16 00:02 FZO1942 MED-C26) Document 11/06/16 00:39 XDV8224 (Rec: 11/06/16 00:39 ZGL1904 MED-C26) Document 11/06/16 01:03 JOS0716 (Rec: 11/06/16 01:04 GMO8178 MEDL-C02) Document 11/06/16 05:11 KMF0739 (Rec: 11/06/16 05:11 POB4161 MED-C26) Document 11/06/16 13:34 FUL2253 (Rec: 11/06/16 13:35 WRC9749 MED-C11) Document 11/06/16 22:00 YWU8719 (Rec: 11/06/16 22:11 XAK0533 MED-C11) Document 11/07/16 06:00 GIT6545 (Rec: 11/07/16 06:06 EFV1109 MED-C26) Document 11/07/16 11:50 AFH0955 (Rec: 11/07/16 11:50 PDJ5883 TELE-C05) Document 11/07/16 13:47 BIC3052 (Rec: 11/07/16 13:48 EKQ8534 TELE-C08) Document 11/07/16 18:57 JAI3729 (Rec: 11/07/16 18:57 SFJ9590 TELE-C01) Document 11/07/16 21:31 NKO7482 (Rec: 11/07/16 21:31 HWD6985 TELE-C01) Document 11/07/16 22:00 WVP5116 (Rec: 11/07/16 22:37 DPD3270 TELE-C10) Document 11/08/16 06:00 LHR5324 (Rec: 11/08/16 06:49 HFA8603 TELE-C10) Document 11/08/16 13:42 LHF1205 (Rec: 11/08/16 13:43 LBW9969 HOSP-C11) Document 11/08/16 22:00 CIN8770 (Rec: 11/08/16 23:27 QYV9773 TELE-C10) Document 11/09/16 05:58 VQC3728 (Rec: 11/09/16 05:59 FJD6589 TELE-C32) Document 11/09/16 14:00 XZP2812 (Rec: 11/09/16 15:13 GAZ5609 TELE-C01) Document 11/09/16 22:00 TUQ8534 (Rec: 11/09/16 22:31 PEL1744 TELE-C01) Document 11/10/16 05:34 UEX6405 (Rec: 11/10/16 05:39 VEJ0493 TELE-C13) Document 11/10/16 08:00 ETK3329 (Rec: 11/10/16 08:15 FMB0176 TELE-C01) Document 11/10/16 14:00 EGB3024 (Rec: 11/10/16 14:37 IYU1920 TELE-C03) Document 11/10/16 22:00 QXC6836 (Rec: 11/10/16 22:37 VCV0284 TELE-C01) Document 11/11/16 06:00 JTS9230 (Rec: 11/11/16 06:56 ELC0667 TELE-C01) Document 11/11/16 11:02 KSZ9724 (Rec: 11/11/16 11:02 RCZ6261 TELE-C11) Document 11/11/16 12:14 XAV2316 (Rec: 11/11/16 12:14 CVN6011 TELE-C05) Document 11/11/16 14:00 NDZ7170 (Rec: 11/11/16 14:32 DSV9020 TELE-C05) Document 11/11/16 18:41 WBP6143 (Rec: 11/11/16 18:41 OTK0084 TELE-C05) Document 11/11/16 23:01 ITZ2186 (Rec: 11/11/16 23:01 BLO1441 TELE-C06) Document 11/12/16 05:34 HVX0539 (Rec: 11/12/16 05:35 IEX9659 TELE-C01) Document 11/12/16 14:00 IRR9168 (Rec: 11/12/16 15:06 JHU5393 TELE-C01) Document 11/12/16 19:15 ECS0403 (Rec: 11/12/16 19:15 FOP2163 TELE-C01) Document 11/12/16 22:00 XKU0546 (Rec: 11/12/16 23:01 QDH6802 TELE-C05) Document 11/13/16 03:05 HUK0137 (Rec: 11/13/16 03:05 ROC2156 TELE-L01) Document 11/13/16 05:55 OWW4009 (Rec: 11/13/16 05:55 AGN3396 TELE-C05) Document 11/13/16 14:00 CUY9293 (Rec: 11/13/16 14:32 LWZ7343 TELE-C01) Document 11/13/16 16:11 SRQ6746 (Rec: 11/13/16 16:11 QKD1221 TELE-C01) Document 11/13/16 22:00 PBX5962 (Rec: 11/13/16 22:39 ZKN4324 TELE-C01) Document 11/13/16 23:20 SFM5941 (Rec: 11/14/16 00:18 PBV0302 TELE-C05) Document 11/14/16 02:20 IWQ2271 (Rec: 11/14/16 03:20 TTD2729 TELE-C05) Document 11/14/16 06:00 NZK0564 (Rec: 11/14/16 06:33 GYN8795 TELE-C35) Document 11/14/16 22:00 RND3522 (Rec: 11/14/16 22:09 SHO2726 MED-C11) Document 11/15/16 14:00 CFX5349 (Rec: 11/15/16 14:22 TCV0834 MED-C11) Document 11/15/16 20:51 VXH0202 (Rec: 11/15/16 20:52 DUC5613 MED-C11) Document 11/16/16 04:50 WTC6936 (Rec: 11/16/16 04:50 RSA0062 MED-C26) - Physical Exam General Physical Exam Comment: febrile. She is conversational and has full capacity General: No Cyanosis, Yes Anemia, No Jaundice, No Clubbing Eye Exam: bilateral: EOMI Skin: Normal: Rash Lungs and Chest: Yes: Crackles - above area of absent breath sounds on left, Respiratory Distress, Use of Accessory Muscles. No: Chest Expansion Full, Chest Expansion Symetrica - anterior rib defects, Percussion Note Resonant - dull left hemithorax, Vessicular Breath Sounds - absent left base, Wheezes Heart Rate and Rhythm: Tachycardia Additional Cardiovascular: Yes: Normal Heart Sounds. No: Heart Murmur, Pedal Edema Abdominal Exam: Yes: Soft, Bowel Sounds Present. No: Distention, Abdominal Mass , Abdominal Tenderness - Extremities Cranial Nerves II-XII Intact: Yes Limbs: Normal Power, Normal Tone - Neuro Orientation: A/O x3 Psychiatric: Normal Speech: Normal Results - Results Lab Results: Laboratory Results - last 24 hr 11/16/16 11/16/16 11/16/16 06:02 06:02 06:02 WBC 24.5 H RBC 3.40 L Hgb 10.2 L Hct 31 L MCV 91 MCH 30 MCHC 33 RDW 18 H Plt Count 397 MPV 8 Sodium 127 L Potassium 4.5 Chloride 97 L Carbon Dioxide 26 Anion Gap 4 BUN 24 Creatinine 0.59 Est GFR ( Amer) 131.6 Est GFR (Non-Af Amer) 102.3 BUN/Creatinine Ratio 40.7 H Glucose 100 Calcium 9.6 Phosphorus 3.3 Magnesium 2.0 Total Bilirubin 0.40 AST 21 ALT 25 Alkaline Phosphatase 385 H C-Reactive Protein 200.04 H B-Natriuretic Peptide 492 H Total Protein 7.2 Albumin 3.1 L Globulin 4.1 H Albumin/Globulin Ratio 0.8 L Triglycerides 126 Cholesterol 107 LDL Cholesterol 62 HDL Cholesterol 19.5 Radiology Results: Patient Name: MI SALGADO Medical Record#: [id number] Ordering Physician: Tran Jc MD Acct.#: [id number] : 1950 Age: 66 Sex: F Location: [address] [place] [address] - MEDICAL Exam Date: 11/15/16828 ADM Status: ADM IN Order Information: CT CHEST/ABD/PEL W Accession Number: [id number] CPT: 92508 INDICATION: Rising CRP and leukocytosis. Relevant surgical history includes mastectomy, AICD, "multiple bowel surgeries" and Mediport. COMPARISON: CTA of the chest November 03, [address] chest abdomen pelvis October 11, 2016. TECHNIQUE: Multidetector CT images were obtained from the lung apices to the ischial tuberosities with 61 mL Omnipaque 300 IV and oral contrast. CHEST: Again seen is a left subclavian vein Mediport with the tip terminating in the superior vena cava. The left upper chest AICD with 2 leads overlying the heart is unchanged in position. The right lung exhibits diffuse centrilobular emphysematous changes including subpleural bullae and blebs. There is pleural base partially rounded density at the posterior right lower lobe measuring a maximum axial dimension of 3.5 cm, slightly reduced from the previous CT examination when it measured 4.2 cm. There are patchy densities throughout the left lung becoming more consolidative at the left lung base. These densities have overall becoming more numerous and consolidative when compared to the previous CT of the chest. There is a small left-sided pleural effusion. Similar the previous CT examination there is mild cardiomegaly. There is no pericardial effusion. There is no mediastinal or hilar lymphadenopathy. Stable postsurgical change includes esophagectomy and colonic pull-through along the anterior mediastinum. ABDOMEN \\T\\ PELVIS: The left lobe of the liver there is a stable fluid density 1.2 cm cyst. The remainder of the liver is homogenous in attenuation. In the coronal plane the liver exhibits maximum cephalocaudal dimension of 25.5 cm, previously 21.6 cm on the October 11, 2016 CT examination. The spleen, pancreas and adrenal glands are grossly normal in appearance. The gallbladder is surgically absent. The kidneys are normal in appearance without focal mass, calcification or signs of hydronephrosis. The oral contrast has progressed as far as the proximal colon. The small bowel and large bowel are not pathologically distended. The patient appears to be status post right hemicolectomy. Surgical anastomotic material is seen at the left upper quadrant. There is no free peritoneal gas. There is no gross retroperitoneal or mesenteric lymphadenopathy. The pelvic viscera is normal in appearance. The coarsely calcified abdominal aorta and iliac arteries are normal in course and diameter. 1 of 2 [facility] Patient Name:MI SALGADO MR:[id number] : 1950 The left hip intramedullary fixator is appropriately aligned. There is a stable T11 vertebral body compression deformity unchanged from the previous CT examination. IMPRESSION: 1. The appearance of the infiltrate at in the left lung is worse when compared to the November 03, 2016 CT examination with an increase in the number of nodules, increased in size as well as larger foci of consolidation at the lung bases and the lingula of the left upper lobe. Please correspond to worsening signs and symptoms of inflammatory lung disease or infectious pneumonia. 2. The liver exhibits a maximum cephalocaudal dimension of 25.5 cm, increased from 21.6 cm on the October 11, 2006 CT examination. Please correlate to LFTs and/or worsening liver function. 3. Additional and extensive chronic, degenerative and postsurgical changes described in the body the report. <Electronically signed by Joe Hazel MD in [place]> 11/15/16 1415 Dictated By: Joe Hazel MD Dictated Date/Time: 11/15/16 1415 Transcribed Date/Time: 11/15/16 1335 Copy to: CC:Tran Jc MD; Mikey Priest MD; Kale Youssef MD; Deion Ball MD; Mary Ann Stringer MD Imaging - [facility] - [place] [facility] [address] [facility] [address] [address] ph [phone]) ph ([phone]) ph ([phone]) 2 of 2 Other Results/Reports: Assessment - Problem List Assessment: Patient Problems On total parenteral nutrition (TPN) (Acute) Pneumonia involving left lung (Acute) Sepsis (Acute) Volume overload (Acute) Pleural effusion, left (Acute) Anemia (Chronic) Cardiac pacemaker (Chronic) Cardiomyopathy (Chronic) Cerebral AVM (Chronic) Depression (Chronic) Esophageal abnormality (Chronic) Esophageal carcinoma (Chronic) History of breast cancer (Chronic) History of lung cancer (Chronic) Late effect of pelvic fracture (Chronic) Sacral decubitus ulcer, stage II (Chronic) Status post lobectomy of lung (Chronic) Systolic CHF (Chronic) Plan: Pneumonia involving left lung (Acute) Sepsis (Acute) This is progressing by the CT scan. She also has a rapid increase in her temperature, WBC. She meets criteria for high risk of sepsis - no organ failure at this time. She is taking broad spectrum antibacterials. I spoke to the patient - she continues to want full, aggressive medical management. I spoke to Dr. Hardeep Kwong. She merits transfer to the ICU. We will intensify her antimicrobial therapy covering anerobes and also fungi. We will consider whether she needs a biopsy to establish if there is recurrent cancer causing this lack of responsiveness to what usually would be seen as aggressive antibacterial therapy Volume overload (Acute) Her kidneys and heart are working just fine - she responded promptly to IV furosemide. Either we need to reduce her volume, or give her routine diuretic TPN - discussed with pharmacy - needs this volume for the nutrition. I will give her furosemide IV - 20 mg bid. Pleural effusion, left (Acute) Ongoing Anemia (Chronic) not worsened Cardiac pacemaker (Chronic) ongoing Cardiomyopathy (Chronic) Improved according to the transthoracic echocardiogram Cerebral AVM (Chronic) history Depression (Chronic) ongoing Esophageal abnormality (Chronic) Esophageal carcinoma (Chronic) supposedly solved History of breast cancer (Chronic) supposedly resolved History of lung cancer (Chronic) Status post lobectomy of lung (Chronic) supposedly resolved - may need a biopsy Late effect of pelvic fracture (Chronic) Ongoing pain Sacral decubitus ulcer, stage II (Chronic) remains present Systolic CHF (Chronic) This is not ongoing I discussed the above with the patient: She is expecting full medical management and wants us to "zap" her infection. I have therefore decided to transfer her to the ICU. I spoke at length with Dr. Kwong and we will co- manage her to try to prevent respiratory failure and other organ failure. We will broaden antimicrobial coverage.
[2016-11-16] MEDS: Collagenase 250 MG/GM OINT* 30 GM TOPICAL SCH (09:23)
[2016-11-16] MEDS: Carvedilol TAB* 3.125 MG PO SCH ×2 (09:23→16:44)
[2016-11-16] MEDS: Acetaminophen TAB* 325 MG PO SCH ×3 (10:14→20:36)
[2016-11-16 10:17] LABS: Schistocytes ABSENT
[2016-11-16 10:22] LABS: Fibrinogen 629 mg/dL (110.8-404.3)
[2016-11-16] MEDS: Furosemide IV* 10 MG/ML 2 ML VIAL (20 MG) IV SLOW PU SCH ×2 (10:46→20:39)
[2016-11-16] MEDS: lamoTRIgine TAB(*) 100 MG PO SCH (10:46)
[2016-11-16] MEDS: Amiodarone TAB* 200 MG PO SCH ×2 (10:46→20:37)
[2016-11-16] MEDS: Zinc Sulfate CAP* 220 MG PO SCH (10:46)
[2016-11-16] MEDS: Folic Acid TAB* 1 MG PO SCH (10:46)
[2016-11-16] MEDS: Gabapentin CAP(*) 300 MG PO SCH ×3 (10:46→20:35)
[2016-11-16] MEDS: Vancomycin CAP* 125 MG CAP PO SCH ×4 (10:46→20:38)
[2016-11-16] MEDS ORDERED: [UNRECOGNIZED DRUG - OTHER] CENT\\PICC SCH ×11 (10:51)
[2016-11-16] MEDS ORDERED: POTASSIUM CHLORIDE TPN CENT\\PICC SCH ×11 (10:51)
[2016-11-16] MEDS ORDERED: TPN CENT\\PICC SCH ×11 (10:51)
[2016-11-16] MEDS ORDERED: SODIUM CHLORIDE CENT\\PICC SCH ×11 (10:51)
[2016-11-16] MEDS: metroNIDAZOLE IV 500 MG/100ML* 500 MG/100 ML BAG IVPB SCH ×2 (11:31→17:05)
[2016-11-16] MEDS ORDERED: Caspofungin(NF) 70 MG in NS 0.9% 250 ML* 250 ML IVPB ONE (11:39)
[2016-11-16] MEDS ORDERED: Anidulafungin* 200 MG in NS 0.9% 250 ML* 200 ML IVPB ONE (13:00)
[2016-11-16] MEDS: Enoxaparin(*) 40 MG/0.4 ML SYR SUBCUT SCH (13:15)
[2016-11-17] MEDS: Meropenem 1 GM PREMIX(*) 1 GM/50 ML BAG IV SCH ×2 (00:18→08:36)
[2016-11-17] MEDS: metroNIDAZOLE IV 500 MG/100ML* 500 MG/100 ML BAG IVPB SCH ×2 (01:01→08:36)
[2016-11-17] MEDS: oxyCODONE TAB* 5 MG TAB PO SCH ×7 (02:12→21:51)
--- NOTE | 2016-11-17 02:31 | CONS ---
CRITICAL CARE CONSULT: DATE OF CONSULT: 11/16/16 REASON FOR CONSULT: Respiratory failure. HISTORY OF PRESENT ILLNESS: This patient is a 66-year-old female, known to this service, with a his tory of lung CA, esophageal CA, and breast CA, who has been in the hospital for the past 20 days wit h multiple medical problems including electrolyte abnormalities, anemia, and possible pneumonia. Th e patient has been on vancomycin and meropenem for a presumed pneumonia in the left lung and without satisfactory clinical response, and because of increasing inhaled oxygen requirements, the patient was brought to the intensive care unit. Other medical problems include cardiomyopathy with reduced ejection fraction (20% to 25%), multinodu lar goiter, bipolar disorder, malnutrition, and anemia of chronic disease. CURRENT MEDICATIONS: 1. Albuterol inhaler every 2 hours as needed. 2. Amiodarone 200 mg b.i.d. 3. Carvedilol 9.375 mg b.i.d. 4. Enoxaparin 40 mg subcu daily. 5. Furosemide 20 mg IV daily. 6. Gabapentin 300 mg 3 times daily. 7. Meropenem 1 g IV every 8 hours. 8. Metoclopramide 10 mg IV q.8 hours p.r.n. nausea and vomiting. 9. Vancomycin 750 mg IV q.12 hours. 10. Lamotrigine 200 mg daily. 11. Metronidazole 500 mg IV q.8 hours. 12. Oxycodone 30 mg q.3 hours. DRUG ALLERGIES: The patient has multiple drug allergies including FENTANYL, POLYMYXIN B, BACITRACIN , CEPHALEXIN, NEOMYCIN, and ASPARTAME. REVIEW OF SYSTEMS: The patient denies shortness of breath even though she has difficulty completing sentences. She also denies chest pain, cough, or sputum production. PHYSICAL EXAM: The patient is somnolent, but easily arousable. HEENT: Noncontributory. Lungs: Di minished breath sounds on the left with some crackles on the left posteriorly. No wheezes and no rh onchi. Cardiac exam: There were no murmurs, rubs, or gallops. Extremities were not cyanotic and n ot edematous. DIAGNOSTIC STUDIES/LAB DATA: Blood work on 11/16/16 included WBC of 24.5, hemoglobin 10.2, hematocr it 31, platelet count 397. Sodium of 127, chloride 97, potassium 4.5, CO2 26, BUN 24, creatinine 0. 59, glucose 100. Lactic acid 1.1, magnesium 2.0, alkaline phosphatase 385, C-reactive protein 200. AST 21, ALT 25, albumin 3.1. BNP 492. No recent chest x-ray available, but recent CAT scan shows a progressive nodular infiltration on the left side, mostly involving the upper lung blankenship. Cultur e of a wound in the lower back has grown Staph hominis and Serratia marcescens. Culture of sputum h as grown yeast and normal tammy. No recent blood cultures available. OVERALL IMPRESSION: The patient with progressive respiratory insufficiency and a slowly progressive nodular infiltration involving primarily the left lung. The source of the infiltration could be ne oplastic rather than infectious. There is no evidence for a treatable infection in the left lung at the present time. MANAGEMENT PLAN: We will add empiric antifungal coverage with anidulafungin. Otherwise, we will not change overall management plan. The patient does expect intubation if it is needed. Overall prognosis is poor in this case, as the patient has been hospitalized for much of the last fe w months. CRITICAL CARE TIME: 60 minutes. [id number] #: [id number]
[2016-11-17] MEDS: Acetaminophen TAB* 325 MG PO PRN (05:02)
[2016-11-17 05:27] LABS: Hematocrit 30 % (35-47); Mean Corpuscular HGB Conc 33 g/dl (31-36); Mean Corpuscular Hemoglobin 31 pg (27-31); Mean Corpuscular Volume 91 fL (80-97); Mean Platelet Volume 8 um3 (7.4-10.4); Red Blood Count 3.28 10^6/ul (4.0-5.4); Red Cell Distribution Width 18 % (10.5-15); White Blood Count 26.2 10^3/ul (3.5-10.8)
[2016-11-17 05:35] LABS: Add Diff/Slide Review? Slide Review Added; Comments Flag Yes
[2016-11-17 05:42] LABS: Albumin 2.9 g/dL (3.2-5.2); BUN/Creatinine Ratio 50.7 (8-20); C Reactive Protein 207.7 mg/L (< 5.00); Calcium 9.5 mg/dL (8.6-10.3); EGFR African American 109.8 (>60); EGFR Non-African American 85.4 (>60); Globulin 4.3 g/dL (2-4); Potassium 4.1 mmol/L (3.5-5.0); Total Bilirubin 0.3 mg/dL (0.2-1.0); Total Protein 7.2 g/dL (6.4-8.9)
[2016-11-17] MEDS: Acetaminophen TAB* 325 MG PO SCH ×3 (08:25→21:46)
[2016-11-17] MEDS: lamoTRIgine TAB(*) 100 MG PO SCH (08:25)
--- NOTE | 2016-11-17 08:25 | RAD ---
HISTORY: Pneumonia COMPARISONS: October 19, 2016, CT dated November 15, 2016 VIEWS:1: Single frontal portable view of the chest at 5:17 AM FINDINGS: LINES AND TUBES: A left-sided pacemaker is noted. A right-sided chest port is noted from subclavian approach with the tip overlying the superior cava CARDIOMEDIASTINAL SILHOUETTE: The cardiomediastinal silhouette is normal for portable technique. PLEURA: The costophrenic angles are sharp. No pleural abnormalities are noted. LUNG PARENCHYMA: Again noted is patchy alveolar opacification overlying the left mid and lower lung, evaluation somewhat limited by the presence of the generator for the pacemaker. This has progressed when compared to the previous plain film examination, though is similar to the CT examination of December 15, 2016 ABDOMEN: The upper abdomen is clear. There is no subphrenic gas. BONES AND SOFT TISSUES: No bone or soft tissue abnormalities are noted. IMPRESSION: PERSISTENT CONSOLIDATIVE CHANGES OF THE LEFT LUNG
[2016-11-17] MEDS: Folic Acid TAB* 1 MG PO SCH (08:26)
[2016-11-17] MEDS: Furosemide IV* 10 MG/ML 2 ML VIAL (20 MG) IV SLOW PU SCH ×2 (08:26→21:56)
[2016-11-17] MEDS: Gabapentin CAP(*) 300 MG PO SCH ×3 (08:26→21:53)
[2016-11-17] MEDS: Vancomycin CAP* 125 MG CAP PO SCH ×2 (08:27→14:18)
[2016-11-17] MEDS: Collagenase 250 MG/GM OINT* 30 GM TOPICAL SCH (08:28)
[2016-11-17] MEDS: Zinc Sulfate CAP* 220 MG PO SCH (08:28)
[2016-11-17] MEDS ORDERED: Caspofungin(NF) 50 MG in NS 0.9% 250 ML* 250 ML IVPB SCH (09:00)
[2016-11-17] MEDS: Carvedilol TAB* 3.125 MG PO SCH ×2 (09:05→16:13)
--- NOTE | 2016-11-17 10:49 | PN ---
Subjective - Subjective Reason for Note: Progress Note History: We transferred her to the ICU yesterday as she had increasing fever, WBC and decreasing O2 saturation. We introduced an antifungal agent and an agent against anerobes (this is likely redundant with the meropenem). Despite this, her fever has gone up. However, she is feeling improved, she is breathing without O2 by NC. She denies chest pain, palpitations. She is coughing less. Her pelvis remains painful. She has tried drinking a protein shake. She has marked anorexia Active Problems: Active Problems On total parenteral nutrition (TPN) (Acute) Z78.9 Pneumonia involving left lung (Acute) J18.9 Volume overload (Acute) E87.70 Current Medications: Current Medications Acetaminophen (Tylenol Tab*) 975 mg PO TID [facility] Last Admin: 11/17/16 08:25 Dose: Not Given Acetaminophen (Tylenol Tab*) 650 mg PO Q6H PRN PRN Reason: FEVER Last Admin: 11/17/16 05:02 Dose: 650 mg Albuterol (Ventolin 2.5 Mg/3 Ml Neb.Dena*) 2.5 mg INH Q2H PRN PRN Reason: SOB/WHEEZING Last Admin: 11/16/16 05:28 Dose: 2.5 mg Amiodarone HCl (Cordarone Tab*) 200 mg PO BID [facility] Last Admin: 11/16/16 20:37 Dose: 200 mg Carvedilol (Coreg Tab*) 9.375 mg PO BID WITH MEALS [facility] Last Admin: 11/17/16 09:05 Dose: Not Given Collagenase (Santyl 250 Mg/Gm Oint*) 1 applic TOPICAL DAILY [facility] Last Admin: 11/17/16 08:28 Dose: Not Given Enoxaparin Sodium (Lovenox(*)) 40 mg SUBCUT Q24H [facility] Last Admin: 11/16/16 13:15 Dose: 40 mg Folic Acid (Folvite Tab*) 1 mg PO DAILY [facility] Last Admin: 11/17/16 08:26 Dose: 1 mg Furosemide (Lasix Iv*) 20 mg IV SLOW PU Q12H [facility] Last Admin: 11/17/16 08:26 Dose: 20 mg Gabapentin (Neurontin Cap(*)) 300 mg PO TID [facility] Last Admin: 11/17/16 08:26 Dose: 300 mg Heparin Sodium (Porcine) (Heparin Flush Picc/Ml/Cvc(*)) 1 ml FLUSH 0600,1800 [facility] PRN Reason: Protocol Last Admin: 11/17/16 05:08 Dose: Not Given Vancomycin HCl 750 mg/ Sodium (Chloride) 250 mls @ 166.667 mls/hr IVPB Q12H [facility] Last Admin: 11/16/16 23:11 Dose: 166.667 mls/hr Meropenem (Merrem 1 Gm Premix(*)) 1 gm in 50 mls @ 100 mls/hr IV Q8H [facility] Last Admin: 11/17/16 08:36 Dose: 100 mls/hr Metronidazole/Sodium Chloride (Flagyl 500 Mg Ivpb*) 500 mg in 100 mls @ 100 mls /hr IVPB Q8H [facility] Last Admin: 11/17/16 08:36 Dose: 100 mls/hr Sodium Chloride 130 meq/Potassium Chloride 50 meq/Potassium Phosphate 20 mmole/ Calcium Gluconate 5 meq/Magnesium Sulfate 35 meq/Multivitamins 10 ml/ Trace Metals 3 ml/ Dextrose 1,000 ml / Amino Acids 1,000 ml/ Fat Emulsion Intravenous 250 ml/Nutrition (Parenteral) 2,346.5393 mls @ 97.772 mls/hr CENT\\PICC 1700 [facility] Last Admin: 11/16/16 17:18 Dose: 97.772 mls/hr Anidulafungin 100 mg/ Sodium (Chloride) 130 mls @ 65 mls/hr IVPB Q24H [facility] Lamotrigine (Lamictal Tab(*)) 200 mg PO QAM [facility] Last Admin: 11/17/16 08:25 Dose: 200 mg Melatonin (Melatonin (Nf)) 3 mg PO BEDTIME PRN; Protocol PRN Reason: Sleep Metoclopramide HCl (Reglan Iv*) 10 mg IV Q8H PRN PRN Reason: NAUSEA/VOMITING Last Admin: 11/16/16 13:14 Dose: 10 mg Nitroglycerin (Nitroglycerin Tab 0.4 Mg*) 0.4 mg SL Q4H PRN PRN Reason: WORSENING CHEST PAIN Last Admin: 11/05/16 04:30 Dose: 0.4 mg Oxycodone HCl (Roxycodone Tab*) 30 mg PO Q3H [facility] Last Admin: 11/17/16 08:24 Dose: 30 mg Pharmacy Consult (Vancomycin Per Pharmacy*) 1 note FOLLOW UP . PRN PRN Reason: PER PROTOCOL Vancomycin HCl (Vancomycin Cap*) 125 mg PO QID [facility] Last Admin: 11/17/16 08:27 Dose: 125 mg Zinc Sulfate (Zinc-220 Cap*) 220 mg PO DAILY [facility] Last Admin: 11/17/16 08:28 Dose: 220 mg Home Medications: Home Medications Medication Instructions Recorded Confirmed Type lamoTRIgine TAB(*) [Lamictal 200 mg PO QAM 03/03/14 10/27/16 History TAB(*)] oxyCODONE TAB* [Roxycodone TAB*] 30 mg PO Q3H PRN 03/03/14 10/27/16 History Bupropion XL (NF) [Wellbutrin XL 300 mg PO DAILY 09/11/16 10/27/16 History (NF)] Carvedilol TAB* [Coreg TAB*] 9.375 mg PO BID 09/11/16 10/27/16 History Epinephrine [Epipen 2-Yuniel] 0.3 mg IM ONCE PRN 09/11/16 10/27/16 History Folic Acid TAB* [Folvite TAB*] 1 mg PO DAILY 09/11/16 10/27/16 History Gabapentin CAP(*) [Neurontin 300 300 mg PO TID 09/11/16 10/27/16 History CAP(*)] Ondansetron TAB* [Zofran 4 MG Tab*] 8 mg PO Q8HR PRN 09/11/16 10/27/16 History Prochlorperazine TAB* [Compazine 10 mg PO Q6H PRN 09/11/16 10/27/16 History Tab*] Magnesium Oxide 400 mg PO DAILY 10/10/16 10/27/16 History Acetaminophen [Tylenol] 975 mg PO TID 10/27/16 10/27/16 History Cyanocobalamin TAB* [Vitamin B12 500 mcg PO DAILY 10/27/16 11/05/16 History TAB*] Potassium Chloride Microencaps 20 meq PO DAILY 10/27/16 10/27/16 History [Klor-Con M20] Allergies: Allergies Allergy/AdvReac Type Severity Reaction Status Date / Time Fentanyl Allergy Severe Hallucinati Verified 09/11/16 13:35 ons Aspartame Allergy Intermediate Headache Verified 09/11/16 13:35 Polymyxin B [From Neosporin] Allergy Intermediate Eyes Verified 09/11/16 13:35 Itchy/Swollen/Red/Watery Bacitracin [From Neosporin] Allergy Unknown Verified 09/11/16 13:35 Reaction Details Cephalexin [From Keflex] Allergy See Comment Verified 09/11/16 13:35 Neomycin [From Neosporin] Allergy Unknown Verified 09/11/16 13:35 Reaction Details Objective - Vital Signs Vital Signs: Vital Signs 11/16/16 11/16/16 11/16/16 10:30 10:45 11:00 Temperature Pulse Rate 83 81 82 Respiratory 20 21 19 Rate Blood Pressure 96/61 108/61 100/61 (mmHg) O2 Sat by Pulse 98 99 98 Oximetry 11/16/16 11/16/16 11/16/16 11:15 11:27 11:30 Temperature 99.2 F Pulse Rate 77 77 Respiratory 20 19 Rate Blood Pressure 98/56 100/61 (mmHg) O2 Sat by Pulse 99 98 Oximetry 11/16/16 11/16/16 11/16/16 11:45 12:00 12:15 Temperature Pulse Rate 77 75 76 Respiratory 19 19 17 Rate Blood Pressure 93/63 83/50 79/48 (mmHg) O2 Sat by Pulse 99 99 99 Oximetry 11/16/16 11/16/16 11/16/16 12:19 12:30 12:45 Temperature Pulse Rate 75 73 73 Respiratory 19 18 18 Rate Blood Pressure 82/44 79/45 104/47 (mmHg) O2 Sat by Pulse 99 98 98 Oximetry 11/16/16 11/16/16 11/16/16 13:00 13:15 13:30 Temperature Pulse Rate 76 73 70 Respiratory 18 18 16 Rate Blood Pressure 100/64 98/53 92/50 (mmHg) O2 Sat by Pulse 99 100 100 Oximetry 11/16/16 11/16/16 11/16/16 13:45 14:00 14:15 Temperature Pulse Rate 72 72 73 Respiratory 15 19 19 Rate Blood Pressure 99/51 97/50 100/51 (mmHg) O2 Sat by Pulse 100 100 100 Oximetry 11/16/16 11/16/16 11/16/16 14:30 15:00 15:15 Temperature Pulse Rate 73 75 72 Respiratory 19 16 21 Rate Blood Pressure 98/54 103/55 96/52 (mmHg) O2 Sat by Pulse 100 100 100 Oximetry 11/16/16 11/16/16 11/16/16 15:30 15:45 16:00 Temperature Pulse Rate 70 70 69 Respiratory 15 14 17 Rate Blood Pressure 92/45 84/44 92/47 (mmHg) O2 Sat by Pulse 100 99 99 Oximetry 11/16/16 11/16/16 11/16/16 16:15 16:30 16:45 Temperature Pulse Rate 68 67 68 Respiratory 24 21 20 Rate Blood Pressure 82/42 84/43 94/43 (mmHg) O2 Sat by Pulse 98 98 98 Oximetry 11/16/16 11/16/16 11/16/16 17:00 17:04 17:15 Temperature Pulse Rate 67 66 68 Respiratory 15 15 18 Rate Blood Pressure 83/39 85/41 92/49 (mmHg) O2 Sat by Pulse 98 98 98 Oximetry 11/16/16 11/16/16 11/16/16 17:30 17:51 18:00 Temperature Pulse Rate 66 67 Respiratory 12 14 16 Rate Blood Pressure 92/49 95/56 95/56 (mmHg) O2 Sat by Pulse 99 93 Oximetry 11/16/16 11/16/16 11/16/16 18:01 19:00 19:25 Temperature 98.9 F 98.4 F Pulse Rate 64 Respiratory 13 Rate Blood Pressure 81/49 (mmHg) O2 Sat by Pulse 93 Oximetry 11/16/16 11/16/16 11/16/16 20:00 21:00 22:00 Temperature Pulse Rate 65 71 71 Respiratory 15 14 15 Rate Blood Pressure 95/49 96/57 94/48 (mmHg) O2 Sat by Pulse 92 95 94 Oximetry 11/16/16 11/16/16 11/17/16 22:48 23:00 00:00 Temperature Pulse Rate 66 66 76 Respiratory 16 20 14 Rate Blood Pressure 91/51 (mmHg) O2 Sat by Pulse 92 92 96 Oximetry 11/17/16 11/17/16 11/17/16 00:01 00:19 01:00 Temperature 99.5 F Pulse Rate 76 78 Respiratory 14 14 Rate Blood Pressure 99/48 106/46 (mmHg) O2 Sat by Pulse 95 94 Oximetry 11/17/16 11/17/16 11/17/16 02:00 03:00 04:00 Temperature Pulse Rate 80 79 82 Respiratory 13 17 18 Rate Blood Pressure 106/46 116/61 132/60 (mmHg) O2 Sat by Pulse 94 93 93 Oximetry 11/17/16 11/17/16 11/17/16 04:04 04:58 04:59 Temperature 98.4 F 104.1 F Pulse Rate Respiratory 15 Rate Blood Pressure (mmHg) O2 Sat by Pulse Oximetry 11/17/16 11/17/16 11/17/16 05:00 05:06 05:07 Temperature Pulse Rate Respiratory 16 24 Rate Blood Pressure 133/79 (mmHg) O2 Sat by Pulse Oximetry 11/17/16 11/17/16 11/17/16 06:00 07:00 07:28 Temperature 100.4 F 98.5 F Pulse Rate 98 88 Respiratory 14 12 Rate Blood Pressure 114/51 110/50 (mmHg) O2 Sat by Pulse 91 92 Oximetry 11/17/16 11/17/16 11/17/16 07:55 07:56 08:00 Temperature Pulse Rate 77 Respiratory 12 11 Rate Blood Pressure 104/59 (mmHg) O2 Sat by Pulse 92 94 Oximetry 11/17/16 11/17/16 11/17/16 08:56 09:00 09:02 Temperature Pulse Rate 76 Respiratory 17 14 20 Rate Blood Pressure 117/61 (mmHg) O2 Sat by Pulse 96 Oximetry 11/17/16 11/17/16 09:48 10:00 Temperature Pulse Rate 78 79 Respiratory 21 18 Rate Blood Pressure 115/58 (mmHg) O2 Sat by Pulse 100 96 Oximetry - Intake and Output Intake and Output: Intake & Output 11/14/16 11/15/16 11/16/16 11/17/16 11:59 11:59 11:59 11:59 Intake Total 4103 3276 2748 4282 Output Total 2350 2450 3150 1925 Balance 1753 826 -402 2357 Weight 103 lb 14.4 oz 101 lb 108 lb 7.479 oz Intake: IV Fluids 1116 2601 1080 1080 ABX - VANCOMYCIN 40 413 Levaquin 15 NS (0.9%) 20 97 tpn 1061 2581 1080 570 IVPB 730 275 320 837 ABX - VANCOMYCIN 560 275 320 Levaquin 170 NS (0.9%) 837 TPN/PPN 1057 1108 1505 Oral 1200 400 240 860 Output: Urine 2350 2450 3150 1925 Other: Estimated Void Medium Medium # Bowel Movements 0 0 0 Estimated Stool Amount Medium # Voids 1 1 ADLs: Meal Record Start: 10/27/16 03: 29 Freq: DAILY@0900,1400,1800 Status: Complete Document 10/27/16 09:09 [id number] (Rec: 10/27/16 09:10 RJI8051 TELE-C01) Document 10/27/16 14:00 UDH3064 (Rec: 10/27/16 18:49 BXP9587 TELE-C01) Document 10/27/16 18:00 RDN5025 (Rec: 10/27/16 18:50 XNT2777 TELE-C01) Document 10/28/16 09:27 CPT0717 (Rec: 10/28/16 09:27 XHN9457 TELE-C07) Document 10/28/16 13:44 EQP9890 (Rec: 10/28/16 13:45 KBH9771 TELE-C07) Document 10/28/16 18:00 GSN6329 (Rec: 10/28/16 23:12 BMP2263 TELE-C35) Document 10/29/16 10:34 PZC0315 (Rec: 10/29/16 10:34 TSU5451 TELE-C13) Document 10/29/16 13:27 ALC3322 (Rec: 10/29/16 13:27 PVW6381 TELE-C13) Document 10/29/16 18:00 WIW4688 (Rec: 10/29/16 21:44 BUH3129 TELE-C01) Document 10/30/16 09:00 PUO6676 (Rec: 10/30/16 10:33 XQV0338 TELE-C03) Document 10/30/16 14:00 WRL5379 (Rec: 10/30/16 14:25 JUP9228 TELE-C03) Document 10/30/16 19:00 NLU2933 (Rec: 10/30/16 19:00 NPD3468 TELE-C08) Document 10/31/16 09:00 BCU2759 (Rec: 10/31/16 14:36 TKK5365 TELE-C05) Document 10/31/16 14:00 VZT0639 (Rec: 10/31/16 14:37 FSC6547 TELE-C05) Document 10/31/16 18:00 UYG9807 (Rec: 10/31/16 22:45 SFJ8138 TELE-C13) Document 11/01/16 09:00 OVU3647 (Rec: 11/01/16 15:07 KRT0503 TELE-C08) Document 11/01/16 14:00 BVE4487 (Rec: 11/01/16 15:08 VPZ3221 TELE-C08) Document 11/02/16 09:00 LAV6760 (Rec: 11/02/16 15:18 QOF8123 TELE-C01) Document 11/02/16 14:00 XQD2135 (Rec: 11/02/16 15:22 NFD9150 TELE-C01) Document 11/02/16 18:00 CFH2698 (Rec: 11/02/16 18:52 BPK3481 TELE-C10) Document 11/03/16 09:00 BEE9819 (Rec: 11/03/16 09:34 TSF6265 TELE-C10) Document 11/03/16 14:00 HGY0100 (Rec: 11/03/16 14:12 VRN2078 TELE-C10) Document 11/03/16 18:00 URP9259 (Rec: 11/03/16 23:09 JER4857 TELE-C01) Document 11/04/16 09:00 ZXX7984 (Rec: 11/04/16 10:56 CPM1810 TELE-C03) Document 11/04/16 14:25 WFO9560 (Rec: 11/04/16 14:28 EEQ2807 TELE-C13) Document 11/04/16 18:00 CSF7681 (Rec: 11/04/16 19:29 DMA8355 MED-C09) Document 11/05/16 09:00 FOF0050 (Rec: 11/05/16 10:52 STG7100 MED-C09) Document 11/05/16 18:00 NIM5489 (Rec: 11/05/16 20:43 KFZ1693 MED-C11) Document 11/06/16 08:35 VTV6149 (Rec: 11/06/16 08:35 YTY5437 MED-C11) Document 11/06/16 13:34 LAM1428 (Rec: 11/06/16 13:35 BQQ3337 MED-C11) Document 11/06/16 18:00 YEO1148 (Rec: 11/06/16 22:09 DZI9547 MED-C11) Document 11/07/16 09:00 DPK0268 (Rec: 11/07/16 10:50 GDR8951 MED-C16) Document 11/07/16 13:45 QQW8454 (Rec: 11/07/16 13:47 GLO8177 TELE-C08) Document 11/07/16 18:00 ANY0761 (Rec: 11/07/16 21:24 PMS9523 TELE-C01) Document 11/08/16 09:00 PVI7709 (Rec: 11/08/16 10:42 SVS6585 HOSP-C11) Document 11/08/16 13:42 EUV3738 (Rec: 11/08/16 13:43 MQN8454 HOSP-C11) Document 11/08/16 18:00 TLT2803 (Rec: 11/08/16 19:40 KTG7693 TELE-C10) Document 11/09/16 09:00 ESC4090 (Rec: 11/09/16 10:50 XGU0965 TELE-C09) Document 11/09/16 14:00 OBK3779 (Rec: 11/09/16 14:37 TAF8487 TELE-C08) Document 11/09/16 18:00 OCH0821 (Rec: 11/09/16 18:52 COE0816 TELE-C01) Document 11/10/16 09:00 UXO1296 (Rec: 11/10/16 10:42 JBS1013 TELE-C01) Document 11/10/16 14:00 HNF4572 (Rec: 11/10/16 18:54 NLL6238 TELE-C01) Document 11/11/16 09:00 AJI6709 (Rec: 11/11/16 11:01 VMU6144 TELE-C05) Document 11/11/16 13:33 ULY8281 (Rec: 11/11/16 13:33 AUX7343 TELE-C05) Document 11/11/16 18:00 OPR3033 (Rec: 11/11/16 18:37 MDP8717 TELE-C05) Document 11/12/16 09:00 QRZ6021 (Rec: 11/12/16 15:05 MRS8010 TELE-C01) Document 11/12/16 14:00 ITV5956 (Rec: 11/12/16 15:06 IRT1227 TELE-C01) Document 11/12/16 18:00 YUB8805 (Rec: 11/12/16 23:02 GGD3499 TELE-C05) Document 11/13/16 09:00 RPG1530 (Rec: 11/13/16 14:29 XBM1927 TELE-C01) Document 11/13/16 14:00 AME1111 (Rec: 11/13/16 14:32 BVD2147 TELE-C01) Document 11/14/16 18:00 MJT9266 (Rec: 11/14/16 19:05 UZH5846 MED-C11) Document 11/15/16 09:00 PEJ9303 (Rec: 11/15/16 10:35 UVM6799 MED-C11) Document 11/15/16 12:55 UPM5788 (Rec: 11/15/16 12:55 ARN5624 MED-C11) Document 11/16/16 14:00 RVK3882 (Rec: 11/16/16 14:52 FRI2260 ICU-C12) Document 11/16/16 18:00 CNG3113 (Rec: 11/16/16 22:44 LHL3983 ICU-C15) ADLs: Meal Record Start: 11/16/16 09: 13 Freq: 09,13,18 Status: Active Created 11/16/16 09:13 XPD1452 (Rec: 11/16/16 09:13 JLX5958 ICU-C12) Intake and Output Start: 10/27/16 03: 29 Freq: DAILY@0600,1400,2200 Status: Complete Document 10/27/16 06:00 XZX4851 (Rec: 10/27/16 06:31 JPD9902 TELE-C09) Document 10/27/16 06:00 OEM1268 (Rec: 10/27/16 06:34 BHG8461 TELE-C11) Document 10/27/16 14:00 WEZ7821 (Rec: 10/27/16 14:20 ZVY2294 TELE-C08) Document 10/27/16 22:00 ZNS2683 (Rec: 10/27/16 22:07 OMC6910 TELE-C07) Document 10/28/16 03:03 IEH7226 (Rec: 10/28/16 03:03 EOX2997 TELE-C03) Document 10/28/16 06:00 JTQ4818 (Rec: 10/28/16 06:48 BKA9182 TELE-C34) Document 10/28/16 10:24 JNI1098 (Rec: 10/28/16 10:25 RML8391 TELE-C07) Document 10/28/16 13:44 KDX0884 (Rec: 10/28/16 13:45 FFL2839 TELE-C07) Document 10/28/16 14:11 KPJ6613 (Rec: 10/28/16 14:11 BKA5791 TELE-C07) Document 10/28/16 22:00 VCS7999 (Rec: 10/28/16 23:13 CJD4087 TELE-C35) Document 10/29/16 05:32 KRQ3468 (Rec: 10/29/16 05:35 YPZ1837 TELE-C35) Document 10/29/16 08:12 PNE8095 (Rec: 10/29/16 08:12 BCP6284 TELE-C01) Document 10/29/16 13:27 WNY6424 (Rec: 10/29/16 13:27 YIX0147 TELE-C13) Document 10/29/16 22:00 QGU6319 (Rec: 10/29/16 22:42 QCJ8375 TELE-C01) Document 10/30/16 05:33 BUE3978 (Rec: 10/30/16 05:36 NME2767 TELE-C35) Document 10/30/16 14:00 TDB4089 (Rec: 10/30/16 14:25 MOH7795 TELE-C03) Document 10/30/16 21:00 BRF3238 (Rec: 10/30/16 21:01 GFJ0691 TELE-C01) Document 10/30/16 22:00 PZI4930 (Rec: 10/30/16 22:51 LYW7685 TELE-C01) Document 10/31/16 05:43 VNO5433 (Rec: 10/31/16 05:56 WMY9040 TELE-C34) Document 10/31/16 14:00 WFK0878 (Rec: 10/31/16 14:37 XTC2353 TELE-C05) Document 10/31/16 14:51 XVI3964 (Rec: 10/31/16 14:51 HXO8321 TELE-C07) Document 11/01/16 06:00 ZOF7675 (Rec: 11/01/16 06:55 DJD9750 TELE-C01) Document 11/01/16 14:00 MVT6952 (Rec: 11/01/16 15:08 ZXG6688 TELE-C08) Document 11/01/16 22:00 WKX0498 (Rec: 11/01/16 23:06 SYP5194 TELE-C01) Document 11/02/16 06:00 BRW8202 (Rec: 11/02/16 06:05 AJR7187 TELE-C33) Document 11/02/16 14:00 VGL7750 (Rec: 11/02/16 15:22 VVO1131 TELE-C01) Document 11/02/16 16:47 FNK4748 (Rec: 11/02/16 16:47 NMY5141 TELE-C01) Document 11/02/16 21:31 DDV3886 (Rec: 11/02/16 21:31 YOB4806 TELE-C01) Document 11/03/16 05:58 WSQ0624 (Rec: 11/03/16 05:58 LMX7470 TELE-C05) Document 11/03/16 14:00 VNP5550 (Rec: 11/03/16 14:12 PIB8264 TELE-C10) Document 11/03/16 22:00 JXK4865 (Rec: 11/03/16 23:10 BVB5832 TELE-C01) Document 11/04/16 06:00 KLD2347 (Rec: 11/04/16 06:10 YQO3434 TELE-C33) Document 11/04/16 09:52 CTU9691 (Rec: 11/04/16 09:52 FBY0168 MED-L06) Document 11/04/16 14:33 IGU8407 (Rec: 11/04/16 14:39 FPA7428 TELE-C13) Document 11/04/16 22:00 DGU6634 (Rec: 11/04/16 22:42 FVV3578 MED-C09) Document 11/05/16 06:15 ILL9269 (Rec: 11/05/16 06:15 FMU8189 MED-M14) Document 11/05/16 14:00 CON0956 (Rec: 11/05/16 14:21 PAT9226 MED-C09) Document 11/05/16 21:26 LRI7649 (Rec: 11/05/16 21:27 NYL6319 MED-C11) Document 11/06/16 00:01 FZX9543 (Rec: 11/06/16 00:02 PGS3448 MED-C26) Document 11/06/16 00:39 HNO2559 (Rec: 11/06/16 00:39 AIZ6546 MED-C26) Document 11/06/16 01:03 USK5705 (Rec: 11/06/16 01:04 AGQ8609 MEDL-C02) Document 11/06/16 05:11 LEK2088 (Rec: 11/06/16 05:11 KJL9708 MED-C26) Document 11/06/16 13:34 EVX3132 (Rec: 11/06/16 13:35 FLP1665 MED-C11) Document 11/06/16 22:00 LMF6044 (Rec: 11/06/16 22:11 UOM3406 MED-C11) Document 11/07/16 06:00 RAK4114 (Rec: 11/07/16 06:06 PQZ9929 MED-C26) Document 11/07/16 11:50 AKH4641 (Rec: 11/07/16 11:50 FJG2272 TELE-C05) Document 11/07/16 13:47 HXV9561 (Rec: 11/07/16 13:48 INF8347 TELE-C08) Document 11/07/16 18:57 FKE7785 (Rec: 11/07/16 18:57 WMQ7842 TELE-C01) Document 11/07/16 21:31 SZP6096 (Rec: 11/07/16 21:31 HKE1561 TELE-C01) Document 11/07/16 22:00 NGN0409 (Rec: 11/07/16 22:37 DNT0073 TELE-C10) Document 11/08/16 06:00 FRC8348 (Rec: 11/08/16 06:49 TXC8279 TELE-C10) Document 11/08/16 13:42 DHZ9771 (Rec: 11/08/16 13:43 VJV9625 HOSP-C11) Document 11/08/16 22:00 MSH6088 (Rec: 11/08/16 23:27 FQQ3156 TELE-C10) Document 11/09/16 05:58 SKE5153 (Rec: 11/09/16 05:59 OTT0763 TELE-C32) Document 11/09/16 14:00 FKT6614 (Rec: 11/09/16 15:13 SZW8049 TELE-C01) Document 11/09/16 22:00 NMD0759 (Rec: 11/09/16 22:31 BSP9706 TELE-C01) Document 11/10/16 05:34 RCJ2190 (Rec: 11/10/16 05:39 MMU7611 TELE-C13) Document 11/10/16 08:00 QML2143 (Rec: 11/10/16 08:15 LJV5729 TELE-C01) Document 11/10/16 14:00 FSF3238 (Rec: 11/10/16 14:37 MVT1874 TELE-C03) Document 11/10/16 22:00 PXM0213 (Rec: 11/10/16 22:37 CAE1449 TELE-C01) Document 11/11/16 06:00 WMD1841 (Rec: 11/11/16 06:56 BGN1809 TELE-C01) Document 11/11/16 11:02 OOM0289 (Rec: 11/11/16 11:02 SSA7055 TELE-C11) Document 11/11/16 12:14 CSS6361 (Rec: 11/11/16 12:14 BTC8247 TELE-C05) Document 11/11/16 14:00 RPS4615 (Rec: 11/11/16 14:32 YJW4815 TELE-C05) Document 11/11/16 18:41 DTT6168 (Rec: 11/11/16 18:41 NHJ4114 TELE-C05) Document 11/11/16 23:01 EQD6744 (Rec: 11/11/16 23:01 GIV4716 TELE-C06) Document 11/12/16 05:34 PSA8117 (Rec: 11/12/16 05:35 XBI4043 TELE-C01) Document 11/12/16 14:00 DCC6489 (Rec: 11/12/16 15:06 JVH3786 TELE-C01) Document 11/12/16 19:15 BVL2726 (Rec: 11/12/16 19:15 JRW1436 TELE-C01) Document 11/12/16 22:00 TVG2500 (Rec: 11/12/16 23:01 UCB3741 TELE-C05) Document 11/13/16 03:05 XWZ7748 (Rec: 11/13/16 03:05 QOQ4909 TELE-L01) Document 11/13/16 05:55 ESC6499 (Rec: 11/13/16 05:55 CFG2859 TELE-C05) Document 11/13/16 14:00 [id number] (Rec: 11/13/16 14:32 [id number] TELE-C01) Document 11/13/16 16:11 [id number] (Rec: 11/13/16 16:11 RWB5591 TELE-C01) Document 11/13/16 22:00 WFK2238 (Rec: 11/13/16 22:39 [id number] TELE-C01) Document 11/13/16 23:20 [id number] (Rec: 11/14/16 00:18 [id number] TELE-C05) Document 11/14/16 02:20 [id number] (Rec: 11/14/16 03:20 UFA8466 TELE-C05) Document 11/14/16 06:00 [id number] (Rec: 11/14/16 06:33 XWH4619 TELE-C35) Document 11/14/16 22:00 ULC3963 (Rec: 11/14/16 22:09 [id number] MED-C11) Document 11/15/16 14:00 [id number] (Rec: 11/15/16 14:22 PYU0596 MED-C11) Document 11/15/16 20:51 LTI9999 (Rec: 11/15/16 20:52 TAJ1614 MED-C11) Document 11/16/16 04:50 [id number] (Rec: 11/16/16 04:50 QIF3294 MED-C26) Document 11/16/16 10:24 [id number] (Rec: 11/16/16 10:25 [id number] ICU-C20) Document 11/16/16 12:51 [id number] (Rec: 11/16/16 12:51 [id number] ICU-C20) Document 11/16/16 14:00 AZE0071 (Rec: 11/16/16 14:50 VCW3160 ICU-M07) Document 11/16/16 17:56 [id number] (Rec: 11/16/16 17:56 [id number] ICU-M07) Intake and Output Start: 11/16/16 09: 13 Freq: Status: Active Created 11/16/16 09:13 [id number] (Rec: 11/16/16 09:13 [id number] ICU-C12) Document 11/17/16 05:52 [id number] (Rec: 11/17/16 05:52 [id number] ICU-C14) Document 11/17/16 08:00 GOC5305 (Rec: 11/17/16 08:10 [id number] ICU-C15) - Physical Exam General: No Cyanosis, Yes Anemia, No Jaundice, No Clubbing Lungs and Chest: Yes: Vessicular Breath Sounds - absent left base, Crackles - upper left lung. No: Chest Expansion Full, Chest Expansion Symetrica, Percussion Note Resonant - dull left base, Wheezes, Respiratory Distress, Use of Accessory Muscles Heart Rate and Rhythm: Regular Additional Cardiovascular: Yes: Normal Heart Sounds. No: Heart Murmur, Pedal Edema Abdominal Exam: Yes: Soft, Bowel Sounds Present. No: Distention, Guarding Results - Results Lab Results: Laboratory Results - last 24 hr 11/16/16 11/17/16 11/17/16 11:32 05:15 05:15 WBC 26.2 H RBC 3.28 L Hgb 10.0 L Hct 30 L MCV 91 MCH 31 MCHC 33 RDW 18 H Plt Count 350 MPV 8 Neut % (Auto) 81.0 Lymph % (Auto) 7.9 L Griggs % (Auto) 9.0 Eos % (Auto) 1.7 Baso % (Auto) 0.4 Absolute Neuts (auto) 21.2 H Absolute Lymphs (auto) 2.1 Absolute Monos (auto) 2.4 H Absolute Eos (auto) 0.4 Absolute Basos (auto) 0.1 Absolute Nucleated RBC 0.02 Nucleated RBC % 0.1 Sodium 129 L Potassium 4.1 Chloride 96 L Carbon Dioxide 26 Anion Gap 7 BUN 35 H Creatinine 0.69 Est GFR ( Amer) 109.8 Est GFR (Non-Af Amer) 85.4 BUN/Creatinine Ratio 50.7 H Glucose 127 H Calcium 9.5 Total Bilirubin 0.30 AST 22 ALT 19 Alkaline Phosphatase 343 H C-Reactive Protein 207.70 H Total Protein 7.2 Albumin 2.9 L Globulin 4.3 H Albumin/Globulin Ratio 0.7 L Vancomycin Trough 18.6 Radiology Results: Patient Name: MI SALGADO Medical Record#: [id number] Ordering Physician: Hardeep Kwong MD Acct.#: [id number] : 1950 Age: 66 Sex: F Location: [facility] Exam Date: 11/17/16 0600 ADM Status: ADM IN Order Information: CHEST AP PORTABLE Accession Number: [id number] CPT: 12315 HISTORY: Pneumonia COMPARISONS: October 19, 2016, CT dated November 15, 2016 VIEWS:1: Single frontal portable view of the chest at 5:17 AM FINDINGS: LINES AND TUBES: A left-sided pacemaker is noted. A right-sided chest port is noted from subclavian approach with the tip overlying the superior cava CARDIOMEDIASTINAL SILHOUETTE: The cardiomediastinal silhouette is normal for portable technique. PLEURA: The costophrenic angles are sharp. No pleural abnormalities are noted. LUNG PARENCHYMA: Again noted is patchy alveolar opacification overlying the left mid and lower lung, evaluation somewhat limited by the presence of the generator for the pacemaker. This has progressed when compared to the previous plain film examination, though is similar to the CT examination of December 15, 2016 ABDOMEN: The upper abdomen is clear. There is no subphrenic gas. BONES AND SOFT TISSUES: No bone or soft tissue abnormalities are noted. IMPRESSION: PERSISTENT CONSOLIDATIVE CHANGES OF THE LEFT LUNG <Electronically signed by Natan Stokes MD in [place]> 11/17/16820 Dictated By: Natan Stokes MD Dictated Date/Time: 11/17/16820 Transcribed Date/Time: 11/17/16819 Copy to: CC:Tran Jc MD; Mikey Priest MD; Kale Youssef MD; Deion Ball MD; Mary Ann Stringer MD; Hardeep Kwong MD Imaging - [facility] [address] [address] ([phone]) ph ([phone]) ([phone]) of [phone] Assessment - Problem List Assessment: Patient Problems On total parenteral nutrition (TPN) (Acute) Pneumonia involving left lung (Acute) Volume overload (Acute) Pleural effusion, left (Acute) Anemia (Chronic) Cardiac pacemaker (Chronic) Cardiomyopathy (Chronic) Cerebral AVM (Chronic) Depression (Chronic) Esophageal abnormality (Chronic) Esophageal carcinoma (Chronic) History of breast cancer (Chronic) History of lung cancer (Chronic) Late effect of pelvic fracture (Chronic) Sacral decubitus ulcer, stage II (Chronic) Status post lobectomy of lung (Chronic) Systolic CHF (Chronic) Plan: Her fever has gone up, she has a higher CRP and WBC. Despite this, she is not feeling worse, she is no more dependent on O2. She is taking a number of antibacterials and these have made no impact on her inflammatory reaction. Possibilities: * Infection - organism(s) resistant to antibacterials - unlikely as she is on multiple overlapping antibacterials that are bactericidal * Infection - loculated infection (osteomyelitis vs abscess) - antibacterials can't reach * Inflammatory reaction to medications - particularly antibacterials * inflammatory reaction to TPN - most likely lipid component. * non-metastatic manifestation of residual malignancy WBC trend since admission: Timeline of interventions: Zosyn 11/01 - 11/11 Vancomycin 11/11 - current Meropenem 11/04 - 11/05 Stopped and restarted 11/15 Flagyl 11/06 - current TPN Started 11/05 To my eye the best non-infectious correlation is with TPN. Her WBC seems to inexorably rise after 11/05. I have discussed the above with Dr. Kwong. We think that a partial "drug holiday" makes sense. How to enact: * stop TPN and replace with 20% dextrose at 1 liter with 1/2 NS at 100 ml per hour (she likely has increased insensible losses with fever). * Stop all antibiotics * Watch inflammatory markers for 24 hours. On total parenteral nutrition (TPN) (Acute) see above Pneumonia involving left lung (Acute) Seems stable clinically Volume overload (Acute) We are giving her furosemide - but if we decrease her TPN, we will be able to stop this Pleural effusion, left (Acute) not apparent Anemia (Chronic) ongoing Cardiac pacemaker (Chronic) Cardiomyopathy (Chronic) Improving Cerebral AVM (Chronic) Depression (Chronic) comorbidity Esophageal abnormality (Chronic) comorbidity - I think this makes an NG tube hazardous Esophageal carcinoma (Chronic) History of breast cancer (Chronic)History of lung cancer (Chronic) supposedly in remission - nodular changes in left lung may be infectious or malignant Late effect of pelvic fracture (Chronic) ongoing p ain Sacral decubitus ulcer, stage II (Chronic) likely source of osteomyelitis discussed by Dr. Youssef Status post lobectomy of lung (Chronic) Systolic CHF (Chronic) inactive I discussed the above with the patient, her . Dr. Kwong will discuss the antibacterials with Dr. Kwong.
[2016-11-17] MEDS: Amiodarone TAB* 200 MG PO SCH ×2 (11:17→21:52)
[2016-11-17] MEDS: SODIUM CHLORIDE IVPB SCH (11:23)
[2016-11-17] MEDS: POTASSIUM CHLORIDE IVPB SCH (11:23)
[2016-11-17] MEDS: [UNRECOGNIZED DRUG - OTHER] IVPB SCH (11:23)
[2016-11-17] MEDS: Vancomycin(*) 750 MG in NS 0.9% 250 ML* 250 ML IVPB SCH (12:34)
--- NOTE | 2016-11-17 14:18 | PN ---
Critical Care Services: Temp to 104 last night, but this AM looks good, and is oxygenating without suppolemental O2. Is also eating breakfast! No infectious organism isolated so far. Vital Signs: Temp Pulse Resp BP SpO2 FiO2 99.4 F 79 14 112/56 98 Physical Exam: Gen:Alert, oriented, comfortable. Lungs:Scattered rhonchi L>R Abdomen:Not distended Extremities: No cyanosis or edema Fluid Balance (Past 24 Hours): 11/17/16 06:59 Intake Total 4282 Output Total 2125 Balance +2157 Weight 108 lb 7.4oz Intake: IV Fluids 1080 ABX - VANCOMYCIN 413 NS (0.9%) 97 tpn 570 IVPB 837 ABX - VANCOMYCIN NS (0.9%) 837 TPN/PPN 1505 Oral 860 Output: Urine 2125 Labs: 11/17/16 11/17/16 05:15 05:15 WBC 26.2 Hgb 10.0 Hct 30 Plt Count 350 Sodium 129 Potassium 4.1 Chloride 96 L Carbon Dioxide 26 Anion Gap 7 BUN 35 H Creatinine 0.69 Glucose 127 Calcium 9.5 Total Bilirubin 0.30 AST 22 ALT 19 Alkaline Phosphatase 343 C-Reactive Protein 207.70 Total Protein 7.2 Albumin 2.9 Studies: CXR: Left-sided infiltrate Nutrition: TPN plus oral intake Impression: Still no evidence of a treatable infection despite continuing signs of inflammation. Dr. Dhaliwal has held the TPN because of a possible link with the leukocytosis, and I also think it is reasonable to hold the antimicrobial agents , since we have not isolated a responsible pathogen. Despite the evidence of systemic inflammation, the patient looks quite good today, and is oxygenating without supplemental O2!! Plan: D/C antimicrobial agents, and hold TPN for the next 24 hrs. If spikes fever, will reculture. Discussed this case with Dr. Dhaliwal. ID attending (Dr Jaquez) will also be consulted. Critical Care Time: 40 minutes
[2016-11-17] MEDS: Enoxaparin(*) 40 MG/0.4 ML SYR SUBCUT SCH (14:19)
[2016-11-18] MEDS: SODIUM CHLORIDE IVPB SCH ×2 (00:30→14:38)
[2016-11-18] MEDS: [UNRECOGNIZED DRUG - OTHER] IVPB SCH ×2 (00:30→14:38)
[2016-11-18] MEDS: POTASSIUM CHLORIDE IVPB SCH ×2 (00:30→14:38)
[2016-11-18] MEDS: oxyCODONE TAB* 5 MG TAB PO SCH ×9 (01:01→23:10)
[2016-11-18] MEDS: Acetaminophen TAB* 325 MG PO SCH ×3 (08:08→20:41)
[2016-11-18] MEDS: lamoTRIgine TAB(*) 100 MG PO SCH (08:09)
[2016-11-18] MEDS: Gabapentin CAP(*) 300 MG PO SCH ×3 (08:09→20:43)
[2016-11-18] MEDS: Furosemide IV* 10 MG/ML 2 ML VIAL (20 MG) IV SLOW PU SCH (08:09)
--- NOTE | 2016-11-18 09:22 | PN ---
Subjective - Subjective Active Problems: Active Problems On total parenteral nutrition (TPN) (Acute) Z78.9 Pneumonia involving left lung (Acute) J18.9 Volume overload (Acute) E87.70 Current Medications: Current Medications Acetaminophen (Tylenol Tab*) 975 mg PO TID [facility] Last Admin: 11/18/16 08:08 Dose: 975 mg Acetaminophen (Tylenol Tab*) 650 mg PO Q6H PRN PRN Reason: FEVER Last Admin: 11/17/16 05:02 Dose: 650 mg Albuterol (Ventolin 2.5 Mg/3 Ml Neb.Dena*) 2.5 mg INH Q2H PRN PRN Reason: SOB/WHEEZING Last Admin: 11/16/16 05:28 Dose: 2.5 mg Amiodarone HCl (Cordarone Tab*) 200 mg PO BID [facility] Last Admin: 11/17/16 21:52 Dose: 200 mg Carvedilol (Coreg Tab*) 9.375 mg PO BID WITH MEALS [facility] Last Admin: 11/17/16 16:13 Dose: Not Given Collagenase (Santyl 250 Mg/Gm Oint*) 1 applic TOPICAL DAILY [facility] Last Admin: 11/17/16 08:28 Dose: Not Given Enoxaparin Sodium (Lovenox(*)) 40 mg SUBCUT Q24H [facility] Last Admin: 11/17/16 14:19 Dose: 40 mg Folic Acid (Folvite Tab*) 1 mg PO DAILY [facility] Last Admin: 11/17/16 08:26 Dose: 1 mg Furosemide (Lasix Iv*) 20 mg IV SLOW PU Q12H [facility] Last Admin: 11/18/16 08:09 Dose: 20 mg Gabapentin (Neurontin Cap(*)) 300 mg PO TID [facility] Last Admin: 11/18/16 08:09 Dose: 300 mg Heparin Sodium (Porcine) (Heparin Flush Picc/Ml/Cvc(*)) 1 ml FLUSH 0600,1800 PONCHO PRN Reason: Protocol Last Admin: 11/18/16 05:04 Dose: Not Given Sodium Chloride 77 meq/Potassium Chloride 20 meq/Dextrose 1,029.25 mls @ 100 mls/hr IVPB Q10H [facility] Last Admin: 11/18/16 00:30 Dose: 100 mls/hr Lamotrigine (Lamictal Tab(*)) 200 mg PO QAM [facility] Last Admin: 11/18/16 08:09 Dose: 200 mg Melatonin (Melatonin (Nf)) 3 mg PO BEDTIME PRN; Protocol PRN Reason: Sleep Metoclopramide HCl (Reglan Iv*) 10 mg IV Q8H PRN PRN Reason: NAUSEA/VOMITING Last Admin: 11/16/16 13:14 Dose: 10 mg Nitroglycerin (Nitroglycerin Tab 0.4 Mg*) 0.4 mg SL Q4H PRN PRN Reason: WORSENING CHEST PAIN Last Admin: 11/05/16 04:30 Dose: 0.4 mg Oxycodone HCl (Roxycodone Tab*) 30 mg PO Q3H [facility] Last Admin: 11/18/16 08:09 Dose: 30 mg Zinc Sulfate (Zinc-220 Cap*) 220 mg PO DAILY [facility] Last Admin: 11/17/16 08:28 Dose: 220 mg Home Medications: Home Medications Medication Instructions Recorded Confirmed Type lamoTRIgine TAB(*) [Lamictal 200 mg PO QAM 03/03/14 10/27/16 History TAB(*)] oxyCODONE TAB* [Roxycodone TAB*] 30 mg PO Q3H PRN 03/03/14 10/27/16 History Bupropion XL (NF) [Wellbutrin XL 300 mg PO DAILY 09/11/16 10/27/16 History (NF)] Carvedilol TAB* [Coreg TAB*] 9.375 mg PO BID 09/11/16 10/27/16 History Epinephrine [Epipen 2-Yuniel] 0.3 mg IM ONCE PRN 09/11/16 10/27/16 History Folic Acid TAB* [Folvite TAB*] 1 mg PO DAILY 09/11/16 10/27/16 History Gabapentin CAP(*) [Neurontin 300 300 mg PO TID 09/11/16 10/27/16 History CAP(*)] Ondansetron TAB* [Zofran 4 MG Tab*] 8 mg PO Q8HR PRN 09/11/16 10/27/16 History Prochlorperazine TAB* [Compazine 10 mg PO Q6H PRN 09/11/16 10/27/16 History Tab*] Magnesium Oxide 400 mg PO DAILY 10/10/16 10/27/16 History Acetaminophen [Tylenol] 975 mg PO TID 10/27/16 10/27/16 History Cyanocobalamin TAB* [Vitamin B12 500 mcg PO DAILY 10/27/16 11/05/16 History TAB*] Potassium Chloride Microencaps 20 meq PO DAILY 10/27/16 10/27/16 History [Klor-Con M20] Allergies: Allergies Allergy/AdvReac Type Severity Reaction Status Date / Time Fentanyl Allergy Severe Hallucinati Verified 09/11/16 13:35 ons Aspartame Allergy Intermediate Headache Verified 09/11/16 13:35 Polymyxin B [From Neosporin] Allergy Intermediate Eyes Verified 09/11/16 13:35 Itchy/Swollen/Red/Watery Bacitracin [From Neosporin] Allergy Unknown Verified 09/11/16 13:35 Reaction Details Cephalexin [From Keflex] Allergy See Comment Verified 09/11/16 13:35 Neomycin [From Neosporin] Allergy Unknown Verified 09/11/16 13:35 Reaction Details Objective - Vital Signs Vital Signs: Vital Signs 11/17/16 11/17/16 11/17/16 09:48 10:00 10:57 Temperature Pulse Rate 78 79 81 Respiratory 21 12 19 Rate Blood Pressure 115/58 (mmHg) O2 Sat by Pulse 100 96 96 Oximetry 11/17/16 11/17/16 11/17/16 11:00 11:01 11:59 Temperature 99.4 F Pulse Rate Respiratory 16 Rate Blood Pressure 111/70 (mmHg) O2 Sat by Pulse Oximetry 11/17/16 11/17/16 11/17/16 12:00 12:36 13:00 Temperature Pulse Rate 79 80 Respiratory 13 14 15 Rate Blood Pressure 112/56 104/61 (mmHg) O2 Sat by Pulse 98 98 Oximetry 11/17/16 11/17/16 11/17/16 14:00 15:00 16:00 Temperature 99.0 F Pulse Rate 77 87 82 Respiratory 13 13 12 Rate Blood Pressure 125/70 118/54 103/51 (mmHg) O2 Sat by Pulse 94 95 93 Oximetry 11/17/16 11/17/16 11/17/16 17:00 18:00 18:14 Temperature Pulse Rate 73 68 Respiratory 11 14 16 Rate Blood Pressure 105/54 98/51 (mmHg) O2 Sat by Pulse 93 93 Oximetry 11/17/16 11/17/16 11/17/16 19:00 19:36 20:00 Temperature 99.3 F Pulse Rate 75 87 Respiratory 16 19 19 Rate Blood Pressure 125/59 119/60 (mmHg) O2 Sat by Pulse 96 95 Oximetry 11/17/16 11/17/16 11/17/16 20:16 21:00 22:00 Temperature Pulse Rate 80 79 Respiratory 13 12 14 Rate Blood Pressure 114/53 141/62 (mmHg) O2 Sat by Pulse 98 94 Oximetry 11/17/16 11/17/16 11/18/16 23:00 23:44 00:00 Temperature 99.1 F Pulse Rate 44 73 Respiratory 20 11 Rate Blood Pressure 117/66 (mmHg) O2 Sat by Pulse 87 99 Oximetry 11/18/16 11/18/16 11/18/16 00:01 01:00 01:49 Temperature Pulse Rate 73 71 Respiratory 11 21 19 Rate Blood Pressure 99/57 101/50 (mmHg) O2 Sat by Pulse 99 98 Oximetry 11/18/16 11/18/16 11/18/16 02:00 03:00 04:00 Temperature Pulse Rate 72 73 74 Respiratory 12 10 13 Rate Blood Pressure 99/46 87/41 94/40 (mmHg) O2 Sat by Pulse 99 98 98 Oximetry 11/18/16 11/18/16 11/18/16 04:11 05:00 05:08 Temperature 99.6 F Pulse Rate 79 Respiratory 18 Rate Blood Pressure (mmHg) O2 Sat by Pulse 99 100 Oximetry 11/18/16 11/18/16 07:42 08:09 Temperature 98.9 F Pulse Rate 68 Respiratory 10 Rate Blood Pressure (mmHg) O2 Sat by Pulse 97 Oximetry - Intake and Output Intake and Output: Intake & Output 11/15/16 11/16/16 11/17/16 11/18/16 11:59 11:59 11:59 11:59 Intake Total 3276 2748 4810 2691 Output Total 4720 3150 2275 2375 Balance 826 -402 2535 316 Weight 101 lb 108 lb 7.479 oz 105 lb 2.568 oz Intake: IV Fluids 2601 1080 1080 1686 ABX - VANCOMYCIN 413 D20% 1/2NS + 20 meq KCL 1565 NS (0.9%) 20 97 121 tpn 2581 1080 570 IVPB 275 320 837 380 ABX - VANCOMYCIN 275 320 270 Flagyl 55 Meropenem 55 NS (0.9%) 837 TPN/PPN 1108 2033 Oral 400 240 860 625 Output: Urine 2450 3150 2273 2379 Other: Estimated Void Medium # Bowel Movements 0 0 # Voids 1 ADLs: Meal Record Start: 10/27/16 03: 29 Freq: DAILY@0900,1400,1800 Status: Complete Document 10/27/16 09:09 [id number] (Rec: 10/27/16 09:10 QPM4021 TELE-C01) Document 10/27/16 14:00 EPV5210 (Rec: 10/27/16 18:49 HRK7910 TELE-C01) Document 10/27/16 18:00 GYW9121 (Rec: 10/27/16 18:50 WXT5777 TELE-C01) Document 10/28/16 09:27 ZHG4085 (Rec: 10/28/16 09:27 BQP7634 TELE-C07) Document 10/28/16 13:44 UMU2536 (Rec: 10/28/16 13:45 FRI6879 TELE-C07) Document 10/28/16 18:00 HNQ7860 (Rec: 10/28/16 23:12 RWT9361 TELE-C35) Document 10/29/16 10:34 GBG2539 (Rec: 10/29/16 10:34 ILE3746 TELE-C13) Document 10/29/16 13:27 WQF2750 (Rec: 10/29/16 13:27 NRN2727 TELE-C13) Document 10/29/16 18:00 YGK2274 (Rec: 10/29/16 21:44 WMU9495 TELE-C01) Document 10/30/16 09:00 OXS2464 (Rec: 10/30/16 10:33 XWY8435 TELE-C03) Document 10/30/16 14:00 PLW8153 (Rec: 10/30/16 14:25 AFH3928 TELE-C03) Document 10/30/16 19:00 RWZ5265 (Rec: 10/30/16 19:00 DXV6701 TELE-C08) Document 10/31/16 09:00 NMH8525 (Rec: 10/31/16 14:36 NWL4406 TELE-C05) Document 10/31/16 14:00 HPR3211 (Rec: 10/31/16 14:37 JCE1046 TELE-C05) Document 10/31/16 18:00 BHC1580 (Rec: 10/31/16 22:45 NPG3899 TELE-C13) Document 11/01/16 09:00 BDM2962 (Rec: 11/01/16 15:07 AGI9252 TELE-C08) Document 11/01/16 14:00 FZJ9676 (Rec: 11/01/16 15:08 HFO2998 TELE-C08) Document 11/02/16 09:00 JRB0792 (Rec: 11/02/16 15:18 KQA0655 TELE-C01) Document 11/02/16 14:00 KBN9840 (Rec: 11/02/16 15:22 SKQ8060 TELE-C01) Document 11/02/16 18:00 MNL0701 (Rec: 11/02/16 18:52 HUT6340 TELE-C10) Document 11/03/16 09:00 LID6889 (Rec: 11/03/16 09:34 OLP8048 TELE-C10) Document 11/03/16 14:00 VIU5515 (Rec: 11/03/16 14:12 VUT6387 TELE-C10) Document 11/03/16 18:00 SGH4502 (Rec: 11/03/16 23:09 QVU0679 TELE-C01) Document 11/04/16 09:00 HYN7738 (Rec: 11/04/16 10:56 VXY8480 TELE-C03) Document 11/04/16 14:25 EUY5062 (Rec: 11/04/16 14:28 PGX0765 TELE-C13) Document 11/04/16 18:00 YLD7497 (Rec: 11/04/16 19:29 XPP4234 MED-C09) Document 11/05/16 09:00 KBA2825 (Rec: 11/05/16 10:52 QWB4231 MED-C09) Document 11/05/16 18:00 ZGG9874 (Rec: 11/05/16 20:43 ERX9299 MED-C11) Document 11/06/16 08:35 FJG7549 (Rec: 11/06/16 08:35 LVH0051 MED-C11) Document 11/06/16 13:34 RZT3882 (Rec: 11/06/16 13:35 ORI9980 MED-C11) Document 11/06/16 18:00 RTN5329 (Rec: 11/06/16 22:09 EHD6838 MED-C11) Document 11/07/16 09:00 JJM9154 (Rec: 11/07/16 10:50 XWP9547 MED-C16) Document 11/07/16 13:45 APV3444 (Rec: 11/07/16 13:47 UWT6717 TELE-C08) Document 11/07/16 18:00 RNC2608 (Rec: 11/07/16 21:24 GIE5499 TELE-C01) Document 11/08/16 09:00 TGD3435 (Rec: 11/08/16 10:42 IYN2023 HOSP-C11) Document 11/08/16 13:42 KTZ9751 (Rec: 11/08/16 13:43 MBP4372 HOSP-C11) Document 11/08/16 18:00 PON4649 (Rec: 11/08/16 19:40 GSO9287 TELE-C10) Document 11/09/16 09:00 XYR5346 (Rec: 11/09/16 10:50 FRL6474 TELE-C09) Document 11/09/16 14:00 ELF4277 (Rec: 11/09/16 14:37 AZZ1798 TELE-C08) Document 11/09/16 18:00 MZI4934 (Rec: 11/09/16 18:52 CTL4444 TELE-C01) Document 11/10/16 09:00 ICE5233 (Rec: 11/10/16 10:42 YUV4627 TELE-C01) Document 11/10/16 14:00 WUS9355 (Rec: 11/10/16 18:54 IAU8392 TELE-C01) Document 11/11/16 09:00 GHY6282 (Rec: 11/11/16 11:01 DTW3757 TELE-C05) Document 11/11/16 13:33 PIW1759 (Rec: 11/11/16 13:33 ZWJ1103 TELE-C05) Document 11/11/16 18:00 CDM9229 (Rec: 11/11/16 18:37 TLE0766 TELE-C05) Document 11/12/16 09:00 EBE0194 (Rec: 11/12/16 15:05 TTX3619 TELE-C01) Document 11/12/16 14:00 JLU4856 (Rec: 11/12/16 15:06 JVD0489 TELE-C01) Document 11/12/16 18:00 EHM3819 (Rec: 11/12/16 23:02 HHO0039 TELE-C05) Document 11/13/16 09:00 XXN2955 (Rec: 11/13/16 14:29 GMT7330 TELE-C01) Document 11/13/16 14:00 YBS3428 (Rec: 11/13/16 14:32 GFP6718 TELE-C01) Document 11/14/16 18:00 ZFM7199 (Rec: 11/14/16 19:05 OAZ6562 MED-C11) Document 11/15/16 09:00 ZMI3807 (Rec: 11/15/16 10:35 NUP4380 MED-C11) Document 11/15/16 12:55 WMV4494 (Rec: 11/15/16 12:55 SXT7963 MED-C11) Document 11/16/16 14:00 LDW5319 (Rec: 11/16/16 14:52 ALA8787 ICU-C12) Document 11/16/16 18:00 UBQ7317 (Rec: 11/16/16 22:44 GOP5909 ICU-C15) ADLs: Meal Record Start: 11/16/16 09: 13 Freq: 09,13,18 Status: Active Created 11/16/16 09:13 DFX5750 (Rec: 11/16/16 09:13 YPB8949 ICU-C12) Document 11/17/16 11:04 NVR4768 (Rec: 11/17/16 11:05 MUC7092 ICU-C06) Document 11/17/16 16:43 TYZ0824 (Rec: 11/17/16 16:43 GPG3772 ICU-C15) Document 11/17/16 19:00 WXH3112 (Rec: 11/17/16 19:01 MOK2306 ICU-C15) Intake and Output Start: 10/27/16 03: 29 Freq: DAILY@0600,1400,2200 Status: Complete Document 10/27/16 06:00 QDE1179 (Rec: 10/27/16 06:31 XLK7075 TELE-C09) Document 10/27/16 06:00 RDI2963 (Rec: 10/27/16 06:34 BAC0988 TELE-C11) Document 10/27/16 14:00 XQS6822 (Rec: 10/27/16 14:20 TPM6586 TELE-C08) Document 10/27/16 22:00 WNH2223 (Rec: 10/27/16 22:07 BEK7694 TELE-C07) Document 10/28/16 03:03 TWT4253 (Rec: 10/28/16 03:03 HNJ7747 TELE-C03) Document 10/28/16 06:00 IGW1075 (Rec: 10/28/16 06:48 RPU6317 TELE-C34) Document 10/28/16 10:24 BOE0565 (Rec: 10/28/16 10:25 TOE6651 TELE-C07) Document 10/28/16 13:44 ZIU8390 (Rec: 10/28/16 13:45 TFP5634 TELE-C07) Document 10/28/16 14:11 DUC7577 (Rec: 10/28/16 14:11 YOB3038 TELE-C07) Document 10/28/16 22:00 SVU3062 (Rec: 10/28/16 23:13 DNA1720 TELE-C35) Document 10/29/16 05:32 YMI1085 (Rec: 10/29/16 05:35 MIO2829 TELE-C35) Document 10/29/16 08:12 CGQ3015 (Rec: 10/29/16 08:12 JOO5078 TELE-C01) Document 10/29/16 13:27 KTV6856 (Rec: 10/29/16 13:27 MDW5875 TELE-C13) Document 10/29/16 22:00 KZA8979 (Rec: 10/29/16 22:42 GGC1631 TELE-C01) Document 10/30/16 05:33 NEE1579 (Rec: 10/30/16 05:36 XDZ9029 TELE-C35) Document 10/30/16 14:00 WLX9854 (Rec: 10/30/16 14:25 PXX5989 TELE-C03) Document 10/30/16 21:00 ZNO3354 (Rec: 10/30/16 21:01 LCO1247 TELE-C01) Document 10/30/16 22:00 CEO8629 (Rec: 10/30/16 22:51 HPC9841 TELE-C01) Document 10/31/16 05:43 DEK9386 (Rec: 10/31/16 05:56 PYT2945 TELE-C34) Document 10/31/16 14:00 JTU0535 (Rec: 10/31/16 14:37 ITJ8639 TELE-C05) Document 10/31/16 14:51 HMT8648 (Rec: 10/31/16 14:51 LYD7531 TELE-C07) Document 11/01/16 06:00 DTX8561 (Rec: 11/01/16 06:55 XNM9675 TELE-C01) Document 11/01/16 14:00 OOR8118 (Rec: 11/01/16 15:08 JVO3308 TELE-C08) Document 11/01/16 22:00 KEF3415 (Rec: 11/01/16 23:06 FTG1658 TELE-C01) Document 11/02/16 06:00 JEY6891 (Rec: 11/02/16 06:05 CSU3235 TELE-C33) Document 11/02/16 14:00 UJT5976 (Rec: 11/02/16 15:22 ILB0947 TELE-C01) Document 11/02/16 16:47 WTI4386 (Rec: 11/02/16 16:47 KYS8411 TELE-C01) Document 11/02/16 21:31 QCS2773 (Rec: 11/02/16 21:31 MJK7383 TELE-C01) Document 11/03/16 05:58 NAT3258 (Rec: 11/03/16 05:58 TZV9377 TELE-C05) Document 11/03/16 14:00 NHK5032 (Rec: 11/03/16 14:12 EUS0934 TELE-C10) Document 11/03/16 22:00 QMH0379 (Rec: 11/03/16 23:10 ZVK4816 TELE-C01) Document 11/04/16 06:00 QEM1868 (Rec: 11/04/16 06:10 ODZ6581 TELE-C33) Document 11/04/16 09:52 AKU8925 (Rec: 11/04/16 09:52 LUI0743 MED-L06) Document 11/04/16 14:33 BMD8250 (Rec: 11/04/16 14:39 XZM7883 TELE-C13) Document 11/04/16 22:00 KST0208 (Rec: 11/04/16 22:42 RTZ3219 MED-C09) Document 11/05/16 06:15 DXY8148 (Rec: 11/05/16 06:15 IBU4057 MED-M14) Document 11/05/16 14:00 SCO6677 (Rec: 11/05/16 14:21 AXJ2587 MED-C09) Document 11/05/16 21:26 DEN4624 (Rec: 11/05/16 21:27 SOQ8777 MED-C11) Document 11/06/16 00:01 BYY6822 (Rec: 11/06/16 00:02 TNU3897 MED-C26) Document 11/06/16 00:39 YXB9410 (Rec: 11/06/16 00:39 ZJE1334 MED-C26) Document 11/06/16 01:03 GSR6376 (Rec: 11/06/16 01:04 KTY1342 MEDL-C02) Document 11/06/16 05:11 THN0845 (Rec: 11/06/16 05:11 LCN5635 MED-C26) Document 11/06/16 13:34 LVR2763 (Rec: 11/06/16 13:35 MOF8943 MED-C11) Document 11/06/16 22:00 UOA2786 (Rec: 11/06/16 22:11 KTW8653 MED-C11) Document 11/07/16 06:00 VYS5160 (Rec: 11/07/16 06:06 IYK7269 MED-C26) Document 11/07/16 11:50 GWA7806 (Rec: 11/07/16 11:50 JBZ7281 TELE-C05) Document 11/07/16 13:47 IAA2739 (Rec: 11/07/16 13:48 TDC8883 TELE-C08) Document 11/07/16 18:57 NHF2325 (Rec: 11/07/16 18:57 KHH7117 TELE-C01) Document 11/07/16 21:31 PRP0323 (Rec: 11/07/16 21:31 XWQ1877 TELE-C01) Document 11/07/16 22:00 AED8159 (Rec: 11/07/16 22:37 ZAL8369 TELE-C10) Document 11/08/16 06:00 WOW2800 (Rec: 11/08/16 06:49 ODI4602 TELE-C10) Document 11/08/16 13:42 ZTC9628 (Rec: 11/08/16 13:43 ARD0537 HOSP-C11) Document 11/08/16 22:00 YAN8128 (Rec: 11/08/16 23:27 NXO6678 TELE-C10) Document 11/09/16 05:58 CFM9251 (Rec: 11/09/16 05:59 VGY4036 TELE-C32) Document 11/09/16 14:00 QXI5105 (Rec: 11/09/16 15:13 YJF1994 TELE-C01) Document 11/09/16 22:00 XBB2372 (Rec: 11/09/16 22:31 GMJ0869 TELE-C01) Document 11/10/16 05:34 CXX3621 (Rec: 11/10/16 05:39 RSP5356 TELE-C13) Document 11/10/16 08:00 SSA9533 (Rec: 11/10/16 08:15 ONI5736 TELE-C01) Document 11/10/16 14:00 DDG7606 (Rec: 11/10/16 14:37 SCO4435 TELE-C03) Document 11/10/16 22:00 GMF4813 (Rec: 11/10/16 22:37 AFR7160 TELE-C01) Document 11/11/16 06:00 MSW6877 (Rec: 11/11/16 06:56 TVC9657 TELE-C01) Document 11/11/16 11:02 NYW3921 (Rec: 11/11/16 11:02 KLP5199 TELE-C11) Document 11/11/16 12:14 HJS3908 (Rec: 11/11/16 12:14 NHH6843 TELE-C05) Document 11/11/16 14:00 QDB7909 (Rec: 11/11/16 14:32 EJD8151 TELE-C05) Document 11/11/16 18:41 IAU3021 (Rec: 11/11/16 18:41 MPR8041 TELE-C05) Document 11/11/16 23:01 HKX9798 (Rec: 11/11/16 23:01 CFN1360 TELE-C06) Document 11/12/16 05:34 KSA4415 (Rec: 11/12/16 05:35 SPH7264 TELE-C01) Document 11/12/16 14:00 BTV7943 (Rec: 11/12/16 15:06 CTD3932 TELE-C01) Document 11/12/16 19:15 KVW9804 (Rec: 11/12/16 19:15 CWS0714 TELE-C01) Document 11/12/16 22:00 ZQG6805 (Rec: 11/12/16 23:01 XCL4364 TELE-C05) Document 11/13/16 03:05 VLP8728 (Rec: 11/13/16 03:05 LQZ4171 TELE-L01) Document 11/13/16 05:55 KLM8732 (Rec: 11/13/16 05:55 FKK5799 TELE-C05) Document 11/13/16 14:00 HAY8822 (Rec: 11/13/16 14:32 CXI6627 TELE-C01) Document 11/13/16 16:11 [id number] (Rec: 11/13/16 16:11 [id number] TELE-C01) Document 11/13/16 22:00 [id number] (Rec: 11/13/16 22:39 [id number] TELE-C01) Document 11/13/16 23:20 [id number] (Rec: 11/14/16 00:18 [id number] TELE-C05) Document 11/14/16 02:20 [id number] (Rec: 11/14/16 03:20 [id number] TELE-C05) Document 11/14/16 06:00 [id number] (Rec: 11/14/16 06:33 [id number] TELE-C35) Document 11/14/16 22:00 [id number] (Rec: 11/14/16 22:09 [id number] MED-C11) Document 11/15/16 14:00 SST0359 (Rec: 11/15/16 14:22 [id number] MED-C11) Document 11/15/16 20:51 [id number] (Rec: 11/15/16 20:52 [id number] MED-C11) Document 11/16/16 04:50 [id number] (Rec: 11/16/16 04:50 [id number] MED-C26) Document 11/16/16 10:24 [id number] (Rec: 11/16/16 10:25 [id number] ICU-C20) Document 11/16/16 12:51 [id number] (Rec: 11/16/16 12:51 [id number] ICU-C20) Document 11/16/16 14:00 [id number] (Rec: 11/16/16 14:50 [id number] ICU-M07) Document 11/16/16 17:56 [id number] (Rec: 11/16/16 17:56 [id number] ICU-M07) Intake and Output Start: 11/16/16 09: 13 Freq: 06,14,2200 Status: Active Created 11/16/16 09:13 [id number] (Rec: 11/16/16 09:13 [id number] ICU-C12) Document 11/17/16 05:52 WSM1687 (Rec: 11/17/16 05:52 [id number] ICU-C14) Document 11/17/16 08:00 [id number] (Rec: 11/17/16 08:10 [id number] ICU-C15) Document 11/17/16 11:04 [id number] (Rec: 11/17/16 11:05 [id number] ICU-C06) Document 11/17/16 12:36 OML3655 (Rec: 11/17/16 12:36 [id number] ICU-M07) Document 11/17/16 16:42 FAJ3215 (Rec: 11/17/16 16:42 [id number] ICU-C15) Document 11/17/16 22:25 [id number] (Rec: 11/17/16 22:26 [id number] ICU-C07) Document 11/18/16 05:49 [id number] (Rec: 11/18/16 05:50 [id number] ICU-C15) Assessment - Problem List Assessment: Patient Problems On total parenteral nutrition (TPN) (Acute) Pneumonia involving left lung (Acute) Volume overload (Acute) Pleural effusion, left (Acute) Anemia (Chronic) Cardiac pacemaker (Chronic) Cardiomyopathy (Chronic) Cerebral AVM (Chronic) Depression (Chronic) Esophageal abnormality (Chronic) Esophageal carcinoma (Chronic) History of breast cancer (Chronic) History of lung cancer (Chronic) Late effect of pelvic fracture (Chronic) Sacral decubitus ulcer, stage II (Chronic) Status post lobectomy of lung (Chronic) Systolic CHF (Chronic)
--- NOTE | 2016-11-18 09:29 | PN ---
Subjective - Subjective Reason for Note: Progress Note History: She slept better last night and has been afebrile for 24 hours. This is despite stopping all TPN and antibacterials. She has no dyspnea. She has been eating and drinking, but has no appetite and the appearance of food nauseates her. She has no new pain or distress. She has had stable hemodynamics and rhythm. 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 Current Medications: Current Medications Acetaminophen (Tylenol Tab*) 975 mg PO TID [facility] Last Admin: 11/18/16 08:08 Dose: 975 mg Acetaminophen (Tylenol Tab*) 650 mg PO Q6H PRN PRN Reason: FEVER Last Admin: 11/17/16 05:02 Dose: 650 mg Albuterol (Ventolin 2.5 Mg/3 Ml Neb.Dena*) 2.5 mg INH Q2H PRN PRN Reason: SOB/WHEEZING Last Admin: 11/16/16 05:28 Dose: 2.5 mg Amiodarone HCl (Cordarone Tab*) 200 mg PO BID [facility] Last Admin: 11/17/16 21:52 Dose: 200 mg Carvedilol (Coreg Tab*) 9.375 mg PO BID WITH MEALS [facility] Last Admin: 11/17/16 16:13 Dose: Not Given Collagenase (Santyl 250 Mg/Gm Oint*) 1 applic TOPICAL DAILY [facility] Last Admin: 11/17/16 08:28 Dose: Not Given Dronabinol (Marinol Cap*) 2.5 mg PO AC [facility] Enoxaparin Sodium (Lovenox(*)) 40 mg SUBCUT Q24H [facility] Last Admin: 11/17/16 14:19 Dose: 40 mg Folic Acid (Folvite Tab*) 1 mg PO DAILY [facility] Last Admin: 11/17/16 08:26 Dose: 1 mg Gabapentin (Neurontin Cap(*)) 300 mg PO TID [facility] Last Admin: 11/18/16 08:09 Dose: 300 mg Heparin Sodium (Porcine) (Heparin Flush Picc/Ml/Cvc(*)) 1 ml FLUSH 0600,1800 [facility] PRN Reason: Protocol Last Admin: 11/18/16 05:04 Dose: Not Given Lamotrigine (Lamictal Tab(*)) 200 mg PO QAM [facility] Last Admin: 11/18/16 08:09 Dose: 200 mg Melatonin (Melatonin (Nf)) 3 mg PO BEDTIME PRN; Protocol PRN Reason: Sleep Nitroglycerin (Nitroglycerin Tab 0.4 Mg*) 0.4 mg SL Q4H PRN PRN Reason: WORSENING CHEST PAIN Last Admin: 11/05/16 04:30 Dose: 0.4 mg Oxycodone HCl (Roxycodone Tab*) 30 mg PO Q3H [facility] Last Admin: 11/18/16 08:09 Dose: 30 mg Zinc Sulfate (Zinc-220 Cap*) 220 mg PO DAILY [facility] Last Admin: 11/17/16 08:28 Dose: 220 mg Home Medications: Home Medications Medication Instructions Recorded Confirmed Type lamoTRIgine TAB(*) [Lamictal 200 mg PO QAM 03/03/14 10/27/16 History TAB(*)] oxyCODONE TAB* [Roxycodone TAB*] 30 mg PO Q3H PRN 03/03/14 10/27/16 History Bupropion XL (NF) [Wellbutrin XL 300 mg PO DAILY 09/11/16 10/27/16 History (NF)] Carvedilol TAB* [Coreg TAB*] 9.375 mg PO BID 09/11/16 10/27/16 History Epinephrine [Epipen 2-Yuniel] 0.3 mg IM ONCE PRN 09/11/16 10/27/16 History Folic Acid TAB* [Folvite TAB*] 1 mg PO DAILY 09/11/16 10/27/16 History Gabapentin CAP(*) [Neurontin 300 300 mg PO TID 09/11/16 10/27/16 History CAP(*)] Ondansetron TAB* [Zofran 4 MG Tab*] 8 mg PO Q8HR PRN 09/11/16 10/27/16 History Prochlorperazine TAB* [Compazine 10 mg PO Q6H PRN 09/11/16 10/27/16 History Tab*] Magnesium Oxide 400 mg PO DAILY 10/10/16 10/27/16 History Acetaminophen [Tylenol] 975 mg PO TID 10/27/16 10/27/16 History Cyanocobalamin TAB* [Vitamin B12 500 mcg PO DAILY 10/27/16 11/05/16 History TAB*] Potassium Chloride Microencaps 20 meq PO DAILY 10/27/16 10/27/16 History [Klor-Con M20] Allergies: Allergies Allergy/AdvReac Type Severity Reaction Status Date / Time Fentanyl Allergy Severe Hallucinati Verified 09/11/16 13:35 ons Aspartame Allergy Intermediate Headache Verified 09/11/16 13:35 Polymyxin B [From Neosporin] Allergy Intermediate Eyes Verified 09/11/16 13:35 Itchy/Swollen/Red/Watery Bacitracin [From Neosporin] Allergy Unknown Verified 09/11/16 13:35 Reaction Details Cephalexin [From Keflex] Allergy See Comment Verified 09/11/16 13:35 Neomycin [From Neosporin] Allergy Unknown Verified 09/11/16 13:35 Reaction Details Objective - Vital Signs Vital Signs: Vital Signs 11/17/16 11/17/16 11/17/16 09:48 10:00 10:57 Temperature Pulse Rate 78 79 81 Respiratory 21 12 19 Rate Blood Pressure 115/58 (mmHg) O2 Sat by Pulse 100 96 96 Oximetry 11/17/16 11/17/16 11/17/16 11:00 11:01 11:59 Temperature 99.4 F Pulse Rate Respiratory 16 Rate Blood Pressure 111/70 (mmHg) O2 Sat by Pulse Oximetry 11/17/16 11/17/16 11/17/16 12:00 12:36 13:00 Temperature Pulse Rate 79 80 Respiratory 13 14 15 Rate Blood Pressure 112/56 104/61 (mmHg) O2 Sat by Pulse 98 98 Oximetry 11/17/16 11/17/16 11/17/16 14:00 15:00 16:00 Temperature 99.0 F Pulse Rate 77 87 82 Respiratory 13 13 12 Rate Blood Pressure 125/70 118/54 103/51 (mmHg) O2 Sat by Pulse 94 95 93 Oximetry 11/17/16 11/17/16 11/17/16 17:00 18:00 18:14 Temperature Pulse Rate 73 68 Respiratory 11 14 16 Rate Blood Pressure 105/54 98/51 (mmHg) O2 Sat by Pulse 93 93 Oximetry 11/17/16 11/17/16 11/17/16 19:00 19:36 20:00 Temperature 99.3 F Pulse Rate 75 87 Respiratory 16 19 19 Rate Blood Pressure 125/59 119/60 (mmHg) O2 Sat by Pulse 96 95 Oximetry 11/17/16 11/17/16 11/17/16 20:16 21:00 22:00 Temperature Pulse Rate 80 79 Respiratory 13 12 14 Rate Blood Pressure 114/53 141/62 (mmHg) O2 Sat by Pulse 98 94 Oximetry 11/17/16 11/17/16 11/18/16 23:00 23:44 00:00 Temperature 99.1 F Pulse Rate 44 73 Respiratory 20 11 Rate Blood Pressure 117/66 (mmHg) O2 Sat by Pulse 87 99 Oximetry 11/18/16 11/18/16 11/18/16 00:01 01:00 01:49 Temperature Pulse Rate 73 71 Respiratory 11 21 19 Rate Blood Pressure 99/57 101/50 (mmHg) O2 Sat by Pulse 99 98 Oximetry 11/18/16 11/18/16 11/18/16 02:00 03:00 04:00 Temperature Pulse Rate 72 73 74 Respiratory 12 10 13 Rate Blood Pressure 99/46 87/41 94/40 (mmHg) O2 Sat by Pulse 99 98 98 Oximetry 11/18/16 11/18/16 11/18/16 04:11 05:00 05:08 Temperature 99.6 F Pulse Rate 79 Respiratory 18 Rate Blood Pressure (mmHg) O2 Sat by Pulse 99 100 Oximetry 11/18/16 11/18/16 11/18/16 06:00 06:55 07:00 Temperature Pulse Rate 68 74 72 Respiratory 19 14 10 Rate Blood Pressure 111/59 116/60 (mmHg) O2 Sat by Pulse 100 98 98 Oximetry 11/18/16 11/18/16 11/18/16 07:42 08:00 08:09 Temperature 98.9 F Pulse Rate 72 68 Respiratory 13 10 Rate Blood Pressure 116/62 (mmHg) O2 Sat by Pulse 98 97 Oximetry 11/18/16 09:00 Temperature Pulse Rate 75 Respiratory 16 Rate Blood Pressure (mmHg) O2 Sat by Pulse 97 Oximetry - Intake and Output Intake and Output: Intake & Output 11/15/16 11/16/16 11/17/16 11/18/16 11:59 11:59 11:59 11:59 Intake Total 3276 2748 4810 2691 Output Total 2450 3150 2275 2375 Balance 826 -402 2535 316 Weight 101 lb 108 lb 7.479 oz 105 lb 2.568 oz Intake: IV Fluids 2601 1080 1080 1686 ABX - VANCOMYCIN 413 D20% 1/2NS + 20 meq KCL 1565 NS (0.9%) 20 97 121 tpn 2581 1080 570 IVPB 275 320 837 380 ABX - VANCOMYCIN 275 320 270 Flagyl 55 Meropenem 55 NS (0.9%) 837 TPN/PPN 1108 2033 Oral 400 240 860 625 Output: Urine 2450 3150 2275 2375 Other: Estimated Void Medium # Bowel Movements 0 0 # Voids 1 ADLs: Meal Record Start: 10/27/16 03: 29 Freq: DAILY@0900,1400,1800 Status: Complete Document 10/27/16 09:09 [id number] (Rec: 10/27/16 09:10 SYH8318 TELE-C01) Document 10/27/16 14:00 XHX3754 (Rec: 10/27/16 18:49 MDI6825 TELE-C01) Document 10/27/16 18:00 HLW1915 (Rec: 10/27/16 18:50 WMZ3685 TELE-C01) Document 10/28/16 09:27 BKM6781 (Rec: 10/28/16 09:27 OXD2504 TELE-C07) Document 10/28/16 13:44 KNQ5105 (Rec: 10/28/16 13:45 VIT9708 TELE-C07) Document 10/28/16 18:00 LSM3600 (Rec: 10/28/16 23:12 MCR5546 TELE-C35) Document 10/29/16 10:34 VNP8641 (Rec: 10/29/16 10:34 JCC1211 TELE-C13) Document 10/29/16 13:27 RZT4865 (Rec: 10/29/16 13:27 JNL3622 TELE-C13) Document 10/29/16 18:00 TZJ5414 (Rec: 10/29/16 21:44 QIN1095 TELE-C01) Document 10/30/16 09:00 CVQ4591 (Rec: 10/30/16 10:33 DRB9529 TELE-C03) Document 10/30/16 14:00 YSZ6381 (Rec: 10/30/16 14:25 SNR0065 TELE-C03) Document 10/30/16 19:00 FVN7180 (Rec: 10/30/16 19:00 CST4932 TELE-C08) Document 10/31/16 09:00 OWN4346 (Rec: 10/31/16 14:36 HQD3025 TELE-C05) Document 10/31/16 14:00 VZY4603 (Rec: 10/31/16 14:37 PMH9864 TELE-C05) Document 10/31/16 18:00 LFQ6760 (Rec: 10/31/16 22:45 ZTB5503 TELE-C13) Document 11/01/16 09:00 IGS0952 (Rec: 11/01/16 15:07 JJF2537 TELE-C08) Document 11/01/16 14:00 OUV7710 (Rec: 11/01/16 15:08 NOL6163 TELE-C08) Document 11/02/16 09:00 TCI6295 (Rec: 11/02/16 15:18 MFI7145 TELE-C01) Document 11/02/16 14:00 OGL0662 (Rec: 11/02/16 15:22 OJP2219 TELE-C01) Document 11/02/16 18:00 TIE1050 (Rec: 11/02/16 18:52 EDX5071 TELE-C10) Document 11/03/16 09:00 SNK4318 (Rec: 11/03/16 09:34 SVF5138 TELE-C10) Document 11/03/16 14:00 HMM9557 (Rec: 11/03/16 14:12 JFV3794 TELE-C10) Document 11/03/16 18:00 EBU3384 (Rec: 11/03/16 23:09 AAK5843 TELE-C01) Document 11/04/16 09:00 HZE8116 (Rec: 11/04/16 10:56 DYO4930 TELE-C03) Document 11/04/16 14:25 ZZV1350 (Rec: 11/04/16 14:28 EPU8098 TELE-C13) Document 11/04/16 18:00 TMR1343 (Rec: 11/04/16 19:29 ZQR9251 MED-C09) Document 11/05/16 09:00 PLP0676 (Rec: 11/05/16 10:52 HHC8523 MED-C09) Document 11/05/16 18:00 JUT6450 (Rec: 11/05/16 20:43 LRN0618 MED-C11) Document 11/06/16 08:35 JIL7449 (Rec: 11/06/16 08:35 UCV3258 MED-C11) Document 11/06/16 13:34 NWQ9358 (Rec: 11/06/16 13:35 DDJ5187 MED-C11) Document 11/06/16 18:00 EKP8142 (Rec: 11/06/16 22:09 ZYN4885 MED-C11) Document 11/07/16 09:00 WYA6195 (Rec: 11/07/16 10:50 CLL6987 MED-C16) Document 11/07/16 13:45 TXW4040 (Rec: 11/07/16 13:47 PTM6893 TELE-C08) Document 11/07/16 18:00 JWP8026 (Rec: 11/07/16 21:24 HKW5087 TELE-C01) Document 11/08/16 09:00 ORS7790 (Rec: 11/08/16 10:42 HYT6031 HOSP-C11) Document 11/08/16 13:42 CNQ4105 (Rec: 11/08/16 13:43 WCQ4569 HOSP-C11) Document 11/08/16 18:00 DIS9268 (Rec: 11/08/16 19:40 FDR6794 TELE-C10) Document 11/09/16 09:00 PWJ4966 (Rec: 11/09/16 10:50 JZY7253 TELE-C09) Document 11/09/16 14:00 DIT1464 (Rec: 11/09/16 14:37 MDN9434 TELE-C08) Document 11/09/16 18:00 DPS0498 (Rec: 11/09/16 18:52 IVK1873 TELE-C01) Document 11/10/16 09:00 JUQ5513 (Rec: 11/10/16 10:42 PTY3165 TELE-C01) Document 11/10/16 14:00 ZML3502 (Rec: 11/10/16 18:54 GCU1268 TELE-C01) Document 11/11/16 09:00 TPC1019 (Rec: 11/11/16 11:01 SOH0614 TELE-C05) Document 11/11/16 13:33 YMH6187 (Rec: 11/11/16 13:33 ASC7866 TELE-C05) Document 11/11/16 18:00 NYH2263 (Rec: 11/11/16 18:37 QOD5429 TELE-C05) Document 11/12/16 09:00 XFM9334 (Rec: 11/12/16 15:05 YJT5061 TELE-C01) Document 11/12/16 14:00 UNT8889 (Rec: 11/12/16 15:06 AAZ1785 TELE-C01) Document 11/12/16 18:00 TGP6020 (Rec: 11/12/16 23:02 DWF6202 TELE-C05) Document 11/13/16 09:00 XAJ1735 (Rec: 11/13/16 14:29 KZJ9517 TELE-C01) Document 11/13/16 14:00 TQB5801 (Rec: 11/13/16 14:32 SPU4616 TELE-C01) Document 11/14/16 18:00 XGW1312 (Rec: 11/14/16 19:05 THY0729 MED-C11) Document 11/15/16 09:00 MJC4665 (Rec: 11/15/16 10:35 SYY2916 MED-C11) Document 11/15/16 12:55 SPF7173 (Rec: 11/15/16 12:55 GTS2143 MED-C11) Document 11/16/16 14:00 EVJ4342 (Rec: 11/16/16 14:52 CGC8009 ICU-C12) Document 11/16/16 18:00 USK5512 (Rec: 11/16/16 22:44 ZHV9689 ICU-C15) ADLs: Meal Record Start: 11/16/16 09: 13 Freq: 09,13,18 Status: Active Created 11/16/16 09:13 GJQ9955 (Rec: 11/16/16 09:13 ZNW7836 ICU-C12) Document 07/01/17 11:04 WAZ7381 (Rec: 11/17/16 11:05 DSU8015 ICU-C06) Document 11/17/16 16:43 VOF6926 (Rec: 11/17/16 16:43 KKU7801 ICU-C15) Document 11/17/16 19:00 OXW0162 (Rec: 11/17/16 19:01 VNV8696 ICU-C15) Intake and Output Start: 10/27/16 03: 29 Freq: DAILY@0600,1400,2200 Status: Complete Document 10/27/16 06:00 GRK9146 (Rec: 10/27/16 06:31 PMY4981 TELE-C09) Document 10/27/16 06:00 MFH4472 (Rec: 10/27/16 06:34 NFM9389 TELE-C11) Document 10/27/16 14:00 XXF8719 (Rec: 10/27/16 14:20 GNP6974 TELE-C08) Document 10/27/16 22:00 CXJ7519 (Rec: 10/27/16 22:07 BON9009 TELE-C07) Document 10/28/16 03:03 IMV2306 (Rec: 10/28/16 03:03 PBP8094 TELE-C03) Document 10/28/16 06:00 ZJS4300 (Rec: 10/28/16 06:48 GKN5017 TELE-C34) Document 10/28/16 10:24 LCD5322 (Rec: 10/28/16 10:25 KXR1087 TELE-C07) Document 10/28/16 13:44 QSJ6255 (Rec: 10/28/16 13:45 FSS3726 TELE-C07) Document 10/28/16 14:11 VZR6694 (Rec: 10/28/16 14:11 BZL5249 TELE-C07) Document 10/28/16 22:00 XSZ7395 (Rec: 10/28/16 23:13 TWQ6058 TELE-C35) Document 10/29/16 05:32 YUI6692 (Rec: 10/29/16 05:35 HBX3703 TELE-C35) Document 10/29/16 08:12 UEW8299 (Rec: 10/29/16 08:12 YNQ3869 TELE-C01) Document 10/29/16 13:27 JMV8704 (Rec: 10/29/16 13:27 KQB4424 TELE-C13) Document 10/29/16 22:00 DQK1525 (Rec: 10/29/16 22:42 TSI8648 TELE-C01) Document 10/30/16 05:33 SJW6167 (Rec: 10/30/16 05:36 YKE5742 TELE-C35) Document 10/30/16 14:00 VNP8137 (Rec: 10/30/16 14:25 AMA9686 TELE-C03) Document 10/30/16 21:00 DJU4973 (Rec: 10/30/16 21:01 ZWO9626 TELE-C01) Document 10/30/16 22:00 RNG6715 (Rec: 10/30/16 22:51 XJY5886 TELE-C01) Document 10/31/16 05:43 UKV2232 (Rec: 10/31/16 05:56 GJG6651 TELE-C34) Document 10/31/16 14:00 XNU0101 (Rec: 10/31/16 14:37 HKX4080 TELE-C05) Document 10/31/16 14:51 OID2458 (Rec: 10/31/16 14:51 VKM4908 TELE-C07) Document 11/01/16 06:00 CLE1275 (Rec: 11/01/16 06:55 JFV1555 TELE-C01) Document 11/01/16 14:00 MBK4419 (Rec: 11/01/16 15:08 AIE8637 TELE-C08) Document 11/01/16 22:00 BAY2437 (Rec: 11/01/16 23:06 PWL4015 TELE-C01) Document 11/02/16 06:00 XBC1843 (Rec: 11/02/16 06:05 BMA6950 TELE-C33) Document 11/02/16 14:00 BJR0979 (Rec: 11/02/16 15:22 BYE2680 TELE-C01) Document 11/02/16 16:47 PWI0911 (Rec: 11/02/16 16:47 ZOW9192 TELE-C01) Document 11/02/16 21:31 OVP5886 (Rec: 11/02/16 21:31 WAV8062 TELE-C01) Document 11/03/16 05:58 PZG7181 (Rec: 11/03/16 05:58 KLG5722 TELE-C05) Document 11/03/16 14:00 WEA2576 (Rec: 11/03/16 14:12 LLY5271 TELE-C10) Document 11/03/16 22:00 APM4642 (Rec: 11/03/16 23:10 QPJ7633 TELE-C01) Document 11/04/16 06:00 ILR4659 (Rec: 11/04/16 06:10 LAK5341 TELE-C33) Document 11/04/16 09:52 PVQ3842 (Rec: 11/04/16 09:52 VTS4977 MED-L06) Document 11/04/16 14:33 YLC9035 (Rec: 11/04/16 14:39 KMV2763 TELE-C13) Document 11/04/16 22:00 VBE4569 (Rec: 11/04/16 22:42 VAS2828 MED-C09) Document 11/05/16 06:15 QIG9933 (Rec: 11/05/16 06:15 LAF1335 MED-M14) Document 11/05/16 14:00 MTG5497 (Rec: 11/05/16 14:21 ZGA9810 MED-C09) Document 11/05/16 21:26 OTO4645 (Rec: 11/05/16 21:27 TKK3930 MED-C11) Document 11/06/16 00:01 KNZ5627 (Rec: 11/06/16 00:02 JOF2824 MED-C26) Document 11/06/16 00:39 KPW7459 (Rec: 11/06/16 00:39 TPI4765 MED-C26) Document 11/06/16 01:03 LVL2759 (Rec: 11/06/16 01:04 CKR3287 MEDL-C02) Document 11/06/16 05:11 USG7852 (Rec: 11/06/16 05:11 AYQ8414 MED-C26) Document 11/06/16 13:34 OPC9877 (Rec: 11/06/16 13:35 TOD8928 MED-C11) Document 11/06/16 22:00 FTU9030 (Rec: 11/06/16 22:11 JWJ3798 MED-C11) Document 11/07/16 06:00 WPO8571 (Rec: 11/07/16 06:06 ZHV4825 MED-C26) Document 11/07/16 11:50 YRD7474 (Rec: 11/07/16 11:50 NTS8931 TELE-C05) Document 11/07/16 13:47 ZHR2068 (Rec: 11/07/16 13:48 JSR8252 TELE-C08) Document 11/07/16 18:57 ARF2004 (Rec: 11/07/16 18:57 JCQ9437 TELE-C01) Document 11/07/16 21:31 GGD7001 (Rec: 11/07/16 21:31 EFV3304 TELE-C01) Document 11/07/16 22:00 FUK4486 (Rec: 11/07/16 22:37 NYV0214 TELE-C10) Document 11/08/16 06:00 FJN0175 (Rec: 11/08/16 06:49 HZY2945 TELE-C10) Document 11/08/16 13:42 NMH5315 (Rec: 11/08/16 13:43 PKX9451 HOSP-C11) Document 11/08/16 22:00 ZCZ7536 (Rec: 11/08/16 23:27 HDA1109 TELE-C10) Document 11/09/16 05:58 MVI5603 (Rec: 11/09/16 05:59 TFZ6563 TELE-C32) Document 11/09/16 14:00 XRH6095 (Rec: 11/09/16 15:13 HEY1528 TELE-C01) Document 11/09/16 22:00 USL3083 (Rec: 11/09/16 22:31 TUK8682 TELE-C01) Document 11/10/16 05:34 SZU4685 (Rec: 11/10/16 05:39 OKW7911 TELE-C13) Document 11/10/16 08:00 VZG1901 (Rec: 11/10/16 08:15 CWG1967 TELE-C01) Document 11/10/16 14:00 JZV4769 (Rec: 11/10/16 14:37 UWQ6027 TELE-C03) Document 11/10/16 22:00 RQR2654 (Rec: 11/10/16 22:37 PHT5745 TELE-C01) Document 11/11/16 06:00 BFH6037 (Rec: 11/11/16 06:56 YZY7980 TELE-C01) Document 11/11/16 11:02 ECM9485 (Rec: 11/11/16 11:02 FDU6641 TELE-C11) Document 11/11/16 12:14 WOL7542 (Rec: 11/11/16 12:14 FLM6561 TELE-C05) Document 11/11/16 14:00 MWI1656 (Rec: 11/11/16 14:32 AFS4516 TELE-C05) Document 11/11/16 18:41 WGC4885 (Rec: 11/11/16 18:41 CVC0065 TELE-C05) Document 11/11/16 23:01 AVC9908 (Rec: 11/11/16 23:01 XDR7212 TELE-C06) Document 11/12/16 05:34 YQL7265 (Rec: 11/12/16 05:35 HTT9904 TELE-C01) Document 11/12/16 14:00 TGO7578 (Rec: 11/12/16 15:06 PIT0383 TELE-C01) Document 11/12/16 19:15 NPP1995 (Rec: 11/12/16 19:15 FVL3107 TELE-C01) Document 11/12/16 22:00 PND0658 (Rec: 11/12/16 23:01 CII6719 TELE-C05) Document 11/13/16 03:05 KAS7621 (Rec: 11/13/16 03:05 KFI5951 TELE-L01) Document 11/13/16 05:55 OQK6865 (Rec: 11/13/16 05:55 ISC5651 TELE-C05) Document 11/13/16 14:00 EQV8761 (Rec: 11/13/16 14:32 XXL6401 TELE-C01) Document 11/13/16 16:11 HJB5476 (Rec: 11/13/16 16:11 QML1923 TELE-C01) Document 11/13/16 22:00 XAS7058 (Rec: 11/13/16 22:39 YIS7578 TELE-C01) Document 11/13/16 23:20 ONU0769 (Rec: 11/14/16 00:18 RUW5347 TELE-C05) Document 06/28/17 02:20 NUV3830 (Rec: 11/14/16 03:20 GRW0471 TELE-C05) Document 11/14/16 06:00 JSU8934 (Rec: 11/14/16 06:33 UZV6587 TELE-C35) Document 11/14/16 22:00 BLD5344 (Rec: 11/14/16 22:09 ADQ5417 MED-C11) Document 11/15/16 14:00 IZG5394 (Rec: 11/15/16 14:22 ULH6820 MED-C11) Document 11/15/16 20:51 ZER0577 (Rec: 11/15/16 20:52 PKP8774 MED-C11) Document 11/16/16 04:50 ZTI0443 (Rec: 11/16/16 04:50 ATH1588 MED-C26) Document 11/16/16 10:24 PUD3110 (Rec: 11/16/16 10:25 CHF1625 ICU-C20) Document 11/16/16 12:51 XTR5452 (Rec: 11/16/16 12:51 UTJ1448 ICU-C20) Document 11/16/16 14:00 WTO0367 (Rec: 11/16/16 14:50 MPS5594 ICU-M07) Document 11/16/16 17:56 JAF3127 (Rec: 11/16/16 17:56 PZO0490 ICU-M07) Intake and Output Start: 11/16/16 09: 13 Freq: 06,14,2200 Status: Active Created 11/16/16 09:13 PSS9119 (Rec: 11/16/16 09:13 DRO0875 ICU-C12) Document 11/17/16 05:52 SRN1717 (Rec: 11/17/16 05:52 EUA0890 ICU-C14) Document 11/17/16 08:00 FOO0229 (Rec: 11/17/16 08:10 AAK6211 ICU-C15) Document 11/17/16 11:04 NFG5637 (Rec: 11/17/16 11:05 XMM0879 ICU-C06) Document 11/17/16 12:36 MQY8571 (Rec: 11/17/16 12:36 RZE3094 ICU-M07) Document 11/17/16 16:42 RWP5720 (Rec: 11/17/16 16:42 LQE3550 ICU-C15) Document 11/17/16 22:25 TBL1737 (Rec: 11/17/16 22:26 YKY4923 ICU-C07) Document 11/18/16 05:49 SHY5177 (Rec: 11/18/16 05:50 YUF2764 ICU-C15) - Physical Exam General: No Cyanosis, No Anemia, No Jaundice, No Clubbing Skin: Normal: Rash Lungs and Chest: Yes: Crackles - above area of dullness on the left. No: Chest Expansion Full, Chest Expansion Symetrica, Percussion Note Resonant - dull left donal, Vessicular Breath Sounds - absent left donal, Wheezes, Respiratory Distress, Use of Accessory Muscles Heart Rate and Rhythm: Regular Additional Cardiovascular: Yes: Normal Heart Sounds. No: Heart Murmur, Pedal Edema Abdominal Exam: Yes: Soft. 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 Her fever has gone away. Unfortunately, the ordered labs were not drawn. She is feeling a little improved. She has anorexia, but is eating breakfast as I enter. Her oral intake of fluid was 625 mls - since she no longer has a fever, her insensible loss is going to be less. Pneumonia involving left lung (Acute) I presume that unless she has an abscess , this has had sufficient antibacterial coverage. Sacral osteomyelitis - this remains a possibility. If so, she may require re- introduction of antibacterials one at a time after we have a clear baseline of no fever as osteomyelitis needs weeks of IV antibacterial treatment after surgical debridement. I wonder if we should reconsider this diagnosis as well or re-image (? 3 phase bone scan vs MRI) Anorexia (Acute)Esophageal abnormality (Chronic) I have stopped her metoclopramide as it is not working - at least, she is not vomiting, but she has marked anorexia. I have started her on dronabinol 2.5 mg ac as a stimulant for her appetite. 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 I have encouraged Ensure 1 can tid. I am hoping we can do without TPN Anemia (Chronic) not checked today Cardiac pacemaker (Chronic) Cardiomyopathy (Chronic) No signs of failure. I have stopped IV furosemide as she is no longer receiving large parenteral volumes of water. Cerebral AVM (Chronic) Depression (Chronic) secondary diagnosis Esophageal carcinoma (Chronic)History of breast cancer (Chronic)History of lung cancer (Chronic) Secondary diagnosis Late effect of pelvic fracture (Chronic) I would like to see her controlled without opioids as I worry these may contribute to anorexia/nausea Status post lobectomy of lung (Chronic) ongoing physical signs I explained the changes in regimen and the rationale to the patient. I have suggested a transfer to a general medical bed. If she remains stable, Dr. Jc can consider discharge home without TPN and possibly without antibacterials. However, we may see a recrudescence of her infective processes.
[2016-11-18] MEDS: Zinc Sulfate CAP* 220 MG PO SCH (09:45)
[2016-11-18] MEDS: Folic Acid TAB* 1 MG PO SCH (09:45)
[2016-11-18] MEDS: Amiodarone TAB* 200 MG PO SCH ×2 (09:45→20:43)
[2016-11-18] MEDS: Carvedilol TAB* 3.125 MG PO SCH ×2 (09:46→17:30)
[2016-11-18] MEDS: Collagenase 250 MG/GM OINT* 30 GM TOPICAL SCH (09:46)
[2016-11-18 10:15] LABS: Hematocrit 29 % (35-47); Hemoglobin 9.6 g/dl (12.0-16.0); Mean Corpuscular HGB Conc 34 g/dl (31-36); Mean Corpuscular Hemoglobin 31 pg (27-31); Mean Corpuscular Volume 92 fL (80-97); Mean Platelet Volume 8 um3 (7.4-10.4); Red Blood Count 3.11 10^6/ul (4.0-5.4); Red Cell Distribution Width 18 % (10.5-15); White Blood Count 19.3 10^3/ul (3.5-10.8)
--- NOTE | 2016-11-18 10:15 | PN ---
Critical Care Services: Had uneventful evening. No fever since discontinuing antibiotics and holding TPN Vital Signs: Temp Pulse Resp BP SpO2 FiO2 98.9 F 75 16 116/62 97 RA NOTE: Patient breathing room air (RA) Physical Exam: Gen:Alert, breathing comfortably Lungs:Scattered rhonchi Extremities:No cyanosis or edema Fluid Balance (Past 24 Hours): 11/18/16 06:59 Intake Total 3219 Output Total 2925 Balance 294 Weight 105 lb Intake: IV Fluids 1686 ABX - VANCOMYCIN D20% 1/2NS + 20 meq KCL 1565 NS (0.9%) 121 tpn IVPB 380 ABX - VANCOMYCIN 270 Flagyl 55 Meropenem 55 NS (0.9%) TPN/PPN 528 Oral 625 Output: Urine 2925 Other: # Bowel Movements Labs: Labs pending Studies: None today Nutrition: Oral diet plus D20 IV. Impression: Overall, patient seems to be improving, and no longer requires supplemental O2. The fever may have been caused by antibiotics or TPN (lipid moiety). Still no evidence of a treatable infection. Plan: Can transfer out of ICU, and continue to watch off antibiotics and TPN. Remainder of management per Tristin Dhaliwal and Hosea.
[2016-11-18 10:16] LABS: Comments Flag Yes
[2016-11-18 10:37] LABS: BUN/Creatinine Ratio 33.3 (8-20); C Reactive Protein 167.66 mg/L (< 5.00); Calcium 9.5 mg/dL (8.6-10.3); EGFR Non-African American 94.8 (>60); Potassium 3.5 mmol/L (3.5-5.0)
[2016-11-18] MEDS: Dronabinol CAP* 2.5 MG PO SCH ×2 (13:48→17:27)
[2016-11-18] MEDS: Enoxaparin(*) 40 MG/0.4 ML SYR SUBCUT SCH (13:48)
[2016-11-19] MEDS: oxyCODONE TAB* 5 MG TAB PO SCH ×7 (02:04→21:23)
[2016-11-19 06:50] LABS: Hematocrit 34 % (35-47); Hemoglobin 11.1 g/dl (12.0-16.0); Mean Corpuscular HGB Conc 33 g/dl (31-36); Mean Corpuscular Hemoglobin 30 pg (27-31); Mean Corpuscular Volume 92 fL (80-97); Mean Platelet Volume 8 um3 (7.4-10.4); Red Blood Count 3.67 10^6/ul (4.0-5.4); Red Cell Distribution Width 18 % (10.5-15); White Blood Count 21.7 10^3/ul (3.5-10.8)
[2016-11-19 06:51] LABS: Comments Flag Yes
[2016-11-19 07:04] LABS: BUN/Creatinine Ratio 27.9 (8-20); C Reactive Protein 173.56 mg/L (< 5.00); Calcium 10.4 mg/dL (8.6-10.3); EGFR African American 111.7 (>60); EGFR Non-African American 86.8 (>60)
[2016-11-19] MEDS: Carvedilol TAB* 3.125 MG PO SCH ×2 (08:06→18:15)
[2016-11-19] MEDS: Dronabinol CAP* 2.5 MG PO SCH ×3 (08:15→18:17)
[2016-11-19] MEDS: Acetaminophen TAB* 325 MG PO SCH ×3 (08:19→21:29)
[2016-11-19] MEDS: Amiodarone TAB* 200 MG PO SCH ×2 (08:20→21:30)
[2016-11-19] MEDS: Gabapentin CAP(*) 300 MG PO SCH ×3 (08:21→21:29)
[2016-11-19] MEDS: Folic Acid TAB* 1 MG PO SCH (09:28)
[2016-11-19] MEDS: lamoTRIgine TAB(*) 100 MG PO SCH (09:29)
[2016-11-19] MEDS: Zinc Sulfate CAP* 220 MG PO SCH (09:30)
[2016-11-19] MEDS ORDERED: Vancomycin Trough Check NOTE FOLLOW UP ONE (11:30)
--- NOTE | 2016-11-19 15:20 | RAD ---
INDICATION: Lung and esophageal cancer, sacral decubitus ulcer. Comparison: Comparison is made with a prior bone scan from October 18, [address] of the chest, abdomen and pelvis from November 15, 2016. Technique: The patient was given an intravenous injection of 20.3 mCi of technetium 99m HDP, and a 3 phase bone scan was performed with attention to the pelvis. In addition, whole body images were obtained in the anterior and posterior projections. FINDINGS: There is mild increased perfusion in the region of the sacrum on the early phase images with mild blood pool activity and intense increased activity on the delayed images. This is in the region of a sacral decubitus ulcer on the prior CT study with mild increased bony density in that region without additional discrete lesion. These findings are suspicious for osteomyelitis. In addition there is mild increased activity present within the sternum approximately at the junction of the body of the sternum and manubrium which appears similar to the prior exam. There is a small area of lucency present in this region on the prior CT study. There is also mild increased activity in a lateral lower left rib. There is mild sclerosis in a left lateral lower rib also correlating with the bone scan abnormality. There is moderate abnormal increased activity present bilaterally within the ankles and hind feet nonspecific although suspicious for arthritic change. There is normal bilateral renal activity. IMPRESSION: 1. INCREASED ACTIVITY IN THE SACRUM PROGRESSED FROM THE PRIOR EXAM CORRELATING WITH A DECUBITUS ULCER ON THE PRIOR CT STUDY SUSPICIOUS FOR OSTEOMYELITIS LESS LIKELY METASTATIC DISEASE. 2. MILD INCREASED ACTIVITY WITHIN THE STERNUM SUSPICIOUS FOR METASTATIC DISEASE, UNCHANGED. 3. MILD FOCUS OF INCREASED ACTIVITY IN THE A LEFT LOWER LATERAL RIB CONSISTENT WITH EITHER METASTATIC DISEASE OR POSTTRAUMATIC CHANGE. CPT II Codes: 3570F
[2016-11-19] MEDS: Collagenase 250 MG/GM OINT* 30 GM TOPICAL SCH (15:53)
[2016-11-19] MEDS: Enoxaparin(*) 40 MG/0.4 ML SYR SUBCUT SCH (15:53)
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
[2016-11-20] MEDS: oxyCODONE TAB* 5 MG TAB PO SCH ×8 (00:20→23:33)
[2016-11-20 06:53] LABS: Hematocrit 29 % (35-47); Hemoglobin 9.6 g/dl (12.0-16.0); Mean Corpuscular HGB Conc 33 g/dl (31-36); Mean Corpuscular Hemoglobin 30 pg (27-31); Mean Corpuscular Volume 92 fL (80-97); Mean Platelet Volume 9 um3 (7.4-10.4); Red Blood Count 3.17 10^6/ul (4.0-5.4); Red Cell Distribution Width 17 % (10.5-15)
[2016-11-20 07:05] LABS: Albumin 2.7 g/dL (3.2-5.2); BUN/Creatinine Ratio 22.6 (8-20); C Reactive Protein 168.87 mg/L (< 5.00); Calcium 9.7 mg/dL (8.6-10.3); EGFR African American 124.2 (>60); EGFR Non-African American 96.6 (>60); Globulin 3.8 g/dL (2-4); Magnesium 1.5 mg/dL (1.9-2.7); Phosphorus 3.8 mg/dL (2.5-5.0); Potassium 3.7 mmol/L (3.5-5.0); Total Bilirubin 0.5 mg/dL (0.2-1.0); Total Protein 6.5 g/dL (6.4-8.9)
[2016-11-20 07:20] LABS: TSH (Thyroid Stimulating Horm) 1.38 mcIU/mL (0.34-5.60)
[2016-11-20] MEDS: Acetaminophen TAB* 325 MG PO SCH ×3 (08:12→21:04)
[2016-11-20] MEDS: Gabapentin CAP(*) 300 MG PO SCH ×3 (08:13→21:04)
[2016-11-20] MEDS: Dronabinol CAP* 2.5 MG PO SCH ×4 (08:13→17:54)
[2016-11-20] MEDS: Carvedilol TAB* 3.125 MG PO SCH ×2 (09:50→18:23)
[2016-11-20] MEDS: lamoTRIgine TAB(*) 100 MG PO SCH (09:51)
[2016-11-20] MEDS: Folic Acid TAB* 1 MG PO SCH (09:53)
[2016-11-20] MEDS: Amiodarone TAB* 200 MG PO SCH ×2 (09:54→21:03)
[2016-11-20] MEDS: Zinc Sulfate CAP* 220 MG PO SCH (09:55)
[2016-11-20] MEDS: Sulfamethox/Trimethoprim SS 400/80* TAB PO SCH ×2 (12:13→21:03)
[2016-11-20] MEDS: Collagenase 250 MG/GM OINT* 30 GM TOPICAL SCH (13:57)
[2016-11-20] MEDS: Enoxaparin(*) 40 MG/0.4 ML SYR SUBCUT SCH (14:56)
[2016-11-21] MEDS: oxyCODONE TAB* 5 MG TAB PO SCH ×8 (01:11→22:54)
[2016-11-21 05:45] LABS: Hematocrit 28 % (35-47); Hemoglobin 9.1 g/dl (12.0-16.0); Mean Corpuscular HGB Conc 33 g/dl (31-36); Mean Corpuscular Hemoglobin 30 pg (27-31); Mean Corpuscular Volume 92 fL (80-97); Mean Platelet Volume 9 um3 (7.4-10.4); Red Blood Count 3.04 10^6/ul (4.0-5.4); Red Cell Distribution Width 18 % (10.5-15); White Blood Count 15.8 10^3/ul (3.5-10.8)
[2016-11-21 05:59] LABS: BUN/Creatinine Ratio 19.7 (8-20); C Reactive Protein 161.19 mg/L (< 5.00); Calcium 9.7 mg/dL (8.6-10.3); EGFR African American 106.3 (>60); EGFR Non-African American 82.6 (>60); Potassium 3.9 mmol/L (3.5-5.0)
[2016-11-21] MEDS ORDERED: Ondansetron INJ* 2 MG/ML VIAL ONE (08:21)
[2016-11-21] MEDS ORDERED: Prochlorperazine TAB* 10 MG PO PRN (08:32)
[2016-11-21] MEDS: Acetaminophen TAB* 325 MG PO SCH ×3 (08:36→21:45)
[2016-11-21] MEDS: Dronabinol CAP* 2.5 MG PO SCH ×3 (08:38→16:49)
[2016-11-21] MEDS: Gabapentin CAP(*) 300 MG PO SCH ×3 (08:39→21:47)
[2016-11-21] MEDS: Sulfamethox/Trimethoprim SS 400/80* TAB PO SCH ×2 (08:40→21:44)
[2016-11-21] MEDS: Carvedilol TAB* 3.125 MG PO SCH ×2 (09:53→15:18)
[2016-11-21] MEDS: lamoTRIgine TAB(*) 100 MG PO SCH (09:54)
[2016-11-21] MEDS: Folic Acid TAB* 1 MG PO SCH (09:54)
[2016-11-21] MEDS: Zinc Sulfate CAP* 220 MG PO SCH (09:54)
[2016-11-21] MEDS: Amiodarone TAB* 200 MG PO SCH ×2 (09:54→21:47)
[2016-11-21] MEDS: Enoxaparin(*) 40 MG/0.4 ML SYR SUBCUT SCH (12:30)
[2016-11-21] MEDS: Collagenase 250 MG/GM OINT* 30 GM TOPICAL SCH (15:16)
[2016-11-22] MEDS: oxyCODONE TAB* 5 MG TAB PO SCH ×7 (02:10→19:43)
[2016-11-22 05:17] LABS: Hematocrit 28 % (35-47); Hemoglobin 9.1 g/dl (12.0-16.0); Mean Corpuscular HGB Conc 33 g/dl (31-36); Mean Corpuscular Hemoglobin 30 pg (27-31); Mean Corpuscular Volume 92 fL (80-97); Mean Platelet Volume 8 um3 (7.4-10.4); Red Blood Count 3.04 10^6/ul (4.0-5.4); Red Cell Distribution Width 18 % (10.5-15); White Blood Count 14.6 10^3/ul (3.5-10.8)
[2016-11-22 05:36] LABS: Albumin 2.7 g/dL (3.2-5.2); BUN/Creatinine Ratio 19.7 (8-20); C Reactive Protein 151.13 mg/L (< 5.00); Calcium 9.7 mg/dL (8.6-10.3); EGFR African American 98.2 (>60); EGFR Non-African American 76.4 (>60); Globulin 3.8 g/dL (2-4); Magnesium 1.7 mg/dL (1.9-2.7); Potassium 4.1 mmol/L (3.5-5.0); Total Bilirubin 0.4 mg/dL (0.2-1.0); Total Protein 6.5 g/dL (6.4-8.9)
[2016-11-22] MEDS: Acetaminophen TAB* 325 MG PO SCH ×3 (09:20→20:30)
[2016-11-22] MEDS: Gabapentin CAP(*) 300 MG PO SCH ×3 (09:20→20:31)
[2016-11-22] MEDS: Sulfamethox/Trimethoprim SS 400/80* TAB PO SCH ×2 (09:22→20:31)
[2016-11-22] MEDS: Dronabinol CAP* 2.5 MG PO SCH ×3 (10:41→16:49)
[2016-11-22] MEDS: Carvedilol TAB* 3.125 MG PO SCH ×2 (10:43→16:42)
[2016-11-22] MEDS: Amiodarone TAB* 200 MG PO SCH ×2 (10:44→20:31)
[2016-11-22] MEDS: Zinc Sulfate CAP* 220 MG PO SCH (10:44)
[2016-11-22] MEDS: lamoTRIgine TAB(*) 100 MG PO SCH (10:45)
[2016-11-22] MEDS: Folic Acid TAB* 1 MG PO SCH (10:50)
[2016-11-22] MEDS: Collagenase 250 MG/GM OINT* 30 GM TOPICAL SCH (10:51)
[2016-11-22] MEDS: Enoxaparin(*) 40 MG/0.4 ML SYR SUBCUT SCH (15:25)
[2016-11-23] MEDS: oxyCODONE TAB* 5 MG TAB PO SCH ×10 (00:27→23:09)
[2016-11-23] MEDS: Acetaminophen TAB* 325 MG PO SCH ×3 (08:11→21:25)
[2016-11-23] MEDS: Dronabinol CAP* 2.5 MG PO SCH ×3 (08:12→17:01)
[2016-11-23] MEDS: Gabapentin CAP(*) 300 MG PO SCH ×3 (08:13→21:26)
[2016-11-23] MEDS: Zinc Sulfate CAP* 220 MG PO SCH (09:25)
[2016-11-23] MEDS: Folic Acid TAB* 1 MG PO SCH (09:25)
[2016-11-23] MEDS: Carvedilol TAB* 3.125 MG PO SCH ×2 (09:26→17:02)
[2016-11-23] MEDS: lamoTRIgine TAB(*) 100 MG PO SCH (09:26)
[2016-11-23] MEDS: Amiodarone TAB* 200 MG PO SCH ×2 (09:26→21:22)
[2016-11-23] MEDS: Collagenase 250 MG/GM OINT* 30 GM TOPICAL SCH (09:26)
[2016-11-23] MEDS: Sulfamethox/Trimethoprim SS 400/80* TAB PO SCH ×2 (09:34→21:23)
[2016-11-23] MEDS: Enoxaparin(*) 40 MG/0.4 ML SYR SUBCUT SCH (12:19)
[2016-11-23 19:13] LABS: Zinc 0.55 mcg/mL (0.66-1.10)
[2016-11-24] MEDS: oxyCODONE TAB* 5 MG TAB PO SCH ×5 (02:35→12:12)
[2016-11-24] MEDS: Dronabinol CAP* 2.5 MG PO SCH ×2 (08:43→12:12)
[2016-11-24] MEDS: Gabapentin CAP(*) 300 MG PO SCH (08:44)
[2016-11-24] MEDS: Acetaminophen TAB* 325 MG PO SCH (08:44)
[2016-11-24] MEDS: Carvedilol TAB* 3.125 MG PO SCH (08:45)
[2016-11-24] MEDS: lamoTRIgine TAB(*) 100 MG PO SCH (08:46)
[2016-11-24] MEDS: Amiodarone TAB* 200 MG PO SCH (08:46)
[2016-11-24] MEDS: Folic Acid TAB* 1 MG PO SCH (08:46)
[2016-11-24] MEDS: Collagenase 250 MG/GM OINT* 30 GM TOPICAL SCH (08:47)
[2016-11-24] MEDS: Zinc Sulfate CAP* 220 MG PO SCH (08:50)
[2016-11-24] MEDS: Sulfamethox/Trimethoprim SS 400/80* TAB PO SCH (08:50)
[2016-11-24] MEDS: Enoxaparin(*) 40 MG/0.4 ML SYR SUBCUT SCH (12:13)
[2016-11-24 12:28] VITALS: BP 96/58
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
== END 2016-11-24 13:35 | disposition home or self-care (01) | DRG 515 ==
LOC: ED 21:46 → MEDTELE 10-27 03:25 → OBSVTOIN 10-29 09:50 → MED 11-04 15:18 → MEDTELE 11-07 10:57 → MED 11-14 13:23 → ICU 11-16 08:43 → MED 11-18 09:16
PROVIDERS: ADMIT Hospitalist; ATTEND Internal Medicine Geriatric Medicine
PROC: 3E0336Z Introduction of Nutritional Substance into Peripheral Vein, Percutaneous Approach (ICD-10-PCS; 2016-11-05)
PROC: 0QB10ZZ Excision of Sacrum, Open Approach (ICD-10-PCS; 2016-11-06)
PROC: 30233N1 Transfusion of Nonautologous Red Blood Cells into Peripheral Vein, Percutaneous Approach (ICD-10-PCS; principal; 2016-11-06 09:45)
DX: M46.28 Osteomyelitis of vertebra, sacral and sacrococcygeal region (principal); Q28.2 Arteriovenous malformation of cerebral vessels; N17.9 Acute kidney failure, unspecified; I47.2 Ventricular tachycardia; J90 Pleural effusion, not elsewhere classified; J18.9 Pneumonia, unspecified organism; R64 Cachexia; I42.8 Other cardiomyopathies; C78.7 Secondary malignant neoplasm of liver and intrahepatic bile duct; I50.22 Chronic systolic (congestive) heart failure; E87.1 Hypo-osmolality and hyponatremia; E46 Unspecified protein-calorie malnutrition; Z68.1 Body mass index [BMI] 19.9 or less, adult; Z95.810 Presence of automatic (implantable) cardiac defibrillator; Z88.8 Allergy status to other drugs, medicaments and biological substances; Z88.1 Allergy status to other antibiotic agents; E05.90 Thyrotoxicosis, unspecified without thyrotoxic crisis or storm; E78.00 Pure hypercholesterolemia, unspecified; Z85.118 Personal history of other malignant neoplasm of bronchus and lung; Z85.028 Personal history of other malignant neoplasm of stomach; M19.90 Unspecified osteoarthritis, unspecified site; F41.9 Anxiety disorder, unspecified; F32.9 Major depressive disorder, single episode, unspecified; Z85.3 Personal history of malignant neoplasm of breast; G89.29 Other chronic pain; M81.0 Age-related osteoporosis without current pathological fracture; M85.80 Other specified disorders of bone density and structure, unspecified site; Z80.3 Family history of malignant neoplasm of breast; Z87.891 Personal history of nicotine dependence; Z82.49 Family history of ischemic heart disease and other diseases of the circulatory system; E87.5 Hyperkalemia; E83.42 Hypomagnesemia; F31.9 Bipolar disorder, unspecified; E04.2 Nontoxic multinodular goiter; D63.8 Anemia in other chronic diseases classified elsewhere; G62.9 Polyneuropathy, unspecified; L89.152 Pressure ulcer of sacral region, stage 2; R63.0 Anorexia; R10.2 Pelvic and perineal pain
CPT/HCPCS: 36415; 71010; 71250; 71260; 71275; 72192; 74177; 78315; 80048; 80053; 80061; 80202; 83605; 83735; 83880; 84100; 84134; 84145; 84443; 84484; 84630; 85025; 85027; 85049; 85362; 85379; 85384; 85610; 85652; 85730; 86140; 86141; 86850; 86900; 86901; 86922; 87040; 87045; 87046; 87070; 87077; 87086; 87186; 87205; 87640; 87641; 87899; 88304; 88311; 93005; 93306; 93308; 94640; 94760; 94762; A9270-GY; A9503; J0348; J0610; J1170; J1642; J1644; J1650; J1940; J2001; J2185; J2250; J2270; J2405; J2543; J2704; J3370; J3480; P9016; Q9967

== ENCOUNTER → 2017-01-02 07:56 | Day surgery (SDC) | payer MEDICARE ==
[~2017-01-02 07:56] MED LIST: Buffered Lidocaine 0.9% SYRIN* 5 ML/SYR SYRINGE INTRADERM ONE; Buffered Lidocaine 0.9% SYRIN* 5 ML/SYR SYRINGE ONE; Bupivacaine 0.5% W/EPI SDV* 30 ML VIAL ONE; Famotidine IV* 10 MG/ML 2 ML (20 mg) IV ONE; Famotidine IV* 10 MG/ML 2 ML (20 mg) ONE; HYDROmorphone* 1 MG/ML 1 ML SYR ONE; KETAMINE HCL* 50 MG/ML 10 ML VIAL ONE; Midazolam* 1 MG/ML 5 ML VIAL (5 MG) ONE; Morphine INJ* 2 MG/ML 1 ML SYRINGE IV PRN; PROCHLORPERAZINE INJ 5 MG/ML 2 ML VIAL IV PRN; oxyCODONE TAB* 5 MG TAB ONE
--- NOTE | 2017-01-02 10:54 | SURGPN ---
Brief Operative Note - Surgery Procedures: Procedures Pre-OP Diagnoses: sacral ulcer, osteomyelitis Post-op Diagnosis: same Procedure: excisional debridement of sacral ulcer, placement of NPWT Surgeon: Jeet Asst: Anethesia: Local Mac [place] EBL: minimal IVF: minimal crystalloid Specimen: 1. culture aerobic, anaerobic 2. sacral bone Drains: KCI vacuum dressing
[2017-01-02 12:06] VITALS: BP 94/48
--- NOTE | 2017-01-02 16:25 | OP ---
CC: Dr. Tran Jc; [facility] * DATE OF OPERATION: 01/02/17 - [facility] DATE OF : 52 SURGEON: Enzo Marcano MD FLAKEBOARD LINE TENDER: FAMILIA Chapa Student. ANESTHESIOLOGIST: Dr. Mathis. ANESTHESIA: Local MAC anesthesia. PRE-OP DIAGNOSIS: Sacral ulcer and osteomyelitis. POST-OP DIAGNOSIS: Sacral ulcer and osteomyelitis. OPERATIVE PROCEDURE: Excisional debridement of sacral ulcer and placement of negative pressure wound therapy. ESTIMATED BLOOD LOSS: Minimal. IV FLUIDS: Minimal crystalloid fluid given. SPECIMENS: 1. Culture, both aerobic and anaerobic. 2. Sacral bone. DRAINS: KCI vacuum dressings at 125 mmHg. The patient tolerated the procedure well, was transferred to PACU in stable condition. INDICATIONS: Ms. Stanton is a 66-year-old female who follows at the wound center with sacral ulcer. She has been seen there for 4 weeks and on most recent visit , was noted to have worsening sacral ulcer that measured 9.5 x 6 x 1.3 cm deep with undermining throughout and necrotic tissue. It is tender and a decision was made for debridement in the operating room. I outlined the details of the procedure to both her and her , going over the risks, benefits, and alternatives, and then possible need for additional debridement. The patient had been placing wet-to- dry dressings at the site as the vacuum dressing has been held. DESCRIPTION OF PROCEDURE: The patient was identified on the day of surgery and taken to the operating room on the stretcher, given gentle sedation, and placed in a left lateral decubitus position. The sacral ulcer was prepped with Betadine and she was draped, and a time-out was performed. Measurement of the ulcer measured about 9.5 x 6 x 1.3 cm again. It showed good granulation tissue along the left side with a good skin edge and minimal undermining. However, on the right side, we saw a patch of necrotic skin and subcutaneous tissue that needed to be removed as well. We saw exposed bone at the base of this along with necrotic muscle and fat. Sharp dissection was used to debride the eschar at the 5 o'clock position on the ulcer, taking this down to some bleeding along the skin and subcutaneous tissue. Bleeding was controlled with electrocautery. We extended this to the base of the ulcer where necrotic muscle that had been blackened was debrided. We got into an area of more loose fibrinous almost necrotic fat and muscle tissue. This was cultured, both aerobic and anaerobic, and at this time, we entered into a cavity extending towards the right ischium that measured approximately 10 cm in depth with a wide opening. This was curetted, but no significant necrotic tissue was in this area. There was no pus. Minimal loculations were broken up. The exposed bone along the sacrum was debrided with a rongeur. The wound was then irrigated. Hemostasis achieved. Postprocedure measurements was approximately 9.5 x 8.5 cm x 1.5 cm deep and extended in the tunnel at the 5 o' clock position of approximately 10 cm that had been unknown prior. Foam dressing was cut to size and placed into the tunnel as well as the wound and connected to a I vacuum dressing and set to a pressure of 125 mmHg. The patient tolerated the procedure well, was transferred to PACU in stable condition. [id number]/[facility] #: [id number] ALECIA
== END | disposition home or self-care (01) ==
LOC: OR 07:56
PROVIDERS: ATTEND Surgery
DX: M46.28 Osteomyelitis of vertebra, sacral and sacrococcygeal region (principal); L98.493 Non-pressure chronic ulcer of skin of other sites with necrosis of muscle; I42.9 Cardiomyopathy, unspecified; Z85.3 Personal history of malignant neoplasm of breast; Z85.118 Personal history of other malignant neoplasm of bronchus and lung; F31.9 Bipolar disorder, unspecified; Z88.4 Allergy status to anesthetic agent; Z88.1 Allergy status to other antibiotic agents; Z88.8 Allergy status to other drugs, medicaments and biological substances; Z85.01 Personal history of malignant neoplasm of esophagus
CPT/HCPCS: 87070; 87073; 87076; 87077; 87186; 87205; 88304; 88311; A9270-GY; J1170; J2250

== ENCOUNTER 2017-03-12 09:23 | Day surgery (SDC) | payer MEDICARE ==
[~2017-03-12 09:23] MED LIST changes: -Buffered Lidocaine 0.9% SYRIN* 5 ML/SYR SYRINGE ONE; -Bupivacaine 0.5% W/EPI SDV* 30 ML VIAL ONE; -Famotidine IV* 10 MG/ML 2 ML (20 mg) IV ONE; -Famotidine IV* 10 MG/ML 2 ML (20 mg) ONE; -HYDROmorphone* 1 MG/ML 1 ML SYR ONE; -KETAMINE HCL* 50 MG/ML 10 ML VIAL ONE; -Midazolam* 1 MG/ML 5 ML VIAL (5 MG) ONE; -Morphine INJ* 2 MG/ML 1 ML SYRINGE IV PRN; +NS 0.9% 1000 ML* 1,000 ML IV SCH; -PROCHLORPERAZINE INJ 5 MG/ML 2 ML VIAL IV PRN; -oxyCODONE TAB* 5 MG TAB ONE
[2017-03-12] MEDS ORDERED: Buffered Lidocaine 0.9% SYRIN* 5 ML/SYR SYRINGE ONE (09:40)
[2017-03-12] MEDS ORDERED: fentaNYL* 50 MCG/ML 2 ML VIAL (100 MCG VIAL) ONE (10:20)
[2017-03-12] MEDS ORDERED: Midazolam* 1 MG/ML 2 ML VIAL (2 MG) ONE (10:20)
[2017-03-12] MEDS ORDERED: Famotidine IV* 10 MG/ML 2 ML (20 mg) ONE (10:43)
[2017-03-12] MEDS ORDERED: Lidocaine 1% INJ* 10 MG/ML 30 ML SDV ONE (11:11)
[2017-03-12] MEDS ORDERED: Bupivacaine 0.5% SDV PF* 30 ML VIAL ONE (11:11)
[2017-03-12] MEDS ORDERED: Lidocaine 1.5% EPI 1:200,000* 30 ML SDV ONE (11:11)
[2017-03-12] MEDS ORDERED: Bupivacaine 0.25% SDV* 30 ML ONE (11:15)
[2017-03-12] MEDS ORDERED: KETAMINE HCL* 50 MG/ML 10 ML VIAL ONE (11:20)
[2017-03-12] MEDS ORDERED: Propofol* 10 MG/ML 20 ML BTL IV PUSH ONE (11:20)
[2017-03-12] MEDS ORDERED: Lidocaine 2% PF * 5 ML VIAL ONE (11:20)
[2017-03-12] MEDS ORDERED: Acetaminophen TAB* 325 MG PO PRN (11:24)
[2017-03-12] MEDS ORDERED: Ondansetron INJ* 2 MG/ML VIAL IV PRN (11:24)
[2017-03-12] MEDS ORDERED: HYDROmorphone INJ* 2 MG/ML CARPUJECT SYRINGE IV PRN (11:24)
[2017-03-12] MEDS ORDERED: diPHENhydraMINE IV* 50 MG/ML 1 ml VIAL (BENADRYL) ONE (11:38)
[2017-03-12] MEDS ORDERED: Phenylephrine IV* 40 MCG/ML 10 ML SYRINGE ONE (11:38)
--- NOTE | 2017-03-12 11:55 | SURGPN ---
Brief Operative Note - Surgery Procedures: Procedures Pre-OP Diagnoses: sacral osteomyelitis Post-op Diagnosis: same Procedure: excisional debridement of sacral ulcer Surgeon: Jeet Asst: none Anethesia: Local Bang Clemons EBL: minimal IVF: crystalloid Specimen: portion of sacral bone Drains: none
[2017-03-12 14:04] VITALS: BP 137/71
--- NOTE | 2017-03-30 09:17 | OP ---
CC: Tran Jc MD; [facility]; [facility] OPERATIVE REPORT: DATE OF OPERATION: 03/12/17 DATE OF : 52 SURGEON: Enzo Marcano MD. BONE PULLER: None. ANESTHESIOLOGIST: Dr. Clemons. ANESTHESIA: Local MAC anesthesia. PRE-OP DIAGNOSIS: Sacral osteomyelitis. POST-OP DIAGNOSIS: Sacral osteomyelitis. OPERATIVE PROCEDURE: Excisional debridement of sacral ulcer. ESTIMATED BLOOD LOSS: Minimal. FLUIDS: Crystalloid fluid given. SPECIMEN: Portion of sacral bone. DRAINS: None. Negative pressure wound therapy treatment applied to the site. DESCRIPTION OF PROCEDURE: The patient was identified in the preoperative area, case discussed with junaid girard and her again. Consent was signed. She was then brought to the operating room and placed in decubitus positioning after gentle sedation was given. The patient's sacral ulcer was then prepp ed with Betadine and a time out was performed. Examination of the sacral ulcer showed an area at the 10 to 11 o'clock position with loosely adhered pale tissue with exposed bone. The rest of the wound, which measured approximately 4 x 5 cm x 1 cm d eep was otherwise intact with good pink granulation tissue. The decision was made to debride the sit e of the exposed bone. This was performed with a rongeur device taking a piece of bone and we used a rasp to clear up the area, to smooth down the areas that were near to exposure. The wound was copiou sly irrigated and approximately 2 small cm2 of the entire ulcer was affected in this procedure, takin g off exposed sacral bone. A portion of bone was sent for specimen. After copiously irrigating the wound, hemostasis was achieved, and a negative pressure wound therapy was reapplied to a pressure of 75 mmHg. The patient tolerated procedure well, was transferred to the PACU in stable condition. [id number]/[facility] #: [id number]
== END 2017-03-12 13:25 | disposition home or self-care (01) ==
LOC: OR 09:23
PROVIDERS: ATTEND Surgery
DX: M46.28 Osteomyelitis of vertebra, sacral and sacrococcygeal region (principal); I50.9 Heart failure, unspecified; Z95.810 Presence of automatic (implantable) cardiac defibrillator; L89.154 Pressure ulcer of sacral region, stage 4; M62.81 Muscle weakness (generalized); C15.9 Malignant neoplasm of esophagus, unspecified; E44.0 Moderate protein-calorie malnutrition; Z85.118 Personal history of other malignant neoplasm of bronchus and lung; Z88.5 Allergy status to narcotic agent; Z88.8 Allergy status to other drugs, medicaments and biological substances; Z88.1 Allergy status to other antibiotic agents
CPT/HCPCS: 88304; 88311; J1200; J2001; J2250; J2704; J3010

== ENCOUNTER 2017-04-26 06:26 | Day surgery (SDC) | payer MEDICARE ==
--- NOTE | 2017-04-24 20:24 | HP ---
CC: Tran Jc * HISTORY AND PHYSICAL: DATE OF PLANNED ADMISSION AND SURGERY: 04/26/17 HISTORY OF PRESENT ILLNESS: Mrs. Stanton is a 66-year-old white female with a large left bladder mass, bilateral hydronephrosis for cystoscopy, bladder biopsies, placement of bilateral ureteral stents. Please refer to the detailed history and physical from the patient's air technician Dr. Tran Jc dated 04/02/17 detailing her history, medications, and physical exam. Mrs. Stanton is a very unfortunate 66-year-old lady who has carcinoma of the lung, history of carcinoma of the distal esophagus,status post esophagectomy and colonic pull through who had been managed here and at [facility]. She seems to have failed her chemotherapy and her disease is advancing, and was noted to have metastatic disease. She also had developed a bad decubitus ulcer and had required debridement by Dr. Marcano recently. Her disease has been advancing and the patient has been becoming weaker and cachectic. On the recent CT of the abdomen and pelvis, she was noted to have bilateral hydronephrosis and there was a large mass in the left renal pelvis invading the left bladder wall. She had a cystoscopy in the office, which showed a large mass in the left base, left trigone, and the left lateral blladder wall. The mass did not have the appearance of a transitional cell carcinoma, but looked like an extrinsic pelvic mass invading the bladder wall. I had several discussions with Dr. Tran Jc and with Mrs. Stanton regarding the options of management. The patient apparently wants to go on palliative care and she would like to have bilateral ureteral stents placement to correct the hydronephrosis to avoid obstruction of her ureters and uremia. The plan therefore is to proceed with cystoscopy, bladder biopsies and bilateral ureteral stents placement. The left ureteral stent might not be possible to place considering the size of the mass and the possible obstruction of her left ureter. The bladder biopsies will be performed for diagnostic purposes. I discussed the above plans with the patient, her and with Dr. Tran Jc. Please again refer to Dr. Jc's note for details of her histories and medications and allergies. The patient has an AICD. This will be deactivated in the holding area in anticipation of the biopsy and the possible use of cautery. [id number]/[facility] #: [id number] [facility]
[~2017-04-26 06:26] MED LIST changes: +Famotidine IV* 10 MG/ML 2 ML (20 mg) IV ONE; +HYDROmorphone INJ* 1 MG/ML CARPUJECT SYRINGE IV PRN; -NS 0.9% 1000 ML* 1,000 ML IV SCH; +PROCHLORPERAZINE INJ 5 MG/ML 2 ML VIAL IV PRN; +oxyCODONE TAB* 5 MG TAB PO PRN
[2017-04-26] MEDS ORDERED: Famotidine IV* 10 MG/ML 2 ML (20 mg) ONE (07:02)
[2017-04-26] MEDS ORDERED: Levofloxacin 500 MG IVPREMIX(* 500 MG/100 ML BAG IVPB ONE (07:02)
[2017-04-26] MEDS ORDERED: Midazolam* 1 MG/ML 10 ML VIAL (10 MG) ONE (07:34)
[2017-04-26] MEDS ORDERED: HYDROmorphone INJ* 1 MG/ML CARPUJECT SYRINGE ONE (07:34)
[2017-04-26] MEDS ORDERED: KETAMINE HCL* 50 MG/ML 10 ML VIAL ONE (07:34)
[2017-04-26] MEDS ORDERED: Atracurium* 10 MG/ML 10 ML VIAL ONE (07:34)
[2017-04-26] MEDS ORDERED: Iohexol 180 (CONTRAST) 10 ML SDV IV ONE (08:04)
[2017-04-26] MEDS ORDERED: Fluorescein 10% INJ* 100 MG/ML AMP ONE (08:44)
[2017-04-26] MEDS ORDERED: Flumazenil* 0.1 MG/ML 5 ML MDV ONE (09:01)
[2017-04-26] MEDS ORDERED: Lidocaine 2% PF * 5 ML VIAL ONE (09:01)
[2017-04-26] MEDS ORDERED: Neostigmine Methylsulfate* 2 MG/2 ML SYRINGE ONE (09:01)
[2017-04-26] MEDS ORDERED: Propofol* 10 MG/ML 20 ML BTL IV PUSH ONE (09:01)
[2017-04-26] MEDS ORDERED: Glycopyrrolate IV* 0.2 MG/ML 1 ML VIAL ONE ×2 (09:01→09:03)
[2017-04-26] MEDS ORDERED: EPHEDrine (Pressors)* 50 MG/ML VIAL ONE (09:01)
[2017-04-26] MEDS ORDERED: Phenylephrine INJ* 10 MG/ML 1 ML VIAL (10 MG) ONE (09:01)
--- NOTE | 2017-04-26 09:43 | RAD ---
INDICATION: Cystoscopy COMPARISONS: CT dated April 18, 2017 TECHNIQUE: Fluoroscopy was provided for a retrograde pyelogram and stent placement. Total fluoroscopy time is: 5 seconds FINDINGS: Contrast is noted within the right renal collecting system which is mildly dilated. A ureteral stent is noted. IMPRESSION: FLUOROSCOPY WAS PROVIDED FOR A RETROGRADE PYELOGRAM AND STENT PLACEMENT CPT II Codes: 6045F
[2017-04-26 10:28] VITALS: BP 119/74
--- NOTE | 2017-04-26 12:06 | OP ---
CC: Tran Jc MD OPERATIVE REPORT: DATE OF OPERATION: 04/26/17 DATE OF : 52 SURGEON: Adonis Josue MD ANESTHESIOLOGIST: Dr. Mikey Mathis. ANESTHESIA: General. PRE-OP DIAGNOSES: 1. Metastatic esophageal carcinoma. 2. Lung carcinoma. 3. Bilateral hydronephrosis. 4. Left pelvic mass. POST-OP DIAGNOSES: 1. Metastatic esophageal carcinoma. 2. Lung carcinoma. 3. Bilateral hydronephrosis. 4. Left pelvic mass. OPERATIVE PROCEDURE: 1. Cystoscopy. 2. Right retrograde pyelography and placement of right ureteral stent (black silicon, 24 cm, 7-Micronesian). INDICATION FOR PROCEDURE: Ms. Stanton is a 66-year-old white female with advanced metastatic esophageal carcinoma and lung carcinoma, who has progressed in spite of extensive surgery and chemotherapy. On her recent CT of the abdomen and pelvis, she noted to have ascites, bilateral hydronephrosis, thickening of the colonic pull through, and a large left pelvic mass invading into the left base the left lateral bladder wall. The patient and her family have decided to forgo any additional aggressive treatments; however, they felt that draining the kidneys in a noninvasive way might improve her quality of life. The patient is admitted for the above procedure. PATHOLOGY: On bimanual exam, there was a large mass noted in the left pelvis involving the bladder wall. At cystoscopy, the right ureteral orifice was free and there was no bladder lesion seen on the right side of the bladder. There was a large mass occupying the left trigone, left base and left lateral bladder wall. The mass did not look like the typical transitional cell carcinoma, but was consistent with the appearance of an extravesical neoplasm invading the bladder wall. Upon right retrograde pyelography, the ureter was tortuous and obstructed in its proximal third with [id number] hydronephrosis. The left ureteral orifice could not be identified due to the invading pelvic mass, in spite of giving the patient intravenous fluorescein. DESCRIPTION OF PROCEDURE: After successful general anesthesia, the patient was placed in the lithotomy position and was prepped and draped for cystoscopy. Pelvic exam was performed. Cystoscopy was then performed. The bladder was carefully inspected and the above findings were noted. A flexible tip guidewire was then introduced into the right orifice. It could not be introduced beyond the proximal third of the ureter. Retrograde pyelography was then performed demonstrating the pathology and the tortuosity and narrowing of the proximal ureter. A Glidewire was then introduced and was successfully introduced through the tortuosity and narrowing of the ureter and straightening it up. The Glidewire was then replaced with a guidewire through an open-ended catheter. A black silicon stent, 24 cm long, 7-Micronesian was then successfully introduced over the guidewire and positioned with the proximal end coiling in the renal pelvis and the distal end coiling inside the bladder. There was good drainage of contrast from the kidney. Attention was then directed to the left kidney. The left orifice could not be identified due to the invasion of the bladder by the pelvic mass. 0.5 cc of fluorescein was given intravenously. No efflux was noted from the left orifice , it could not be located. Decision had to be made whether to perform transurethral resection of the left trigone to try to identify the orifice. Considering the patient's very poor prognosis, the plan for comfort and non invasive future care, the fact that she already have drainage of the Rt kidney and the fact that resection of the tumor will give her more bladder symptoms and still might not be successful in placement of the left stent, decision was made not to proceed with a resection and to be satisfied with the drainage of the right kidney. The cystoscope was then removed. The patient tolerated the procedure well and left the operating room in good condition. [id number]/[facility] #: [id number] [facility]
== END 2017-04-26 11:44 | disposition home or self-care (01) ==
LOC: OR 06:26
PROVIDERS: ATTEND Urology
DX: N13.1 Hydronephrosis with ureteral stricture, not elsewhere classified (principal); C15.9 Malignant neoplasm of esophagus, unspecified; C34.90 Malignant neoplasm of unspecified part of unspecified bronchus or lung; C79.89 Secondary malignant neoplasm of other specified sites; R18.8 Other ascites
CPT/HCPCS: 74420; A9270-GY; C1876; J1170; J1956; J2250; J2704